=== PATIENT | male | born 1960 | race Hispanic/Latino ===

== ENCOUNTER 2017-03-05 11:09 | Inpatient (IN) | payer MEDICARE, OTHER ==
[2017-03-05 11:09] VITALS: BMI 35.2
[2017-03-05 12:42] LABS: EOS # 0.3 K/uL (0.0-0.7); LYMPH # 1.1 K/uL (1.0-4.3); MEAN CORPUSCULAR HEMOGLOBIN 23.5 pg (27.0-31.0); MEAN PLATELET VOLUME 6.6 fL (7.2-11.7); MONO # 0.9 K/uL (0.0-0.8)
[2017-03-05 12:47] LABS: BASO % 0.4 % (0.0-2.0); EOS % 3.1 % (0.0-4.0); HEMATOCRIT 19.8 % (35.0-51.0); MEAN CORPUSCULAR HGB CONC 31.6 g/dL (33.0-37.0); MONO % 8.6 % (0.0-10.0); NRBC % 0.1 % (0.0-2.0); RED CELL DISTRIBUTION WIDTH 18.1 % (11.5-14.5); WHITE BLOOD COUNT 10.2 K/uL (4.8-10.8)
[2017-03-05 12:52] LABS: CHLORIDE 94 mmol/L (98-107); MEAN CELL VOLUME 74.3 fL (80.0-94.0); POTASSIUM 5.1 mmol/L (3.6-5.2); SODIUM 129 mmol/L (132-148)
[2017-03-05 12:54] LABS: AST/SGOT 27 U/L (17-59); BILIRUBIN,TOTAL 0.3 mg/dL (0.2-1.3); CARBON DIOXIDE 19 mmol/L (22-30); GFR AFRICAN-AMERICAN 19
[2017-03-05 12:55] LABS: ALB/GLOB RATIO 0.8 (1.0-2.1); ALKALINE PHOSPHATASE 85 U/L (38-126); ALT/SGPT 21 U/L (21-72); BLOOD UREA NITROGEN 51 mg/dL (9-20); CALCIUM 7.7 mg/dl (8.6-10.4); GLUCOSE,RANDOM 203 mg/dL (75-110); TOTAL PROTEIN 6.5 g/dL (6.3-8.3)
--- NOTE | 2017-03-05 13:04 | C.PDOC ---
History Of Present Illness 56 y/o male, with past medical history of DM, CHF, renal insufficiency, and HTN , presents to emergency department with multiple complaints. As per pt, and prior charts, patient was evaluated at [facility] 2 days ago and was found to have fluid overload, anemia, likely worsening renal function, and questionable pneumonia. Patient left the hospital AMA on 03/03/17. Patient notes he was notified yesterday of blood culture with (+) staph aureus. Patient returns today for admission. Patient currently c/o cough, shortness of breath, shoulder pain, and foot pain. Denies fevers, chills, chest pain, nausea, vomiting, diarrhea, or other associated symptoms. Time Seen by Provider: 03/05/17 12:09 Chief Complaint (Nursing): Abnormal Labs History Per: Patient History/Exam Limitations: no limitations Onset/Duration Of Symptoms: Days Current Symptoms Are (Timing): Still Present Recent travel outside of the [place]: No Past Medical History Reviewed: Historical Data, Nursing Documentation, Vital Signs Vital Signs: Last Vital Signs Temp 97.5 F L 03/11/17 23:45 Pulse 100 H 03/11/17 23:45 Resp 20 03/11/17 23:45 BP 159/96 H 03/11/17 23:45 Pulse Ox 97 03/11/17 23:45 - Medical History PMH: CHF, Diabetes, HTN - [facility] Procedures EXCIS DEBRIDE OF WOUND, INFECT, OR BURN (03/04/04) TETANUS TOXOID ADMINIST (12/03/13) Family History: States: Unknown Family Hx - Social History Hx Tobacco Use: No Hx Alcohol Use: No Hx Substance Use: No - Immunization History Hx Tetanus Toxoid Vaccination: Yes Hx Influenza Vaccination: Yes Hx Pneumococcal Vaccination: No Review Of Systems Except As Marked, All Systems Reviewed And Found Negative. Constitutional: Negative for: Fever, Chills Cardiovascular: Negative for: Chest Pain Respiratory: Positive for: Cough, Shortness of Breath Gastrointestinal: Negative for: Nausea, Vomiting, Diarrhea Musculoskeletal: Positive for: Shoulder Pain, Foot Pain Skin: Negative for: Rash Physical Exam - Physical Exam Appears: Chronically Ill Skin: Pale Head: Atraumatic, Normacephalic Chest: Symmetrical, No Tenderness Cardiovascular: Rhythm Regular (tachycardic) Respiratory: Decreased Breath Sounds (diminished breath sounds), No Accessory Muscle Use, Rhonchi (scattered ) Gastrointestinal/Abdominal: Normal Exam, Soft, No Tenderness, No Guarding, No Rebound Extremity: Tenderness (right shoulder), Pedal Edema (bilateral, pitting, +2 to + 3), Capillary Refill (< 2 sec. ), No Deformity, Other (scratches and excoriation to bilateral upper extremities) Pulses: Left Radial: Normal, Right Radial: Normal Neurological/Psych: Oriented x3 ED Course And Treatment - Laboratory Results Result Diagrams: 03/11/17 08:06 03/11/17 08:06 O2 Sat by Pulse Oximetry: 98 (RA) Pulse Ox Interpretation: Normal Medical Decision Making Medical Decision Making: Plan: * Labs * CxR * Reassess Prior Visits: Notes and results from previous visits were reviewed Progress Notes: 12:49 - HGB of 6.3 13:20 - Discussed with Dr. Abel Emery who agrees to admit patient, recommends Zosyn, Vancomycin, Lasix Disposition Discussed With DrAraseli: Ami Emery - Disposition Disposition: HOSPITALIZED Disposition Time: 13:40 Condition: GOOD - Clinical Impression Clinical Impression: Bacteremia, Congestive heart failure (CHF), Anemia - PA / SENIOR TREASURY ANALYST / Resident Statement MD/DO has reviewed & agrees with the documentation as recorded. - Scribe Statement The provider has reviewed the documentation as recorded by the Katieibkay Rocha All medical record entries made by the Katieibe were at my direction and personally dictated by me. I have reviewed the chart and agree that the record accurately reflects my personal performance of the history, physical exam, medical decision making, and the department course for this patient. I have also personally directed, reviewed, and agree with the discharge instructions and disposition. Decision To Admit - Pt Status Changed To: Hospital Disposition Of: Inpatient - Admit Certification Admit to Inpatient:: After my assessment, the patient will require hospitalization for at least two midnights. This is because of the severity of symptoms shown, intensity of services needed, and/or the medical risk in this patient being treated as an outpatient. - InPatient: Physician Admission Certification: I certify that this patient requires 2 or more midnights of care for the following reason:: requires diuresis, antibiotics - . Bed Request Type: Telemetry Patient Diagnosis: Bacteremia, Congestive heart failure (CHF), Anemia
--- NOTE | 2017-03-05 13:20 | RAD ---
PROCEDURE: CHEST RADIOGRAPH, 1 VIEW HISTORY: SOB COMPARISON: 01/01/2014 FINDINGS: LUNGS: Linear scar/atelectasis at left base. Ill-defined opacity the upper and lower right lung. Possible early pneumonia. Followup advised. PLEURA: No pneumothorax or pleural fluid seen. CARDIOVASCULAR: Normal. OSSEOUS STRUCTURES: No significant abnormalities. VISUALIZED UPPER ABDOMEN: Normal. OTHER FINDINGS: None. IMPRESSION: Ill-defined opacity upper and lower right lung, possibly early pneumonia. Linear scar/ atelectasis left base. Followup advised.
[2017-03-05] MEDS ORDERED: Piperacillin/Tazobact 3.375 GM in Sodium Chloride 100 ML IVPB STA (13:32)
[2017-03-05] MEDS ORDERED: Piperacillin/Tazobact 3.375 gm 100 ML IVPB ONE (13:52)
[2017-03-05 15:15] LABS: RBC URINE 4 /hpf (0-3); URINE BACTERIA OCC (<OCC); URINE BILIRUBIN NEGATIVE (NEGATIVE); URINE BLOOD 1+ (NEGATIVE); URINE COLOR Straw (YELLOW); URINE GLUCOSE (UA) 1+ mg/dL (Normal); URINE KETONE NEGATIVE (NEGATIVE); URINE LEUKOCYTE ESTERASE NEG Leu/uL (Negative); URINE PROTEIN 2+ mg/dL (NEGATIVE); URINE UROBILINOGEN NORMAL mg/dL (0.2-1.0); WBC URINE 6 /hpf (0-5)
[2017-03-05] MEDS ORDERED: Vancomycin 1 gm/NS 200 ml 200 ML IVPB SCH ×2 (18:15→22:00)
--- NOTE | 2017-03-05 18:39 | CP.PCM.CON ---
History of Present Illness - History of Present Illness History of Present Illness: 56 y/o male, with past medical history of DM, CHF, renal insufficiency, and HTN , presents to emergency department with multiple complaints. , patient was evaluated at [facility] 2 days [employer] and was found to have fluid overload, anemia, worsening renal function, and questionable pneumonia. Patient left the hospital AMA on 03/03/17. Patient notes he was notified of blood culture with (+) staph aureus. recently fell ? syncope c/o pain right shoulder - onset prior to fall - Medical History PMH: CHF, Diabetes, HTN chronic right foot charcot foot Review of Systems - Constitutional Constitutional: As Per HPI - EENT Eyes: absent: As Per HPI, Blind Spots, Blurred Vision, Change in Vision, Decreased Night Vision, Diplopia, Discharge, Dry Eye, Exophthalmos, Floaters, Irritation, Itchy Eyes, Loss of Peripheral Vision, Pain, Photophobia, Requires Corrective Lenses, Sees Flashes, Spots in Vision, Tunnel Vision, Other Visual Disturbances, Loss of Vision, Other Ears: absent: As Per HPI, Decreased Hearing, Ear Discharge, Ear Pain, Tinnitus, Abnormal Hearing, Disequilibrium, Dizziness, Other - Cardiovascular Cardiovascular: As Per HPI - Respiratory Respiratory: As Per HPI - Gastrointestinal Gastrointestinal: absent: As Per HPI, Abdominal Pain, Belching, Bloating, Change in Bowel Habits, Change in Stool Character, Coffee Ground Emesis, Constipation, Cramping, Diarrhea, Dyspepsia, Dysphagia, Early Satiety, Excessive Flatus, Fecal Incontinence, Heartburn, Hematemesis, Hematochezia, Loose Stools, Melena, Nausea, Odynophagia, Temesmus, Vomiting, Other - Genitourinary Genitourinary: absent: As Per HPI, Change in Urinary Stream, Difficulty Urinating, Dysuria, Flank Pain, Hematuria, Pyuria, Nocturia, Urinary Incontinence, Urinary Frequency, Urinary Hesitance, Urinary Urgency, Voiding Freq/Small Amts, Freq UTI, Hx Renal/Bladder Calculi, Hx /Renal Surgery, Bladder Distension, Other - Musculoskeletal Musculoskeletal: As Per HPI - Integumentary Integumentary: As Per HPI - Neurological Neurological: absent: As Per HPI, Abnormal Gait, Abnormal Hearing, Abnormal Movements, Abnormal Speech, Behavioral Changes, Burning Sensations, Confusion, Convulsions, Disequilibrium, Dizziness, Numbness, Focal Weakness, Frequent Falls , Headaches, Lack of Coordination, Loss of Vision, Memory Loss, Paresthesias, Radicular Pain, Restless Legs, Sensory Deficit, Syncope, Tingling, Tremor, Vertigo, Weakness, Other Visual Disturbances, Other - Psychiatric Psychiatric: absent: As Per HPI, Abnormal Sleep Pattern, Anhedonia, Anxiety, Auditory Hallucinations, Behavioral Changes, Change in Appetite, Change in Libido, Confusion, Depression, Difficulty Concentrating, Hallucinations, Homicidal Ideation, Hopelessness, Irritability, Memory Loss, Mood Swings, Panic Attacks, Paranoia, Suicidal Ideation, Visual Hallucinations, Tactile Hallucinations, Other - Endocrine Endocrine: absent: As Per HPI, Change in Body Appearance, Change in Libido, Cold Intolorance, Deepening of Voice, Excessive Sweating, Fatigue, Flushing, Heat Intolorance, Increase in Ring/Shoe/Hat Size, Palpitations, Polydipsia, Polyphagia, Polyuria, Other - Hematologic/Lymphatic Hematologic: absent: As Per HPI, Easy Bleeding, Easy Bruising, Lymphadenopathy, Other Past Patient History - Infectious Disease Hx of Infectious Diseases: None - Past Social History Smoking Status: Former Smoker - CARDIAC Hx Congestive Heart Failure: Yes Hx Hypertension: Yes - PSYCHIATRIC Hx Substance Use: No - SURGICAL HISTORY Hx Musculoskeletal Surgery: Yes (foot surgery) - ANESTHESIA Hx Anesthesia: Yes Hx Anesthesia Reactions: No Hx Malignant Hyperthermia: No Meds Allergies/Adverse Reactions: Allergies Allergy/AdvReac Type Severity Reaction Status Date / Time PEACH SNAPPLE Allergy Mild RASH Uncoded 03/06/17 17:13 - Medications Medications: Current Medications Bumetanide (Bumex) 1 mg PO BID [facility] Enoxaparin Sodium (Lovenox) 40 mg SC DAILY [facility] Furosemide (Lasix) 80 mg IVP DAILY [facility] Piperacillin Sod/Tazobactam Sod (Zosyn 3.375 Gm Iv Premix) 50 mls @ 100 mls/hr IVPB Q6H [facility] Vancomycin/Sodium Chloride (Vancocin) 200 mls @ 166.6 mls/hr IVPB Q12H [facility] Stop: 03/10/17 22:01 Insulin Glargine (Lantus) 20 unit SC QAM [facility] Lorazepam (Ativan) 1 mg PO BID [facility] Montelukast Sodium (Singulair) 10 mg PO HS [facility] Morphine Sulfate (Morphine) 2 mg IVP Q8 PRN PRN Reason: Pain, severe (8-10) Pantoprazole Sodium (Protonix Ec Tab) 40 mg PO DAILY [facility] Physical Exam - Constitutional Appears: Non-toxic, Chronically Ill - Head Exam Head Exam: NORMOCEPHALIC - Eye Exam Eye Exam: PERRL. absent: Scleral icterus - ENT Exam ENT Exam: Mucous Membranes Dry, Normal External Ear Exam - Neck Exam Neck exam: Negative for: Lymphadenopathy, Thyromegaly - Respiratory Exam Respiratory Exam: Decreased Breath Sounds, Rhonchi - Cardiovascular Exam Cardiovascular Exam: REGULAR RHYTHM, +S1, +S2 - GI/Abdominal Exam GI & Abdominal Exam: Diminished Bowel Sounds, Soft. absent: Tenderness - Rectal Exam Rectal Exam: Deferred - Exam Exam: NORMAL INSPECTION - Extremities Exam Extremities exam: Positive for: pedal edema, tenderness. Negative for: calf tenderness, pedal pulses present - Back Exam Back exam: absent: CVA tenderness (L), CVA tenderness (R), paraspinal tenderness - Neurological Exam Neurological exam: Alert, CN II-XII Intact, Oriented x3, Reflexes Normal - Psychiatric Exam Psychiatric exam: Depressed - Skin Skin Exam: Dry Results - Vital Signs Recent Vital Signs: Last Vital Signs Temp 98.2 F 03/05/17 17:33 Pulse 121 H 03/05/17 17:33 Resp 20 03/05/17 17:33 BP 138/87 03/05/17 17:33 Pulse Ox 100 03/05/17 17:33 - Labs Result Diagrams: 03/06/17 07:48 03/05/17 12:39 Labs: Laboratory Results - last 24 hr 03/05/17 14:52 Urine Color Straw Urine Clarity Clear Urine pH 6.0 Ur Specific [place] 1.006 Urine Protein 2+ H Urine Glucose (UA) 1+ H Urine Ketones Negative Urine Blood 1+ H Urine Nitrate Negative Urine Bilirubin Negative Urine Urobilinogen Normal Ur Leukocyte Esterase Neg Urine WBC (Auto) 6 H Urine RBC (Auto) 4 H Urine Bacteria Occ H Assessment & Plan (1) Anemia Status: Acute (2) Bacteremia Status: Acute (3) Congestive heart failure (CHF) Status: Acute (4) HTN (hypertension) Status: Acute (5) Opacity of lung on imaging study Status: Acute - Assessment and Plan (Free Text) Assessment: r/o bacteremic pneumonia r/o endocarditis r/o OM left foot r/o OM right clavicle recc: YESENIA, bone scan and MRI right foot and right shoulder
--- NOTE | 2017-03-05 19:25 | CP.PCM.HP ---
History of Present Illness - History of Present Illness History of Present Illness: 47-year-old male patient with the past medical history of diabetes mellitus, CHF , renal insufficiency and hypertension who presented to the ED with multiple complaints. As per patient, patient was evaluated at [facility] 2 days ago and was found to have fluid overload, anemia, likely worsening renal function and questionable pneumonia. Patient left the hospital AMA on 03/03/17. Patient told he was notified yesterday of blood culture with positive staph aureus. Patient did not return today for admission. Patient currently complaining of cough, shortness of breath, shoulder pain and foot pain. Denies fever, chills, chest pain, nausea, vomiting, diarrhea. Present on Admission - Present on Admission Any Indicators Present on Admission: No Past Patient History - Infectious Disease Hx of Infectious Diseases: None - Past Social History Smoking Status: Former Smoker - CARDIAC Hx Congestive Heart Failure: Yes Hx Hypertension: Yes - PSYCHIATRIC Hx Substance Use: No - SURGICAL HISTORY Hx Musculoskeletal Surgery: Yes (foot surgery) - ANESTHESIA Hx Anesthesia: Yes Hx Anesthesia Reactions: No Hx Malignant Hyperthermia: No Meds Home Medications: Home Medication List Medication Instructions Recorded Confirmed Type Cephalexin [Keflex] 1 gm PO TID #42 capsule 03/12/17 Rx Allergies/Adverse Reactions: Allergies Allergy/AdvReac Type Severity Reaction Status Date / Time PEACH SNAPPLE Allergy Mild RASH Uncoded 03/06/17 17:13 Results - Vital Signs Recent Vital Signs: Last Vital Signs Temp 98.2 F 03/05/17 17:33 Pulse 121 H 03/05/17 17:33 Resp 20 03/05/17 17:33 BP 138/87 03/05/17 17:33 Pulse Ox 100 03/05/17 17:33 - Labs Result Diagrams: 03/12/17 13:48 03/12/17 13:48 Labs: Laboratory Results - last 24 hr 03/05/17 14:52 Urine Color Straw Urine Clarity Clear Urine pH 6.0 Ur Specific [place] 1.006 Urine Protein 2+ H Urine Glucose (UA) 1+ H Urine Ketones Negative Urine Blood 1+ H Urine Nitrate Negative Urine Bilirubin Negative Urine Urobilinogen Normal Ur Leukocyte Esterase Neg Urine WBC (Auto) 6 H Urine RBC (Auto) 4 H Urine Bacteria Occ H Assessment & Plan (1) Abrasion Status: Acute (2) Anemia Status: Acute (3) Bacteremia Status: Acute (4) Congestive heart failure (CHF) Status: Acute (5) Dyspnea Status: Acute (6) HTN (hypertension) Status: Acute (7) Injury of head Status: Acute (8) Neck swelling Status: Acute (9) Opacity of lung on imaging study Status: Acute - Assessment and Plan (Free Text) Plan: cbc cmp iv antibitoic cardio id mx as ordered kan same
--- NOTE | 2017-03-05 20:15 | CP.PCM.CON ---
History of Present Illness - History of Present Illness History of Present Illness: 56 year old male with a history of DM, charcot foot, admitted with shortness of breath, found to be anemic. The patient reports he was recently seen for the same symptoms at [facility] but signed out AMA. He is unsure of the treatment and work up that was done. He also notes to increased swelling of his right chest wall and neck for about 1 week. Past medical history: DM, charcot foot Past surgical history: toe amputation Family history: Denies hematologic and oncologic problems Social history: Former tobacco abuse Allergies: NKDA Review of systems: All remaining review of systems including HEENT, cardiovascular, respiratory, gastrointestinal, genitourinary, musculoskeletal, dermatologic, neurologic, and psychiatric are negative unless mentioned in the HPI. Past Patient History - Infectious Disease Hx of Infectious Diseases: None - Past Social History Smoking Status: Former Smoker - CARDIAC Hx Congestive Heart Failure: Yes Hx Hypertension: Yes - PSYCHIATRIC Hx Substance Use: No - SURGICAL HISTORY Hx Musculoskeletal Surgery: Yes (foot surgery) - ANESTHESIA Hx Anesthesia: Yes Hx Anesthesia Reactions: No Hx Malignant Hyperthermia: No Meds Allergies/Adverse Reactions: Allergies Allergy/AdvReac Type Severity Reaction Status Date / Time PEACH SNAPPLE Allergy Mild RASH Uncoded 03/06/17 17:13 - Medications Medications: Current Medications Bumetanide (Bumex) 1 mg PO BID [facility] Enoxaparin Sodium (Lovenox) 40 mg SC DAILY [facility] Furosemide (Lasix) 80 mg IVP DAILY [facility] Piperacillin Sod/Tazobactam Sod (Zosyn 3.375 Gm Iv Premix) 50 mls @ 100 mls/hr IVPB Q6H [facility] Vancomycin/Sodium Chloride (Vancocin) 200 mls @ 166.6 mls/hr IVPB Q12H [facility] Stop: 03/10/17 22:01 Insulin Glargine (Lantus) 20 unit SC QAM [facility] Lorazepam (Ativan) 1 mg PO BID [facility] Montelukast Sodium (Singulair) 10 mg PO HS [facility] Morphine Sulfate (Morphine) 2 mg IVP Q8 PRN PRN Reason: Pain, severe (8-10) Pantoprazole Sodium (Protonix Ec Tab) 40 mg PO DAILY [facility] Physical Exam - Head Exam Head Exam: ATRAUMATIC - Eye Exam Eye Exam: Normal appearance - ENT Exam ENT Exam: Mucous Membranes Dry - Respiratory Exam Respiratory Exam: Chest Wall Tenderness - Cardiovascular Exam Cardiovascular Exam: +S1, +S2 - GI/Abdominal Exam GI & Abdominal Exam: Normal Bowel Sounds - Extremities Exam Additional comments: foot dressing - Neurological Exam Neurological exam: Oriented x3 - Psychiatric Exam Psychiatric exam: Normal Affect, Normal Mood - Skin Skin Exam: Warm Results - Vital Signs Recent Vital Signs: Last Vital Signs Temp 98.3 F 03/05/17 19:33 Pulse 122 H 03/05/17 19:33 Resp 20 03/05/17 19:33 BP 166/62 H 03/05/17 19:33 Pulse Ox 98 03/05/17 19:33 - Labs Result Diagrams: 03/06/17 07:48 03/05/17 12:39 Labs: Laboratory Results - last 24 hr 03/05/17 14:52 Urine Color Straw Urine Clarity Clear Urine pH 6.0 Ur Specific [place] 1.006 Urine Protein 2+ H Urine Glucose (UA) 1+ H Urine Ketones Negative Urine Blood 1+ H Urine Nitrate Negative Urine Bilirubin Negative Urine Urobilinogen Normal Ur Leukocyte Esterase Neg Urine WBC (Auto) 6 H Urine RBC (Auto) 4 H Urine Bacteria Occ H Assessment & Plan (1) Anemia Assessment and Plan: agree with transfusion support; to receive 2U PRBC will check ferritin, retic count, b12, folate, FOBT to further characterize likely an element of anemia of CKD Status: Acute (2) Opacity of lung on imaging study Assessment and Plan: will order CT chest for further evaluation unable to give IV contrast due to renal failure Status: Acute (3) Neck swelling Assessment and Plan: will order ultrasound of the neck to rule out blood clot Thank you for this interesting consult. Status: Acute
[2017-03-05] MEDS: Piperacill/Tazo 3.375gm in Dex 50 ML IVPB SCH (20:23)
[2017-03-05 22:19] LABS: FOLATE 3.5 ng/mL
[2017-03-06] MEDS: Piperacill/Tazo 3.375gm in Dex 50 ML IVPB SCH ×5 (00:22→23:45)
[2017-03-06] MEDS: Vancomycin 1 gm/NS 200 ml 200 ML IVPB SCH ×2 (04:17→16:11)
[2017-03-06 07:57] LABS: BASO # 0.1 K/uL (0.0-0.2); BASO % 0.9 % (0.0-2.0); EOS # 0.3 K/uL (0.0-0.7); EOS % 3.1 % (0.0-4.0); HEMATOCRIT 24.8 % (35.0-51.0); LYMPH # 1.2 K/uL (1.0-4.3); MEAN CORPUSCULAR HEMOGLOBIN 24.5 pg (27.0-31.0); MEAN CORPUSCULAR HGB CONC 32.3 g/dL (33.0-37.0); MEAN PLATELET VOLUME 6.4 fL (7.2-11.7); MONO # 1.2 K/uL (0.0-0.8); MONO % 11.2 % (0.0-10.0); NRBC % 0.1 % (0.0-2.0); RED CELL DISTRIBUTION WIDTH 18.2 % (11.5-14.5); WHITE BLOOD COUNT 10.8 K/uL (4.8-10.8)
--- NOTE | 2017-03-06 08:54 | CP.PCM.CON ---
History of Present Illness - History of Present Illness History of Present Illness: I was asked to see patient by Dr. Oh Emery. Patient is a 56 year old male with PMH HTN, hypercholesterolemia, renal insufficiency who presents with dyspnea and weakness. he initally presented to [facility] but singed out. In [facility] he was found to be anemic. The patient is s/p transfusion. Review of Systems - Constitutional Constitutional: absent: As Per HPI, Anorexia, Chills, Daytime Sleepiness, Excessive Sweating, Fatigue, Fever, Frequent Falls, Headache, Increased Appetite , Lethargy, Malaise, Night Sweats, Snoring, Sleep Apnea, Weight Gain, Weight Loss, Weakness, Other - EENT Ears: absent: As Per HPI, Decreased Hearing, Ear Discharge, Ear Pain, Tinnitus, Abnormal Hearing, Disequilibrium, Dizziness, Other Nose/Mouth/Throat: absent: As Per HPI, Epistaxis, Nasal Congestion, Nasal Discharge, Nasal Obstruction, Nasal Trauma, Nose Pain, Post Nasal Drip, Sinus Pain, Sinus Pressure, Bleeding Gums, Change in Voice, Dental Pain, Dry Mouth, Dysphagia, Halitosis, Hoarsness, Lip Swelling, Mouth Lesions, Mouth Pain, Odynophagia, Sore Throat, Throat Swelling, Tongue Swelling, Facial Pain, Neck Pain, Neck Mass, Other - Cardiovascular Cardiovascular: Dyspnea - Respiratory Respiratory: absent: As Per HPI, Cough, Dyspnea, Hemoptysis, Dyspnea on Exertion , Wheezing, Snoring, Stridor, Pain on Inspiration, Chest Congestion, Excessive Mucous Production, Change in Mucous Color, Pain with Coughing, Other - Gastrointestinal Gastrointestinal: absent: As Per HPI, Abdominal Pain, Belching, Bloating, Change in Bowel Habits, Change in Stool Character, Coffee Ground Emesis, Constipation, Cramping, Diarrhea, Dyspepsia, Dysphagia, Early Satiety, Excessive Flatus, Fecal Incontinence, Heartburn, Hematemesis, Hematochezia, Loose Stools, Melena, Nausea, Odynophagia, Temesmus, Vomiting, Other - Musculoskeletal Musculoskeletal: absent: As Per HPI, Abnormal Gait, Arthralgias, Atrophy, Back Pain, Deformity, Joint Swelling, Limited Range of Motion, Loss of Height, Muscle Cramps, Muscle Weakness, Myalgias, Neck Pain, Numbness, Radiating Pain into Limb, Stiffness, Tingling, Other - Integumentary Integumentary: absent: As Per HPI, Acne, Alopecia, Bleeding Lesions, Change in Hair, Change in Nails, Change in Pigmentation, Changing Lesions, Dry Skin, Erythema, Furuncle, Hirsutism, Lesions, New Lesions, Non-Healing Lesions, Photosensitivity, Pruritus, Rash, Skin Pain, Skin Ulcer, Sores, Striae, Swelling , Unusual Bruising, Wounds, Jaundice, Other - Neurological Neurological: absent: As Per HPI, Abnormal Gait, Abnormal Hearing, Abnormal Movements, Abnormal Speech, Behavioral Changes, Burning Sensations, Confusion, Convulsions, Disequilibrium, Dizziness, Numbness, Focal Weakness, Frequent Falls , Headaches, Lack of Coordination, Loss of Vision, Memory Loss, Paresthesias, Radicular Pain, Restless Legs, Sensory Deficit, Syncope, Tingling, Tremor, Vertigo, Weakness, Other Visual Disturbances, Other - Psychiatric Psychiatric: absent: As Per HPI, Abnormal Sleep Pattern, Anhedonia, Anxiety, Auditory Hallucinations, Behavioral Changes, Change in Appetite, Change in Libido, Confusion, Depression, Difficulty Concentrating, Hallucinations, Homicidal Ideation, Hopelessness, Irritability, Memory Loss, Mood Swings, Panic Attacks, Paranoia, Suicidal Ideation, Visual Hallucinations, Tactile Hallucinations, Other - Endocrine Endocrine: absent: As Per HPI, Change in Body Appearance, Change in Libido, Cold Intolorance, Deepening of Voice, Excessive Sweating, Fatigue, Flushing, Heat Intolorance, Increase in Ring/Shoe/Hat Size, Palpitations, Polydipsia, Polyphagia, Polyuria, Other Past Patient History - Infectious Disease Hx of Infectious Diseases: None - Past Social History Smoking Status: Former Smoker - CARDIAC Hx Congestive Heart Failure: Yes Hx Hypertension: Yes - PSYCHIATRIC Hx Substance Use: No - SURGICAL HISTORY Hx Musculoskeletal Surgery: Yes (foot surgery) - ANESTHESIA Hx Anesthesia: Yes Hx Anesthesia Reactions: No Hx Malignant Hyperthermia: No Meds Allergies/Adverse Reactions: Allergies Allergy/AdvReac Type Severity Reaction Status Date / Time PEACH SNAPPLE Allergy Uncoded 03/05/17 11:15 - Medications Medications: Current Medications Bumetanide (Bumex) 1 mg PO BID [facility] Enoxaparin Sodium (Lovenox) 40 mg SC DAILY [facility] Furosemide (Lasix) 80 mg IVP DAILY [facility] Hydromorphone HCl (Dilaudid) 2 mg IVP Q6H PRN PRN Reason: Pain, severe (8-10) Last Admin: 03/06/17 04:30 Dose: 2 mg Piperacillin Sod/Tazobactam Sod (Zosyn 3.375 Gm Iv Premix) 50 mls @ 100 mls/hr IVPB Q6H [facility] Last Admin: 03/06/17 06:38 Dose: 100 mls/hr Vancomycin/Sodium Chloride (Vancocin) 200 mls @ 166.6 mls/hr IVPB Q12H [facility] Stop: 03/11/17 03:01 Last Admin: 03/06/17 04:17 Dose: 166.6 mls/hr Insulin Glargine (Lantus) 20 unit SC QAM [facility] Lorazepam (Ativan) 1 mg PO BID [facility] Montelukast Sodium (Singulair) 10 mg PO HS [facility] Last Admin: 03/05/17 22:58 Dose: 10 mg Pantoprazole Sodium (Protonix Ec Tab) 40 mg PO DAILY [facility] Results - Vital Signs Recent Vital Signs: Last Vital Signs Temp 98.1 F 03/06/17 07:19 Pulse 109 H 03/06/17 07:19 Resp 20 03/06/17 07:19 BP 159/106 H 03/06/17 07:19 Pulse Ox 96 03/06/17 07:19 - Labs Result Diagrams: 03/06/17 07:48 03/05/17 12:39 Labs: Laboratory Results - last 24 hr 03/05/17 03/05/17 03/05/17 14:52 20:00 22:03 WBC RBC Hgb Hct MCV MCH MCHC RDW Plt Count MPV Neut % (Auto) Lymph % (Auto) [place] % (Auto) Eos % (Auto) Baso % (Auto) Neut # Lymph # [place] # Eos # Baso # Retic Count POC Glucose (mg/dL) 263 H Ferritin 139.0 Vitamin B12 461 Folate 3.5 Urine Color Straw Urine Clarity Clear Urine pH 6.0 Ur Specific Strang 1.006 Urine Protein 2+ H Urine Glucose (UA) 1+ H Urine Ketones Negative Urine Blood 1+ H Urine Nitrate Negative Urine Bilirubin Negative Urine Urobilinogen Normal Ur Leukocyte Esterase Neg Urine WBC (Auto) 6 H Urine RBC (Auto) 4 H Urine Bacteria Occ H 03/05/17 03/06/17 03/06/17 22:41 07:48 08:05 WBC 10.8 RBC 3.27 L Hgb 8.0 L Hct 24.8 L MCV 76.0 L MCH 24.5 L MCHC 32.3 L RDW 18.2 H Plt Count 423 H MPV 6.4 L Neut % (Auto) 73.8 Lymph % (Auto) 11.0 L [place] % (Auto) 11.2 H Eos % (Auto) 3.1 Baso % (Auto) 0.9 Neut # 8.0 H Lymph # 1.2 [place] # 1.2 H Eos # 0.3 Baso # 0.1 Retic Count 1.6 H POC Glucose (mg/dL) 179 H Ferritin Vitamin B12 Folate Urine Color Urine Clarity Urine pH Ur Specific Strang Urine Protein Urine Glucose (UA) Urine Ketones Urine Blood Urine Nitrate Urine Bilirubin Urine Urobilinogen Ur Leukocyte Esterase Urine WBC (Auto) Urine RBC (Auto) Urine Bacteria - EKG Data EKG Interpreted by: Myself EKG shows normal: Sinus rhythm Assessment & Plan (1) Dyspnea Assessment and Plan: unclear etiology. recommend echocardiogram to evaluate LV function. Status: Acute (2) HTN (hypertension) Assessment and Plan: blood pressure control. Status: Acute
[2017-03-06] MEDS: (Lantus) Insulin Glargine, Recombinant SC SCH (09:49)
[2017-03-06] MEDS: Pantoprazole 40 mg EC Tab PO SCH (10:00)
[2017-03-06] MEDS ORDERED: Enoxaparin 40 mg Syringe SC SCH (10:00)
--- NOTE | 2017-03-06 14:55 | CP.PCM.PN ---
Subjective - Date & Time of Evaluation Date of Evaluation: 03/06/17 Time of Evaluation: 01:00 - Subjective Subjective: clinically same Objective - Vital Signs/Intake and Output Vital Signs (last 24 hours): Temp Pulse Resp BP Pulse Ox 97.5 F L 100 H 20 163/92 H 98 03/06/17 08:35 03/06/17 08:35 03/06/17 08:35 03/06/17 09:50 03/06/17 08:35 - Medications Medications: Current Medications Docusate Sodium (Colace) 300 [facility] PO [facility] Enoxaparin Sodium (Lovenox) 40 mg SC DAILY [facility] Last Admin: 03/06/17 09:53 Dose: 40 mg Furosemide (Lasix) 80 mg IVP DAILY [facility] Last Admin: 03/06/17 09:50 Dose: 80 mg Hydromorphone HCl (Dilaudid) 2 mg IVP Q6H PRN PRN Reason: Pain, severe (8-10) Last Admin: 03/06/17 10:33 Dose: 2 mg Piperacillin Sod/Tazobactam Sod (Zosyn 3.375 Gm Iv Premix) 50 mls @ 100 mls/hr IVPB Q6H [facility] Last Admin: 03/06/17 13:00 Dose: 100 mls/hr Vancomycin/Sodium Chloride (Vancocin) 200 mls @ 166.6 mls/hr IVPB Q12H [facility] Stop: 03/11/17 03:01 Last Admin: 03/06/17 04:17 Dose: 166.6 mls/hr Insulin Glargine (Lantus) 20 unit SC QAM [facility] Last Admin: 03/06/17 09:49 Dose: 20 unit Lorazepam (Ativan) 1 mg PO BID [facility] Last Admin: 03/06/17 10:00 Dose: Not Given Montelukast Sodium (Singulair) 10 mg PO HS [facility] Last Admin: 03/05/17 22:58 Dose: 10 mg Pantoprazole Sodium (Protonix Ec Tab) 40 mg PO DAILY [facility] Last Admin: 03/06/17 10:00 Dose: 40 mg - Labs Labs: 03/06/17 07:48 - Constitutional Appears: Well - Head Exam Head Exam: ATRAUMATIC, NORMAL INSPECTION, NORMOCEPHALIC - Eye Exam Eye Exam: EOMI, Normal appearance, PERRL Pupil Exam: NORMAL ACCOMODATION, PERRL - ENT Exam ENT Exam: Mucous Membranes Moist, Normal Exam - Neck Exam Neck Exam: Full ROM, Normal Inspection. absent: Lymphadenopathy - Respiratory Exam Respiratory Exam: Decreased Breath Sounds - Cardiovascular Exam Cardiovascular Exam: REGULAR RHYTHM, +S1, +S2 - GI/Abdominal Exam GI & Abdominal Exam: Soft, Diminished Bowel Sounds - Rectal Exam Rectal Exam: Deferred Assessment and Plan (1) Abrasion Status: Acute (2) Anemia Status: Acute (3) Bacteremia Status: Acute (4) Congestive heart failure (CHF) Status: Acute (5) Dyspnea Status: Acute (6) HTN (hypertension) Status: Acute (7) Injury of head Status: Acute (8) Neck swelling Status: Acute (9) Opacity of lung on imaging study Status: Acute - Assessment and Plan (Free Text) Plan: Follow-up cardiology Follow-up ID Recommend echo Continue IV antibiotics Follow-up with labs Bumex Lovenox Lasix Dilaudid
[2017-03-06] MEDS ORDERED: Pneumococcal 23-Valent Vaccine IM ONE (17:14)
[2017-03-07] MEDS: Vancomycin 1 gm/NS 200 ml 200 ML IVPB SCH ×2 (02:26→15:23)
[2017-03-07] MEDS: Piperacill/Tazo 3.375gm in Dex 50 ML IVPB SCH ×3 (05:14→18:17)
[2017-03-07 05:17] LABS: HEMATOCRIT 22.5 % (38.5-50.0); HEMOGLOBIN 7.2 g/dL (13.2-17.1); RDW 19.7 % (11.0-15.0)
[2017-03-07] MEDS: (Lantus) Insulin Glargine, Recombinant SC SCH (09:34)
[2017-03-07] MEDS: Pantoprazole 40 mg EC Tab PO SCH (09:35)
--- NOTE | 2017-03-07 10:53 | US ---
Limited soft tissue neck ultrasound History: Neck swelling. Comparison: None available. Technique: Real-time sonography was performed through soft tissues of the right neck. Findings: Prominent reticulation and edema seen within the subcutaneous soft tissues at the level of the right neck. At the level of the posterior inferior right neck, there is a 1.4 x 0.9 x 1.4 centimeter ovoid heterogeneous to hypoechoic lesion with a few punctate internal areas of increased echogenicity. This is of uncertain clinical etiology and may represent a soft tissue nodule versus lymph node versus additional etiology. Correlation with contrast-enhanced CT of the neck may be helpful for further evaluation if clinically indicated. Adjacent to this area, there is an additional rounded heterogeneous to hypoechoic lesion measuring 9 x 8 x 9 millimeters which may also represent a soft tissue nodule versus lymph node versus additional etiology. Again correlation with contrast-enhanced CT may be helpful if clinically indicated. Impression: 1. Prominent reticulation and edema seen within the subcutaneous soft tissues at the level of the right neck. 2. At the level of the posterior inferior right neck, there is a 1.4 x 0.9 x 1.4 centimeter ovoid heterogeneous to hypoechoic lesion with a few punctate internal areas of increased echogenicity. This is of uncertain clinical etiology and may represent a soft tissue nodule versus lymph node versus additional etiology. Correlation with contrast-enhanced CT of the neck may be helpful for further evaluation if clinically indicated. Adjacent to this area, there is an additional rounded heterogeneous to hypoechoic lesion measuring 9 x 8 x 9 millimeters which may also represent a soft tissue nodule versus lymph node versus additional etiology. Again correlation with contrast-enhanced CT may be helpful if clinically indicated.
[2017-03-07] MEDS: Enoxaparin 80 mg Syringe SC SCH ×2 (11:05→21:22)
--- NOTE | 2017-03-07 11:21 | CP.PCM.PN ---
Subjective - Date & Time of Evaluation Date of Evaluation: 03/07/17 Time of Evaluation: 11:10 - Subjective Subjective: patient feesl well. wants to go home. denies chest pain or dyspnea. Objective - Vital Signs/Intake and Output Vital Signs (last 24 hours): Temp Pulse Resp BP Pulse Ox 97.4 F L 102 H 20 140/96 H 97 03/07/17 09:04 03/07/17 09:04 03/07/17 09:04 03/07/17 10:04 03/07/17 09:04 Intake and Output: 03/07/17 03/07/17 06:59 18:59 Intake Total 640 Balance 640 - Medications Medications: Current Medications Docusate Sodium (Colace) 300 mg PO [facility] Last Admin: 03/06/17 21:49 Dose: 300 mg Enoxaparin Sodium (Lovenox) 70 mg SC Q12 [facility] Last Admin: 03/07/17 11:05 Dose: Not Given Furosemide (Lasix) 80 mg IVP DAILY [facility] Last Admin: 03/07/17 10:04 Dose: 80 mg Hydromorphone HCl (Dilaudid) 2 mg IVP Q6H PRN PRN Reason: Pain, severe (8-10) Last Admin: 03/07/17 05:16 Dose: 2 mg Piperacillin Sod/Tazobactam Sod (Zosyn 3.375 Gm Iv Premix) 50 mls @ 100 mls/hr IVPB Q6H [facility] Last Admin: 03/07/17 05:14 Dose: 100 mls/hr Vancomycin/Sodium Chloride (Vancocin) 200 mls @ 166.6 mls/hr IVPB Q12H [facility] Stop: 03/11/17 03:01 Last Admin: 03/07/17 02:26 Dose: 166.6 mls/hr Insulin Glargine (Lantus) 20 unit SC QAM [facility] Last Admin: 03/07/17 09:34 Dose: 20 unit Lorazepam (Ativan) 1 mg PO BID [facility] Last Admin: 03/07/17 09:34 Dose: 1 mg Montelukast Sodium (Singulair) 10 mg PO HS [facility] Last Admin: 03/06/17 21:49 Dose: 10 mg Pantoprazole Sodium (Protonix Ec Tab) 40 mg PO DAILY [facility] Last Admin: 03/07/17 09:35 Dose: 40 mg - Labs Labs: 03/06/17 07:48 - Constitutional Appears: Non-toxic - Head Exam Head Exam: NORMAL INSPECTION - Eye Exam Eye Exam: Normal appearance - ENT Exam ENT Exam: Mucous Membranes Moist - Neck Exam Neck Exam: Full ROM - Respiratory Exam Respiratory Exam: Decreased Breath Sounds - Cardiovascular Exam Cardiovascular Exam: REGULAR RHYTHM - GI/Abdominal Exam GI & Abdominal Exam: Normal Bowel Sounds - Rectal Exam Rectal Exam: Deferred - Extremities Exam Extremities Exam: Pedal Edema - Back Exam Back Exam: NORMAL INSPECTION - Neurological Exam Neurological Exam: Alert - Psychiatric Exam Psychiatric exam: Normal Affect - Skin Skin Exam: Normal Color Assessment and Plan (1) Dyspnea Assessment & Plan: patient's symptoms have improved. there may be a correlation to anemia. no overt signs of heart failure. Status: Acute (2) HTN (hypertension) Assessment & Plan: blood pressure is controlled Status: Acute
--- NOTE | 2017-03-07 15:30 | CP.PCM.PN ---
Subjective - Date & Time of Evaluation Date of Evaluation: 03/07/17 Time of Evaluation: 07:20 - Subjective Subjective: clinically same Objective - Vital Signs/Intake and Output Vital Signs (last 24 hours): Temp Pulse Resp BP Pulse Ox 97.4 F L 102 H 20 140/96 H 97 03/07/17 09:04 03/07/17 09:04 03/07/17 09:04 03/07/17 10:04 03/07/17 09:04 Intake and Output: 03/07/17 03/07/17 06:59 18:59 Intake Total 640 450 Balance 640 450 - Medications Medications: Current Medications Docusate Sodium (Colace) 300 mg PO HS [facility] Last Admin: 03/06/17 21:49 Dose: 300 mg Enoxaparin Sodium (Lovenox) 70 mg SC Q12 [facility] Last Admin: 03/07/17 11:05 Dose: Not Given Furosemide (Lasix) 80 mg IVP DAILY [facility] Last Admin: 03/07/17 10:04 Dose: 80 mg Hydromorphone HCl (Dilaudid) 2 mg IVP Q6H PRN PRN Reason: Pain, severe (8-10) Last Admin: 03/07/17 13:15 Dose: 2 mg Piperacillin Sod/Tazobactam Sod (Zosyn 3.375 Gm Iv Premix) 50 mls @ 100 mls/hr IVPB Q6H [facility] Last Admin: 03/07/17 13:12 Dose: 100 mls/hr Vancomycin/Sodium Chloride (Vancocin) 200 mls @ 166.6 mls/hr IVPB Q12H [facility] Stop: 03/11/17 03:01 Last Admin: 03/07/17 15:23 Dose: 166.6 mls/hr Insulin Glargine (Lantus) 20 unit SC QAM [facility] Last Admin: 03/07/17 09:34 Dose: 20 unit Lorazepam (Ativan) 1 mg PO BID [facility] Last Admin: 03/07/17 09:34 Dose: 1 mg Montelukast Sodium (Singulair) 10 mg PO HS [facility] Last Admin: 03/06/17 21:49 Dose: 10 mg Pantoprazole Sodium (Protonix Ec Tab) 40 mg PO DAILY [facility] Last Admin: 03/07/17 09:35 Dose: 40 mg - Labs Labs: 03/06/17 07:48 - Constitutional Appears: Well - Head Exam Head Exam: ATRAUMATIC, NORMAL INSPECTION, NORMOCEPHALIC - Eye Exam Eye Exam: EOMI, Normal appearance, PERRL Pupil Exam: NORMAL ACCOMODATION, PERRL - ENT Exam ENT Exam: Mucous Membranes Moist, Normal Exam - Neck Exam Neck Exam: Full ROM, Normal Inspection. absent: Lymphadenopathy - Respiratory Exam Respiratory Exam: Decreased Breath Sounds - Cardiovascular Exam Cardiovascular Exam: REGULAR RHYTHM, +S1, +S2 - GI/Abdominal Exam GI & Abdominal Exam: Soft, Diminished Bowel Sounds - Rectal Exam Rectal Exam: Deferred Assessment and Plan (1) Abrasion Status: Acute (2) Anemia Status: Acute (3) Bacteremia Status: Acute (4) Congestive heart failure (CHF) Status: Acute (5) Dyspnea Status: Acute (6) HTN (hypertension) Status: Acute (7) Injury of head Status: Acute (8) Neck swelling Status: Acute (9) Opacity of lung on imaging study Status: Acute - Assessment and Plan (Free Text) Plan: Follow-up cardiology Follow-up ID Colace Lovenox Lasix Dilaudid IV antibiotics Protonix
--- NOTE | 2017-03-07 15:53 | CP.PCM.PN ---
Subjective - Date & Time of Evaluation Date of Evaluation: 03/07/17 Time of Evaluation: 06:00 - Subjective Subjective: HAS RECURRENT MSSA BACTEREMIA RECC: YESENIA, BONE SCAN/mri RUIGHT FOOT AND CLAVICLE NEEDS POSIATRY EVAL ? OM RIGHT FOOT Objective - Vital Signs/Intake and Output Vital Signs (last 24 hours): Temp Pulse Resp BP Pulse Ox 97.4 F L 102 H 20 140/96 H 97 03/07/17 09:04 03/07/17 09:04 03/07/17 09:04 03/07/17 10:04 03/07/17 09:04 Intake and Output: 03/07/17 03/07/17 06:59 18:59 Intake Total 640 450 Balance 640 450 - Medications Medications: Current Medications Docusate Sodium (Colace) 300 mg PO HS [facility] Last Admin: 03/06/17 21:49 Dose: 300 mg Enoxaparin Sodium (Lovenox) 70 mg SC Q12 [facility] Last Admin: 03/07/17 11:05 Dose: Not Given Furosemide (Lasix) 80 mg IVP DAILY [facility] Last Admin: 03/07/17 10:04 Dose: 80 mg Hydromorphone HCl (Dilaudid) 2 mg IVP Q6H PRN PRN Reason: Pain, severe (8-10) Last Admin: 03/07/17 13:15 Dose: 2 mg Piperacillin Sod/Tazobactam Sod (Zosyn 3.375 Gm Iv Premix) 50 mls @ 100 mls/hr IVPB Q6H [facility] Last Admin: 03/07/17 13:12 Dose: 100 mls/hr Vancomycin/Sodium Chloride (Vancocin) 200 mls @ 166.6 mls/hr IVPB Q12H [facility] Stop: 03/11/17 03:01 Last Admin: 03/07/17 15:23 Dose: 166.6 mls/hr Insulin Glargine (Lantus) 20 unit SC QAM [facility] Last Admin: 03/07/17 09:34 Dose: 20 unit Lorazepam (Ativan) 1 mg PO BID [facility] Last Admin: 03/07/17 09:34 Dose: 1 mg Montelukast Sodium (Singulair) 10 mg PO HS [facility] Last Admin: 03/06/17 21:49 Dose: 10 mg Pantoprazole Sodium (Protonix Ec Tab) 40 mg PO DAILY [facility] Last Admin: 03/07/17 09:35 Dose: 40 mg - Labs Labs: 03/06/17 07:48 - Constitutional Appears: Non-toxic, Chronically Ill - Head Exam Head Exam: NORMOCEPHALIC - Eye Exam Eye Exam: PERRL. absent: Scleral icterus - ENT Exam ENT Exam: Mucous Membranes Dry - Neck Exam Neck Exam: absent: Lymphadenopathy - Respiratory Exam Respiratory Exam: Decreased Breath Sounds - Cardiovascular Exam Cardiovascular Exam: REGULAR RHYTHM - GI/Abdominal Exam GI & Abdominal Exam: Distended, Soft. absent: Tenderness - Rectal Exam Rectal Exam: Deferred - Exam Exam: NORMAL INSPECTION Assessment and Plan (1) Anemia Status: Acute (2) Bacteremia Status: Acute (3) Congestive heart failure (CHF) Status: Acute (4) HTN (hypertension) Status: Acute (5) Opacity of lung on imaging study Status: Acute - Assessment and Plan (Free Text) Assessment: HAS RECURRENT MSSA BACTEREMIA RECC: YESENIA, BONE SCAN/mri RUIGHT FOOT AND CLAVICLE NEEDS POSIATRY EVAL ? OM RIGHT FOOT
[2017-03-08] MEDS: Piperacill/Tazo 3.375gm in Dex 50 ML IVPB SCH ×4 (00:49→18:31)
[2017-03-08] MEDS: Vancomycin 1 gm/NS 200 ml 200 ML IVPB SCH (03:01)
[2017-03-08] MEDS: Pantoprazole 40 mg EC Tab PO SCH (09:09)
[2017-03-08] MEDS: (Lantus) Insulin Glargine, Recombinant SC SCH (09:44)
--- NOTE | 2017-03-08 11:28 | CP.PCM.PN ---
<Ankush Ortega - Last Filed: 03/08/17 13:05> Subjective - Date & Time of Evaluation Date of Evaluation: 03/08/17 Time of Evaluation: 10:15 - Subjective Subjective: Medicine note- Dr. Lowery's service Patient was seen and examined at bedside. Patient reports that he is doing well overall, has some pain in his distal right leg. No additional acute complaints. No events overnight, per nursing. Objective - Vital Signs/Intake and Output Vital Signs (last 24 hours): Temp Pulse Resp BP Pulse Ox 97.3 F L 103 H 20 169/78 H 97 03/08/17 08:00 03/08/17 08:00 03/08/17 08:00 03/08/17 09:08 03/08/17 08:00 - Medications Medications: Current Medications Docusate Sodium (Colace) 300 mg PO [facility] Last Admin: 03/07/17 21:22 Dose: 300 mg Enoxaparin Sodium (Lovenox) 70 mg SC Q12 [facility] Last Admin: 03/07/17 21:22 Dose: 70 mg Furosemide (Lasix) 80 mg IVP DAILY [facility] Last Admin: 03/08/17 09:08 Dose: 80 mg Hydromorphone HCl (Dilaudid) 2 mg IVP Q6H PRN PRN Reason: Pain, severe (8-10) Last Admin: 03/08/17 06:41 Dose: 2 mg Piperacillin Sod/Tazobactam Sod (Zosyn 3.375 Gm Iv Premix) 50 mls @ 100 mls/hr IVPB Q6H [facility] Last Admin: 03/08/17 05:45 Dose: 100 mls/hr Vancomycin/Sodium Chloride (Vancocin) 200 mls @ 166.6 mls/hr IVPB Q12H [facility] Stop: 03/11/17 03:01 Last Admin: 03/08/17 03:01 Dose: 166.6 mls/hr Insulin Glargine (Lantus) 20 unit SC QAM [facility] Last Admin: 03/08/17 09:44 Dose: 20 unit Lorazepam (Ativan) 1 mg PO BID [facility] Last Admin: 03/08/17 09:09 Dose: 1 mg Montelukast Sodium (Singulair) 10 mg PO HS [facility] Last Admin: 03/07/17 21:22 Dose: 10 mg Pantoprazole Sodium (Protonix Ec Tab) 40 mg PO DAILY [facility] Last Admin: 03/08/17 09:09 Dose: 40 mg - Labs Labs: 03/06/17 07:48 - Constitutional Appears: Non-toxic, No Acute Distress - Head Exam Head Exam: ATRAUMATIC, NORMAL INSPECTION, NORMOCEPHALIC - Eye Exam Pupil Exam: NORMAL ACCOMODATION, PERRL - ENT Exam ENT Exam: Mucous Membranes Moist - Respiratory Exam Respiratory Exam: Clear to Ausculation Bilateral, NORMAL BREATHING PATTERN. absent: Rales, Rhonchi, Wheezes - Cardiovascular Exam Cardiovascular Exam: REGULAR RHYTHM, +S1, +S2 - GI/Abdominal Exam GI & Abdominal Exam: Soft, Normal Bowel Sounds. absent: Tenderness, Diminished Bowel Sounds, Hypoactive Bowel Sounds - Extremities Exam Extremities Exam: Normal Capillary Refill, Pedal Edema Additional comments: bilateral lower extremity edema L >R, pitting. Distal R leg has discoloration. - Neurological Exam Neurological Exam: Alert, Awake, Oriented x3 - Psychiatric Exam Psychiatric exam: Normal Affect, Normal Mood - Skin Skin Exam: Dry, Intact, Normal Color, Warm Assessment and Plan - Assessment and Plan (Free Text) Assessment: Bacteremia consult- ID- Dr. Beltran 03/05/17- Blood cultures- Staph Aureus Continue Vanco 1gm Q12h (started 03/06/17) Continue Zosyn 3.375gm Q6h (started 03/05/17) Dilaudid 2mg IVP Q6h PRN f/u Ceretec WBC scan f/u ESR Dyspnea consult cardio- Dr. Cunningham f/u echo YESENIA scheduled for today BNP [id number] Charcot Foot F/u LE arterial duplex Neck swelling Soft tissue Ultrasound- 03/06/17- prominent reticulation and edema seen within the subcutaneous soft tissues at the level of the right neck. At the level of the posterior inferior right neck, there is a 1.4x 0.9x 1.4 cm ovoid hetergeneous to hypoechoic lesion with a few punctate internal areas of increased echogenicity. Adjacent to this area, there is an additional rounded heterogeneous to hypoechoic lesion measuring [id number] which may also represent a soft tissue nodule vs lymph node. f/u HIV f/u CT neck w/o contrast Renal Insufficiency BUN/Cr 51/40 Continue to monitor Anemia consult Hemeonc- Dr. Cardozo s/p 2U PRBC Hgb on admission was 6.3 Hgb on 03/06/17- 8.0 stool occult pending Hemoglobin studies pending Diabetes Continue Lantus 20U SC QAM Prophylactic Measure Protonix 40mg PO Daily All medical management as per Dr. Lowery <Prashanth Lowery Jr. - Last Filed: 03/12/17 16:40> Objective - Vital Signs/Intake and Output Vital Signs (last 24 hours): Temp Pulse Resp BP Pulse Ox 97.6 F 103 H 18 156/94 H 100 03/12/17 16:00 03/12/17 16:00 03/12/17 16:00 03/12/17 16:00 03/12/17 16:00 Intake and Output: 03/12/17 03/12/17 06:59 18:59 Intake Total 850 Balance 850 - Medications Medications: Current Medications Amlodipine Besylate (Norvasc) 5 mg PO DAILY [facility] Last Admin: 03/12/17 09:42 Dose: 5 mg Docusate Sodium (Colace) 300 mg PO HS [facility] Last Admin: 03/11/17 22:01 Dose: 300 mg Furosemide (Lasix) 80 mg IVP DAILY [facility] Last Admin: 03/12/17 09:42 Dose: 80 mg Hydralazine HCl (Apresoline) 50 mg PO Q8H [facility] Last Admin: 03/12/17 13:57 Dose: 50 mg Hydromorphone HCl (Dilaudid) 2 mg IVP Q4H PRN PRN Reason: Pain, severe (8-10) Last Admin: 03/12/17 12:21 Dose: 2 mg Cefazolin Sodium/Dextrose (Ancef Iv 1 Gm Duplex) 50 mls @ 100 mls/hr IVPB Q8H [facility] Last Admin: 03/12/17 13:58 Dose: 100 mls/hr Insulin Glargine (Lantus) 20 unit SC QAM [facility] Last Admin: 03/12/17 09:50 Dose: 20 unit Insulin Human Regular (Novolin R) 0 unit SC ACHS [facility] PRN Reason: Protocol Last Admin: 03/12/17 12:20 Dose: 8 unit Lorazepam (Ativan) 1 mg PO BID [facility] Last Admin: 03/12/17 09:41 Dose: 1 mg Montelukast Sodium (Singulair) 10 mg PO HS [facility] Last Admin: 03/11/17 22:01 Dose: 10 mg Pantoprazole Sodium (Protonix Ec Tab) 40 mg PO DAILY [facility] Last Admin: 03/12/17 09:42 Dose: 40 mg Vitamin B Complex/Vit C/Folic Acid (Nephro-Leanna) 1 tab PO DAILY [facility] Last Admin: 03/12/17 09:42 Dose: 1 tab - Labs Labs: 03/12/17 13:48 03/12/17 13:48 Attending/Attestation - Attestation I have personally seen and examined this patient.: Yes I have fully participated in the care of the patient.: Yes I have reviewed all pertinent clinical information, including history, physical exam and plan: Yes Notes (Text): 03/12/17 16:39 Patient seen and examined. Agree with resident note and findings.
--- NOTE | 2017-03-08 12:15 | CP.PCM.PN ---
Subjective - Date & Time of Evaluation Date of Evaluation: 03/08/17 Time of Evaluation: 08:00 - Subjective Subjective: HAS RECURRENT MSSA BACTEREMIA RECC: YESENIA, BONE SCAN/MRI LEFT FOOT AND CLAVICLE NEEDS PODIATRY EVAL ? OM LEFT FOOT Objective - Vital Signs/Intake and Output Vital Signs (last 24 hours): Temp Pulse Resp BP Pulse Ox 97.3 F L 103 H 20 169/78 H 97 03/08/17 08:00 03/08/17 08:00 03/08/17 08:00 03/08/17 09:08 03/08/17 08:00 - Medications Medications: Current Medications Docusate Sodium (Colace) 300 mg PO HS [facility] Last Admin: 03/07/17 21:22 Dose: 300 mg Enoxaparin Sodium (Lovenox) 70 mg SC Q12 [facility] Last Admin: 03/07/17 21:22 Dose: 70 mg Furosemide (Lasix) 80 mg IVP DAILY [facility] Last Admin: 03/08/17 09:08 Dose: 80 mg Hydromorphone HCl (Dilaudid) 2 mg IVP Q6H PRN PRN Reason: Pain, severe (8-10) Last Admin: 03/08/17 06:41 Dose: 2 mg Piperacillin Sod/Tazobactam Sod (Zosyn 3.375 Gm Iv Premix) 50 mls @ 100 mls/hr IVPB Q6H [facility] Last Admin: 03/08/17 05:45 Dose: 100 mls/hr Vancomycin/Sodium Chloride (Vancocin) 200 mls @ 166.6 mls/hr IVPB Q12H [facility] Stop: 03/11/17 03:01 Last Admin: 03/08/17 03:01 Dose: 166.6 mls/hr Insulin Glargine (Lantus) 20 unit SC QAM [facility] Last Admin: 03/08/17 09:44 Dose: 20 unit Lorazepam (Ativan) 1 mg PO BID [facility] Last Admin: 03/08/17 09:09 Dose: 1 mg Montelukast Sodium (Singulair) 10 mg PO HS [facility] Last Admin: 03/07/17 21:22 Dose: 10 mg Pantoprazole Sodium (Protonix Ec Tab) 40 mg PO DAILY [facility] Last Admin: 03/08/17 09:09 Dose: 40 mg - Labs Labs: 03/06/17 07:48 - Constitutional Appears: Non-toxic, Chronically Ill - Head Exam Head Exam: NORMOCEPHALIC - Eye Exam Eye Exam: absent: Scleral icterus - ENT Exam ENT Exam: Mucous Membranes Dry - Neck Exam Neck Exam: absent: Lymphadenopathy - Respiratory Exam Respiratory Exam: Decreased Breath Sounds, Clear to Ausculation Bilateral - Cardiovascular Exam Cardiovascular Exam: REGULAR RHYTHM, +S1, +S2 - GI/Abdominal Exam GI & Abdominal Exam: Distended, Soft Assessment and Plan (1) Anemia Status: Acute (2) Bacteremia Status: Acute (3) Congestive heart failure (CHF) Status: Acute (4) HTN (hypertension) Status: Acute (5) Opacity of lung on imaging study Status: Acute
--- NOTE | 2017-03-08 12:32 | CARD ---
APPROVED REPORT EXAM: Two-dimensional and M-mode echocardiogram with Doppler and color Doppler. Other Information Quality : GoodRhythm : INDICATION Dyspnea Infection:Rule out subacute bacterial endocarditis Congestive Heart Failure RISK FACTORS Hypertension Diabetes M-Mode DIMENSIONS RVDd2.47 (2.1-3.2cm)Left Atrium (MM)4.16 (2.5-4.0cm) IVSd1.43 (0.7-1.1cm)Aortic Root4.30 (2.2-3.7cm) LVDd6.85 (4.0-5.6cm)Aortic Cusp Exc.2.34 (1.5-2.0cm) PWd1.34 (0.7-1.1cm)FS (%) 25 % LVDs5.12 (2.0-3.8cm)LVEF (%)49 (>50%) Mitral Valve MV E Rlmikphd363.3cm/sE/A ratio0.0 TDI E/Lateral E'0.0E/Medial E'0.0 Tricuspid Valve TR Peak [id number]/sTR Peak Gr.[id number] LEFT VENTRICLE The Left Ventricle is moderately dilated. There is mild to moderate concentric left ventricular hypertrophy. The systolic function is mildly impaired. Mild mid anteroseptal hypokinesis Transmitral Doppler flow pattern is Grade II-pseudonormal filling dynamics. RIGHT VENTRICLE The right ventricle is normal size. The right ventricular systolic function is normal. ATRIA The left atrium is moderately dilated. The right atrium is mildly dilated. AORTIC VALVE The aortic valve is normal in structure. No aortic regurgitation is present. MITRAL VALVE The mitral valve is normal in structure. Mitral regurgitation is mild. TRICUSPID VALVE The tricuspid valve is normal in structure. There is moderate tricuspid regurgitation. Right ventricular systolic pressure is estimated at 48 mmHg. There is moderate pulmonary hypertension. PULMONIC VALVE The pulmonary valve is normal in structure. There is mild pulmonic valvular regurgitation. GREAT VESSELS The aortic root is normal in size. The IVC is dilated. PERICARDIAL EFFUSION There is no pericardial effusion. <Conclusion> There is mild to moderate concentric left ventricular hypertrophy. The systolic function is mildly impaired. Mild mid anteroseptal hypokinesis Transmitral Doppler flow pattern is Grade II-pseudonormal filling dynamics. The right ventricular systolic function is normal. The left atrium is moderately Right ventricular systolic pressure is estimated at 48 mmHg compatible with moderate pulmonary hypertension. No pericardial effusion.
--- NOTE | 2017-03-08 14:06 | VASCLAB ---
PROCEDURE: Lower Extremity Venous Duplex Exam. HISTORY: Leg pain PRIORS: None. TECHNIQUE: Bilateral common femoral, femoral, popliteal and posterior tibial, peroneal and great saphenous veins were evaluated. Flow was assessed with color Doppler, compressibility, assessment of phasic flow and augmentation response. Report prepared by FLORIAN Naranjo FINDINGS: RIGHT: 1. Common Femoral Vein: 1.1. Compressibility - Fully compressible: Thrombus - None : Flow - Phasic: Augmentation -Normal: Reflux - None. 2. Femoral Vein: 2.1. Compressibility - Fully compressible: Thrombus - None : Flow - Phasic: Augmentation -Normal: Reflux - None. 3. Popliteal Vein: 3.1. Compressibility - Fully compressible: Thrombus - None : Flow - Phasic: Augmentation -Normal: Reflux - None. 4. Posterior Tibial Vein: 4.1. Compressibility - Fully compressible: Thrombus - None: Flow - Phasic: Augmentation -Normal: Reflux - None. 5. Peroneal Vein: 5.1. Compressibility - Fully compressible: Thrombus - None: Flow - Phasic: Augmentation -Normal: Reflux - None. 6. Great Saphenous Vein: 6.1. Compressibility - Fully compressible: Thrombus - None: Flow - Phasic: Augmentation - Normal: Reflux - None. LEFT: 1. Common Femoral Vein: 1.1. Compressibility - Fully compressible: Thrombus - None: Flow - Phasic: Augmentation -Normal: Reflux - None. 2. Femoral Vein: 2.1. Compressibility - Fully compressible: Thrombus - None: Flow - Phasic: Augmentation -Normal: Reflux - None. 3. Popliteal Vein: 3.1. Compressibility - Fully compressible: Thrombus - None : Flow - Phasic: Augmentation -Normal: Reflux - None. 4. Posterior Tibial Vein: 4.1. Compressibility - : Thrombus - : Flow - : Augmentation -: Reflux - . 5. Peroneal Vein: 5.1. Compressibility - : Thrombus - : Flow - : Augmentation -: Reflux - . 6. Great Saphenous Vein: 6.1. Compressibility - Fully compressible: Thrombus - None: Flow - Phasic: Augmentation - Normal: Reflux - None. OTHER FINDINGS: Right: None significant. Left: The posterior tibial and peroneal veins were poorly visualized due to swelling. IMPRESSION: Right: No evidence of deep or superficial vein thrombosis of the right lower extremity. Normal valve function noted of the right side. Left: No evidence of deep or superficial vein thrombosis of the left lower extremity in those veins visualized. Normal valve function noted of the left side.
--- NOTE | 2017-03-08 18:27 | CP.PCM.CON ---
History of Present Illness - History of Present Illness History of Present Illness: 56M w PMHx of DM, and charcot foot, admitted for SOB. Patient reports he was recently seen for the same symptoms at [facility] but signed out AMA. Patient reports limited ROM in R shoulder after falling from stairs. Pt reports pain with movement and notes swelling on neck and right upper hemithorax. Patient states he has been feeling "lumps in his neck area for the past week. General surgery was consulted for the presence of multiple hypoechoic lesions on U/S of neck. At time of examination pt complained of R shoulder pain. Denies motor/sensory deficits. Strength & sensation intact. Denies headaches/changes in vision, n/v/d, chest pain/SOB. PMHx: as stated above PSurgHx: amputation of toe Soc Hx: Former tobacco abuse Review of Systems - Review of Systems Review of Systems: 12 pt ROS carried out, unremarkable; except as stated in HPI Past Patient History - Infectious Disease Hx of Infectious Diseases: None - Past Medical History & Family History Past Medical History?: Yes - Past Social History Smoking Status: Former Smoker - CARDIAC Hx Congestive Heart Failure: Yes Hx Hypertension: Yes - PULMONARY Hx Respiratory Disorders: Yes Hx Pneumonia: Yes - NEUROLOGICAL Hx Neurological Disorder: No - HEENT Hx HEENT Problems: No - RENAL Hx Chronic Kidney Disease: Yes Other/Comment: Worsening renal function - ENDOCRINE/METABOLIC Hx Endocrine Disorders: Yes Hx Diabetes Mellitus Type 2: Yes - HEMATOLOGICAL/ONCOLOGICAL Hx Blood Disorders: Yes Hx Anemia: Yes Hx Blood Transfusions: Yes - INTEGUMENTARY Hx Dermatological Problems: No - MUSCULOSKELETAL/RHEUMATOLOGICAL Hx Musculoskeletal Disorders: Yes Hx Falls: Yes (fee 2 days ago at home) Other/Comment: Charcot foot due to DM - GASTROINTESTINAL Hx Gastrointestinal Disorders: No - GENITOURINARY/GYNECOLOGICAL Hx Genitourinary Disorders: No - PSYCHIATRIC Hx Substance Use: No - SURGICAL HISTORY Hx Musculoskeletal Surgery: Yes (foot surgery) - ANESTHESIA Hx Anesthesia: Yes Hx Anesthesia Reactions: No Hx Malignant Hyperthermia: No Meds Allergies/Adverse Reactions: Allergies Allergy/AdvReac Type Severity Reaction Status Date / Time PEACH SNAPPLE Allergy Mild RASH Uncoded 03/06/17 17:13 - Medications Medications: Current Medications Docusate Sodium (Colace) 300 mg PO HS [facility] Last Admin: 03/07/17 21:22 Dose: 300 mg Furosemide (Lasix) 80 mg IVP DAILY [facility] Last Admin: 03/08/17 09:08 Dose: 80 mg Heparin Sodium (Porcine) (Heparin) 5,000 units SC Q8 [facility] Last Admin: 03/08/17 14:59 Dose: 5,000 units Hydromorphone HCl (Dilaudid) 2 mg IVP Q6H PRN PRN Reason: Pain, severe (8-10) Last Admin: 03/08/17 12:54 Dose: 2 mg Piperacillin Sod/Tazobactam Sod (Zosyn 3.375 Gm Iv Premix) 50 mls @ 100 mls/hr IVPB Q6H [facility] Last Admin: 03/08/17 12:16 Dose: 100 mls/hr Insulin Glargine (Lantus) 20 unit SC QAM [facility] Last Admin: 03/08/17 09:44 Dose: 20 unit Lorazepam (Ativan) 1 mg PO BID [facility] Last Admin: 03/08/17 09:09 Dose: 1 mg Montelukast Sodium (Singulair) 10 mg PO HS [facility] Last Admin: 03/07/17 21:22 Dose: 10 mg Pantoprazole Sodium (Protonix Ec Tab) 40 mg PO DAILY [facility] Last Admin: 03/08/17 09:09 Dose: 40 mg Physical Exam - Constitutional Appears: No Acute Distress - Head Exam Head Exam: NORMOCEPHALIC - Eye Exam Eye Exam: EOMI - ENT Exam ENT Exam: Mucous Membranes Moist - Neck Exam Neck exam: Negative for: Full Rom Additional comments: Denies mid line tenderness limited sidebending - Respiratory Exam Respiratory Exam: absent: Accessory Muscle Use - Cardiovascular Exam Cardiovascular Exam: Tachycardia, +S1, +S2 - GI/Abdominal Exam GI & Abdominal Exam: Soft - Extremities Exam Extremities exam: Positive for: pedal edema - Neurological Exam Neurological exam: Alert, Oriented x3 - Psychiatric Exam Psychiatric exam: Normal Mood - Skin Skin Exam: Dry, Warm Results - Vital Signs Recent Vital Signs: Last Vital Signs Temp 98.3 F 03/08/17 15:54 Pulse 103 H 03/08/17 18:15 Resp 20 03/08/17 15:54 BP 163/101 H 03/08/17 18:15 Pulse Ox 96 03/08/17 15:54 - Labs Result Diagrams: 03/06/17 07:48 03/05/17 12:39 Labs: Laboratory Results - last 24 hr 03/07/17 03/08/17 03/08/17 21:05 06:39 07:30 POC Glucose (mg/dL) 278 H 204 H Vancomycin Trough 38.6 H 03/08/17 03/08/17 12:17 16:51 POC Glucose (mg/dL) 148 H 221 H Vancomycin Trough Assessment & Plan - Assessment and Plan (Free Text) Assessment: 56M w/ posterior inferior right neck heterogenous/hypoechoic lesion on U/S -Needs further work-up, imaging -F/u CT scan results -No acute surgical intervention at this present time -C/w medical management as per primary team -Will continue to follow -D/w Dr. Esquivel
--- NOTE | 2017-03-08 21:11 | CP.PCM.PN ---
Subjective - Date & Time of Evaluation Date of Evaluation: 03/08/17 Time of Evaluation: 19:30 - Subjective Subjective: Feeling better Objective - Vital Signs/Intake and Output Vital Signs (last 24 hours): Temp Pulse Resp BP Pulse Ox 98.3 F 103 H 20 163/101 H 96 03/08/17 15:54 03/08/17 20:26 03/08/17 15:54 03/08/17 18:15 03/08/17 15:54 Intake and Output: 03/08/17 03/09/17 18:59 06:59 Intake Total 445 Balance 445 - Medications Medications: Current Medications Amlodipine Besylate (Norvasc) 5 mg PO DAILY [facility] Docusate Sodium (Colace) 300 mg PO HS [facility] Last Admin: 03/07/17 21:22 Dose: 300 mg Furosemide (Lasix) 80 mg IVP DAILY [facility] Last Admin: 03/08/17 09:08 Dose: 80 mg Heparin Sodium (Porcine) (Heparin) 5,000 units SC Q8 [facility] Last Admin: 03/08/17 14:59 Dose: 5,000 units Hydralazine HCl (Apresoline) 50 mg PO Q8H [facility] Hydromorphone HCl (Dilaudid) 2 mg IVP Q6H PRN PRN Reason: Pain, severe (8-10) Last Admin: 03/08/17 19:04 Dose: 2 mg Piperacillin Sod/Tazobactam Sod (Zosyn 3.375 Gm Iv Premix) 50 mls @ 100 mls/hr IVPB Q6H [facility] Last Admin: 03/08/17 18:31 Dose: 100 mls/hr Insulin Glargine (Lantus) 20 unit SC QAM [facility] Last Admin: 03/08/17 09:44 Dose: 20 unit Lorazepam (Ativan) 1 mg PO BID [facility] Last Admin: 03/08/17 18:32 Dose: 1 mg Montelukast Sodium (Singulair) 10 mg PO HS [facility] Last Admin: 03/07/17 21:22 Dose: 10 mg Pantoprazole Sodium (Protonix Ec Tab) 40 mg PO DAILY [facility] Last Admin: 03/08/17 09:09 Dose: 40 mg - Labs Labs: 03/06/17 07:48 - Head Exam Head Exam: ATRAUMATIC - Eye Exam Eye Exam: Normal appearance - ENT Exam ENT Exam: Mucous Membranes Dry - Respiratory Exam Respiratory Exam: NORMAL BREATHING PATTERN - Cardiovascular Exam Cardiovascular Exam: +S1, +S2 - GI/Abdominal Exam GI & Abdominal Exam: Normal Bowel Sounds - Extremities Exam Extremities Exam: Pedal Edema Assessment and Plan (1) Anemia Assessment & Plan: chronic disease, anemia of CKD s/p PRBC transfusion Status: Acute (2) Opacity of lung on imaging study Assessment & Plan: f/u CT chest results Status: Acute (3) Neck swelling Assessment & Plan: lesions noted by US CT neck surgical evaluation Status: Acute
--- NOTE | 2017-03-08 21:38 | CT ---
EXAM: CT Chest Without Intravenous Contrast CLINICAL HISTORY: 56 years old, male; Condition or disease; Lung condition and disease; Pulmonary nodule, solitary; Additional info: Opacity on cxr TECHNIQUE: Axial computed tomography images of the chest without intravenous contrast. This CT exam was performed using one or more of the following dose reduction techniques: automated exposure control, adjustment of the mA and/or kV according to patient size, and/or use of iterative reconstruction technique. Coronal and sagittal reformatted images were created and reviewed. EXAM DATE/TIME: 03/06/2017 5:40 PM COMPARISON: No relevant prior studies are available currently. FINDINGS: LIMITATIONS: Exam is limited by mild respiratory motion artifact. LUNGS: Patchy densities in the lung bases, most likely representing atelectasis. No definite focal consolidation/infiltrate is seen in the lungs. No evidence of diffuse pulmonary vascular congestion. PLEURAL SPACE: No pneumothorax or significant pleural effusions seen. HEART: Heart appears mildly to moderately enlarged. Coronary artery calcification. No evidence of significant pericardial effusion. BONES/JOINTS: See below. SOFT TISSUES: Abnormal, diffuse swelling is seen in the right upper, anterior chest wall soft tissues, which extends posteriorly into the right anterior superior mediastinum. This swelling appears centered at the level of the right first costal cartilage, where there is diffuse surrounding soft tissue swelling. There is a bony defect in the right first costal cartilage, near the right first costochondral junction. There is nearby expansion and irregularity of the right costal cartilage. No definite focal soft tissue abscess is visible on this unenhanced exam. There is no evidence of soft tissue gas or a large soft tissue hematoma. Mild, subcutaneous edema/anasarca. Bilateral gynecomastia. VASCULATURE: Exam is nondiagnostic for aortic dissection and pulmonary emboli, secondary to unenhanced technique. LYMPH NODES: No evidence of diffuse lymphadenopathy. SPLEEN: Multiple low-density lesions are seen in the spleen, which have CT attenuations suggestive of fluid. These most likely represent cysts or hemangiomas. KIDNEYS AND URETERS: Low density lesion in the left kidney, most likely a cyst. IMPRESSION: - Abnormal, diffuse soft tissue swelling in the right upper, anterior chest wall soft tissues, extending posteriorly into the right anterior superior mediastinum. This swelling appears centered around the right first costal cartilage, near the costochondral junction, and there are abnormal changes involving the right first costal cartilage which could be due to a costal cartilage fracture with adjacent soft tissue contusion VERSUS an infectious process of the costal cartilage with adjacent soft tissue swelling. Findings require clinical correlation. No definite soft tissue abscess or gas is seen. - Mild, subcutaneous edema/anasarca. - Otherwise, no evidence of significant acute process on this unenhanced exam. - Cardiomegaly. - See above for remaining findings.
[2017-03-09] MEDS ORDERED: HYDROmorphone 1 mg/ml ISec IVP STA (00:20)
[2017-03-09] MEDS: Piperacill/Tazo 3.375gm in Dex 50 ML IVPB SCH ×4 (00:36→18:37)
[2017-03-09 07:54] LABS: BASO # 0.1 K/uL (0.0-0.2); BASO % 0.9 % (0.0-2.0); EOS # 0.6 K/uL (0.0-0.7); EOS % 5.2 % (0.0-4.0); LYMPH # 1.4 K/uL (1.0-4.3); LYMPH % 12.3 % (20.0-40.0); MEAN CELL VOLUME 75.4 fL (80.0-94.0); MEAN CORPUSCULAR HEMOGLOBIN 24.8 pg (27.0-31.0); MEAN CORPUSCULAR HGB CONC 32.9 g/dL (33.0-37.0); MEAN PLATELET VOLUME 6.5 fL (7.2-11.7); MONO # 0.9 K/uL (0.0-0.8); RED CELL DISTRIBUTION WIDTH 19.5 % (11.5-14.5); WHITE BLOOD COUNT 11.8 K/uL (4.8-10.8)
[2017-03-09 07:57] LABS: POTASSIUM 4.4 mmol/L (3.6-5.2)
[2017-03-09 07:59] LABS: BILIRUBIN,TOTAL 0.6 mg/dL (0.2-1.3)
[2017-03-09 08:00] LABS: ALB/GLOB RATIO 0.8 (1.0-2.1); CALCIUM 8.2 mg/dl (8.6-10.4); TOTAL PROTEIN 6.7 g/dL (6.3-8.3)
[2017-03-09] MEDS: (Lantus) Insulin Glargine, Recombinant SC SCH (09:50)
[2017-03-09] MEDS: Pantoprazole 40 mg EC Tab PO SCH (09:50)
--- NOTE | 2017-03-09 17:17 | CP.PCM.PN ---
<Lupillo Perez - Last Filed: 03/09/17 17:32> Subjective - Date & Time of Evaluation Date of Evaluation: 03/09/17 Time of Evaluation: 10:04 - Subjective Subjective: Pt seen and examined. Pt reports that he feels weak. Pt reports moderate pain in right foot. Pt denies fever, chills, chest pain, shortness of breath, nausea , and vomiting. Objective - Vital Signs/Intake and Output Vital Signs (last 24 hours): Temp Pulse Resp BP Pulse Ox 97.3 F L 102 H 20 144/89 96 03/09/17 16:54 03/09/17 16:54 03/09/17 16:54 03/09/17 16:54 03/09/17 16:54 Intake and Output: 03/09/17 03/09/17 06:59 18:59 Intake Total 445 Output Total 550 Balance -105 - Medications Medications: Current Medications Amlodipine Besylate (Norvasc) 5 mg PO DAILY [facility] Last Admin: 03/09/17 09:51 Dose: 5 mg Docusate Sodium (Colace) 300 mg PO HS [facility] Last Admin: 03/08/17 21:34 Dose: 300 mg Furosemide (Lasix) 80 mg IVP DAILY [facility] Last Admin: 03/09/17 10:57 Dose: 80 mg Heparin Sodium (Porcine) (Heparin) 5,000 units SC Q8 [facility] Last Admin: 03/09/17 14:07 Dose: 5,000 units Hydralazine HCl (Apresoline) 50 mg PO Q8H [facility] Last Admin: 03/09/17 12:13 Dose: 50 mg Hydromorphone HCl (Dilaudid) 2 mg IVP Q4H PRN PRN Reason: Pain, severe (8-10) Last Admin: 03/09/17 09:48 Dose: 2 mg Piperacillin Sod/Tazobactam Sod (Zosyn 3.375 Gm Iv Premix) 50 mls @ 100 mls/hr IVPB Q6H [facility] Last Admin: 03/09/17 12:13 Dose: 100 mls/hr Insulin Glargine (Lantus) 20 unit SC QAM [facility] Last Admin: 03/09/17 09:50 Dose: 20 unit Lorazepam (Ativan) 1 mg PO BID [facility] Last Admin: 03/09/17 09:50 Dose: 1 mg Montelukast Sodium (Singulair) 10 mg PO HS [facility] Last Admin: 03/08/17 21:35 Dose: 10 mg Pantoprazole Sodium (Protonix Ec Tab) 40 mg PO DAILY [facility] Last Admin: 03/09/17 09:50 Dose: 40 mg - Labs Labs: 03/09/17 07:35 03/09/17 07:35 - Constitutional Appears: No Acute Distress - Head Exam Head Exam: ATRAUMATIC, NORMOCEPHALIC - Eye Exam Eye Exam: EOMI Pupil Exam: PERRL - ENT Exam ENT Exam: Mucous Membranes Moist - Neck Exam Neck Exam: Full ROM - Respiratory Exam Respiratory Exam: Clear to Ausculation Bilateral. absent: Rales, Rhonchi, Wheezes - Cardiovascular Exam Cardiovascular Exam: +S1, +S2. absent: Gallop, Rubs - GI/Abdominal Exam GI & Abdominal Exam: Soft. absent: Rigid, Tenderness - Extremities Exam Extremities Exam: Pedal Edema Additional comments: Left foot bandaged, wound clean and dry - Neurological Exam Neurological Exam: Alert, Awake, Oriented x3 Assessment and Plan - Assessment and Plan (Free Text) Assessment: Sepsis ID consulted, Dr. Beltran, help appreciatd. Pt tachycardic, afebrile WBC 11.6 Blood cultures positive for staph aureus Vancomycin on hold due to toxic levels Continue Zosyn 3.375gm Q6h (started 03/05/17) f/u Ceretec WBC scan f/u ESR Dyspnea consult cardio- Dr. Cunningham Pt refused YESENIA BNP [id number] Singulair 10 mg po hs Charcot Foot LE arterial duplex negative for DVTs Neck swelling Soft tissue Ultrasound- 03/06/17- prominent reticulation and edema seen within the subcutaneous soft tissues at the level of the right neck. At the level of the posterior inferior right neck, there is a 1.4x 0.9x 1.4 cm ovoid hetergeneous to hypoechoic lesion with a few punctate internal areas of increased echogenicity. Adjacent to this area, there is an additional rounded heterogeneous to hypoechoic lesion measuring [id number] which may also represent a soft tissue nodule vs lymph node. Chest CT - abnormal, diffuse, soft tissue swelling in the right upper, anterior chest wall soft tissue - contusion vs infectious process; mild subcutaneous anasarca/edema Surgery consulted, Dr. Esquivel, help appreciated. Renal Insufficiency BUN/Cr 42/3.9 Nephrology, Dr. Allred, consulted. Help appreciated. Plasma electrophoresis, PENG, 24 hour urine creatinine clearance Renal ultrasound pending HTN: Hydralazine 50 mg po q8h [facility] s/p 2 units PRBC HGB 7.6 today stool occult pending Hemoglobin studies pending Diabetes: Lantus 20U SC QAM Prophylactic Measures: Protonix 40mg PO Daily Heparin 500 units sc q8h <Prashanth Lowery Jr. - Last Filed: 03/12/17 16:47> Objective - Vital Signs/Intake and Output Vital Signs (last 24 hours): Temp Pulse Resp BP Pulse Ox 97.6 F 103 H 18 156/94 H 100 03/12/17 16:00 03/12/17 16:00 03/12/17 16:00 03/12/17 16:00 03/12/17 16:00 Intake and Output: 03/12/17 03/12/17 06:59 18:59 Intake Total 850 Balance 850 - Medications Medications: Current Medications Amlodipine Besylate (Norvasc) 5 mg PO DAILY [facility] Last Admin: 03/12/17 09:42 Dose: 5 mg Docusate Sodium (Colace) 300 mg PO HS [facility] Last Admin: 03/11/17 22:01 Dose: 300 mg Furosemide (Lasix) 80 mg IVP DAILY [facility] Last Admin: 03/12/17 09:42 Dose: 80 mg Hydralazine HCl (Apresoline) 50 mg PO Q8H [facility] Last Admin: 03/12/17 13:57 Dose: 50 mg Hydromorphone HCl (Dilaudid) 2 mg IVP Q4H PRN PRN Reason: Pain, severe (8-10) Last Admin: 03/12/17 16:41 Dose: 2 mg Cefazolin Sodium/Dextrose (Ancef Iv 1 Gm Duplex) 50 mls @ 100 mls/hr IVPB Q8H [facility] Last Admin: 03/12/17 13:58 Dose: 100 mls/hr Insulin Glargine (Lantus) 20 unit SC QAM [facility] Last Admin: 03/12/17 09:50 Dose: 20 unit Insulin Human Regular (Novolin R) 0 unit SC ACHS [facility] PRN Reason: Protocol Last Admin: 03/12/17 12:20 Dose: 8 unit Lorazepam (Ativan) 1 mg PO BID [facility] Last Admin: 03/12/17 09:41 Dose: 1 mg Montelukast Sodium (Singulair) 10 mg PO HS [facility] Last Admin: 03/11/17 22:01 Dose: 10 mg Pantoprazole Sodium (Protonix Ec Tab) 40 mg PO DAILY [facility] Last Admin: 03/12/17 09:42 Dose: 40 mg Vitamin B Complex/Vit C/Folic Acid (Nephro-Leanna) 1 tab PO DAILY [facility] Last Admin: 03/12/17 09:42 Dose: 1 tab - Labs Labs: 03/12/17 13:48 03/12/17 13:48 Attending/Attestation - Attestation I have personally seen and examined this patient.: Yes I have fully participated in the care of the patient.: Yes I have reviewed all pertinent clinical information, including history, physical exam and plan: Yes Notes (Text): 03/12/17 16:47 Patient seen and examined. Reviewed resident note and agree with plan of care and findings.
[2017-03-09 19:44] LABS: IRON 45 ug/dL (49-181)
--- NOTE | 2017-03-09 19:53 | CP.PCM.PN ---
Subjective - Date & Time of Evaluation Date of Evaluation: 03/09/17 Time of Evaluation: 17:30 - Subjective Subjective: Has right sided neck and chest wall pain. Objective - Vital Signs/Intake and Output Vital Signs (last 24 hours): Temp Pulse Resp BP Pulse Ox 97.3 F L 102 H 20 144/89 96 03/09/17 16:54 03/09/17 16:54 03/09/17 16:54 03/09/17 16:54 03/09/17 16:54 - Medications Medications: Current Medications Amlodipine Besylate (Norvasc) 5 mg PO DAILY [facility] Last Admin: 03/09/17 09:51 Dose: 5 mg Docusate Sodium (Colace) 300 mg PO HS [facility] Last Admin: 03/08/17 21:34 Dose: 300 mg Furosemide (Lasix) 80 mg IVP DAILY [facility] Last Admin: 03/09/17 10:57 Dose: 80 mg Heparin Sodium (Porcine) (Heparin) 5,000 units SC Q8 [facility] Last Admin: 03/09/17 14:07 Dose: 5,000 units Hydralazine HCl (Apresoline) 50 mg PO Q8H [facility] Last Admin: 03/09/17 12:13 Dose: 50 mg Hydromorphone HCl (Dilaudid) 2 mg IVP Q4H PRN PRN Reason: Pain, severe (8-10) Last Admin: 03/09/17 18:48 Dose: 2 mg Piperacillin Sod/Tazobactam Sod (Zosyn 3.375 Gm Iv Premix) 50 mls @ 100 mls/hr IVPB Q6H [facility] Last Admin: 03/09/17 18:37 Dose: 100 mls/hr Insulin Glargine (Lantus) 20 unit SC QAM [facility] Last Admin: 03/09/17 09:50 Dose: 20 unit Lorazepam (Ativan) 1 mg PO BID [facility] Last Admin: 03/09/17 18:37 Dose: 1 mg Montelukast Sodium (Singulair) 10 mg PO HS [facility] Last Admin: 03/08/17 21:35 Dose: 10 mg Pantoprazole Sodium (Protonix Ec Tab) 40 mg PO DAILY [facility] Last Admin: 03/09/17 09:50 Dose: 40 mg - Labs Labs: 03/09/17 07:35 03/09/17 07:35 - Head Exam Head Exam: ATRAUMATIC - Eye Exam Eye Exam: Normal appearance - Neck Exam Neck Exam: Lymphadenopathy - Respiratory Exam Respiratory Exam: NORMAL BREATHING PATTERN - Cardiovascular Exam Cardiovascular Exam: +S1, +S2 - GI/Abdominal Exam GI & Abdominal Exam: Normal Bowel Sounds - Extremities Exam Extremities Exam: Pedal Edema Assessment and Plan (1) Anemia Assessment & Plan: chronic disease and renal disease will give a dose of procrit f/u FOBT transfusion support PRN Status: Acute (2) Opacity of lung on imaging study Assessment & Plan: chest wall swelling and inflammation around 1st rib ?infection on antibiotics Status: Acute (3) Neck swelling Assessment & Plan: may be infection related on antibiotics Status: Acute
--- NOTE | 2017-03-09 22:56 | CP.PCM.PN ---
Subjective - Date & Time of Evaluation Date of Evaluation: 03/09/17 Time of Evaluation: 07:00 - Subjective Subjective: Gen Surg: Dr. Esquivel Patient seen this morning. Patient refused to be examined. Stated he did not feel like talking. Mentioned he was tired of all the tests he had to go through. Objective - Vital Signs/Intake and Output Vital Signs (last 24 hours): Temp Pulse Resp BP Pulse Ox 97.3 F L 102 H 20 144/89 96 03/09/17 16:54 03/09/17 16:54 03/09/17 16:54 03/09/17 16:54 03/09/17 16:54 - Medications Medications: Current Medications Amlodipine Besylate (Norvasc) 5 mg PO DAILY [facility] Last Admin: 03/09/17 09:51 Dose: 5 mg Docusate Sodium (Colace) 300 mg PO HS [facility] Last Admin: 03/09/17 21:54 Dose: Not Given Furosemide (Lasix) 80 mg IVP DAILY [facility] Last Admin: 03/09/17 10:57 Dose: 80 mg Heparin Sodium (Porcine) (Heparin) 5,000 units SC Q8 [facility] Last Admin: 03/09/17 21:55 Dose: 5,000 units Hydralazine HCl (Apresoline) 50 mg PO Q8H [facility] Last Admin: 03/09/17 21:55 Dose: 50 mg Hydromorphone HCl (Dilaudid) 2 mg IVP Q4H PRN PRN Reason: Pain, severe (8-10) Last Admin: 03/09/17 18:48 Dose: 2 mg Piperacillin Sod/Tazobactam Sod (Zosyn 3.375 Gm Iv Premix) 50 mls @ 100 mls/hr IVPB Q6H [facility] Last Admin: 03/09/17 18:37 Dose: 100 mls/hr Insulin Glargine (Lantus) 20 unit SC QAM [facility] Last Admin: 03/09/17 09:50 Dose: 20 unit Lorazepam (Ativan) 1 mg PO BID [facility] Last Admin: 03/09/17 18:37 Dose: 1 mg Montelukast Sodium (Singulair) 10 mg PO HS [facility] Last Admin: 03/09/17 21:55 Dose: 10 mg Pantoprazole Sodium (Protonix Ec Tab) 40 mg PO DAILY [facility] Last Admin: 03/09/17 09:50 Dose: 40 mg - Labs Labs: 03/09/17 07:35 03/09/17 07:35 - Additional Findings Additional findings: Refused to be examine Assessment and Plan - Assessment and Plan (Free Text) Assessment: 56M w/ posterior inferior right neck heterogenous/hypoechoic lesion on U/S -Due to patient's low GFR, unable to do imaging studies, CT soft tissue neck/ Neck MRI -Recommend nephrology consult -Needs further work-up, imaging -If unable to do imaging studies because of Kidney values, consider IR biopsy -No acute surgical intervention at this present time -C/w medical management as per primary team -Will continue to follow -D/w Dr. Esquivel
[2017-03-10] MEDS: Piperacill/Tazo 3.375gm in Dex 50 ML IVPB SCH ×2 (00:12→05:42)
[2017-03-10 08:04] LABS: BASO # 0.1 K/uL (0.0-0.2); BASO % 0.8 % (0.0-2.0); EOS # 0.5 K/uL (0.0-0.7); EOS % 4.7 % (0.0-4.0); LYMPH # 1.5 K/uL (1.0-4.3); LYMPH % 14.5 % (20.0-40.0); MEAN CELL VOLUME 75.6 fL (80.0-94.0); MEAN CORPUSCULAR HGB CONC 31.7 g/dL (33.0-37.0); MEAN PLATELET VOLUME 6.6 fL (7.2-11.7); MONO # 0.9 K/uL (0.0-0.8); MONO % 8.6 % (0.0-10.0); WHITE BLOOD COUNT 10.5 K/uL (4.8-10.8)
--- NOTE | 2017-03-10 08:13 | CP.PCM.PN ---
Subjective - Date & Time of Evaluation Date of Evaluation: 03/10/17 Time of Evaluation: 08:11 - Subjective Subjective: Surgery: Dr. Esquivel Patient unwilling to answer questions this morning. Agitated that he has been woken up early. Patient refuses physical exam and requests we "take a later bus to work" if we continue to see him. Per nursing no acute events overnight. Objective - Vital Signs/Intake and Output Vital Signs (last 24 hours): Temp Pulse Resp BP Pulse Ox 97.8 F 100 H 20 160/91 H 96 03/10/17 01:45 03/10/17 01:45 03/10/17 01:45 03/10/17 01:45 03/10/17 01:45 Intake and Output: 03/10/17 03/10/17 06:59 18:59 Output Total 500 Balance -500 - Medications Medications: Current Medications Amlodipine Besylate (Norvasc) 5 mg PO DAILY [facility] Last Admin: 03/09/17 09:51 Dose: 5 mg Docusate Sodium (Colace) 300 mg PO HS [facility] Last Admin: 03/09/17 21:54 Dose: Not Given Furosemide (Lasix) 80 mg IVP DAILY [facility] Last Admin: 03/09/17 10:57 Dose: 80 mg Heparin Sodium (Porcine) (Heparin) 5,000 units SC Q8 [facility] Last Admin: 03/10/17 05:46 Dose: 5,000 units Hydralazine HCl (Apresoline) 50 mg PO Q8H [facility] Last Admin: 03/10/17 05:45 Dose: 50 mg Hydromorphone HCl (Dilaudid) 2 mg IVP Q4H PRN PRN Reason: Pain, severe (8-10) Last Admin: 03/10/17 05:54 Dose: 2 mg Piperacillin Sod/Tazobactam Sod (Zosyn 3.375 Gm Iv Premix) 50 mls @ 100 mls/hr IVPB Q6H [facility] Last Admin: 03/10/17 05:42 Dose: 100 mls/hr Insulin Glargine (Lantus) 20 unit SC QAM [facility] Last Admin: 03/09/17 09:50 Dose: 20 unit Lorazepam (Ativan) 1 mg PO BID [facility] Last Admin: 03/09/17 18:37 Dose: 1 mg Montelukast Sodium (Singulair) 10 mg PO HS [facility] Last Admin: 03/09/17 21:55 Dose: 10 mg Pantoprazole Sodium (Protonix Ec Tab) 40 mg PO DAILY [facility] Last Admin: 03/09/17 09:50 Dose: 40 mg - Labs Labs: 03/10/17 07:58 03/09/17 07:35 - Constitutional Appears: Non-toxic, No Acute Distress - Head Exam Head Exam: ATRAUMATIC, NORMOCEPHALIC - Eye Exam Eye Exam: EOMI (remainder of exam unable to be performed due to patient refusal ) - Neurological Exam Neurological Exam: Alert, Awake - Psychiatric Exam Psychiatric exam: Agitated Assessment and Plan - Assessment and Plan (Free Text) Assessment: 56 y/o male w/ neck masses and ROMULO Plan: -needs nephrology eval prior to further imaging due to worsening GFR -discussed w/ radiology regarding findings on ultrasound, recommends obtaining MRI or CT however both must be performed w/ contrast -pending renal evaluation and work will determine further imaging -no acute surgical intervention at this time -further recs per Dr. Sierra SHAWreinier PGY1
[2017-03-10 08:24] LABS: POTASSIUM 4.1 mmol/L (3.6-5.2)
[2017-03-10 08:26] LABS: ALB/GLOB RATIO 0.8 (1.0-2.1); BILIRUBIN,TOTAL 0.4 mg/dL (0.2-1.3); TOTAL PROTEIN 6.7 g/dL (6.3-8.3)
[2017-03-10 08:27] LABS: CALCIUM 8.2 mg/dl (8.6-10.4); MAGNESIUM 1.8 mg/dL (1.6-2.3); PHOSPHOROUS 4.4 mg/dL (2.5-4.5)
[2017-03-10] MEDS: Pantoprazole 40 mg EC Tab PO SCH (09:04)
--- NOTE | 2017-03-10 10:22 | CP.PCM.CON ---
History of Present Illness - History of Present Illness History of Present Illness: pt seen and examined, full consult is dictated #[id number] 1. anna on ckd 2. proteinuria, r/o dmn vs htn nephrosclerosis 3. anmeia r/o fe def and/ or ckd 4. staph. aures sepsis, MSSA 5. hrn 6. dm check loraine,c3,c3, 24 hr up/cr crcl, upep, spep check fe,tibc, ferritin continue iv abx a sper ID hepatitis erology is wnl Past Patient History - Infectious Disease Hx of Infectious Diseases: None - Past Medical History & Family History Past Medical History?: Yes - Past Social History Smoking Status: Former Smoker - CARDIAC Hx Congestive Heart Failure: Yes Hx Hypertension: Yes - PULMONARY Hx Respiratory Disorders: Yes Hx Pneumonia: Yes - NEUROLOGICAL Hx Neurological Disorder: No - HEENT Hx HEENT Problems: No - RENAL Hx Chronic Kidney Disease: Yes Other/Comment: Worsening renal function - ENDOCRINE/METABOLIC Hx Endocrine Disorders: Yes Hx Diabetes Mellitus Type 2: Yes - HEMATOLOGICAL/ONCOLOGICAL Hx Blood Disorders: Yes Hx Anemia: Yes Hx Blood Transfusions: Yes - INTEGUMENTARY Hx Dermatological Problems: No - MUSCULOSKELETAL/RHEUMATOLOGICAL Hx Musculoskeletal Disorders: Yes Hx Falls: Yes (fee 2 days ago at home) Other/Comment: Charcot foot due to DM - GASTROINTESTINAL Hx Gastrointestinal Disorders: No - GENITOURINARY/GYNECOLOGICAL Hx Genitourinary Disorders: No - PSYCHIATRIC Hx Substance Use: No - SURGICAL HISTORY Hx Musculoskeletal Surgery: Yes (foot surgery) - ANESTHESIA Hx Anesthesia: Yes Hx Anesthesia Reactions: No Hx Malignant Hyperthermia: No Meds Allergies/Adverse Reactions: Allergies Allergy/AdvReac Type Severity Reaction Status Date / Time PEACH SNAPPLE Allergy Mild RASH Uncoded 03/06/17 17:13 - Medications Medications: Current Medications Amlodipine Besylate (Norvasc) 5 mg PO DAILY [facility] Last Admin: 03/10/17 09:04 Dose: 5 mg Docusate Sodium (Colace) 300 mg PO HS [facility] Last Admin: 03/09/17 21:54 Dose: Not Given Furosemide (Lasix) 80 mg IVP DAILY [facility] Last Admin: 03/09/17 10:57 Dose: 80 mg Heparin Sodium (Porcine) (Heparin) 5,000 units SC Q8 [facility] Last Admin: 03/10/17 05:46 Dose: 5,000 units Hydralazine HCl (Apresoline) 50 mg PO Q8H [facility] Last Admin: 03/10/17 05:45 Dose: 50 mg Hydromorphone HCl (Dilaudid) 2 mg IVP Q4H PRN PRN Reason: Pain, severe (8-10) Last Admin: 03/10/17 05:54 Dose: 2 mg Piperacillin Sod/Tazobactam Sod (Zosyn 2.25 Gm Iv Premix) 50 mls @ 100 mls/hr IVPB Q6H [facility] Insulin Glargine (Lantus) 20 unit SC QAM [facility] Last Admin: 03/09/17 09:50 Dose: 20 unit Lorazepam (Ativan) 1 mg PO BID [facility] Last Admin: 03/10/17 09:04 Dose: 1 mg Montelukast Sodium (Singulair) 10 mg PO HS [facility] Last Admin: 03/09/17 21:55 Dose: 10 mg Pantoprazole Sodium (Protonix Ec Tab) 40 mg PO DAILY [facility] Last Admin: 03/10/17 09:04 Dose: 40 mg Results - Vital Signs Recent Vital Signs: Last Vital Signs Temp 97.8 F 03/10/17 01:45 Pulse 100 H 03/10/17 01:45 Resp 20 03/10/17 01:45 BP 160/91 H 03/10/17 01:45 Pulse Ox 96 03/10/17 01:45 - Labs Result Diagrams: 03/10/17 07:58 03/10/17 07:58 Labs: Laboratory Results - last 24 hr 03/09/17 03/09/17 03/09/17 12:21 17:00 19:23 WBC RBC Hgb Hct MCV MCH MCHC RDW Plt Count MPV Neut % (Auto) Lymph % (Auto) [place] % (Auto) Eos % (Auto) Baso % (Auto) Neut # Lymph # [place] # Eos # Baso # Sodium Potassium Chloride Carbon Dioxide Anion Gap BUN Creatinine Est GFR ( Amer) Est GFR (Non-Af Amer) POC Glucose (mg/dL) 333 H 318 H Random Glucose Calcium Phosphorus Magnesium Iron 45 L TIBC 182 L % Saturation 25 Ferritin 169.0 Total Bilirubin AST ALT Alkaline Phosphatase Total Protein Albumin Globulin Albumin/Globulin Ratio Hep Bs Antigen Negative Hep Bs Antibody Negative Hepatitis C Antibody Negative 03/09/17 03/10/17 21:18 07:58 WBC 10.5 RBC 3.43 L Hgb 8.2 L Hct 26.0 L MCV 75.6 L MCH 24.0 L MCHC 31.7 L RDW 19.0 H Plt Count 395 MPV 6.6 L Neut % (Auto) 71.4 Lymph % (Auto) 14.5 L [place] % (Auto) 8.6 Eos % (Auto) 4.7 H Baso % (Auto) 0.8 Neut # 7.5 H Lymph # 1.5 [place] # 0.9 H Eos # 0.5 Baso # 0.1 Sodium 134 Potassium 4.1 Chloride 95 L Carbon Dioxide 25 Anion Gap 18 BUN 39 H Creatinine 3.6 H Est GFR ( Amer) 21 Est GFR (Non-Af Amer) 18 POC Glucose (mg/dL) 306 H Random Glucose 176 H Calcium 8.2 L Phosphorus 4.4 Magnesium 1.8 Iron TIBC % Saturation Ferritin Total Bilirubin 0.4 AST 13 L ALT 10 L D Alkaline Phosphatase 75 Total Protein 6.7 Albumin 3.0 L Globulin 3.7 Albumin/Globulin Ratio 0.8 L Hep Bs Antigen Hep Bs Antibody Hepatitis C Antibody
[2017-03-10] MEDS: (Lantus) Insulin Glargine, Recombinant SC SCH (11:13)
[2017-03-10] MEDS: Piperacill/Tazo 2.25gm in Dex 50 ML IVPB SCH ×2 (11:14→18:30)
--- NOTE | 2017-03-10 11:21 | NM ---
PROCEDURE: Ceretec white blood cell study. HISTORY: rule out osteomyelitis. Anatomic area of interest: Left foot, right clavicle. COMPARISON: 01/02/2014. Three-phase bone scan. TECHNIQUE: 17.1 mCi technetium 99 M Ceretec labeled white blood cells administered intravenously. FINDINGS: No Ceretec avid osseous structures to suggest acute osteomyelitis. Edema and visualize left lower extremity including, ankle and foot. Physiological uptake identified in the liver spleen. IMPRESSION: Negative study for acute osseous process/ acute osteomyelitis.
[2017-03-10 11:38] LABS: HEMOGLOBIN F <1.0 Percent (<2.0)
--- NOTE | 2017-03-10 18:52 | CP.PCM.PN ---
Subjective - Date & Time of Evaluation Date of Evaluation: 03/10/17 Time of Evaluation: 09:00 - Subjective Subjective: HAS RECURRENT MSSA BACTEREMIA bone scan negative right foot with drainage IV rx in progress continue 6- 8 weeks consider YESENIA Objective - Vital Signs/Intake and Output Vital Signs (last 24 hours): Temp Pulse Resp BP Pulse Ox 98.0 F 105 H 20 166/90 H 96 03/10/17 15:38 03/10/17 15:38 03/10/17 15:38 03/10/17 15:38 03/10/17 15:38 Intake and Output: 03/10/17 03/10/17 06:59 18:59 Intake Total 450 Output Total 500 2000 Balance -500 -1550 - Medications Medications: Current Medications Amlodipine Besylate (Norvasc) 5 mg PO DAILY [facility] Last Admin: 03/10/17 09:04 Dose: 5 mg Docusate Sodium (Colace) 300 mg PO HS [facility] Last Admin: 03/09/17 21:54 Dose: Not Given Furosemide (Lasix) 80 mg IVP DAILY [facility] Last Admin: 03/10/17 11:14 Dose: 80 mg Heparin Sodium (Porcine) (Heparin) 5,000 units SC Q8 [facility] Last Admin: 03/10/17 15:28 Dose: 5,000 units Hydralazine HCl (Apresoline) 50 mg PO Q8H [facility] Last Admin: 03/10/17 12:43 Dose: 50 mg Hydromorphone HCl (Dilaudid) 2 mg IVP Q4H PRN PRN Reason: Pain, severe (8-10) Last Admin: 03/10/17 12:50 Dose: 2 mg Piperacillin Sod/Tazobactam Sod (Zosyn 2.25 Gm Iv Premix) 50 mls @ 100 mls/hr IVPB Q6H [facility] Last Admin: 03/10/17 18:30 Dose: 100 mls/hr Insulin Glargine (Lantus) 20 unit SC QAM [facility] Last Admin: 03/10/17 11:13 Dose: 20 unit Lorazepam (Ativan) 1 mg PO BID [facility] Last Admin: 03/10/17 18:36 Dose: 1 mg Montelukast Sodium (Singulair) 10 mg PO HS [facility] Last Admin: 03/09/17 21:55 Dose: 10 mg Pantoprazole Sodium (Protonix Ec Tab) 40 mg PO DAILY [facility] Last Admin: 03/10/17 09:04 Dose: 40 mg - Labs Labs: 03/10/17 07:58 03/10/17 07:58 - Constitutional Appears: Non-toxic - Head Exam Head Exam: NORMOCEPHALIC - Eye Exam Eye Exam: PERRL. absent: Scleral icterus - ENT Exam ENT Exam: Mucous Membranes Dry - Neck Exam Neck Exam: absent: Lymphadenopathy - Respiratory Exam Respiratory Exam: Decreased Breath Sounds, Clear to Ausculation Bilateral - Cardiovascular Exam Cardiovascular Exam: REGULAR RHYTHM, +S1, +S2 - GI/Abdominal Exam GI & Abdominal Exam: Distended, Soft. absent: Tenderness - Rectal Exam Rectal Exam: Deferred - Exam Exam: NORMAL INSPECTION Assessment and Plan (1) Anemia Status: Acute (2) Bacteremia Status: Acute (3) Congestive heart failure (CHF) Status: Acute (4) HTN (hypertension) Status: Acute (5) Opacity of lung on imaging study Status: Acute
[2017-03-10] MEDS ORDERED: ceFAZolin IV 1 gm in Dextrose 50 ML IVPB SCH (19:00)
--- NOTE | 2017-03-10 19:28 | CP.PCM.PN ---
<Lupillo Perez - Last Filed: 03/10/17 19:25> Subjective - Date & Time of Evaluation Date of Evaluation: 03/10/17 Time of Evaluation: 10:44 - Subjective Subjective: Pt seen and examined. Pt reports that he has pain in his neck region. Pt denies fever, chills, chest pain, shortness of breath. Objective - Vital Signs/Intake and Output Vital Signs (last 24 hours): Temp Pulse Resp BP Pulse Ox 98.0 F 105 H 20 166/90 H 96 03/10/17 15:38 03/10/17 15:38 03/10/17 15:38 03/10/17 15:38 03/10/17 15:38 Intake and Output: 03/10/17 03/11/17 18:59 06:59 Intake Total 450 Output Total 2000 Balance -1550 - Medications Medications: Current Medications Amlodipine Besylate (Norvasc) 5 mg PO DAILY [facility] Last Admin: 03/10/17 09:04 Dose: 5 mg Docusate Sodium (Colace) 300 mg PO [facility] Last Admin: 03/09/17 21:54 Dose: Not Given Furosemide (Lasix) 80 mg IVP DAILY [facility] Last Admin: 03/10/17 11:14 Dose: 80 mg Heparin Sodium (Porcine) (Heparin) 5,000 units SC Q8 [facility] Last Admin: 03/10/17 15:28 Dose: 5,000 units Hydralazine HCl (Apresoline) 50 mg PO Q8H [facility] Last Admin: 03/10/17 12:43 Dose: 50 mg Hydromorphone HCl (Dilaudid) 2 mg IVP Q4H PRN PRN Reason: Pain, severe (8-10) Last Admin: 03/10/17 19:02 Dose: 2 mg Cefazolin Sodium/Dextrose (Ancef Iv 1 Gm Duplex) 50 mls @ 100 mls/hr IVPB Q8H [facility] Insulin Glargine (Lantus) 20 unit SC QAM [facility] Last Admin: 03/10/17 11:13 Dose: 20 unit Lorazepam (Ativan) 1 mg PO BID [facility] Last Admin: 03/10/17 18:36 Dose: 1 mg Montelukast Sodium (Singulair) 10 mg PO HS [facility] Last Admin: 03/09/17 21:55 Dose: 10 mg Pantoprazole Sodium (Protonix Ec Tab) 40 mg PO DAILY [facility] Last Admin: 03/10/17 09:04 Dose: 40 mg - Labs Labs: 03/10/17 07:58 03/10/17 07:58 - Constitutional Appears: No Acute Distress - Head Exam Head Exam: ATRAUMATIC, NORMOCEPHALIC - Eye Exam Eye Exam: EOMI, PERRL - ENT Exam ENT Exam: Mucous Membranes Moist. absent: Mucous Membranes Dry - Neck Exam Neck Exam: Full ROM. absent: Lymphadenopathy - Respiratory Exam Respiratory Exam: Clear to Ausculation Bilateral. absent: Rales, Rhonchi, Wheezes - Cardiovascular Exam Cardiovascular Exam: +S1, +S2 - GI/Abdominal Exam GI & Abdominal Exam: Soft. absent: Tenderness - Extremities Exam Additional comments: Charcot foot - Neurological Exam Neurological Exam: Alert, Awake, Oriented x3 - Psychiatric Exam Psychiatric exam: Normal Affect - Skin Skin Exam: Normal Color, Warm Assessment and Plan - Assessment and Plan (Free Text) Assessment: Sepsis ID consulted, Dr. Beltran, help appreciatd. Pt tachycardic, afebrile WBC 11.6 Blood cultures positive for staph aureus Vancomycin on hold due to toxic levels Continue Zosyn 3.375gm Q6h (started 03/05/17) Ceretec scan negative for osteomyelitis Pt will need long-term abx IR, Dr. Barber, consulted for PICC placement. Help appreciated. Dyspnea consult cardio- Dr. Cunningham Pt refused YESENIA BNP [id number] Singulair 10 mg po hs Charcot Foot LE arterial duplex negative for DVTs Neck swelling Soft tissue Ultrasound- 03/06/17- prominent reticulation and edema seen within the subcutaneous soft tissues at the level of the right neck. At the level of the posterior inferior right neck, there is a 1.4x 0.9x 1.4 cm ovoid hetergeneous to hypoechoic lesion with a few punctate internal areas of increased echogenicity. Adjacent to this area, there is an additional rounded heterogeneous to hypoechoic lesion measuring [id number] which may also represent a soft tissue nodule vs lymph node. Chest CT - abnormal, diffuse, soft tissue swelling in the right upper, anterior chest wall soft tissue - contusion vs infectious process; mild subcutaneous anasarca/edema Surgery consulted, Dr. Esquivel, help appreciated. Renal Insufficiency BUN/Cr 42/3.9 Nephrology, Dr. Allred, consulted. Help appreciated. Plasma electrophoresis, PENG, 24 hour urine creatinine clearance Renal ultrasound pending HTN: Hydralazine 50 mg po q8h [facility] s/p 2 units PRBC stool occult pending Hemoglobin studies pending Diabetes: Lantus 20U SC QAM Prophylactic Measures: Protonix 40mg PO Daily Heparin 500 units sc q8h <Prashanth Lowery Jr. - Last Filed: 03/12/17 16:53> Objective - Vital Signs/Intake and Output Vital Signs (last 24 hours): Temp Pulse Resp BP Pulse Ox 97.6 F 103 H 18 156/94 H 100 03/12/17 16:00 03/12/17 16:00 03/12/17 16:00 03/12/17 16:00 03/12/17 16:00 Intake and Output: 03/12/17 03/12/17 06:59 18:59 Intake Total 850 Balance 850 - Medications Medications: Current Medications Amlodipine Besylate (Norvasc) 5 mg PO DAILY [facility] Last Admin: 03/12/17 09:42 Dose: 5 mg Docusate Sodium (Colace) 300 mg PO HS [facility] Last Admin: 03/11/17 22:01 Dose: 300 mg Furosemide (Lasix) 80 mg IVP DAILY [facility] Last Admin: 03/12/17 09:42 Dose: 80 mg Hydralazine HCl (Apresoline) 50 mg PO Q8H [facility] Last Admin: 03/12/17 13:57 Dose: 50 mg Hydromorphone HCl (Dilaudid) 2 mg IVP Q4H PRN PRN Reason: Pain, severe (8-10) Last Admin: 03/12/17 16:41 Dose: 2 mg Cefazolin Sodium/Dextrose (Ancef Iv 1 Gm Duplex) 50 mls @ 100 mls/hr IVPB Q8H [facility] Last Admin: 03/12/17 13:58 Dose: 100 mls/hr Insulin Glargine (Lantus) 20 unit SC QAM [facility] Last Admin: 03/12/17 09:50 Dose: 20 unit Insulin Human Regular (Novolin R) 0 unit SC ACHS [facility] PRN Reason: Protocol Last Admin: 03/12/17 12:20 Dose: 8 unit Lorazepam (Ativan) 1 mg PO BID [facility] Last Admin: 03/12/17 09:41 Dose: 1 mg Montelukast Sodium (Singulair) 10 mg PO HS [facility] Last Admin: 03/11/17 22:01 Dose: 10 mg Pantoprazole Sodium (Protonix Ec Tab) 40 mg PO DAILY [facility] Last Admin: 03/12/17 09:42 Dose: 40 mg Vitamin B Complex/Vit C/Folic Acid (Nephro-Leanna) 1 tab PO DAILY [facility] Last Admin: 03/12/17 09:42 Dose: 1 tab - Labs Labs: 03/12/17 13:48 03/12/17 13:48 Attending/Attestation - Attestation I have personally seen and examined this patient.: Yes I have fully participated in the care of the patient.: Yes I have reviewed all pertinent clinical information, including history, physical exam and plan: Yes Notes (Text): 03/12/17 16:53 Patient seen and examined. Reviewed resident note and agree with findings and plan of care
[2017-03-10] MEDS: ceFAZolin IV 1 gm in Dextrose 50 ML IVPB SCH (22:12)
[2017-03-11 02:21] LABS: TOTAL PROTEIN, SERUM 6.2 g/dL (6.1-8.1)
[2017-03-11] MEDS: ceFAZolin IV 1 gm in Dextrose 50 ML IVPB SCH ×3 (05:21→22:42)
[2017-03-11 08:22] LABS: BASO # 0.1 K/uL (0.0-0.2); BASO % 0.8 % (0.0-2.0); EOS # 0.6 K/uL (0.0-0.7); EOS % 5.6 % (0.0-4.0); HEMATOCRIT 24.7 % (35.0-51.0); LYMPH # 1.8 K/uL (1.0-4.3); LYMPH % 17.5 % (20.0-40.0); MEAN CORPUSCULAR HEMOGLOBIN 24.4 pg (27.0-31.0); MEAN CORPUSCULAR HGB CONC 32.1 g/dL (33.0-37.0); MEAN PLATELET VOLUME 6.7 fL (7.2-11.7); MONO % 9.6 % (0.0-10.0); RED CELL DISTRIBUTION WIDTH 19.6 % (11.5-14.5); WHITE BLOOD COUNT 10.1 K/uL (4.8-10.8)
--- NOTE | 2017-03-11 08:40 | CON ---
DATE: 03/10/2017 Renal consultation The patient is located in room 560, bed B. REQUESTING PHYSICIAN: Dr. Eddie Emery. REASON FOR RENAL CONSULTATION: Increased BUN and creatinine and for further evaluation. HISTORY OF PRESENT ILLNESS: The patient is about a 56-year-old, obese, male with a past medical history significant of about 10-12 years CHF , hypertension, chronic kidney disease, who presented to the Emergency Room with multiple complaints, who was evaluated in the [facility] 2 days prior to the admission and found to have fluid overload and anemia and worsening renal function, questionable pneumonia, and advised to hospital, and the patient signed out AMA on 03/03/2017. The patient was for the positive blood culture for Staph aureus, and the patient now is presenting to the [facility] for further evaluation. The patient also claims he had a recent fall. Complains of pain in the right sternocleidomastoid region, anterior chest wall, and complains of pain to elevate right upper extremity. Denies any headache or dizziness. Denies any nausea, vomiting, diarrhea. Denies any abdominal pain. Denies any dysuria or frequency. The patient does complain of pain swelling of the legs. PAST MEDICAL HISTORY: Significant for diabetes more than 10-12 years; hypertension; CHF; chronic kidney disease; anemia; and Charcot foot on the left side. PAST SURGICAL HISTORY: Denies. ALLERGIES: PEACH SNAPPLE. SOCIAL HISTORY: The patient denies any smoking. Social alcohol use. No drug abuse at this time, used to smoke cocaine in the past. He is single and has 2 children. FAMILY HISTORY: Not significant. CURRENT MEDICATIONS: Include: Cefazolin 1 gram q. 8 hours, hydralazine 50 mg p.o. q. 8 hours, Ativan 1 mg p.o. b.i.d. Colace 300 mg p.o. at bedtime, Dilaudid 2 mg IV q. 4 hours p.r.n., subQ heparin 5,000 q. 8 hours, Lantus 20 units subQ q.a.m., Lasix 80 mg IV daily, Norvasc 5 mg daily, Protonix 40 mg p.o. daily, Singulair 10 mg p.o. at bedtime. REVIEW OF SYSTEMS: Pain anterior chest wall, mostly in the right sternoclavicular joint and tenderness and bilateral leg swelling and pain , pain in the right shoulder and difficult to elevate the right shoulder. All other review of systems are reviewed and are negative, except positive recent blood culture in [facility] on 03/03/2017. PHYSICAL EXAMINATION: VITAL SIGNS: Blood pressure is 159/100, pulse 104, respirations 20, temperature 97.7. Height 6 feet 1 inch and weight is 267 pounds. GENERAL: The patient is a 56-year-old obese, middle-aged, male, well- built, well-nourished, not in acute distress. HEENT: Pupils normal, react to light and accommodation. Conjunctivae pink. Sclerae anicteric. Tongue is moist. NECK: Trachea midline. LUNGS: Symmetric on both sides. Bilateral breath sounds present. Clear on auscultation. CARDIOVASCULAR: [place] in the fifth intercostal space, midclavicular line. S1 and S2 audible. No murmur. No gallop. ABDOMEN: Normal in appearance, soft, tympanic. No guarding. No hepatosplenomegaly. CENTRAL NERVOUS SYSTEM: The patient is alert, awake, oriented x 3, nonfocal on examination. Cranial nerves II-XII grossly intact. Sensory and motor system is within normal limits. EXTREMITIES: No cyanosis. No clubbing. The patient has a 1-2+ edema in both lower extremities. The patient also has a dressing to the left foot, which is Charcot joint. LABORATORY DATA: Include as follows: As of 03/10/2017: WBC 10.5, hemoglobin 8.8, hematocrit is 26, platelets 395. Sodium 134, potassium 4.1, chloride 95, CO2 25, BUN 39, creatinine 3.6, and glucose 176, calcium 8.2, phosphorus 4.4, magnesium 1.8, iron 41, TIBC 182, fes 25, ferritin 169, and total bilirubin 0.4 , AST 13, ALT 10, alkaline phosphatase 75, total protein 6.7, albumin is 3. PENG profile is negative. Hepatitis B surface ag is negative, hepatitis B surface antibody is negative, hep C antibody is negative. As of 03/05/2017: WBC 10. , hemoglobin 6.3, hematocrit 19.8, platelets 396, MCV 74.3. After 2 units transfusion H and H 07/22.8 on 03/06/2017. Urinalysis as of 03/05/2017: Color: Straw color, clear, pH 6, specific gravity 1.006, protein 2+, glucose 1+ , ketones negative, blood negative, nitrites negative, urobilinogen normal, bilirubin is negative, leukocyte esterase negative, WBC 6, RBC 4, bacteria occasional. Other laboratory data: Blood culture from 03/03/2017 from the [facility] is positive for Staph aureus, and as of 03/05/2017 blood culture x 2 is positive for Staph aureus, MSSA. Chest x-ray as of 03/05/2017: Ill-defined opacity in upper and lower right lung, possibly _ pneumonia, linear scar and atelectasis, left base. CT of the chest as of 03/06/2017: Impression: Abnormal diffuse soft tissue swelling in the right upper and anterior chest wall soft tissue extending posteriorly into the right anterior superior mediastinum. This swelling appears centered around the right first costal , near the costochondral junction, and there abnormal changes involving the right first costal cartilage, which could be due to a cartilage fracture with adjacent soft tissue contusion versus an infectious process of the costal cartilage with adjacent soft tissue swelling. Findings require clinical correlation. No definite soft tissue abscess or gas is seen. Mild subcutaneous edema and anasarca, otherwise no evidence of significant acute process, cardiomegaly. Duplex scan of the lower extremities negative for DVT. nuclear scan report as of 03/08/2017 negative study for acute osseous process or acute osteomyelitis. SUMMARY: The patient is a 56-year-old, obese, male with a history of hypertension, diabetes, congestive heart failure, anemia, chronic kidney disease , fluid overload, status post fall with abrasions on the hands, was found positive blood cultures from the [facility], 03/03/2017, which were drawn when presented to the Emergency Room on 03/03/2017 and came to the [facility] on 03/05/2017 for treatment, and repeat culture in the hospital is again positive for Staph aureus and increased BUN and creatinine, and low H and H and proteinuria. 1. Renal failure, most likely acute on chronic kidney disease, stage III. 2. Anemia, rule out iron-deficiency anemia vs secondary to chronic kidney disease. 3. Hypertension. 4. Staphylococcus aureus sepsis. Check 24-hour urine, protein, creatinine, creatinine clearance, and C3, C4, and also check HIV and UPEP and SPAP, and iron , TIBC, ferritin level. Continue IV antibiotics as per ID recommendations. Ancef 1 gram hours. 5. Hypertension. Blood pressure is slightly high. Continue his current medications, Lasix and Norvasc 5 mg and titrate as needed to 10 mg to keep his blood pressure below 130/70, and we will consider the CHI inhibitor losartan if the patient can tolerate. We will consider to add Epogen once iron studies are available. We will follow with you. Thank you for allowing me to participate in your patient's care. Jan Allred MD cc: [id number] TT: 03/11/2017 01:05:22 Confirmation # [id number] Dictation # [id number] MTDD
[2017-03-11 08:50] LABS: POTASSIUM 4.2 mmol/L (3.6-5.2)
[2017-03-11 08:52] LABS: ALB/GLOB RATIO 0.9 (1.0-2.1); BILIRUBIN,TOTAL 0.2 mg/dL (0.2-1.3); TOTAL PROTEIN 6.5 g/dL (6.3-8.3)
[2017-03-11 08:53] LABS: CALCIUM 7.8 mg/dl (8.6-10.4); MAGNESIUM 1.7 mg/dL (1.6-2.3); PHOSPHOROUS 4.6 mg/dL (2.5-4.5)
[2017-03-11] MEDS: Pantoprazole 40 mg EC Tab PO SCH (10:06)
[2017-03-11] MEDS: (Lantus) Insulin Glargine, Recombinant SC SCH (10:06)
[2017-03-11 10:53] LABS: BETA 1 GLOBULIN 0.4 g/dL (0.4-0.6); BETA 2 GLOBULIN 0.5 g/dL (0.2-0.5); GAMMA GLOBULIN 1.3 g/dL (0.8-1.7)
[2017-03-11] MEDS: (Novolin R) Insulin Human Regular 100 units/ml vial SC SCH ×3 (13:22→22:43)
[2017-03-11] MEDS ORDERED: Epoetin Alfa 10,000 unit/ml Dialysis SC ONE (16:30)
--- NOTE | 2017-03-11 16:54 | CP.PCM.PN ---
Subjective - Date & Time of Evaluation Date of Evaluation: 03/11/17 Time of Evaluation: 09:00 - Subjective Subjective: c/o severe right shoulder pain 'on iv ancef for mssa bacteremia endocarditis to be considered consider YESENIA cont iv ancef for 6-8 weeks PT/OT and ortho follow up Objective - Vital Signs/Intake and Output Vital Signs (last 24 hours): Temp Pulse Resp BP Pulse Ox 97.7 F 107 H 20 159/91 H 98 03/11/17 15:59 03/11/17 15:59 03/11/17 15:59 03/11/17 15:59 03/11/17 15:59 Intake and Output: 03/11/17 03/11/17 06:59 18:59 Intake Total 890 Output Total 525 Balance 365 - Medications Medications: Current Medications Amlodipine Besylate (Norvasc) 5 mg PO DAILY [facility] Last Admin: 03/11/17 10:06 Dose: 5 mg Docusate Sodium (Colace) 300 mg PO HS [facility] Last Admin: 03/10/17 22:09 Dose: Not Given Furosemide (Lasix) 80 mg IVP DAILY [facility] Last Admin: 03/11/17 10:07 Dose: 80 mg Hydralazine HCl (Apresoline) 50 mg PO Q8H [facility] Last Admin: 03/11/17 13:21 Dose: 50 mg Hydromorphone HCl (Dilaudid) 2 mg IVP Q4H PRN PRN Reason: Pain, severe (8-10) Last Admin: 03/11/17 16:06 Dose: 2 mg Cefazolin Sodium/Dextrose (Ancef Iv 1 Gm Duplex) 50 mls @ 100 mls/hr IVPB Q8H [facility] Last Admin: 03/11/17 13:21 Dose: 100 mls/hr Insulin Glargine (Lantus) 20 unit SC QAM [facility] Last Admin: 03/11/17 10:06 Dose: 20 unit Insulin Human Regular (Novolin R) 0 unit SC ACHS [facility] PRN Reason: Protocol Last Admin: 03/11/17 13:22 Dose: Not Given Lorazepam (Ativan) 1 mg PO BID [facility] Last Admin: 03/11/17 10:06 Dose: 1 mg Montelukast Sodium (Singulair) 10 mg PO HS [facility] Last Admin: 03/10/17 22:09 Dose: 10 mg Pantoprazole Sodium (Protonix Ec Tab) 40 mg PO DAILY [facility] Last Admin: 03/11/17 10:06 Dose: 40 mg - Labs Labs: 03/11/17 08:06 03/11/17 08:06 - Constitutional Appears: Non-toxic, Chronically Ill - Head Exam Head Exam: NORMOCEPHALIC - Eye Exam Eye Exam: PERRL. absent: Scleral icterus - ENT Exam ENT Exam: Mucous Membranes Dry - Neck Exam Neck Exam: absent: Lymphadenopathy - Respiratory Exam Respiratory Exam: Decreased Breath Sounds, Rhonchi - Cardiovascular Exam Cardiovascular Exam: REGULAR RHYTHM, +S1, +S2 - GI/Abdominal Exam GI & Abdominal Exam: Distended, Soft - Extremities Exam Extremities Exam: Pedal Edema, Tenderness. absent: Normal Inspection Additional comments: + charcot foot - Back Exam Back Exam: absent: CVA tenderness (L), CVA tenderness (R) Assessment and Plan (1) Anemia Status: Acute (2) Bacteremia Status: Acute (3) Congestive heart failure (CHF) Status: Acute (4) HTN (hypertension) Status: Acute (5) Opacity of lung on imaging study Status: Acute
--- NOTE | 2017-03-11 18:20 | CP.PCM.PN ---
<Lupillo Perez - Last Filed: 03/11/17 18:16> Subjective - Date & Time of Evaluation Date of Evaluation: 03/11/17 Time of Evaluation: 10:17 - Subjective Subjective: Pt seen and examined. Pt complains of pain in his right shoulder. He reports that he experienced swelling flares in the right upper neck throughout the evening. Pt denies fever, chills, chest pain, shortness of breath, nausea, and vomiting. Objective - Vital Signs/Intake and Output Vital Signs (last 24 hours): Temp Pulse Resp BP Pulse Ox 97.7 F 107 H 20 159/91 H 98 03/11/17 15:59 03/11/17 15:59 03/11/17 15:59 03/11/17 15:59 03/11/17 15:59 Intake and Output: 03/11/17 03/11/17 06:59 18:59 Intake Total 890 Output Total 525 Balance 365 - Medications Medications: Current Medications Amlodipine Besylate (Norvasc) 5 mg PO DAILY [facility] Last Admin: 03/11/17 10:06 Dose: 5 mg Docusate Sodium (Colace) 300 mg PO HS [facility] Last Admin: 03/10/17 22:09 Dose: Not Given Furosemide (Lasix) 80 mg IVP DAILY [facility] Last Admin: 03/11/17 10:07 Dose: 80 mg Hydralazine HCl (Apresoline) 50 mg PO Q8H [facility] Last Admin: 03/11/17 13:21 Dose: 50 mg Hydromorphone HCl (Dilaudid) 2 mg IVP Q4H PRN PRN Reason: Pain, severe (8-10) Last Admin: 03/11/17 16:06 Dose: 2 mg Cefazolin Sodium/Dextrose (Ancef Iv 1 Gm Duplex) 50 mls @ 100 mls/hr IVPB Q8H [facility] Last Admin: 03/11/17 13:21 Dose: 100 mls/hr Insulin Glargine (Lantus) 20 unit SC QAM [facility] Last Admin: 03/11/17 10:06 Dose: 20 unit Insulin Human Regular (Novolin R) 0 unit SC ACHS [facility] PRN Reason: Protocol Last Admin: 03/11/17 17:46 Dose: 6 unit Lorazepam (Ativan) 1 mg PO BID [facility] Last Admin: 03/11/17 17:47 Dose: 1 mg Montelukast Sodium (Singulair) 10 mg PO HS [facility] Last Admin: 03/10/17 22:09 Dose: 10 mg Pantoprazole Sodium (Protonix Ec Tab) 40 mg PO DAILY [facility] Last Admin: 03/11/17 10:06 Dose: 40 mg - Labs Labs: 03/11/17 08:06 03/11/17 08:06 - Constitutional Appears: No Acute Distress - Head Exam Head Exam: ATRAUMATIC, NORMOCEPHALIC - Eye Exam Eye Exam: EOMI, PERRL - ENT Exam ENT Exam: Mucous Membranes Moist. absent: Mucous Membranes Dry - Neck Exam Neck Exam: absent: Lymphadenopathy - Respiratory Exam Respiratory Exam: Clear to Ausculation Bilateral. absent: Rales, Rhonchi, Wheezes - Cardiovascular Exam Cardiovascular Exam: +S1, +S2. absent: Gallop, Rubs, Murmur - GI/Abdominal Exam GI & Abdominal Exam: Soft, Normal Bowel Sounds. absent: Distended, Guarding, Tenderness - Extremities Exam Additional comments: b/l charcot foot - Neurological Exam Neurological Exam: Alert, Awake, Oriented x3 - Psychiatric Exam Psychiatric exam: Normal Affect, Normal Mood - Skin Skin Exam: Normal Color, Warm Assessment and Plan - Assessment and Plan (Free Text) Assessment: Bactermemia ID consulted, Dr. Beltran, help appreciated. 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 Barber, consulted for PICC placement. Help appreciated. Plan is for PICC placement tomorrow Pt will need 4-6 weeks of IV ancef as per ID Charcot Foot LE arterial duplex negative for DVTs Neck swelling Soft tissue Ultrasound- 03/06/17- prominent reticulation and edema seen within the subcutaneous soft tissues at the level of the right neck. At the level of the posterior inferior right neck, there is a 1.4x 0.9x 1.4 cm ovoid hetergeneous to hypoechoic lesion with a few punctate internal areas of increased echogenicity. Adjacent to this area, there is an additional rounded heterogeneous to hypoechoic lesion measuring [id number] which may also represent a soft tissue nodule vs lymph node. Chest CT - abnormal, diffuse, soft tissue swelling in the right upper, anterior chest wall soft tissue - contusion vs infectious process; mild subcutaneous anasarca/edema Surgery consulted, Dr. Esquivel, help appreciated. Renal Insufficiency BUN/Cr 35/3.5, improving Nephrology, Dr. Allred, consulted. Help appreciated. Plasma electrophoresis, PENG, 24 hour urine creatinine clearance Renal ultrasound pending HTN: Hydralazine 50 mg po q8h Anemia consult [facility]- Dr. Cardozo s/p 2 units PRBC stool occult pending Hemoglobin studies pending Diabetes: Lantus 20U SC QAM Regular insulin sliding scale Prophylactic Measures: Protonix 40mg PO Daily Heparin 500 units sc q8h <Prashanth Lowery Jr. - Last Filed: 03/12/17 16:58> Objective - Vital Signs/Intake and Output Vital Signs (last 24 hours): Temp Pulse Resp BP Pulse Ox 97.6 F 103 H 18 156/94 H 100 03/12/17 16:00 03/12/17 16:00 03/12/17 16:00 03/12/17 16:00 03/12/17 16:00 Intake and Output: 03/12/17 03/12/17 06:59 18:59 Intake Total 850 Balance 850 - Medications Medications: Current Medications Amlodipine Besylate (Norvasc) 5 mg PO DAILY [facility] Last Admin: 03/12/17 09:42 Dose: 5 mg Docusate Sodium (Colace) 300 mg PO HS [facility] Last Admin: 03/11/17 22:01 Dose: 300 mg Furosemide (Lasix) 80 mg IVP DAILY [facility] Last Admin: 03/12/17 09:42 Dose: 80 mg Hydralazine HCl (Apresoline) 50 mg PO Q8H [facility] Last Admin: 03/12/17 13:57 Dose: 50 mg Hydromorphone HCl (Dilaudid) 2 mg IVP Q4H PRN PRN Reason: Pain, severe (8-10) Last Admin: 03/12/17 16:41 Dose: 2 mg Cefazolin Sodium/Dextrose (Ancef Iv 1 Gm Duplex) 50 mls @ 100 mls/hr IVPB Q8H [facility] Last Admin: 03/12/17 13:58 Dose: 100 mls/hr Insulin Glargine (Lantus) 20 unit SC QAM [facility] Last Admin: 03/12/17 09:50 Dose: 20 unit Insulin Human Regular (Novolin R) 0 unit SC ACHS [facility] PRN Reason: Protocol Last Admin: 03/12/17 12:20 Dose: 8 unit Lorazepam (Ativan) 1 mg PO BID [facility] Last Admin: 03/12/17 09:41 Dose: 1 mg Montelukast Sodium (Singulair) 10 mg PO HS [facility] Last Admin: 03/11/17 22:01 Dose: 10 mg Pantoprazole Sodium (Protonix Ec Tab) 40 mg PO DAILY [facility] Last Admin: 03/12/17 09:42 Dose: 40 mg Vitamin B Complex/Vit C/Folic Acid (Nephro-Leanna) 1 tab PO DAILY [facility] Last Admin: 03/12/17 09:42 Dose: 1 tab - Labs Labs: 03/12/17 13:48 03/12/17 13:48 Attending/Attestation - Attestation I have personally seen and examined this patient.: Yes I have fully participated in the care of the patient.: Yes I have reviewed all pertinent clinical information, including history, physical exam and plan: Yes Notes (Text): 03/12/17 16:58 Patient seen and examined. Reviewed resident note and agree with findings and plan of care
--- NOTE | 2017-03-11 18:37 | CP.PCM.PN ---
Subjective - Date & Time of Evaluation Date of Evaluation: 03/11/17 Time of Evaluation: 15:00 - Subjective Subjective: Chest wall tenderness, pain improved overall with antibiotics Objective - Vital Signs/Intake and Output Vital Signs (last 24 hours): Temp Pulse Resp BP Pulse Ox 97.7 F 107 H 20 159/91 H 98 03/11/17 15:59 03/11/17 15:59 03/11/17 15:59 03/11/17 15:59 03/11/17 15:59 Intake and Output: 03/11/17 03/11/17 06:59 18:59 Intake Total 890 Output Total 525 Balance 365 - Medications Medications: Current Medications Amlodipine Besylate (Norvasc) 5 mg PO DAILY [facility] Last Admin: 03/11/17 10:06 Dose: 5 mg Docusate Sodium (Colace) 300 mg PO HS [facility] Last Admin: 03/10/17 22:09 Dose: Not Given Furosemide (Lasix) 80 mg IVP DAILY [facility] Last Admin: 03/11/17 10:07 Dose: 80 mg Hydralazine HCl (Apresoline) 50 mg PO Q8H [facility] Last Admin: 03/11/17 13:21 Dose: 50 mg Hydromorphone HCl (Dilaudid) 2 mg IVP Q4H PRN PRN Reason: Pain, severe (8-10) Last Admin: 03/11/17 16:06 Dose: 2 mg Cefazolin Sodium/Dextrose (Ancef Iv 1 Gm Duplex) 50 mls @ 100 mls/hr IVPB Q8H [facility] Last Admin: 03/11/17 13:21 Dose: 100 mls/hr Insulin Glargine (Lantus) 20 unit SC QAM [facility] Last Admin: 03/11/17 10:06 Dose: 20 unit Insulin Human Regular (Novolin R) 0 unit SC ACHS [facility] PRN Reason: Protocol Last Admin: 03/11/17 17:46 Dose: 6 unit Lorazepam (Ativan) 1 mg PO BID [facility] Last Admin: 03/11/17 17:47 Dose: 1 mg Montelukast Sodium (Singulair) 10 mg PO HS [facility] Last Admin: 03/10/17 22:09 Dose: 10 mg Pantoprazole Sodium (Protonix Ec Tab) 40 mg PO DAILY [facility] Last Admin: 03/11/17 10:06 Dose: 40 mg - Labs Labs: 03/11/17 08:06 03/11/17 08:06 - Head Exam Head Exam: ATRAUMATIC - Eye Exam Eye Exam: Normal appearance - ENT Exam ENT Exam: Mucous Membranes Dry - Respiratory Exam Respiratory Exam: NORMAL BREATHING PATTERN - Cardiovascular Exam Cardiovascular Exam: +S1, +S2 - GI/Abdominal Exam GI & Abdominal Exam: Normal Bowel Sounds - Extremities Exam Extremities Exam: Pedal Edema Assessment and Plan (1) Anemia Assessment & Plan: chronic disease and CKD s/p procrit to decrease transfusion dependence Status: Acute (2) Opacity of lung on imaging study Assessment & Plan: may be infection related Status: Acute (3) Neck swelling Assessment & Plan: infection related Status: Acute
--- NOTE | 2017-03-11 18:39 | CP.PCM.PN ---
Subjective - Date & Time of Evaluation Date of Evaluation: 03/11/17 Time of Evaluation: 18:38 - Subjective Subjective: pt seen and examined, follow up consult is dictated #[id number] Objective - Vital Signs/Intake and Output Vital Signs (last 24 hours): Temp Pulse Resp BP Pulse Ox 97.7 F 107 H 20 159/91 H 98 03/11/17 15:59 03/11/17 15:59 03/11/17 15:59 03/11/17 15:59 03/11/17 15:59 Intake and Output: 03/11/17 03/11/17 06:59 18:59 Intake Total 890 Output Total 525 Balance 365 - Medications Medications: Current Medications Amlodipine Besylate (Norvasc) 5 mg PO DAILY [facility] Last Admin: 03/11/17 10:06 Dose: 5 mg Docusate Sodium (Colace) 300 mg PO HS [facility] Last Admin: 03/10/17 22:09 Dose: Not Given Furosemide (Lasix) 80 mg IVP DAILY [facility] Last Admin: 03/11/17 10:07 Dose: 80 mg Hydralazine HCl (Apresoline) 50 mg PO Q8H [facility] Last Admin: 03/11/17 13:21 Dose: 50 mg Hydromorphone HCl (Dilaudid) 2 mg IVP Q4H PRN PRN Reason: Pain, severe (8-10) Last Admin: 03/11/17 16:06 Dose: 2 mg Cefazolin Sodium/Dextrose (Ancef Iv 1 Gm Duplex) 50 mls @ 100 mls/hr IVPB Q8H [facility] Last Admin: 03/11/17 13:21 Dose: 100 mls/hr Insulin Glargine (Lantus) 20 unit SC QAM [facility] Last Admin: 03/11/17 10:06 Dose: 20 unit Insulin Human Regular (Novolin R) 0 unit SC ACHS [facility] PRN Reason: Protocol Last Admin: 03/11/17 17:46 Dose: 6 unit Lorazepam (Ativan) 1 mg PO BID [facility] Last Admin: 03/11/17 17:47 Dose: 1 mg Montelukast Sodium (Singulair) 10 mg PO HS [facility] Last Admin: 03/10/17 22:09 Dose: 10 mg Pantoprazole Sodium (Protonix Ec Tab) 40 mg PO DAILY [facility] Last Admin: 03/11/17 10:06 Dose: 40 mg - Labs Labs: 03/11/17 08:06 03/11/17 08:06
--- NOTE | 2017-03-12 00:01 | PN ---
DATE: 03/11/2017 REQUESTED BY: Dr. Flori Emery REASON FOR FOLLOWUP: Chronic kidney disease and acute renal failure and anemia and proteinuria and Staphylococcus aureus sepsis. HISTORY OF PRESENT ILLNESS: The patient is a 56-year-old obese male with a history of longstanding diabetes with Charcot foot on the left side, chronic kidney disease, who was admitted with Staphylococcus aureus sepsis recently found on blood culture in [facility]. The patient signed out AMA and came to the [facility] after the patient was notified that the blood culture was positive and the patient also complaining of anterior chest wall pain, mostly on the right side, sternoclavicular joint. Denies any fever, cough. Denies any nausea, vomiting, diarrhea. PHYSICAL EXAMINATION: VITAL SIGNS: Blood pressure is 159/91, pulse 107, respirations 20, temperature 97.7, saturation 98%, height 6 feet 1 inch and weight is 267 pounds, BMI 35.2. GENERAL: The patient is a 56-year-old obese male, well-built, well- nourished, not in distress. HEENT: Pupils normal, reactive to light and accommodation. Conjunctivae slightly pale. Sclerae anicteric. Tongue is moist. NECK: Trachea midline. LUNGS: Symmetric on both sides. Bilateral breath sounds present. Clear on auscultation. CARDIOVASCULAR: [place] in the fifth intercostal space midclavicular line. S1 and S2 audible. No murmur or gallop. ABDOMEN: Normal in appearance, soft, tympanitic. No guarding, no rigidity. No hepatosplenomegaly. CENTRAL NERVOUS SYSTEM: The patient is alert, awake, oriented x 3, nonfocal on examination. Cranial nerves II through XII grossly intact. Sensory and motor system is within normal limits. EXTREMITIES: No cyanosis, no clubbing. The patient has 1+ edema in both lower extremities and also dressing to the left foot. The patient has a Charcot joint on the left side. CURRENT MEDICATIONS: Include as follows: Cefazolin 1 gram q. 8 hours, hydralazine 50 mg p.o. q. 8 hours , Colace 300 mg p.o. at bedtime, Dilaudid 2 mg IV q. 4 hours, Lantus 20 units subQ q.a.m., Lasix 80 mg IV daily, Norvasc 5 mg p.o. daily, Novolin R per sliding scale, Protonix 40 mg p.o. daily, Singulair 10 mg p.o. at bedtime. LABORATORY DATA: Include as follows: As of 03/11/2017, , hemoglobin 7.9, hematocrit is 24.7, platelets 357. Sodium 134, potassium 4.2, chloride 99, CO2 22, , creatinine 3.5, glucose 164, calcium 7.8, phosphorus 4.6, magnesium 1.7. Total bilirubin 0.3, AST 15,, alkaline phosphatase 64, total protein 6.5, albumin is 3.0. A 24-hour urine volume is 2325 mL and creatinine clearance about 20 mL and HIV 1 and 2 antibody screening is negative and PENG profile is negative. Serum protein electrophoresis consistent with acute inflammatory pattern. Hepatitis B surface antigen negative, surface antibody is negative, hep C antibody negative. SUMMARY: The patient is a 56-year-old middle-aged obese male with history of diabetes, hypertension, congestive heart failure and low H and H and status post transfusion and also increased BUN, creatinine and. Blood culture is positive for Staphylococcus aureus 03/03/2017 from the [facility] and also 03/05/2017 in [facility] with anterior chest wall pain and tenderness of the right sternoclavicular joint. 1. Renal failure, [id number] versus progression of chronic kidney disease. 2. Anemia secondary to renal failure, rule out gastrointestinal loss. 3. Hypertension. 4. Methicillin-resistant Staphylococcus aureus sepsis. Will continue Ancef as per ID recommendations and follow up repeat cultures and will also add Nephrocaps 1 tablet daily and also we will check PTH intact level and we will add Epogen 10,000 units subQ 3 times a week. The patient received the Epogen 20,000 units subQ x [address] Cardozo for hematology for anemia management. We will follow with you. Thank you for allowing me to participate in your patient's care. We will also check phosphorus and PTH level in a.m. Jan Allred MD cc: [id number] TT: 03/12/2017 00:00:52 Confirmation # [id number] Dictation # [id number] ln MTDD
[2017-03-12] MEDS: ceFAZolin IV 1 gm in Dextrose 50 ML IVPB SCH ×2 (06:11→13:58)
--- NOTE | 2017-03-12 07:36 | CP.PCM.PN ---
Subjective - Date & Time of Evaluation Date of Evaluation: 03/12/17 Time of Evaluation: 07:30 - Subjective Subjective: patient is upset about being transferred from . [facility] was attempted Wednesday but patient refused. Currently refusing blood work telemetry. Objective - Vital Signs/Intake and Output Vital Signs (last 24 hours): Temp Pulse Resp BP Pulse Ox 97.5 F L 100 H 20 159/96 H 98 03/11/17 23:45 03/11/17 23:45 03/11/17 23:45 03/11/17 23:45 03/12/17 03:17 - Medications Medications: Current Medications Amlodipine Besylate (Norvasc) 5 mg PO DAILY [facility] Last Admin: 03/11/17 10:06 Dose: 5 mg Docusate Sodium (Colace) 300 mg PO HS [facility] Last Admin: 03/11/17 22:01 Dose: 300 mg Furosemide (Lasix) 80 mg IVP DAILY [facility] Last Admin: 03/11/17 10:07 Dose: 80 mg Hydralazine HCl (Apresoline) 50 mg PO Q8H [facility] Last Admin: 03/12/17 06:11 Dose: 50 mg Hydromorphone HCl (Dilaudid) 2 mg IVP Q4H PRN PRN Reason: Pain, severe (8-10) Last Admin: 03/12/17 04:22 Dose: 2 mg Cefazolin Sodium/Dextrose (Ancef Iv 1 Gm Duplex) 50 mls @ 100 mls/hr IVPB Q8H [facility] Last Admin: 03/12/17 06:11 Dose: 100 mls/hr Insulin Glargine (Lantus) 20 unit SC QAM [facility] Last Admin: 03/11/17 10:06 Dose: 20 unit Insulin Human Regular (Novolin R) 0 unit SC ACHS [facility] PRN Reason: Protocol Last Admin: 03/11/17 22:43 Dose: Not Given Lorazepam (Ativan) 1 mg PO BID [facility] Last Admin: 03/11/17 17:47 Dose: 1 mg Montelukast Sodium (Singulair) 10 mg PO HS [facility] Last Admin: 03/11/17 22:01 Dose: 10 mg Pantoprazole Sodium (Protonix Ec Tab) 40 mg PO DAILY [facility] Last Admin: 03/11/17 10:06 Dose: 40 mg Vitamin B Complex/Vit C/Folic Acid (Nephro-Leanna) 1 tab PO DAILY [facility] - Labs Labs: 03/11/17 08:06 03/11/17 08:06 Assessment and Plan (1) Dyspnea Status: Acute (2) HTN (hypertension) Status: Acute
[2017-03-12] MEDS: (Novolin R) Insulin Human Regular 100 units/ml vial SC SCH ×3 (08:10→17:10)
[2017-03-12] MEDS: Pantoprazole 40 mg EC Tab PO SCH (09:42)
[2017-03-12] MEDS: (Lantus) Insulin Glargine, Recombinant SC SCH (09:50)
[2017-03-12] MEDS ORDERED: Multivitamin Vitamin B Complex (Nephro-Vite) Tab PO SCH (10:00)
--- NOTE | 2017-03-12 11:26 | RAD ---
HISTORY: verify left PICC COMPARISON: Comparison chest 03/05/2017 FINDINGS: LUNGS: Interval placement left-sided PICC line, the tip of which not seen with certainty. Poor inspiration with low lung volumes, crowded bronchovascular markings and mild bibasilar atelectasis. Central pulmonary vasculature also appears slightly congested possibly due to low lung volumes. Clinic correlation recommended. PLEURA: No apparent pneumothorax. CARDIOVASCULAR: Heart appears mildly enlarged. OSSEOUS STRUCTURES: No significant abnormalities. VISUALIZED UPPER ABDOMEN: Normal. OTHER FINDINGS: None. IMPRESSION: Interval placement left-sided PICC line, the tip of which not seen with certainty. Poor inspiration with low lung volumes, crowded bronchovascular markings and mild bibasilar atelectasis. Central pulmonary vasculature also appears slightly congested possibly due to low lung volumes. Clinic correlation recommended.
--- NOTE | 2017-03-12 13:05 | RAD ---
HISTORY: Assess PICC line tip. COMPARISON: Comparison made with prior study 03/12/2017 at 10:57 hrs FINDINGS: LUNGS: Re- demonstrated is left-sided PICC line, tip of which appears to be located within the mid left brachiocephalic vein. Persistent mild pulmonary vascular congestion. Subsegmental atelectasis left lung base. No evidence of pneumothorax PLEURA: No significant pleural effusion identified, no pneumothorax apparent. CARDIOVASCULAR: Marked cardiomegaly. OSSEOUS STRUCTURES: No significant abnormalities. VISUALIZED UPPER ABDOMEN: Normal. OTHER FINDINGS: None. IMPRESSION: In situ left-sided PICC line, tip of which appears to be located within the mid brachiocephalic vein. No evidence of pneumothorax. Mild pulmonary vascular congestive changes and subsegmental atelectasis left lung base. Marked cardiomegaly.
[2017-03-12 13:53] LABS: BASO # 0.1 K/uL (0.0-0.2); BASO % 0.8 % (0.0-2.0); EOS # 0.3 K/uL (0.0-0.7); EOS % 2.5 % (0.0-4.0); HEMATOCRIT 25.9 % (35.0-51.0); LYMPH # 1.5 K/uL (1.0-4.3); LYMPH % 13.2 % (20.0-40.0); MEAN CELL VOLUME 75.9 fL (80.0-94.0); MEAN CORPUSCULAR HGB CONC 31.7 g/dL (33.0-37.0); MEAN PLATELET VOLUME 6.9 fL (7.2-11.7); MONO # 0.6 K/uL (0.0-0.8); MONO % 5.7 % (0.0-10.0); NRBC % 0.1 % (0.0-2.0); RED CELL DISTRIBUTION WIDTH 19.7 % (11.5-14.5); WHITE BLOOD COUNT 11.1 K/uL (4.8-10.8)
[2017-03-12 14:05] LABS: CHLORIDE 95 mmol/L (98-107); POTASSIUM 4.5 mmol/L (3.6-5.2); SODIUM 131 mmol/L (132-148)
[2017-03-12 14:07] LABS: BILIRUBIN,TOTAL < 0.1 mg/dL (0.2-1.3); CARBON DIOXIDE 22 mmol/L (22-30); GFR AFRICAN-AMERICAN 25
[2017-03-12 14:08] LABS: ALB/GLOB RATIO 0.8 (1.0-2.1); ALKALINE PHOSPHATASE 78 U/L (38-126); ALT/SGPT 7 U/L (21-72); AST/SGOT 26 U/L (17-59); BLOOD UREA NITROGEN 32 mg/dL (9-20); GLUCOSE,RANDOM 391 mg/dL (75-110); TOTAL PROTEIN 6.8 g/dL (6.3-8.3)
[2017-03-12 14:09] LABS: CALCIUM 8.4 mg/dl (8.6-10.4)
--- NOTE | 2017-03-12 14:35 | CP.PCM.PN ---
Subjective - Date & Time of Evaluation Date of Evaluation: 03/12/17 Time of Evaluation: 14:33 - Subjective Subjective: pt seen and examined, no compliants, no sob, decreasing edemma s/p left ue picc line pline placemnet, possible d/c home today and out pt iv abx a sper ID Objective - Vital Signs/Intake and Output Vital Signs (last 24 hours): Temp Pulse Resp BP Pulse Ox 97.4 F L 106 H 20 151/83 H 98 03/12/17 07:00 03/12/17 07:00 03/12/17 07:00 03/12/17 09:42 03/12/17 07:00 - Medications Medications: Current Medications Amlodipine Besylate (Norvasc) 5 mg PO DAILY [facility] Last Admin: 03/12/17 09:42 Dose: 5 mg Docusate Sodium (Colace) 300 mg PO HS [facility] Last Admin: 03/11/17 22:01 Dose: 300 mg Furosemide (Lasix) 80 mg IVP DAILY [facility] Last Admin: 03/12/17 09:42 Dose: 80 mg Hydralazine HCl (Apresoline) 50 mg PO Q8H [facility] Last Admin: 03/12/17 13:57 Dose: 50 mg Hydromorphone HCl (Dilaudid) 2 mg IVP Q4H PRN PRN Reason: Pain, severe (8-10) Last Admin: 03/12/17 12:21 Dose: 2 mg Cefazolin Sodium/Dextrose (Ancef Iv 1 Gm Duplex) 50 mls @ 100 mls/hr IVPB Q8H [facility] Last Admin: 03/12/17 13:58 Dose: 100 mls/hr Insulin Glargine (Lantus) 20 unit SC QAM [facility] Last Admin: 03/12/17 09:50 Dose: 20 unit Insulin Human Regular (Novolin R) 0 unit SC ACHS [facility] PRN Reason: Protocol Last Admin: 03/12/17 12:20 Dose: 8 unit Lorazepam (Ativan) 1 mg PO BID [facility] Last Admin: 03/12/17 09:41 Dose: 1 mg Montelukast Sodium (Singulair) 10 mg PO HS [facility] Last Admin: 03/11/17 22:01 Dose: 10 mg Pantoprazole Sodium (Protonix Ec Tab) 40 mg PO DAILY [facility] Last Admin: 03/12/17 09:42 Dose: 40 mg Vitamin B Complex/Vit C/Folic Acid (Nephro-Leanna) 1 tab PO DAILY [facility] Last Admin: 03/12/17 09:42 Dose: 1 tab - Labs Labs: 03/12/17 13:48 03/12/17 13:48 - Constitutional Appears: Well, Non-toxic, No Acute Distress - Head Exam Head Exam: ATRAUMATIC, NORMAL INSPECTION, NORMOCEPHALIC - Eye Exam Eye Exam: EOMI, Normal appearance, PERRL - ENT Exam ENT Exam: Normal Exam - Neck Exam Neck Exam: Full ROM, Normal Inspection - Respiratory Exam Respiratory Exam: Clear to Ausculation Bilateral, NORMAL BREATHING PATTERN Additional comments: mild tenderness at rt sterno clavicular joint/ first rib - Cardiovascular Exam Cardiovascular Exam: REGULAR RHYTHM, +S1, +S2 - GI/Abdominal Exam GI & Abdominal Exam: Firm, Soft, Normal Bowel Sounds - Rectal Exam Rectal Exam: Deferred - Extremities Exam Additional comments: 1+ edema, charcot' s foot left - Neurological Exam Neurological Exam: Alert, Awake, CN II-XII Intact, Oriented x3 - Skin Skin Exam: Normal Color Assessment and Plan - Assessment and Plan (Free Text) Plan: 56 yo obese male with htn, dm, proteinuria, rt anterior chest wall pain and tenderness, + blood c/s for MSSA 1. anna on ckd, sec to atn sec to sepsis 2. anemia 3. staph. aures sepsis 4. nephrotic arnge proteinuria, r/o DM nephropathy vs Ch gn continue iv abx his serologic w/u hiv, hept.b,c loraine , spep are wnl 5. Anemia, sec to ckd, sepsis add nephrocaps 1 tab po daily s/p epogen x 1 f/u with hematology
--- NOTE | 2017-03-12 15:42 | RAD ---
HISTORY: PICC Exchanged for proper tip position COMPARISON: Chest x-ray performed 03/12/17 TECHNIQUE: Chest, one view. FINDINGS: Image was obtained with the patient in an oblique position. Left-sided PICC appears to terminate within the right atrium. LUNGS: Subsegmental atelectasis, left lung base. Mild pulmonary venous congestion. Please note that chest x-ray has limited sensitivity for the detection of pulmonary masses. PLEURA: No significant pleural effusion identified. No definite pneumothorax . CARDIOVASCULAR: Enlargement of the cardiomediastinal silhouette. OSSEOUS STRUCTURES: Degenerative changes. VISUALIZED UPPER ABDOMEN: Unremarkable. OTHER FINDINGS: None. IMPRESSION: Left-sided PICC terminates in the expected location of the right atrium. Enlargement of the cardiomediastinal silhouette. Subsegmental atelectasis, left lung base. Mild pulmonary venous congestion.
[2017-03-12 16:01] VITALS: BP 156/94; PULSE 103; RESP 18; TEMP 97.6; O2SAT 100
--- NOTE | 2017-03-12 18:05 | CP.PCM.PN ---
Subjective - Date & Time of Evaluation Date of Evaluation: 03/12/17 Time of Evaluation: 15:00 - Subjective Subjective: Chest wall discomfort, improved Objective - Vital Signs/Intake and Output Vital Signs (last 24 hours): Temp Pulse Resp BP Pulse Ox 97.6 F 103 H 18 156/94 H 100 03/12/17 16:00 03/12/17 16:00 03/12/17 16:00 03/12/17 16:00 03/12/17 16:00 Intake and Output: 03/12/17 03/12/17 06:59 18:59 Intake Total 850 Balance 850 - Medications Medications: Current Medications Amlodipine Besylate (Norvasc) 5 mg PO DAILY [facility] Last Admin: 03/12/17 09:42 Dose: 5 mg Docusate Sodium (Colace) 300 mg PO HS [facility] Last Admin: 03/11/17 22:01 Dose: 300 mg Furosemide (Lasix) 80 mg IVP DAILY [facility] Last Admin: 03/12/17 09:42 Dose: 80 mg Hydralazine HCl (Apresoline) 50 mg PO Q8H [facility] Last Admin: 03/12/17 13:57 Dose: 50 mg Hydromorphone HCl (Dilaudid) 2 mg IVP Q4H PRN PRN Reason: Pain, severe (8-10) Last Admin: 03/12/17 16:41 Dose: 2 mg Cefazolin Sodium/Dextrose (Ancef Iv 1 Gm Duplex) 50 mls @ 100 mls/hr IVPB Q8H [facility] Last Admin: 03/12/17 13:58 Dose: 100 mls/hr Insulin Glargine (Lantus) 20 unit SC QAM [facility] Last Admin: 03/12/17 09:50 Dose: 20 unit Insulin Human Regular (Novolin R) 0 unit SC ACHS [facility] PRN Reason: Protocol Last Admin: 03/12/17 17:10 Dose: 4 unit Lorazepam (Ativan) 1 mg PO BID [facility] Last Admin: 03/12/17 09:41 Dose: 1 mg Montelukast Sodium (Singulair) 10 mg PO HS [facility] Last Admin: 03/11/17 22:01 Dose: 10 mg Pantoprazole Sodium (Protonix Ec Tab) 40 mg PO DAILY [facility] Last Admin: 03/12/17 09:42 Dose: 40 mg Vitamin B Complex/Vit C/Folic Acid (Nephro-Leanna) 1 tab PO DAILY [facility] Last Admin: 03/12/17 09:42 Dose: 1 tab - Labs Labs: 03/12/17 13:48 03/12/17 13:48 - Head Exam Head Exam: ATRAUMATIC - Eye Exam Eye Exam: Normal appearance - ENT Exam ENT Exam: Mucous Membranes Dry - Respiratory Exam Respiratory Exam: NORMAL BREATHING PATTERN - Cardiovascular Exam Cardiovascular Exam: +S1, +S2 - GI/Abdominal Exam GI & Abdominal Exam: Normal Bowel Sounds - Extremities Exam Extremities Exam: Pedal Edema Assessment and Plan (1) Anemia Assessment & Plan: chronic disease and renal disease s/p procrit H/H slightly improved Status: Acute (2) Opacity of lung on imaging study Status: Acute (3) Neck swelling Status: Acute
--- NOTE | 2017-03-12 18:22 | CP.PCM.PN ---
Subjective - Date & Time of Evaluation Date of Evaluation: 03/12/17 Time of Evaluation: 08:00 - Subjective Subjective: refuses out pt iv rx advised of risks including Objective - Vital Signs/Intake and Output Vital Signs (last 24 hours): Temp Pulse Resp BP Pulse Ox 97.6 F 103 H 18 156/94 H 100 03/12/17 16:00 03/12/17 16:00 03/12/17 16:00 03/12/17 16:00 03/12/17 16:00 Intake and Output: 03/12/17 03/12/17 06:59 18:59 Intake Total 850 Balance 850 - Medications Medications: Current Medications Amlodipine Besylate (Norvasc) 5 mg PO DAILY [facility] Last Admin: 03/12/17 09:42 Dose: 5 mg Docusate Sodium (Colace) 300 mg PO HS [facility] Last Admin: 03/11/17 22:01 Dose: 300 mg Furosemide (Lasix) 80 mg IVP DAILY [facility] Last Admin: 03/12/17 09:42 Dose: 80 mg Hydralazine HCl (Apresoline) 50 mg PO Q8H [facility] Last Admin: 03/12/17 13:57 Dose: 50 mg Hydromorphone HCl (Dilaudid) 2 mg IVP Q4H PRN PRN Reason: Pain, severe (8-10) Last Admin: 03/12/17 16:41 Dose: 2 mg Cefazolin Sodium/Dextrose (Ancef Iv 1 Gm Duplex) 50 mls @ 100 mls/hr IVPB Q8H [facility] Last Admin: 03/12/17 13:58 Dose: 100 mls/hr Insulin Glargine (Lantus) 20 unit SC QAM [facility] Last Admin: 03/12/17 09:50 Dose: 20 unit Insulin Human Regular (Novolin R) 0 unit SC ACHS [facility] PRN Reason: Protocol Last Admin: 03/12/17 17:10 Dose: 4 unit Lorazepam (Ativan) 1 mg PO BID [facility] Last Admin: 03/12/17 09:41 Dose: 1 mg Montelukast Sodium (Singulair) 10 mg PO HS [facility] Last Admin: 03/11/17 22:01 Dose: 10 mg Pantoprazole Sodium (Protonix Ec Tab) 40 mg PO DAILY [facility] Last Admin: 03/12/17 09:42 Dose: 40 mg Vitamin B Complex/Vit C/Folic Acid (Nephro-Leanna) 1 tab PO DAILY [facility] Last Admin: 03/12/17 09:42 Dose: 1 tab - Labs Labs: 03/12/17 13:48 03/12/17 13:48 Assessment and Plan (1) Anemia Status: Acute (2) Bacteremia Status: Acute (3) Congestive heart failure (CHF) Status: Acute (4) HTN (hypertension) Status: Acute (5) Opacity of lung on imaging study Status: Acute
--- NOTE | 2017-03-12 23:10 | CP.PCM.DIS ---
Provider - Provider Date of Admission: 03/05/17 13:39 Attending physician: Prashanth Lowery Jr, MD Time Spent in preparation of Discharge (in minutes): 49 Hospital Course - Lab Results Lab Results: Micro Results 03/10/17 19:00 Sputum Gram Stain - Final 03/10/17 19:00 Sputum Sputum Culture - Final NORMAL ORAL WILLIAM 03/11/17 10:25 Blood-Venous Blood Culture - Preliminary NO GROWTH AFTER 24 HOURS 03/11/17 10:51 Blood-Venous Blood Culture - Preliminary NO GROWTH AFTER 24 HOURS Most Recent Lab Values WBC 11.1 K/uL (4.8-10.8) H 03/12/17 13:48 RBC 3.41 Mil/uL (4.40-5.90) L 03/12/17 13:48 Hgb 8.2 g/dL (12.0-18.0) L 03/12/17 13:48 Hct 25.9 % (35.0-51.0) L 03/12/17 13:48 MCV 75.9 fL (80.0-94.0) L 03/12/17 13:48 MCH 24.0 pg (27.0-31.0) L 03/12/17 13:48 MCHC 31.7 g/dL (33.0-37.0) L 03/12/17 13:48 RDW 19.7 % (11.5-14.5) H 03/12/17 13:48 Plt Count 350 K/uL (130-400) 03/12/17 13:48 MPV 6.9 fL (7.2-11.7) L 03/12/17 13:48 Neut % (Auto) 77.8 % (50.0-75.0) H 03/12/17 13:48 Lymph % (Auto) 13.2 % (20.0-40.0) L 03/12/17 13:48 [place] % (Auto) 5.7 % (0.0-10.0) 03/12/17 13:48 Eos % (Auto) 2.5 % (0.0-4.0) 03/12/17 13:48 Baso % (Auto) 0.8 % (0.0-2.0) 03/12/17 13:48 Neut # 8.7 K/uL (1.8-7.0) H 03/12/17 13:48 Lymph # 1.5 K/uL (1.0-4.3) 03/12/17 13:48 [place] # 0.6 K/uL (0.0-0.8) 03/12/17 13:48 Eos # 0.3 K/uL (0.0-0.7) 03/12/17 13:48 Baso # 0.1 K/uL (0.0-0.2) 03/12/17 13:48 ESR 136 mm/hr (0-15) H 03/12/17 13:48 Retic Count 1.6 % (0.5-1.5) H 03/05/17 22:41 Hemoglobin A 97.4 Percent (>96.0) 03/05/17 22:41 Hemoglobin A2 1.6 Percent (1.8-3.5) L 03/05/17 22:41 Hemoglobin C 0.0 Percent (0.0-0.0) 03/05/17 22:41 Hemoglobin F () <1.0 Percent (<2.0) 03/05/17 22:41 Hemoglobin S 0.0 Percent (0.0-0.0) 03/05/17 22:41 Variant Hemoglobin 0.0 Percent (0.0-0.0) 03/05/17 22:41 Hemoglobinopathy Red Blood Count 2.96 Mill/mcL (4.20-5.80) L 03/05/17 22:41 Hemoglobinopathy Hct 22.5 % (38.5-50.0) L 03/05/17 22:41 Hemoglobinopathy Hgb 7.2 g/dL (13.2-17.1) L 03/05/17 22:41 Hemoglobinopathy MCV 75.9 fL (80.0-100.0) L 03/05/17 22:41 Hemoglobinopathy MCH 24.3 pg (27.0-33.0) L 03/05/17 22:41 Hemoglobinopathy RDW 19.7 % (11.0-15.0) H 03/05/17 22:41 Hemoglobinopathy Interp See note (()) 03/05/17 22:41 Sodium 131 mmol/L (132-148) L 03/12/17 13:48 Potassium 4.5 mmol/L (3.6-5.2) 03/12/17 13:48 Chloride 95 mmol/L (98-107) L 03/12/17 13:48 Carbon Dioxide 22 mmol/L (22-30) 03/12/17 13:48 Anion Gap 18 (10-20) 03/12/17 13:48 BUN 32 mg/dL (9-20) H 03/12/17 13:48 Creatinine 3.2 MG/DL (0.8-1.5) H 03/12/17 13:48 Est GFR ( Amer) 25 03/12/17 13:48 Est GFR (Non-Af Amer) 20 03/12/17 13:48 POC Glucose (mg/dL) 244 mg/dL (65-110) H 03/12/17 16:43 Random Glucose 391 mg/dL (75-110) H 03/12/17 13:48 Calcium 8.4 mg/dl (8.6-10.4) L 03/12/17 13:48 Phosphorus 5.0 mg/dL (2.5-4.5) H 03/12/17 13:48 Magnesium 1.7 mg/dL (1.6-2.3) 03/11/17 08:06 Iron 45 ug/dL (49-181) L 03/09/17 19:23 TIBC 182 ug/dL (250-450) L 03/09/17 19:23 % Saturation 25 (20-55) 03/09/17 19:23 Ferritin 169.0 ng/mL 03/09/17 19:23 Total Bilirubin < 0.1 mg/dL (0.2-1.3) L 03/12/17 13:48 AST 26 U/L (17-59) 03/12/17 13:48 ALT 7 U/L (21-72) L D 03/12/17 13:48 Alkaline Phosphatase 78 U/L (38-126) 03/12/17 13:48 Troponin I 0.0240 ng/mL (0.00-0.120) 03/05/17 12:39 C-React Prot High Sens > 15.00 mg/L (1.00-3.00) H 03/12/17 13:48 NT-Pro-B Natriuret Pep 06607 pg/mL (0-900) H 03/05/17 12:39 Total Protein 6.8 g/dL (6.3-8.3) 03/12/17 13:48 Total Protein (PEP) 6.2 g/dL (6.1-8.1) 03/09/17 19:23 Albumin 3.0 g/dL (3.5-5.0) L 03/12/17 13:48 Albumin (PEP) 2.5 g/dL (3.8-4.8) L 03/09/17 19:23 Globulin 3.8 gm/dL (2.2-3.9) 03/12/17 13:48 Albumin/Globulin Ratio 0.8 (1.0-2.1) L 03/12/17 13:48 Edvxk-3-Crwwfeoei 0.6 g/dL (0.2-0.3) H 03/09/17 19:23 Gfvee-0-Yalwyelwf 1.0 g/dL (0.5-0.9) H 03/09/17 19:23 Siqe-5-Peprnosl 0.4 g/dL (0.4-0.6) 03/09/17 19:23 Cbui-9-Skwvwfrk 0.5 g/dL (0.2-0.5) 03/09/17 19:23 Gamma Globulins 1.3 g/dL (0.8-1.7) 03/09/17 19:23 Abnorm Protein Band 1 TEST NOT PERFORMED 03/09/17 19:23 Abnorm Protein Band 2 TEST NOT PERFORMED 03/09/17 19:23 Abnorm Protein Band 3 TEST NOT PERFORMED 03/09/17 19:23 Vitamin B12 461 pg/mL (239-931) 03/05/17 20:00 Folate 3.5 ng/mL 03/05/17 20:00 Procalcitonin 0.46 NG/ML (0.19-0.49) 03/12/17 13:48 Urine Color Straw (YELLOW) 03/05/17 14:52 Urine Clarity Clear (Clear) 03/05/17 14:52 Urine pH 6.0 (5.0-8.0) 03/05/17 14:52 Ur Specific [place] 1.006 (1.003-1.030) 03/05/17 14:52 Urine Protein 2+ mg/dL (NEGATIVE) H 03/05/17 14:52 Urine Glucose (UA) 1+ mg/dL (Normal) H 03/05/17 14:52 Urine Ketones Negative mg/dL (NEGATIVE) 03/05/17 14:52 Urine Blood 1+ (NEGATIVE) H 03/05/17 14:52 Urine Nitrate Negative (NEGATIVE) 03/05/17 14:52 Urine Bilirubin Negative (NEGATIVE) 03/05/17 14:52 Urine Urobilinogen Normal mg/dL (0.2-1.0) 03/05/17 14:52 Ur Leukocyte Esterase Neg [place]/uL (Negative) 03/05/17 14:52 Urine WBC (Auto) 6 /hpf (0-5) H 03/05/17 14:52 Urine RBC (Auto) 4 /hpf (0-3) H 03/05/17 14:52 Urine Bacteria Occ (<OCC) H 03/05/17 14:52 Urine Collection Time 24 HRS 03/10/17 19:01 Urine Total Volume 2325 mL 03/10/17 19:01 Creatinine Clearance 20.0 mL/min (107-139) L 03/10/17 19:01 Ur Protein 24 Hr Calc 23883.0 mg/24hr (42-225) H 03/10/17 19:01 Vancomycin Peak 24.8 ug/mL (30.0-40.0) L 03/06/17 19:21 Vancomycin Trough 38.6 ug/mL (5.0-10.0) H 03/08/17 07:30 Serum Ketones Negative (NEGATIVE) 03/05/17 12:39 IVANA & SPEP Interp See note (()) 03/09/17 19:23 PENG 6 Profile Negative (NEGATIVE) 03/09/17 19:23 Hep Bs Antigen Negative (NEGATIVE) 03/09/17 19:23 Hep Bs Antibody Negative (NEGATIVE) 03/09/17 19:23 Hepatitis C Antibody Negative (NEGATIVE) 03/09/17 19:23 HIV 1&2 Antibody Screen Negative (NEGATIVE) 03/11/17 10:51 Blood Type B POSITIVE 03/05/17 12:58 Blood Type Confirm B POSITIVE 03/05/17 12:58 Antibody Screen Negative 03/05/17 12:58 - Hospital Course Hospital Course: HPI: Pt is a 56 y/o male with a PMHx of HTN, Charcot foot, hypercholesterolemia , and renal insufficiency who presented to the ED with complaints of shortness of breath and weakness. Hospital Course: Pt was found to be septic with staph aureus bacteremia as per blood cultures. Pt was tachycardic and febrile. Pt was started on IV vancomycin and zosyn. Ceretec scan was negative for osteomyelitis. Infectious Disease, Dr. Beltran, was consulted. Interventional radiology, Dr. Barber, was consulted for PICC line placement for 4-6 weeks of antibiotics but pt refused PICC line. Pt also complained of neck swelling. Soft tissue Ultrasound- 03/06/17- prominent reticulation and edema seen within the subcutaneous soft tissues at the level of the right neck. At the level of the posterior inferior right neck, there is a 1.4x 0.9x 1.4 cm ovoid hetergeneous to hypoechoic lesion with a few punctate internal areas of increased echogenicity. Adjacent to this area, there is an additional rounded heterogeneous to hypoechoic lesion measuring [id number] which may also represent a soft tissue nodule vs lymph node (please see full report). Chest CT revealed abnormal, diffuse, soft tissue swelling in the right upper, anterior chest wall soft tissue - contusion vs infectious process; mild subcutaneous anasarca/edema (please see full report). Surgery, Dr. Esquivel, was consulted. Pt also presented with renal insufficiency. Creatinine was 4.0 upon admission. Nephrology, Dr. Allred, was consulted. HIV and Hepatitis panel were negative. Pt was found to be anemic. Heme/onc, Dr. Cardozo, was consulted. Pt was transfused 2 units of prbcs. Prob-BNP was found to be 19,600. Troponin was negative x 1. Cardiology, Dr. Cunningham, was consulted. Echocardiogram revealed an EF of 49% and a dialted left ventricle (please see full report). Since pt refused PICC line and IV abx, pt was discharged on keflex. Discharge Exam - Head Exam Head Exam: ATRAUMATIC - Eye Exam Eye Exam: EOMI, PERRL - ENT Exam ENT Exam: Mucous Membranes Moist. absent: Mucous Membranes Dry - Neck Exam Neck exam: Tenderness - Respiratory Exam Respiratory Exam: Decreased Breath Sounds. absent: Wheezes - Cardiovascular Exam Cardiovascular Exam: +S1, +S2 - GI/Abdominal Exam GI & Abdominal Exam: Soft. absent: Guarding, Hernia, Rigid - Extremities Exam Extremities exam: full ROM - Neurological Exam Neurological exam: Alert, Oriented x3 - Psychiatric Exam Psychiatric exam: Agitated - Skin Skin Exam: Normal Color, Warm Discharge Plan - Discharge Medications Prescriptions: Cephalexin [Keflex] 1 gm PO TID #42 capsule - Follow Up Plan Condition: CRITICAL Disposition: HOME/ ROUTINE Patient education suggested?: Yes Instructions: Heart Failure (DC), Heart Healthy Diet (DC), Low Sodium Diet (DC) , Hypertension (DC), Bacteremia (DC) Referrals: Jan Allred MD [Staff Provider] - Prashanth Lowery Jr., MD [Medical Doctor] - Crow Cunningham MD [Staff Provider] - Clinical Quality Measures - CQM - Heart Failure Ejection Fraction: 40 % or Greater Left Ventricular Function to be assessed after discharge: No CHI Inhibitor Prescribed: No Contraindication/Reason for not providing: EF of 49% Beta-Brandyn Prescribed: None Contraindication/Reason for not providing: EF of 49% Angiotensin II Receptor Brandyn Prescribed: No Contraindication/Reason for not providing: EF of 49%
--- NOTE | 2017-03-15 11:51 | PQF CHF ---
This form is a permanent part of the medical record To Prashanth Lowery MD Patient was admitted with SOB, with history of CKD/HTN/CHF, Diabetis, Anemia. etc, Diagnosed with staph Aureus Sepsis. [place] findings [place] [address] on admission. CHF were documented, please specify the type of CHF: Systolic/Diastolic / Acute or Chronic? Thank you, Clarification of your documentation is requested to better reflect the severity of illness and intensity of treatment of your patient. Indicators present [X] Diagnosis of CHF and/or history of CHF [X] BNP > 200 H [X] Imaging Finding of Pulmonary Edema /Pleural Effusions [] Fluid/Volume Overload [] Pitting edema [] Ejection Fraction < 40% (Indicative of Systolic Heart Failure) [] Ejection Fraction > 40% (Indicative of Diastolic Heart Failure) [X] Dyspnea / Orthopenea / Paroxysmal Nocturnal Dyspnea [] Other: Location in the medical record that reflects the above clinical findings: [] Treatment Provided: [] PHYSICIAN'S RESPONSE Based on your medical judgment of the clinical indicators outlined above, are you treating this patient for a known or suspected: [] Acute CHF [] Systolic [] Diastolic [] Combined [] Chronic CHF [] Systolic [] Diastolic [] Combined [] Acute on Chronic CHF []Systolic [] Diastolic [] Combined [] CHF due hypertension [] Acute systolic []Chronic systolic [] Acute/ chronic systolic [] Other, please indicate: [] [] If Unable to Determine, please check the box, sign and date. Present On Admission (POA) Indicator: [] Present at the time of admission [] Not present at the time of admission [] Clinically Undetermined In responding to this query, please exercise your independent professional judgment. The fact that a question is asked does not imply that any particular answer is desired or expected. Thank you for your clarification on this documentation. If you have any questions please call:[ ] * Thank you, [ ] Jessica Roberts, [employer] soft metals hand engraver FRANCA
== END 2017-03-12 18:30 | disposition home or self-care (01) | DRG 871 ==
LOC: C.ER 11:09 → C.9E 13:39 → C.5T 03-06 06:34 → C.6T 03-12 00:54
PROVIDERS: ADMIT Internal Medicine; ATTEND Internal Medicine
PROC: 30233N1 Transfusion of Nonautologous Red Blood Cells into Peripheral Vein, Percutaneous Approach (ICD-10-PCS; principal; 2017-03-06)
DX: A41.01 Sepsis due to Methicillin susceptible Staphylococcus aureus (principal); N17.0 Acute kidney failure with tubular necrosis; I50.33 Acute on chronic diastolic (congestive) heart failure; E11.22 Type 2 diabetes mellitus with diabetic chronic kidney disease; E11.9 Type 2 diabetes mellitus without complications; D63.1 Anemia in chronic kidney disease; I13.0 Hypertensive heart and chronic kidney disease with heart failure and stage 1 through stage 4 chronic kidney disease, or unspecified chronic kidney disease; I11.0 Hypertensive heart disease with heart failure; I50.9 Heart failure, unspecified; E11.610 Type 2 diabetes mellitus with diabetic neuropathic arthropathy; N18.3 Chronic kidney disease, stage 3 (moderate); R22.1 Localized swelling, mass and lump, neck; R80.9 Proteinuria, unspecified; Z87.891 Personal history of nicotine dependence; Z79.4 Long term (current) use of insulin; R65.20 Severe sepsis without septic shock

== ENCOUNTER 2018-04-05 18:11 | Observation (INO) | payer MEDICARE ==
[2018-04-05 18:11] VITALS: BMI 35.2
--- NOTE | 2018-04-05 19:26 | C.PDOC ---
Chief Complaint (Nursing): Chest Pain Past Medical History Vital Signs: Last Vital Signs Temp 98.4 F 04/05/18 18:22 Pulse 106 H 04/05/18 18:22 Resp 18 04/05/18 18:22 BP 185/111 H 04/05/18 18:22 Pulse Ox 98 04/05/18 18:22 - Medical History PMH: Anemia, Anxiety, CHF, Diabetes, HTN, Pneumonia, Chronic Kidney Disease - [facility] Procedures EXCIS DEBRIDE OF WOUND, INFECT, OR BURN (03/04/04) TETANUS TOXOID ADMINIST (12/03/13) TRANSFUSE NONAUT RED BLOOD CELLS IN PERIPH VEIN, PERC (03/05/17) Family History: States: Unknown Family Hx - Social History Hx Tobacco Use: No Hx Alcohol Use: No Hx Substance Use: No - Immunization History Hx Tetanus Toxoid Vaccination: Yes Hx Influenza Vaccination: Yes Hx Pneumococcal Vaccination: No ED Course And Treatment O2 Sat by Pulse Oximetry: 98 Disposition - Disposition
--- NOTE | 2018-04-05 19:28 | C.PDOC ---
History Of Present Illness 57 year old male presents to the emergency department with complaints of left sided chest pain radiating to his upper extremity with an onset of one hour prior to arrival. Patient has a history of chronic kidney disease and is currently on dialysis, which he skipped yesterday. Patient's family states that his episode of incoordination started yesterday. Patient confirms a headache, but denies nausea and vomiting. Chief Complaint (Nursing): Chest Pain Onset/Duration Of Symptoms: Days (1) Current Symptoms Are (Timing): Still Present Quality: "Pain" Associated Symptoms: denies: Nausea, Other (vomiting) Past Medical History Reviewed: Historical Data, Nursing Documentation, Vital Signs Vital Signs: Last Vital Signs Temp 98.4 F 04/05/18 18:22 Pulse 90 04/05/18 20:44 Resp 16 04/05/18 20:44 BP 142/92 H 04/05/18 20:44 Pulse Ox 98 04/05/18 21:02 - Medical History PMH: Anemia, Anxiety, CHF, Diabetes, HTN, Pneumonia, Chronic Kidney Disease Surgical History: No Surg Hx - [facility] Procedures EXCIS DEBRIDE OF WOUND, INFECT, OR BURN (03/04/04) TETANUS TOXOID ADMINIST (12/03/13) TRANSFUSE NONAUT RED BLOOD CELLS IN PERIPH VEIN, PERC (03/05/17) Family History: States: No Known Family Hx - Social History Hx Tobacco Use: No Hx Alcohol Use: No Hx Substance Use: No - Immunization History Hx Tetanus Toxoid Vaccination: Yes Hx Influenza Vaccination: Yes Hx Pneumococcal Vaccination: No Review Of Systems Except As Marked, All Systems Reviewed And Found Negative. Gastrointestinal: Negative for: Nausea, Vomiting Neurological: Positive for: Headache Physical Exam - Physical Exam Appears: Non-toxic, No Acute Distress Cardiovascular: Rhythm Regular Respiratory: Normal Breath Sounds Neurological/Psych: Oriented x3, Normal Speech, Normal Cognition, Other (no focal deficits) ED Course And Treatment - Laboratory Results Result Diagrams: 04/05/18 19:28 04/05/18 19:28 ECG: Interpreted By Me, Viewed By Me ECG Rhythm: Sinus Tachycardia Interpretation Of ECG: Sinus tachycradia, miniscule Q in inferior leads, no acute changes. Rate From EC O2 Sat by Pulse Oximetry: 98 (RA) Pulse Ox Interpretation: Normal - Radiology Nexus Criteria: . Focal Neuro Deficit - CT Scan/US Head Other Rad Studies (CT/US): Read By Radiologist, Radiology Report Reviewed CT/US Interpretation: Ethmoid and maxillary sinus mucosal thickening. Medical Decision Making Medical Decision Making: Plan: CT Head with Contrast EKG CMP CBC Troponin Partial Thromboplastin Time Prothrombin Time CXR Two Views Disposition Discussed With DrAraseli: Prashanth Lowery Jr. Doctor Will See Patient In The: Hospital Counseled Patient/Family Regarding: Diagnosis - Disposition Disposition: HOSPITALIZED Disposition Time: 23:21 Condition: STABLE Forms: PEPperPRINT (Maltese) - POA Present On Arrival: None - Clinical Impression Clinical Impression: Chest pain, ESRD (end stage renal disease) on dialysis
[2018-04-05 19:31] LABS: BASO # 0.1 K/uL (0.0-0.2); BASO % 0.8 % (0.0-2.0); EOS # 0.1 K/uL (0.0-0.7); EOS % 1.6 % (0.0-4.0); LYMPH # 1.2 K/uL (1.0-4.3); LYMPH % 15.9 % (20.0-40.0); MEAN CORPUSCULAR HEMOGLOBIN 30.4 pg (27.0-31.0); MEAN CORPUSCULAR HGB CONC 33.1 g/dL (33.0-37.0); MEAN PLATELET VOLUME 6.5 fL (7.2-11.7); MONO # 0.7 K/uL (0.0-0.8); MONO % 9.4 % (0.0-10.0); NEUT # 5.5 K/uL (1.8-7.0); NEUT % 72.3 % (50.0-75.0); RBC 3.64 Mil/uL (4.40-5.90); WHITE BLOOD COUNT 7.6 K/uL (4.8-10.8)
[2018-04-05 19:32] LABS: HEMOGLOBIN 11.1 g/dL (12.0-18.0); MEAN CELL VOLUME 91.8 fL (80.0-94.0)
[2018-04-05 19:41] LABS: INR 1.2
[2018-04-05 20:12] LABS: ALBUMIN 3.9 g/dL (3.5-5.0); CALCIUM 8.8 mg/dl (8.6-10.4)
[2018-04-05 20:25] LABS: TROPONIN I 0.124 ng/mL (0.00-0.120)
[2018-04-06] MEDS ORDERED: Aspirin 325 mg EC Tablets PO STA (00:31)
--- NOTE | 2018-04-06 00:37 | CP.PCM.HP ---
History of Present Illness - History of Present Illness History of Present Illness: H&P: 57 year old male with past medical history of ESRD on HD M/W/F, HTN, history of DM, Charcot foot presented to hospital for chest pain. Pt states that chest pain occurred earlier in the day when he was having an argument with his girlfriend. Chest pain last about 1 hour. It was located in center of chest and radiated to left upper extremity. Patient denies having any chest pain currently. Denies having any SOB, diaphoresis or lightheadedness when the chest pain occurred. Patient states he missed his last 2 dialysis sessions. Patient currently denies having any shortness of breath, abd pain, N/V/D/C, F/ C. Patient is resting comfortably in bed. Denies having any LE swelling. PMHx: stated above Sx: portcath placed, kidney biopsy Social: denies tobacco, ETOH or drug use Meds: unknown. [facility] pharmacy PMD: Dr. Lowery Present on Admission - Present on Admission Any Indicators Present on Admission: No Review of Systems - Constitutional Constitutional: absent: Chills, Fever - EENT Eyes: absent: Blurred Vision, Change in Vision Nose/Mouth/Throat: absent: Nasal Congestion, Nasal Discharge, Sore Throat - Cardiovascular Cardiovascular: Chest Pain. absent: Chest Pain with Activity, Dyspnea, Dyspnea on Exertion, Irregular Heart Rhythm, Pedal Edema - Respiratory Respiratory: absent: Cough, Dyspnea on Exertion, Wheezing, Pain with Coughing - Gastrointestinal Gastrointestinal: absent: Abdominal Pain, Constipation, Diarrhea, Nausea, Vomiting - Genitourinary Genitourinary: absent: Dysuria, Urinary Frequency - Musculoskeletal Musculoskeletal: absent: Back Pain - Integumentary Integumentary: absent: Acne, Lesions, Rash, Wounds - Neurological Neurological: absent: Headaches, Tremor, Weakness - Psychiatric Psychiatric: absent: Anxiety, Depression Past Patient History - Infectious Disease Hx of Infectious Diseases: None - Past Medical History & Family History Past Medical History?: Yes - Past Social History Smoking Status: Former Smoker Chewing Tobacco Use: No Cigar Use: No Alcohol: None Drugs: Denies - CARDIAC Hx Congestive Heart Failure: Yes Hx Hypertension: Yes - PULMONARY Hx Pneumonia: Yes - NEUROLOGICAL Hx Neurological Disorder: No - HEENT Hx HEENT Problems: No - RENAL Hx Chronic Kidney Disease: Yes - ENDOCRINE/METABOLIC Hx Endocrine Disorders: Yes Hx Diabetes Mellitus Type 2: Yes - HEMATOLOGICAL/ONCOLOGICAL Hx Anemia: Yes - INTEGUMENTARY Hx Dermatological Problems: No - MUSCULOSKELETAL/RHEUMATOLOGICAL Hx Musculoskeletal Disorders: Yes Hx Falls: Yes Other/Comment: Charcot foot due to DM - GASTROINTESTINAL Hx Gastrointestinal Disorders: No - GENITOURINARY/GYNECOLOGICAL Hx Genitourinary Disorders: No - PSYCHIATRIC Hx Anxiety: Yes Hx Substance Use: No - SURGICAL HISTORY Hx Surgeries: Yes Hx Musculoskeletal Surgery: Yes (LT FOOT SX) Other/Comment: LT CHEST WALL DIALYSIS CATH - ANESTHESIA Hx Anesthesia: Yes Hx Anesthesia Reactions: No Hx Malignant Hyperthermia: No Meds Allergies/Adverse Reactions: Allergies Allergy/AdvReac Type Severity Reaction Status Date / Time acetaminophen [From Percocet] Allergy Verified 04/05/18 18:28 ibuprofen Allergy Verified 04/05/18 18:28 oxycodone [From Percocet] Allergy Verified 04/05/18 18:28 tramadol Allergy Verified 04/05/18 18:28 PEACH SNAPPLE Allergy Mild RASH Uncoded 04/05/18 18:27 Physical Exam - Constitutional Appears: Non-toxic, No Acute Distress - Head Exam Head Exam: ATRAUMATIC - Eye Exam Eye Exam: EOMI - ENT Exam ENT Exam: Mucous Membranes Moist - Respiratory Exam Respiratory Exam: Clear to Auscultation Bilateral. absent: Accessory Muscle Use , Rales, Rhonchi, Wheezes, Respiratory Distress - Cardiovascular Exam Cardiovascular Exam: Tachycardia, REGULAR RHYTHM, +S1, +S2. absent: Gallop, Rubs, Systolic Murmur - GI/Abdominal Exam GI & Abdominal Exam: Normal Bowel Sounds, Soft. absent: Distended, Firm, Guarding, Rigid, Tenderness - Extremities Exam Extremities exam: Negative for: pedal edema, tenderness - Neurological Exam Neurological exam: Alert, Oriented x3 - Psychiatric Exam Psychiatric exam: Normal Affect, Normal Mood - Skin Skin Exam: Dry, Intact, Normal Color, Warm Results - Vital Signs Recent Vital Signs: Last Vital Signs Temp 98.4 F 04/05/18 18:22 Pulse 104 H 04/06/18 00:22 Resp 20 04/06/18 00:22 BP 147/94 H 04/05/18 23:39 Pulse Ox 96 04/06/18 00:22 - Labs Result Diagrams: 04/05/18 19:28 04/05/18 19:28 Labs: Laboratory Results - last 24 hr 04/05/18 04/05/18 04/05/18 19:28 19:28 19:28 WBC 7.6 RBC 3.64 L Hgb 11.1 L D Hct 33.4 L MCV 91.8 D MCH 30.4 MCHC 33.1 RDW 15.0 H Plt Count 314 MPV 6.5 L Neut % (Auto) 72.3 Lymph % (Auto) 15.9 L [place] % (Auto) 9.4 Eos % (Auto) 1.6 Baso % (Auto) 0.8 Neut # (Auto) 5.5 Lymph # (Auto) 1.2 [place] # (Auto) 0.7 Eos # (Auto) 0.1 Baso # (Auto) 0.1 PT 13.0 H INR 1.2 APTT 33 Sodium 137 Potassium 5.0 Chloride 99 Carbon Dioxide 20 L Anion Gap 23 H BUN 104 H* D Creatinine 13.1 H* Est GFR ( Amer) 5 Est GFR (Non-Af Amer) 4 Random Glucose 222 H Calcium 8.8 Total Bilirubin 1.0 AST 28 ALT 36 Alkaline Phosphatase 87 Troponin I 0.1240 H* Total Protein 7.8 Albumin 3.9 Globulin 3.9 Albumin/Globulin Ratio 1.0 Assessment & Plan - Assessment and Plan (Free Text) Assessment: 57 year old male with past medical history of ESRD on HD WMF, HTN, DM, left charcot foot is admitted for chest pain r/o ACS and ESRD in need for dialysis. Chest pain - Initial troponin slightly elevated at 0.1240 - Will check serial trop and EKG - Will check echo - Stat aspirin 325 mg po qd. Started on daily aspirin 81 mg po qd ESRD on HD - BUN/Cr ratio 104/13.1 - K 5.0 Bicarb is 20 - [employer]om Conveyor Operator, Dr. Brooks consulted - Patient will require dialysis tomorrow. HTN - Will start pt on lisinopril and coreg - will continue to monitor History of DM - will check hgbA1c and lipid panel - Accuchecks ACHS - renal diet Prophylaxis - Heparin sc q12 - no gi prophylaxis indicated - scds Case discussed with Dr. Lowery - Date & Time Date: 04/06/18 Time: 00:45
[2018-04-06] MEDS ORDERED: Morphine 4 MG/ML VIAL IVP STA (00:39)
[2018-04-06 02:47] LABS: CK-MB 5.6 ng/mL (0.0-3.38); TROPONIN I 0.124 ng/mL (0.00-0.120)
--- NOTE | 2018-04-06 06:52 | CT ---
PROCEDURE: CT HEAD WITHOUT CONTRAST. HISTORY: episode of incoordination and confusion COMPARISON: None available. TECHNIQUE: Axial computed tomography images were obtained through the head/brain without intravenous contrast. Radiation dose: Total exam DLP = 937 mGy-cm. This CT exam was performed using one or more of the following dose reduction techniques: Automated exposure control, adjustment of the mA and/or kV according to patient size, and/or use of iterative reconstruction technique. FINDINGS: HEMORRHAGE: No intracranial hemorrhage. BRAIN: No mass effect or edema. No atrophy or chronic microvascular ischemic changes. VENTRICLES: Unremarkable. No hydrocephalus. CALVARIUM: Unremarkable. PARANASAL SINUSES: Ethmoid and maxillary sinus mucosal thickening. MASTOID AIR CELLS: Unremarkable as visualized. No inflammatory changes. OTHER FINDINGS: None. IMPRESSION: Ethmoid and maxillary sinus mucosal thickening. If symptoms persists, consider further evaluation with MRI. These findings were preliminarily reported at 8:10 p.m. on 04/05/[address] Neris Frias from [facility].
--- NOTE | 2018-04-06 06:59 | CP.PCM.PN ---
Subjective - Date & Time of Evaluation Date of Evaluation: 04/06/18 Time of Evaluation: 07:00 - Subjective Subjective: Medicine Progress Note: Patient was seen and examined at bedside in the AM. Patient stated he was a bit annoyed by being bothered while he has been in the hospital. Patient denies chest pain, palpitations, shortness of breath, fever, nausea, vomiting, diarrhea or constipation. Objective - Vital Signs/Intake and Output Vital Signs (last 24 hours): Temp Pulse Resp BP Pulse Ox 97.3 F L 93 H 20 171/97 H 97 04/06/18 04:54 04/06/18 04:54 04/06/18 04:54 04/06/18 04:54 04/06/18 00:48 Intake and Output: 04/05/18 04/06/18 18:59 06:59 Intake Total 20 Output Total 0 Balance 20 - Medications Medications: Current Medications Aspirin (Ecotrin) 81 mg PO DAILY [facility] Carvedilol (Coreg) 6.25 mg PO BID [facility] Last Admin: 04/06/18 01:12 Dose: 6.25 mg Heparin Sodium (Porcine) (Heparin) 5,000 units SC Q12 [facility] Ketorolac Tromethamine (Toradol) 30 mg IVP Q6 [facility] Last Admin: 04/06/18 05:47 Dose: 30 mg Lisinopril (Zestril) 5 mg PO DAILY [facility] - Labs Labs: 04/05/18 19:28 04/05/18 19:28 PT 13.0 SECONDS (9.7-12.2) H 04/05/18 19:28 INR 1.2 04/05/18 19:28 APTT 33 SECONDS (21-34) 04/05/18 19:28 - Constitutional Appears: Non-toxic, Agitated - Head Exam Head Exam: ATRAUMATIC - Eye Exam Eye Exam: EOMI, Normal appearance, PERRL Pupil Exam: NORMAL ACCOMODATION - ENT Exam ENT Exam: Mucous Membranes Moist - Respiratory Exam Respiratory Exam: Clear to Ausculation Bilateral, NORMAL BREATHING PATTERN - Cardiovascular Exam Cardiovascular Exam: REGULAR RHYTHM, +S1, +S2 - GI/Abdominal Exam GI & Abdominal Exam: Soft, Normal Bowel Sounds. absent: Tenderness - Extremities Exam Additional comments: Refused to allow examination of bilateral feet - Neurological Exam Neurological Exam: Alert, Awake, Oriented x3 - Psychiatric Exam Psychiatric exam: Agitated Assessment and Plan - Assessment and Plan (Free Text) Assessment: 1.) Chest pain - proBNP 19729 - Initial troponin slightly elevated at 0.1240 --> 0.1240 --> 0.1320 - Heparin sc q12 - f/u echo - Previous ECHO (03/06/17): EF 49%; mild to moderate concentric left ventricular hypertrophy; systolic function is mildly imparied; mild mid anteroseptal hypokinesis. Please see full report. - On admission patient was given aspirin 325 mg po - Continue aspirin 81 mg po daily 2.) ESRD on HD - BUN/Cr ratio 104/13.1 - On admission K 5.0 Bicarb is 20 - Nephrology Consult: Dr. Bernabe --> help appreciated - Patient has missed 2 dialysis as an outpatient - Patient will have dialysis 04/06/18 3.) HTN -Medications * Lisinopril 5mg po daily * Coreg 6.25mg po bid - will continue to monitor 4.) History of DM - hgbA1c: 7.1 - Lipid panel: Total Cholesterol 168; LDL 89; HDL 27; Triglycerides 212 - Accuchecks ACHS - ISS - Crestor 5mg daily - Aspirin 81 mg po daily - Hypoglycemia protocol 5.) Prophylaxis - Heparin sc q12 - no gi prophylaxis indicated - scds Will discuss case with Dr. Sebastián Selby PGY-1
[2018-04-06 07:21] LABS: BASO # 0.1 K/uL (0.0-0.2); BASO % 1.2 % (0.0-2.0); EOS # 0.2 K/uL (0.0-0.7); LYMPH # 1.5 K/uL (1.0-4.3); LYMPH % 22.9 % (20.0-40.0); MEAN CELL VOLUME 90.4 fL (80.0-94.0); MEAN CORPUSCULAR HEMOGLOBIN 30.8 pg (27.0-31.0); MEAN CORPUSCULAR HGB CONC 34.1 g/dL (33.0-37.0); MEAN PLATELET VOLUME 6.6 fL (7.2-11.7); MONO # 0.7 K/uL (0.0-0.8); MONO % 10.7 % (0.0-10.0); NEUT # 4.1 K/uL (1.8-7.0); NEUT % 62.2 % (50.0-75.0); NRBC % 0.1 % (0.0-2.0); RBC 3.25 Mil/uL (4.40-5.90); RED CELL DISTRIBUTION WIDTH 14.8 % (11.5-14.5); WHITE BLOOD COUNT 6.7 K/uL (4.8-10.8)
--- NOTE | 2018-04-06 07:27 | RAD ---
Chest x-ray two views History: Chest pain. Comparison: 03/12/2017 Findings: Left central venous catheter tip extending into the right atrium. Mild patchy increased markings in the right infrahilar region which may represent mild infiltrate and or atelectasis. Clinical correlation. Bilateral hilar prominence. Heart size within normal limits. Degenerative changes in the spine. Impression: Left central venous catheter tip extending into the right atrium. Mild patchy increased markings in the right infrahilar region which may represent mild infiltrate and or atelectasis. Clinical correlation. Bilateral hilar prominence.
[2018-04-06 07:52] LABS: ALBUMIN 3.5 g/dL (3.5-5.0); CALCIUM 8.3 mg/dl (8.6-10.4); TROPONIN I 0.132 ng/mL (0.00-0.120)
[2018-04-06 07:53] LABS: CK-MB 3.89 ng/mL (0.0-3.38)
[2018-04-06] MEDS ORDERED: Dextrose 50% SYRINGE Inj (50 ml) IV PRN (12:31)
[2018-04-06] MEDS ORDERED: Glucagon Recombinant 1 mg Inj IM PRN (12:31)
[2018-04-06] MEDS: (Novolin R) Insulin Human Regular 100 units/ml vial SC SCH ×2 (13:27→20:37)
--- NOTE | 2018-04-06 15:48 | CP.PCM.DIS ---
Provider - Provider Date of Admission: 04/05/18 23:22 Attending physician: Prashanth Lowery Jr, MD Time Spent in preparation of Discharge (in minutes): 40 Hospital Course - Lab Results Lab Results: Most Recent Lab Values WBC 6.7 K/uL (4.8-10.8) 04/06/18 07:11 RBC 3.25 Mil/uL (4.40-5.90) L 04/06/18 07:11 Hgb 10.0 g/dL (12.0-18.0) L 04/06/18 07:11 Hct 29.4 % (35.0-51.0) L 04/06/18 07:11 MCV 90.4 fL (80.0-94.0) 04/06/18 07:11 MCH 30.8 pg (27.0-31.0) 04/06/18 07:11 MCHC 34.1 g/dL (33.0-37.0) 04/06/18 07:11 RDW 14.8 % (11.5-14.5) H 04/06/18 07:11 Plt Count 246 K/uL (130-400) 04/06/18 07:11 MPV 6.6 fL (7.2-11.7) L 04/06/18 07:11 Neut % (Auto) 62.2 % (50.0-75.0) 04/06/18 07:11 Lymph % (Auto) 22.9 % (20.0-40.0) 04/06/18 07:11 [place] % (Auto) 10.7 % (0.0-10.0) H 04/06/18 07:11 Eos % (Auto) 3.0 % (0.0-4.0) 04/06/18 07:11 Baso % (Auto) 1.2 % (0.0-2.0) 04/06/18 07:11 Neut # (Auto) 4.1 K/uL (1.8-7.0) 04/06/18 07:11 Lymph # (Auto) 1.5 K/uL (1.0-4.3) 04/06/18 07:11 [place] # (Auto) 0.7 K/uL (0.0-0.8) 04/06/18 07:11 Eos # (Auto) 0.2 K/uL (0.0-0.7) 04/06/18 07:11 Baso # (Auto) 0.1 K/uL (0.0-0.2) 04/06/18 07:11 PT 13.0 SECONDS (9.7-12.2) H 04/05/18 19:28 INR 1.2 04/05/18 19:28 APTT 33 SECONDS (21-34) 04/05/18 19:28 Sodium 137 mmol/L (132-148) 04/06/18 07:11 Potassium 5.1 mmol/L (3.6-5.2) 04/06/18 07:11 Chloride 100 mmol/L (98-107) 04/06/18 07:11 Carbon Dioxide 22 mmol/L (22-30) 04/06/18 07:11 Anion Gap 21 (10-20) H 04/06/18 07:11 BUN 101 mg/dL (9-20) H* 04/06/18 07:11 Creatinine 13.4 mg/dL (0.8-1.5) H* 04/06/18 07:11 Est GFR ( Amer) 5 04/06/18 07:11 Est GFR (Non-Af Amer) 4 04/06/18 07:11 POC Glucose (mg/dL) 202 mg/dL (65-110) H 04/06/18 12:38 Random Glucose 143 mg/dL (75-110) H 04/06/18 07:11 Hemoglobin A1c 7.1 % (4.2-6.5) H 04/06/18 07:11 Calcium 8.3 mg/dl (8.6-10.4) L 04/06/18 07:11 Total Bilirubin 0.5 mg/dL (0.2-1.3) 04/06/18 07:11 AST 21 U/L (17-59) 04/06/18 07:11 ALT 29 U/L (21-72) 04/06/18 07:11 Alkaline Phosphatase 73 U/L (38-126) 04/06/18 07:11 Total Creatine Kinase 296 U/L (55-170) H 04/06/18 07:11 CK-MB (Mass) 3.89 ng/mL (0.0-3.38) H 04/06/18 07:11 Troponin I 0.1320 ng/mL (0.00-0.120) H* 04/06/18 07:11 NT-Pro-B Natriuret Pep 40618 pg/mL (0-900) H 04/06/18 01:56 Total Protein 6.9 g/dL (6.3-8.3) 04/06/18 07:11 Albumin 3.5 g/dL (3.5-5.0) 04/06/18 07:11 Globulin 3.4 gm/dL (2.2-3.9) 04/06/18 07:11 Albumin/Globulin Ratio 1.0 (1.0-2.1) 04/06/18 07:11 Triglycerides 212 mg/dL (0-149) H D 04/06/18 07:11 Cholesterol 168 mg/dL (0-199) 04/06/18 07:11 LDL Cholesterol Direct 89 mg/dL (0-129) 04/06/18 07:11 HDL Cholesterol 27 mg/dL (30-70) L 04/06/18 07:11 TSH 3rd Generation 1.11 mIU/L (0.46-4.68) 04/06/18 07:11 - Hospital Course Hospital Course: H&P: 57 year old male with past medical history of ESRD on HD M/W/F, HTN, history of DM, Charcot foot presented to hospital for chest pain. Pt states that chest pain occurred earlier in the day when he was having an argument with his girlfriend. Chest pain last about 1 hour. It was located in center of chest and radiated to left upper extremity. Patient denies having any chest pain currently. Denies having any SOB, diaphoresis or lightheadedness when the chest pain occurred. Patient states he missed his last 2 dialysis sessions. Patient currently denies having any shortness of breath, abd pain, N/V/D/C, F/ C. Patient is resting comfortably in bed. Denies having any LE swelling. PMHx: stated above Sx: portcath placed, kidney biopsy Social: denies tobacco, ETOH or drug use Meds: unknown. [facility] pharmacy PMD: Dr. Lowery [facility] Course: Patient was seen and examined at bedside in the AM. Patient stated he was a bit annoyed by being bothered while he has been in the hospital. Patient denies chest pain, palpitations, shortness of breath, fever, nausea, vomiting, diarrhea or constipation. Nephrology Dr. Bernabe was consulted and patient received dialysis during hospitalization. A ECHO was completed during hospital course please follow up with official report: Imaging: Previous ECHO (03/06/17): EF 49%; mild to moderate concentric left ventricular hypertrophy; systolic function is mildly imparied; mild mid anteroseptal hypokinesis. Please see full report. Chest X-ray: Left central venous catheter tip extending into the right atrium. Mild patchy increased markings in the right infrahilar region which may represent mild infiltrate and or atelectasis. Clinical correlation. Bilateral hilar prominence. Head CT: Ethmoid and maxillary sinus mucosal thickening. If symptoms persists, consider further evaluation with MRI. These findings were preliminarily reported at 8:10 p.m. on 04/05/[address] Neris Frias from [employer]. Patient stable for discharge home after the completion of dialysis. Patient to restart all home medications. Patient to follow up with PMD Dr. Lowery in 1-2 weeks. Please return to the emergency room if symptoms return or worsen. This is a summary of patient's hospitalization, please review EMR for further detail. Discharge Exam - Head Exam Head Exam: ATRAUMATIC - Eye Exam Eye Exam: EOMI, Normal appearance - Respiratory Exam Respiratory Exam: Clear to PA & Lateral, NORMAL BREATHING PATTERN - Cardiovascular Exam Cardiovascular Exam: REGULAR RHYTHM, +S1, +S2 - GI/Abdominal Exam GI & Abdominal Exam: Normal Bowel Sounds, Soft. absent: Tenderness - Extremities Exam Additional comments: Patient refused examination of bilateral feet - Neurological Exam Neurological exam: Alert, CN II-XII Intact, Oriented x3 - Psychiatric Exam Psychiatric exam: Agitated - Skin Skin Exam: Normal Color Discharge Plan - Follow Up Plan Condition: STABLE Disposition: HOME/ ROUTINE
--- NOTE | 2018-04-06 15:52 | CP.PCM.CON ---
History of Present Illness - History of Present Illness History of Present Illness: Renal Note pt seen and examined labs vitals reviewed missed HD ESRD MWF schedule plan for HD today as ordered pt was advised to be compliant Thanks for consult Please call if any Q Dr Alvaro Aquino Past Patient History - Infectious Disease Hx of Infectious Diseases: None - Past Medical History & Family History Past Medical History?: Yes - Past Social History Smoking Status: Former Smoker Chewing Tobacco Use: No Cigar Use: No Alcohol: None Drugs: Denies - CARDIAC Hx Congestive Heart Failure: Yes Hx Hypertension: Yes - PULMONARY Hx Pneumonia: Yes - NEUROLOGICAL Hx Neurological Disorder: No - HEENT Hx HEENT Problems: No - RENAL Hx Chronic Kidney Disease: Yes - ENDOCRINE/METABOLIC Hx Endocrine Disorders: Yes Hx Diabetes Mellitus Type 2: Yes - HEMATOLOGICAL/ONCOLOGICAL Hx Anemia: Yes - INTEGUMENTARY Hx Dermatological Problems: No - MUSCULOSKELETAL/RHEUMATOLOGICAL Hx Musculoskeletal Disorders: Yes Hx Falls: Yes Other/Comment: Charcot foot due to DM - GASTROINTESTINAL Hx Gastrointestinal Disorders: No - GENITOURINARY/GYNECOLOGICAL Hx Genitourinary Disorders: No - PSYCHIATRIC Hx Anxiety: Yes Hx Substance Use: No - SURGICAL HISTORY Hx Surgeries: Yes Hx Musculoskeletal Surgery: Yes (LT FOOT SX) Other/Comment: LT CHEST WALL DIALYSIS CATH - ANESTHESIA Hx Anesthesia: Yes Hx Anesthesia Reactions: No Hx Malignant Hyperthermia: No Meds Allergies/Adverse Reactions: Allergies Allergy/AdvReac Type Severity Reaction Status Date / Time acetaminophen [From Percocet] Allergy Verified 04/05/18 18:28 ibuprofen Allergy Verified 04/05/18 18:28 oxycodone [From Percocet] Allergy Verified 04/05/18 18:28 tramadol Allergy Verified 04/05/18 18:28 PEACH SNAPPLE Allergy Mild RASH Uncoded 04/05/18 18:27 - Medications Medications: Current Medications Aspirin (Ecotrin) 81 mg PO DAILY [facility] Last Admin: 04/06/18 09:17 Dose: 81 mg Carvedilol (Coreg) 6.25 mg PO BID [facility] Last Admin: 04/06/18 09:17 Dose: 6.25 mg Dextrose (Glutose 15) 0 gm PO ONCE PRN; Protocol PRN Reason: Hypoglycemia Protocol Dextrose (Dextrose 50% Inj) 0 ml IV STAT PRN; Protocol PRN Reason: Hypoglycemia Protocol Glucagon (Glucagen Diagnostic Kit) 0 mg IM STAT PRN; Protocol PRN Reason: Hypoglycemia Protocol Heparin Sodium (Porcine) (Heparin) 5,000 units SC Q12 [facility] Last Admin: 04/06/18 09:17 Dose: 5,000 units Dextrose (Dextrose 5% In Water 1000 Ml) 1,000 mls @ 0 mls/hr IV .Q0M PRN; Protocol; Per Protocol PRN Reason: Hypoglycemia Protocol Insulin Human Regular (Novolin R) 0 unit SC ACHS [facility] PRN Reason: Protocol Last Admin: 04/06/18 13:27 Dose: 3 unit Ketorolac Tromethamine (Toradol) 30 mg IVP Q6 [facility] Last Admin: 04/06/18 11:39 Dose: 30 mg Lisinopril (Zestril) 5 mg PO DAILY [facility] Last Admin: 04/06/18 09:17 Dose: 5 mg Rosuvastatin Calcium (Crestor) 2.5 mg PO HS [facility] Results - Vital Signs Recent Vital Signs: Last Vital Signs Temp 97.5 F L 04/06/18 07:40 Pulse 82 04/06/18 07:40 Resp 20 04/06/18 07:40 BP 153/95 H 04/06/18 07:40 Pulse Ox 96 04/06/18 07:40 - Labs Result Diagrams: 04/06/18 07:11 04/06/18 07:11 Labs: Laboratory Results - last 24 hr 04/05/18 04/05/18 04/05/18 19:28 19:28 19:28 WBC 7.6 RBC 3.64 L Hgb 11.1 L D Hct 33.4 L MCV 91.8 D MCH 30.4 MCHC 33.1 RDW 15.0 H Plt Count 314 MPV 6.5 L Neut % (Auto) 72.3 Lymph % (Auto) 15.9 L [place] % (Auto) 9.4 Eos % (Auto) 1.6 Baso % (Auto) 0.8 Neut # (Auto) 5.5 Lymph # (Auto) 1.2 [place] # (Auto) 0.7 Eos # (Auto) 0.1 Baso # (Auto) 0.1 PT 13.0 H INR 1.2 APTT 33 Sodium 137 Potassium 5.0 Chloride 99 Carbon Dioxide 20 L Anion Gap 23 H BUN 104 H* D Creatinine 13.1 H* Est GFR ( Amer) 5 Est GFR (Non-Af Amer) 4 POC Glucose (mg/dL) Random Glucose 222 H Hemoglobin A1c Calcium 8.8 Total Bilirubin 1.0 AST 28 ALT 36 Alkaline Phosphatase 87 Total Creatine Kinase CK-MB (Mass) Troponin I 0.1240 H* NT-Pro-B Natriuret Pep Total Protein 7.8 Albumin 3.9 Globulin 3.9 Albumin/Globulin Ratio 1.0 Triglycerides Cholesterol LDL Cholesterol Direct HDL Cholesterol TSH 3rd Generation 04/06/18 04/06/18 04/06/18 01:55 01:56 06:27 WBC RBC Hgb Hct MCV MCH MCHC RDW Plt Count MPV Neut % (Auto) Lymph % (Auto) [place] % (Auto) Eos % (Auto) Baso % (Auto) Neut # (Auto) Lymph # (Auto) [place] # (Auto) Eos # (Auto) Baso # (Auto) PT INR APTT Sodium Potassium Chloride Carbon Dioxide Anion Gap BUN Creatinine Est GFR ( Amer) Est GFR (Non-Af Amer) POC Glucose (mg/dL) 138 H Random Glucose Hemoglobin A1c Calcium Total Bilirubin AST ALT Alkaline Phosphatase Total Creatine Kinase 356 H CK-MB (Mass) 5.60 H Troponin I 0.1240 H* NT-Pro-B Natriuret Pep 07621 H Total Protein Albumin Globulin Albumin/Globulin Ratio Triglycerides Cholesterol LDL Cholesterol Direct HDL Cholesterol TSH 3rd Generation 04/06/18 04/06/18 04/06/18 07:11 07:11 07:11 WBC 6.7 RBC 3.25 L Hgb 10.0 L Hct 29.4 L MCV 90.4 MCH 30.8 MCHC 34.1 RDW 14.8 H Plt Count 246 MPV 6.6 L Neut % (Auto) 62.2 Lymph % (Auto) 22.9 [place] % (Auto) 10.7 H Eos % (Auto) 3.0 Baso % (Auto) 1.2 Neut # (Auto) 4.1 Lymph # (Auto) 1.5 [place] # (Auto) 0.7 Eos # (Auto) 0.2 Baso # (Auto) 0.1 PT INR APTT Sodium 137 Potassium 5.1 Chloride 100 Carbon Dioxide 22 Anion Gap 21 H BUN 101 H* Creatinine 13.4 H* Est GFR ( Amer) 5 Est GFR (Non-Af Amer) 4 POC Glucose (mg/dL) Random Glucose 143 H Hemoglobin A1c 7.1 H Calcium 8.3 L Total Bilirubin 0.5 AST 21 ALT 29 Alkaline Phosphatase 73 Total Creatine Kinase CK-MB (Mass) Troponin I NT-Pro-B Natriuret Pep Total Protein 6.9 Albumin 3.5 Globulin 3.4 Albumin/Globulin Ratio 1.0 Triglycerides 212 H D Cholesterol 168 LDL Cholesterol Direct 89 HDL Cholesterol 27 L TSH 3rd Generation 1.11 04/06/18 04/06/18 07:11 12:38 WBC RBC Hgb Hct MCV MCH MCHC RDW Plt Count MPV Neut % (Auto) Lymph % (Auto) [place] % (Auto) Eos % (Auto) Baso % (Auto) Neut # (Auto) Lymph # (Auto) [place] # (Auto) Eos # (Auto) Baso # (Auto) PT INR APTT Sodium Potassium Chloride Carbon Dioxide Anion Gap BUN Creatinine Est GFR ( Amer) Est GFR (Non-Af Amer) POC Glucose (mg/dL) 202 H Random Glucose Hemoglobin A1c Calcium Total Bilirubin AST ALT Alkaline Phosphatase Total Creatine Kinase 296 H CK-MB (Mass) 3.89 H Troponin I 0.1320 H* NT-Pro-B Natriuret Pep Total Protein Albumin Globulin Albumin/Globulin Ratio Triglycerides Cholesterol LDL Cholesterol Direct HDL Cholesterol TSH 3rd Generation
[2018-04-06] MEDS ORDERED: (Novolin R) Insulin Human Regular 100 units/ml vial SC SCH (16:30)
--- NOTE | 2018-04-06 19:08 | CARD ---
APPROVED REPORT EXAM: Two-dimensional and M-mode echocardiogram with Doppler and color Doppler. Other Information Quality : TDSRhythm : INDICATION Dyspnea Chest Pain Congestive Heart Failure RISK FACTORS Diabetes 2D DIMENSIONS IVSd1.7 (0.7-1.1cm)LVDd5.6 (3.9-5.9cm) PWd1.5 (0.7-1.1cm)LVDs3.8 (2.5-4.0cm) FS (%) 30.9 %LVEF (%)57.9 (>50%) M-Mode DIMENSIONS Left Atrium (MM)5.23 (2.5-4.0cm)Aortic Root4.42 (2.2-3.7cm) Aortic Cusp Exc.3.09 (1.5-2.0cm) Mitral Valve MV E Ixcjtzla90.4cm/sMV A Eqmlfhqz503.5cm/sE/A ratio0.6 TDI E/Lateral E'0.0E/Medial E'0.0 Tricuspid Valve TR Peak [id number]/sTR Peak Gr.26mmHg LEFT VENTRICLE The left ventricle is normal size. There is mild to moderate concentric left ventricular hypertrophy. The left ventricular function is normal. The left ventricular ejection fraction is within the normal range. There is normal LV segmental wall motion. Transmitral Doppler flow pattern is abnormal. RIGHT VENTRICLE The right ventricle is normal size. ATRIA The left atrium is moderately dilated. The right atrium size is normal. AORTIC VALVE The aortic valve is normal in structure. MITRAL VALVE The mitral valve is normal in structure. TRICUSPID VALVE The tricuspid valve is normal in structure. GREAT VESSELS The aortic root is mildly enlarged. <Conclusion> Normal LV systolic function. Diastolic dysfunction. Dilated LA. Dilated Aortic root. LVH.
--- NOTE | 2018-04-06 19:11 | CARD ---
APPROVED REPORT EKG Measurement Heart [id number] <Conclusion> Sinus tachycardia Possible Left atrial enlargement Inferior infarct, age undetermined Abnormal ECG
[2018-04-06 20:57] VITALS: BP 145/96; PULSE 99; RESP 20; TEMP 97.6; O2SAT 99
[2018-04-06] MEDS ORDERED: Rosuvastatin Calcium 2.5 mg Tab PO SCH (22:00)
--- NOTE | 2018-04-07 22:26 | CARD ---
APPROVED REPORT EKG Measurement Heart [id number] <Conclusion> Normal sinus rhythm Inferior infarct, age undetermined Abnormal ECG
== END 2018-04-06 21:51 | disposition home or self-care (01) ==
LOC: C.ER 18:11 → C.6T 23:22
PROVIDERS: ADMIT Internal Medicine; ATTEND Internal Medicine
DX: I13.2 Hypertensive heart and chronic kidney disease with heart failure and with stage 5 chronic kidney disease, or end stage renal disease (principal); I50.9 Heart failure, unspecified; N18.6 End stage renal disease; Z87.01 Personal history of pneumonia (recurrent); Z87.891 Personal history of nicotine dependence; Z99.2 Dependence on renal dialysis
CPT/HCPCS: 36415; 70450; 71046; 80053; 80061; 82948; 83036; 83880; 84443; 84484; 85025; 85610; 85730; 93005; 93306; 96374; G0257; G0378; J1644; J1885; J2270; J2997

== ENCOUNTER 2018-07-18 12:59 | Inpatient (IN) | payer MEDICARE ==
[2018-07-18 13:22] VITALS: BMI 33.9
[2018-07-18] MEDS ORDERED: Sodium Chloride 0.9% 1,000 ML IV ONE (13:54)
--- NOTE | 2018-07-18 14:02 | C.PDOC ---
History Of Present Illness 57 year old male presents to ED for complaints of left arm swelling, and redness that began 2 days ago. Patient is s/p AVF to same arm 10 days ago at [facility]. Patient states he saw his surgeon Dr. Rian Monae last week, and nothing was done. Patient reports swelling worsened and has associated left hand numbness which prompted the ER visit. He called his physician Dr Lowery who told him to go to ED. Denies fever. Time Seen by Provider: 07/18/18 13:35 Chief Complaint (Nursing): Abnormal Skin Integrity History Per: Patient History/Exam Limitations: no limitations Onset/Duration Of Symptoms: Days Current Symptoms Are (Timing): Still Present Location Of Injury: Left: Arm Quality Of Symptoms: Painful, Swollen Past Medical History Reviewed: Historical Data, Nursing Documentation, Vital Signs Vital Signs: Last Vital Signs Temp 97.8 F 07/18/18 13:22 Pulse 84 07/18/18 13:22 Resp 20 07/18/18 13:22 BP 152/89 H 07/18/18 13:22 Pulse Ox 98 07/18/18 15:39 - Medical History PMH: Anemia, Anxiety, CHF, Diabetes, HTN, Pneumonia, Chronic Kidney Disease - [facility] Procedures EXCIS DEBRIDE OF WOUND, INFECT, OR BURN (03/04/04) TETANUS TOXOID ADMINIST (12/03/13) TRANSFUSE NONAUT RED BLOOD CELLS IN PERIPH VEIN, PERC (03/05/17) Family History: States: Unknown Family Hx - Social History Hx Tobacco Use: No Hx Alcohol Use: No Hx Substance Use: No - Immunization History Hx Tetanus Toxoid Vaccination: Yes Hx Influenza Vaccination: Yes Hx Pneumococcal Vaccination: No Review Of Systems Constitutional: Negative for: Fever, Chills Cardiovascular: Negative for: Palpitations Respiratory: Negative for: Shortness of Breath Gastrointestinal: Negative for: Nausea, Vomiting, Diarrhea Musculoskeletal: Positive for: Arm Pain Skin: Positive for: Other (Left arm swelling and redness ). Negative for: Rash Neurological: Negative for: Weakness Physical Exam - Physical Exam Appears: Non-toxic, No Acute Distress, Agitated Skin: Warm, Dry, No Diaphoretic, No Rash Head: Atraumatic, Normacephalic Eye(s): bilateral: Normal Inspection, EOMI Nose: Normal, No Discharge Oral Mucosa: Moist Neck: Normal ROM Chest: Symmetrical, No Tenderness, Other (Port to left upper chest wall ) Cardiovascular: Rhythm Regular, No Murmur Respiratory: Normal Breath Sounds, No Decreased Breath Sounds, No Rales, No Rhonchi, No Wheezing Gastrointestinal/Abdominal: Soft, No Tenderness Extremity: Normal ROM (Full ROM x 4 Ext), Capillary Refill (<2 seconds ), Other (Medial left arm near elbow has incisional wound with scab, no discharge; moderate surrounding erythema, swelling and tactile warmth from elbow extending to hand; and some swelling above elbow to mid-upper humerus. Finger tips cool to touch. ) Extremity: Left: Other (Left foot with walking boot in place) Pulses: Left Radial: Normal, Right Radial: Normal Neurological/Psych: Oriented x3, Normal Speech Gait: Steady ED Course And Treatment - Laboratory Results Result Diagrams: 07/18/18 14:17 07/18/18 14:17 Lab Interpretation: Abnormal O2 Sat by Pulse Oximetry: 98 (RA) Pulse Ox Interpretation: Normal Medical Decision Making Medical Decision Making: Impression: arm pain and redness s.p procedure r.o cellulitis DVT Plan: Administered Morphine, Toradol, and IV fluid. Ordered blood work, EKG, urinalysis, blood and urine cultures, and Venous Duplex Scan. Progress: Labs reviewed. Abnormal related to CKD. Also elevated Dimer, no leukocytosis Venous duplex study shows abnormal findings to left jugular and subclavian veins [address] Lowery [address] Lowery to discuss case and requests contact medical staff specialist and DR Esquivel Disposition - Disposition Disposition: HOSPITALIZED Disposition Time: 15:29 Condition: FAIR - POA Present On Arrival: Deep Vein Thrombosis / PE - Clinical Impression Clinical Impression: Cellulitis of left arm, Subclavian vein thrombosis, left - PA / [employer] / Resident Statement MD/DO has reviewed & agrees with the documentation as recorded. - Scribe Statement The provider has reviewed the documentation as recorded by the Alexandre Xie All medical record entries made by the Alexandre were at my direction and personally dictated by me. I have reviewed the chart and agree that the record accurately reflects my personal performance of the history, physical exam, medical decision making, and the department course for this patient. I have also personally directed, reviewed, and agree with the discharge instructions and disposition. Decision To Admit - Pt Status Changed To: Hospital Disposition Of: Inpatient - Admit Certification Admit to Inpatient:: After my assessment, the patient will require hospitalization for at least two midnights. This is because of the severity of symptoms shown, intensity of services needed, and/or the medical risk in this patient being treated as an outpatient. - InPatient: Physician Admission Certification: I certify that this patient requires 2 or more midnights of care for the following reason:: Patient with acute abnormality on venous duplex of left arm and cellulitis at surgical site. - . Bed Request Type: Regular Admitting Physician: Prashanth Lowery Jr. Patient Diagnosis: Cellulitis of left arm, Subclavian vein thrombosis, left
[2018-07-18 14:20] LABS: BASO % 0.8 % (0.0-2.0); EOS # 0.2 K/uL (0.0-0.7); HEMOGLOBIN 9.6 g/dL (12.0-18.0); LYMPH # 0.7 K/uL (1.0-4.3); LYMPH % 11.4 % (20.0-40.0); MEAN CELL VOLUME 92.7 fL (80.0-94.0); MEAN CORPUSCULAR HEMOGLOBIN 30.2 pg (27.0-31.0); MEAN CORPUSCULAR HGB CONC 32.6 g/dL (33.0-37.0); MEAN PLATELET VOLUME 6.5 fL (7.2-11.7); MONO # 0.5 K/uL (0.0-0.8); MONO % 9.3 % (0.0-10.0); NEUT # 4.3 K/uL (1.8-7.0); NEUT % 74.5 % (50.0-75.0); NRBC % 0.1 % (0.0-2.0); RBC 3.18 Mil/uL (4.40-5.90); RED CELL DISTRIBUTION WIDTH 19.2 % (11.5-14.5); WHITE BLOOD COUNT 5.8 K/uL (4.8-10.8)
[2018-07-18] MEDS ORDERED: Sodium Chloride 0.9% 1,000 ML ONE (14:29)
[2018-07-18] MEDS ORDERED: Morphine 4 MG/ML VIAL ONE (14:29)
[2018-07-18 14:40] LABS: ALB/GLOB RATIO 1.1 (1.0-2.1); ALBUMIN 3.9 g/dL (3.5-5.0); CALCIUM 7.9 mg/dl (8.6-10.4); INR 1.1; PROTHROMBIN TIME 12.3 SECONDS (9.7-12.2)
[2018-07-18] MEDS ORDERED: Enoxaparin 100 mg Syringe SC STA (15:29)
[2018-07-18] MEDS ORDERED: Enoxaparin 100 mg Syringe ONE (15:50)
--- NOTE | 2018-07-18 16:11 | CP.PCM.HP ---
History of Present Illness - History of Present Illness History of Present Illness: Resident History & Physical for Dr. Lowery Patient is a 57 year old male with past medical history of ESRD on HD, HTN, DM, Charcot foot presenting with chief complaint of left upper extremity pain and swelling that began about two days prior. He states that he had a recent AVF procedure done 2 weeks prior. He also admits to change in sensation and numbness. He characterizes the pain as a stabbing ache that is constant. Patient was supposed to undergo surgery for his left lower leg fracture, however that surgery was delayed due to his current left upper extremity symptoms. Denies headache, dizziness, chest pain, shortness of breath, abdominal pain, changes in bowel movements, dysuria. Past medical history: ESRD on HD, HTN, DM, Charcot foot Past surgical: portacath, kidney biopsy Social: denies alcohol, tobacco, recreational drug use Allergies: acetaminophen, ibuprofen, oxycodone, tramadol PMD: Dr. Lowery Present on Admission - Present on Admission Any Indicators Present on Admission: No Review of Systems - Constitutional Constitutional: absent: Chills, Fever, Headache - EENT Eyes: absent: Change in Vision Ears: absent: Abnormal Hearing Nose/Mouth/Throat: absent: Sore Throat - Cardiovascular Cardiovascular: absent: Chest Pain, Diaphoresis, Dyspnea - Gastrointestinal Gastrointestinal: absent: Abdominal Pain, Change in Bowel Habits - Genitourinary Genitourinary: absent: Dysuria, Flank Pain - Musculoskeletal Musculoskeletal: Radiating Pain into Limb - Integumentary Integumentary: Swelling - Neurological Neurological: absent: Dizziness, Headaches Past Patient History - Infectious Disease Hx of Infectious Diseases: None - Past Medical History & Family History Past Medical History?: Yes - Past Social History Smoking Status: Former Smoker - CARDIAC Hx Congestive Heart Failure: Yes Hx Hypertension: Yes - PULMONARY Hx Pneumonia: Yes - NEUROLOGICAL Hx Neurological Disorder: No - HEENT Hx HEENT Problems: No - RENAL Hx Chronic Kidney Disease: Yes - ENDOCRINE/METABOLIC Hx Endocrine Disorders: Yes Hx Diabetes Mellitus Type 2: Yes (denies) - HEMATOLOGICAL/ONCOLOGICAL Hx Anemia: Yes - INTEGUMENTARY Hx Dermatological Problems: No - MUSCULOSKELETAL/RHEUMATOLOGICAL Hx Musculoskeletal Disorders: Yes Hx Falls: Yes Other/Comment: Charcot foot due to DM - GASTROINTESTINAL Hx Gastrointestinal Disorders: No - GENITOURINARY/GYNECOLOGICAL Hx Genitourinary Disorders: No - PSYCHIATRIC Hx Anxiety: Yes Hx Substance Use: No - SURGICAL HISTORY Hx Surgeries: Yes Hx Musculoskeletal Surgery: Yes (LT FOOT SX) Other/Comment: LT CHEST WALL DIALYSIS CATH. AVF - ANESTHESIA Hx Anesthesia: Yes Hx Anesthesia Reactions: No Hx Malignant Hyperthermia: No Meds Allergies/Adverse Reactions: Allergies Allergy/AdvReac Type Severity Reaction Status Date / Time acetaminophen [From Percocet] Allergy Verified 04/05/18 18:28 ibuprofen Allergy Verified 04/05/18 18:28 oxycodone [From Percocet] Allergy Verified 04/05/18 18:28 tramadol Allergy Verified 04/05/18 18:28 PEACH SNAPPLE Allergy Mild RASH Uncoded 04/05/18 18:27 Physical Exam - Constitutional Appears: Non-toxic, No Acute Distress - Head Exam Head Exam: ATRAUMATIC, NORMOCEPHALIC - Eye Exam Eye Exam: EOMI, Normal appearance, PERRL - ENT Exam ENT Exam: Mucous Membranes Moist, Normal Exam - Neck Exam Neck exam: Positive for: Normal Inspection - Respiratory Exam Respiratory Exam: Clear to Auscultation Bilateral, NORMAL BREATHING PATTERN - Cardiovascular Exam Cardiovascular Exam: REGULAR RHYTHM, +S1, +S2 - GI/Abdominal Exam GI & Abdominal Exam: Normal Bowel Sounds, Soft. absent: Tenderness - Extremities Exam Additional comments: Left upper extremity erythematous and edematous. Left lower extremity in foot brace - Back Exam Back exam: NORMAL INSPECTION. absent: CVA tenderness (L), CVA tenderness (R) - Psychiatric Exam Psychiatric exam: Normal Affect, Normal Mood - Skin Skin Exam: Dry, Intact Results - Vital Signs Recent Vital Signs: Last Vital Signs Temp 98 F 07/18/18 15:57 Pulse 83 07/18/18 15:57 Resp 18 07/18/18 15:57 BP 175/83 H 07/18/18 15:57 Pulse Ox 98 07/18/18 16:03 - Labs Result Diagrams: 07/18/18 14:17 07/18/18 14:17 Labs: Laboratory Results - last 24 hr 07/18/18 07/18/18 07/18/18 14:17 14:17 14:17 WBC 5.8 RBC 3.18 L Hgb 9.6 L Hct 29.5 L MCV 92.7 D MCH 30.2 MCHC 32.6 L RDW 19.2 H Plt Count 183 MPV 6.5 L Neut % (Auto) 74.5 Lymph % (Auto) 11.4 L Wol[place] % (Auto) 9.3 Eos % (Auto) 4.0 Baso % (Auto) 0.8 Neut # (Auto) 4.3 Lymph # (Auto) 0.7 L [place] # (Auto) 0.5 Eos # (Auto) 0.2 Baso # (Auto) 0.0 PT 12.3 H INR 1.1 APTT 35 H D-Dimer, Quantitative 1418 H Sodium 138 Potassium 6.5 H* D Chloride 100 Carbon Dioxide 21 L Anion Gap 24 H BUN 62 H Creatinine 11.4 H* Est GFR ( Amer) 6 Est GFR (Non-Af Amer) 5 Random Glucose 56 L Calcium 7.9 L Total Bilirubin 0.6 AST 13 L D ALT 15 L D Alkaline Phosphatase 85 NT-Pro-B Natriuret Pep 29402 H Total Protein 7.5 Albumin 3.9 Globulin 3.7 Albumin/Globulin Ratio 1.1 Assessment & Plan - Assessment and Plan (Free Text) Plan: Left upper extremity swelling - Dilaudid 1 mg IVP Q4H PRN pain - Surgery consulted. Appreciate recs. - ID consulted. Appreciate recs. - Followup blood and urine cultures - Followup upper extremity duplex scan ESRD on HD - K+ 6.5, Creatinine 11. 4 - Nephrology consulted. Appreciate recs. - Patient to receive dialysis Hypertension - Followup home meds DM - Followup home meds - Accuchecks PPX - Heparin drip - GI prophylaxis not indicated at this time Audrey Correa PGY-1 - Date & Time Date: 07/18/18 Time: 16:11
--- NOTE | 2018-07-18 17:02 | CP.PCM.CON ---
History of Present Illness - History of Present Illness History of Present Illness: Vascular Surgery Consult Note for Dr. Esquivel CC: left arm pain and swelling 57 year old male with PMHx of CHF, ESRD on HD, HTN, DM, charcot foot, anemia presents to the ED status post left AV fistula placement at [facility] [place] about one week ago, complaining of pain and swelling to left upper extremity from left hand to left axilla. He states that he thinks it is infected and that it is getting worse. History was limited due to patient not cooperating or answering questions because he stated that he was "fed up with the amount of people asking him the same questions and just wanted pain medicine". He denies chest pain, shortness of breath, abdominal pain, nausea, vomiting, diarrhea, fevers, chills, numbness, and tingling. PMHx: CHF, ESRD on HD, HTN, DM, charcot foots, anemia PSHx: left AV fistula( one week ago), left permacath Allergies: as per chart review-tylenol, ibuprofen, oxycodone, tramadol, peach snapple Medicines: as per chart review- singulair, labetolol, ativan, cyclobenzaprine, keflex, naproxen, bumex PMD: Lowery SocialHx: does not smoke tobacco, drinks an occasional beer on the weekend, denies illicit drug use Review of Systems - Review of Systems Review of Systems: As per HPI. Past Patient History - Infectious Disease Hx of Infectious Diseases: None - Past Medical History & Family History Past Medical History?: Yes - Past Social History Smoking Status: Former Smoker - CARDIAC Hx Congestive Heart Failure: Yes Hx Hypertension: Yes - PULMONARY Hx Pneumonia: Yes - NEUROLOGICAL Hx Neurological Disorder: No - HEENT Hx HEENT Problems: No - RENAL Hx Chronic Kidney Disease: Yes - ENDOCRINE/METABOLIC Hx Endocrine Disorders: Yes Hx Diabetes Mellitus Type 2: Yes (denies) - HEMATOLOGICAL/ONCOLOGICAL Hx Anemia: Yes - INTEGUMENTARY Hx Dermatological Problems: No - MUSCULOSKELETAL/RHEUMATOLOGICAL Hx Musculoskeletal Disorders: Yes Hx Falls: Yes Other/Comment: Charcot foot due to DM - GASTROINTESTINAL Hx Gastrointestinal Disorders: No - GENITOURINARY/GYNECOLOGICAL Hx Genitourinary Disorders: No - PSYCHIATRIC Hx Anxiety: Yes Hx Substance Use: No - SURGICAL HISTORY Hx Surgeries: Yes Hx Musculoskeletal Surgery: Yes (LT FOOT SX) Other/Comment: LT CHEST WALL DIALYSIS CATH. AVF - ANESTHESIA Hx Anesthesia: Yes Hx Anesthesia Reactions: No Hx Malignant Hyperthermia: No Meds Allergies/Adverse Reactions: Allergies Allergy/AdvReac Type Severity Reaction Status Date / Time acetaminophen [From Percocet] Allergy Verified 04/05/18 18:28 ibuprofen Allergy Verified 04/05/18 18:28 oxycodone [From Percocet] Allergy Verified 04/05/18 18:28 tramadol Allergy Verified 04/05/18 18:28 PEACH SNAPPLE Allergy Mild RASH Uncoded 04/05/18 18:27 Physical Exam - Constitutional Appears: No Acute Distress - Head Exam Head Exam: ATRAUMATIC, NORMOCEPHALIC - Eye Exam Eye Exam: EOMI - ENT Exam ENT Exam: Mucous Membranes Moist - Neck Exam Additional comments: left permacath noted - Respiratory Exam Respiratory Exam: NORMAL BREATHING PATTERN. absent: Respiratory Distress - Cardiovascular Exam Cardiovascular Exam: +S1, +S2 - GI/Abdominal Exam GI & Abdominal Exam: Soft. absent: Tenderness - Extremities Exam Additional comments: left upper extremity edema, erythema, and tenderness from hand to axilla. Incision to the medial aspect of the left upper arm. 2+ pulses palpated bilaterally, sensation and motor intact bilaterally, 5/5 strength noted to UE bilaterally, AV fistula thrill palpated on the left extremity, cap refill < 2 seconds bilaterally, no pain with passive flexion and extension, compartments soft - Neurological Exam Neurological exam: Alert, Oriented x3 - Psychiatric Exam Psychiatric exam: Agitated - Skin Skin Exam: Erythema (left arm) Results - Vital Signs Recent Vital Signs: Last Vital Signs Temp 98 F 07/18/18 15:57 Pulse 83 07/18/18 15:57 Resp 18 07/18/18 15:57 BP 175/83 H 07/18/18 15:57 Pulse Ox 98 07/18/18 16:49 - Labs Result Diagrams: 07/18/18 14:17 07/18/18 14:17 Labs: Laboratory Results - last 24 hr 07/18/18 07/18/18 07/18/18 14:17 14:17 14:17 WBC 5.8 RBC 3.18 L Hgb 9.6 L Hct 29.5 L MCV 92.7 D MCH 30.2 MCHC 32.6 L RDW 19.2 H Plt Count 183 MPV 6.5 L Neut % (Auto) 74.5 Lymph % (Auto) 11.4 L [place] % (Auto) 9.3 Eos % (Auto) 4.0 Baso % (Auto) 0.8 Neut # (Auto) 4.3 Lymph # (Auto) 0.7 L [place] # (Auto) 0.5 Eos # (Auto) 0.2 Baso # (Auto) 0.0 PT 12.3 H INR 1.1 APTT 35 H D-Dimer, Quantitative 1418 H Sodium 138 Potassium 6.5 H* D Chloride 100 Carbon Dioxide 21 L Anion Gap 24 H BUN 62 H Creatinine 11.4 H* Est GFR ( Amer) 6 Est GFR (Non-Af Amer) 5 Random Glucose 56 L Calcium 7.9 L Total Bilirubin 0.6 AST 13 L D ALT 15 L D Alkaline Phosphatase 85 NT-Pro-B Natriuret Pep 99319 H Total Protein 7.5 Albumin 3.9 Globulin 3.7 Albumin/Globulin Ratio 1.1 Assessment & Plan - Assessment and Plan (Free Text) Assessment: 57 year old male with PMHx ESRD on HD, CHF, HTN, DM status post AVF placement about a week ago complains of left upper extremity edema, erythema, and pain and was found to have DVT in left jugular and subclavian vein Plan: - heparin drip started - instruct patient to elevate arm above heart - possible fistulogram tomorrow - NPO past midnight - continue dialysis via permacath - recheck labs in am - monitor for compartment syndrome - discussed plan with Dr. Sierra Stiles PGY-4
[2018-07-18] MEDS: Heparin25000 units/250ml 1/2NS 25,000 UNITS/250 ML BAG IV PRN (17:41)
[2018-07-18] MEDS: HYDROmorphone 1 mg/ml ISec IVP PRN (19:17)
[2018-07-18] MEDS ORDERED: Calcium Gluconate 4.65 mEq/10 ml Inj IVP ONE (19:54)
[2018-07-18] MEDS ORDERED: Calcium Gluconate 4.65 mEq/10 ml Inj ONE (20:10)
[2018-07-18] MEDS ORDERED: Glucagon Recombinant 1 mg Inj IM PRN (20:49)
[2018-07-18] MEDS ORDERED: Dextrose 50% SYRINGE Inj (50 ml) IV PRN (20:49)
--- NOTE | 2018-07-18 21:29 | CP.PCM.PN ---
Subjective - Date & Time of Evaluation Date of Evaluation: 07/18/18 Time of Evaluation: 21:25 - Subjective Subjective: House Doctor called for patient refusing dialysis Patient seen at bedside and is very angry and aggressive. Patient says he will not get dialysis because he is hungry and refuses to eat the turkey sandwich at bedside. Patient explained the importance of getting dialysis and how his potassium is very elevated and that he needs to get the dialysis. Patient refuses and says he will not get dialysis unless he gets a full meal. Patient is mocking me and being very rude. a few minutes later patient tell the nurse he will get dialysis. Objective - Vital Signs/Intake and Output Vital Signs (last 24 hours): Temp Pulse Resp BP Pulse Ox 97.5 F L 84 18 178/84 H 100 07/18/18 19:57 07/18/18 19:57 07/18/18 20:41 07/18/18 19:57 07/18/18 19:57 - Medications Medications: Current Medications Dextrose (Dextrose 50% Inj) 0 ml IV STAT PRN; Protocol PRN Reason: Hypoglycemia Protocol Dextrose (Glutose 15) 0 gm PO ONCE PRN; Protocol PRN Reason: Hypoglycemia Protocol Glucagon (Glucagen Diagnostic Kit) 0 mg IM STAT PRN; Protocol PRN Reason: Hypoglycemia Protocol Hydromorphone HCl (Dilaudid) 1 mg IVP Q4H PRN PRN Reason: Pain, severe (8-10) Last Admin: 07/18/18 19:17 Dose: 1 mg Heparin Sodium/Sodium Chloride (Heparin 68401 Units/250ml 1/2 Normal Saline) 25 ,000 units in 250 mls @ 20.412 mls/hr IV .[id number] PRN; Protocol; 18 UNITS/KG/HR PRN Reason: PROTOCOL Last Admin: 07/18/18 17:41 Dose: 18 units/kg/hr, 20.412 mls/hr Dextrose (Dextrose 5% In Water 1000 Ml) 1,000 mls @ 0 mls/hr IV .Q0M PRN; Protocol; Per Protocol PRN Reason: Hypoglycemia Protocol Insulin Human Regular (Novolin R) 0 unit SC Q6 [facility] PRN Reason: Protocol Labetalol HCl (Trandate) 100 mg PO BID [place] - Labs Labs: 07/18/18 14:17 07/18/18 14:17 PT 12.3 SECONDS (9.7-12.2) H 07/18/18 14:17 INR 1.1 07/18/18 14:17 APTT 35 SECONDS (21-34) H 07/18/18 14:17
[2018-07-18] MEDS ORDERED: HYDROmorphone 0.5 mg/0.5 ml ISec IVP STA (21:32)
[2018-07-18] MEDS: (Novolin R) Insulin Human Regular 100 units/ml vial SC SCH (23:09)
[2018-07-18] MEDS ORDERED: Vancomycin 1 GM 1 GM/250 ML BAG IVPB STA (23:10)
[2018-07-18] MEDS ORDERED: Vancomycin 1 gm/NS 200 ml 1 GM/200 ML BAG IVPB STA (23:18)
[2018-07-18 23:34] LABS: HEPATITIS B CORE AB NEGATIVE (NEGATIVE)
[2018-07-18 23:46] LABS: HEPATITIS C ANTIBODY NEGATIVE (NEGATIVE)
[2018-07-19 00:18] LABS: INR 1.2; PROTHROMBIN TIME 12.8 SECONDS (9.7-12.2)
[2018-07-19] MEDS: (Novolin R) Insulin Human Regular 100 units/ml vial SC SCH ×4 (00:30→17:31)
[2018-07-19] MEDS: HYDROmorphone 1 mg/ml ISec IVP PRN ×6 (00:40→21:44)
--- NOTE | 2018-07-19 07:05 | CP.PCM.PN ---
Subjective - Date & Time of Evaluation Date of Evaluation: 07/19/18 Time of Evaluation: 07:02 - Subjective Subjective: PGY-1 Medicine Progress Note for Dr. Lowery's service Patient seen and examined at bedside. Patient reports left upper arm pain and left lower extremity leg pain. Patient refused to localize his pain stating that he has repeated multiple times this answer to hospital staff. Patient admits to numbness but denies tingling. Patient denies chest pain, sob, n/v, constipation or diarrhea, dysuria, abdominal pain. Patient is very rude and combative making it very difficult to interview patient without consistently hearing patient yell obscenities. Objective - Vital Signs/Intake and Output Vital Signs (last 24 hours): Temp Pulse Resp BP Pulse Ox 97.7 F 83 20 152/86 H 96 07/19/18 00:30 07/19/18 00:30 07/19/18 00:30 07/19/18 00:30 07/19/18 00:30 - Medications Medications: Current Medications Dextrose (Dextrose 50% Inj) 0 ml IV STAT PRN; Protocol PRN Reason: Hypoglycemia Protocol Dextrose (Glutose 15) 0 gm PO ONCE PRN; Protocol PRN Reason: Hypoglycemia Protocol Glucagon (Glucagen Diagnostic Kit) 0 mg IM STAT PRN; Protocol PRN Reason: Hypoglycemia Protocol Hydromorphone HCl (Dilaudid) 1 mg IVP Q4H PRN PRN Reason: Pain, severe (8-10) Last Admin: 07/19/18 04:50 Dose: 1 mg Heparin Sodium/Sodium Chloride (Heparin 77083 Units/250ml 1/2 Normal Saline) 25 ,000 units in 250 mls @ 20.412 mls/hr IV .[id number] PRN; Protocol; 18 UNITS/KG/HR PRN Reason: PROTOCOL Last Admin: 07/18/18 17:41 Dose: 18 units/kg/hr, 20.412 mls/hr Dextrose (Dextrose 5% In Water 1000 Ml) 1,000 mls @ 0 mls/hr IV .Q0M PRN; Protocol; Per Protocol PRN Reason: Hypoglycemia Protocol Vancomycin/Sodium Chloride (Vancomycin 1 Gm/Ns 200 Ml) 1 gm in 200 mls @ 133 mls/hr IVPB MWF [facility] PRN Reason: Protocol Stop: 07/25/18 10:01 Insulin Human Regular (Novolin R) 0 unit SC Q6 [facility] PRN Reason: Protocol Last Admin: 07/19/18 00:30 Dose: Not Given Labetalol HCl (Trandate) 100 mg PO BID [facility] Last Admin: 07/18/18 23:39 Dose: Not Given Pneumococcal Polyvalent Vaccine (Pneumovax 23 Vaccine) 0.5 ml IM .ONCE ONE Stop: 07/20/18 10:01 - Labs Labs: 07/18/18 14:17 07/18/18 14:17 PT 12.8 SECONDS (9.7-12.2) H 07/19/18 00:02 INR 1.2 07/19/18 00:02 APTT 81 SECONDS (21-34) H D 07/19/18 00:02 - Constitutional Appears: Non-toxic, No Acute Distress, Combative - Head Exam Head Exam: NORMAL INSPECTION, NORMOCEPHALIC - Eye Exam Eye Exam: EOMI, Normal appearance. absent: Nystagmus, Scleral icterus - Respiratory Exam Respiratory Exam: Clear to Ausculation Bilateral, NORMAL BREATHING PATTERN. absent: Rales, Rhonchi, Wheezes - Cardiovascular Exam Cardiovascular Exam: REGULAR RHYTHM, +S1, +S2. absent: Tachycardia - GI/Abdominal Exam GI & Abdominal Exam: Soft, Normal Bowel Sounds. absent: Distended, Firm, Guarding, Rigid, Tenderness - Extremities Exam Additional comments: Upper Extremities: left arm swelling extends from axilla to hands >right tenderness to palpation from axilla region to wrist into hands warm, intact; no draining, pus, or oozing noted Lower Extremities: left leg swelling>right tenderness to palpation warm to touch sensations intact bilaterally lower extremities - Neurological Exam Neurological Exam: Alert, Awake, Oriented x3 - Psychiatric Exam Psychiatric exam: Normal Affect, Normal Mood - Skin Skin Exam: Intact, Normal Color, Warm Additional comments: left arm AVF left anterior chest permacath Assessment and Plan - Assessment and Plan (Free Text) Assessment: Pt is a 57 yo male with PMH of ESRD on HD, HTN, DM, Charcot foot presenting with complaint of LUE pain and swelling about two days prior; had AVF placed 2 weeks prior; patient disgruntled unreliable historian due to combative attitude Plan: Upper Extremity DVT Upper Extremity Doppler: prelim read- Abnormal findings of the left jugular and subclavian veins ID Consulted: Dr. Beltran- started Vancomycin 1g @ 133mls/hr IVPB Dilaudid 1mg IVP q4h prn Heparin 31629 units @ 20.41 mls/hr IV [id number] PRN ESRD On HD (unsure of patient schedule due to combative nature); had dialysis yesterday for two hours Nephrology consulted: Dr. Bernabe- [facility] schedule for patient Patient likely needs dialysis today for elevated potassium Patient receives dialysis in [facility]; Fistulogram tomorrow with [facility] Lasix 80mg po MWF tim Elevated phosphorus (6.3)- Sevelamer Carbonate 800mg po tidcc tim Anemia likely secondary to ESRD Replete through dialysis: Srinivasa consulted: Epo 8000 unit IV TTS tim Decreased LFTs Hep B Antigen negative Hep B core IgM Ab negative Hep C Ab negative Continue to monitor DM2 Blood sugar 123 ISS ACHS Hypoglycemic protocol HTN 166/97; Will have dialysis; patient likely fluid overloaded with elevated BNP on admission Labetolol 100mg po bid tim Prophylaxis DVT ppx: Heparin 60183 units @ 20.41 mls/hr IV [id number] PRN GI ppx: not indicated at this time
[2018-07-19 07:23] LABS: EOS # 0.2 K/uL (0.0-0.7); EOS % 4.6 % (0.0-4.0); HEMOGLOBIN 9.2 g/dL (12.0-18.0); LYMPH # 0.7 K/uL (1.0-4.3); LYMPH % 18.4 % (20.0-40.0); MEAN CORPUSCULAR HEMOGLOBIN 30.2 pg (27.0-31.0); MEAN CORPUSCULAR HGB CONC 33.2 g/dL (33.0-37.0); MEAN PLATELET VOLUME 6.8 fL (7.2-11.7); MONO # 0.5 K/uL (0.0-0.8); MONO % 11.4 % (0.0-10.0); NEUT # 2.6 K/uL (1.8-7.0); NEUT % 64.6 % (50.0-75.0); NRBC % 0.1 % (0.0-2.0); RBC 3.06 Mil/uL (4.40-5.90); RED CELL DISTRIBUTION WIDTH 19.2 % (11.5-14.5)
[2018-07-19 07:29] LABS: INR 1.2; PROTHROMBIN TIME 13.2 SECONDS (9.7-12.2)
--- NOTE | 2018-07-19 10:01 | CP.PCM.CON ---
History of Present Illness - History of Present Illness History of Present Illness: 57 year old male admitted with chief complaint of left upper extremity pain and swelling that began about two days prior. He states that he had a recent AVF procedure done 2 weeks prior. Saw surgeon for follow up but no improvement ID on board for antibiotic management Past medical history: ESRD on HD, HTN, DM, Charcot foot Past surgical: portacath, kidney biopsy Social: denies alcohol, tobacco, recreational drug use Allergies: acetaminophen, ibuprofen, oxycodone, tramadol Review of Systems - Constitutional Constitutional: As Per HPI - EENT Eyes: absent: As Per HPI, Blind Spots, Blurred Vision, Change in Vision, Decreased Night Vision, Diplopia, Discharge, Dry Eye, Exophthalmos, Floaters, Irritation, Itchy Eyes, Loss of Peripheral Vision, Pain, Photophobia, Requires Corrective Lenses, Sees Flashes, Spots in Vision, Tunnel Vision, Other Visual Disturbances, Loss of Vision, Other Ears: absent: As Per HPI, Decreased Hearing, Ear Discharge, Ear Pain, Tinnitus, Abnormal Hearing, Disequilibrium, Dizziness, Other Nose/Mouth/Throat: absent: As Per HPI, Epistaxis, Nasal Congestion, Nasal Discharge, Nasal Obstruction, Nasal Trauma, Nose Pain, Post Nasal Drip, Sinus Pain, Sinus Pressure, Bleeding Gums, Change in Voice, Dental Pain, Dry Mouth, Dysphagia, Halitosis, Hoarsness, Lip Swelling, Mouth Lesions, Mouth Pain, Odynophagia, Sore Throat, Throat Swelling, Tongue Swelling, Facial Pain, Neck Pain, Neck Mass, Other - Cardiovascular Cardiovascular: absent: As Per HPI, Acrocyanosis, Chest Pain, Chest Pain at Rest , Chest Pain with Activity, Claudication, Diaphoresis, Dyspnea, Dyspnea on Exertion, Edema, Irregular Heart Rhythm, Pain Radiating to Arm/Neck/Jaw, Leg Edema, Leg Ulcers, Lightheadedness, Orthopnea, Palpitations, Paroxysmal Nocturnal Dyspnea, Pedal Edema, Radiating Pain, Rapid Heart Rate, Slow Heart Rate, Syncope, Other - Respiratory Respiratory: absent: As Per HPI, Cough, Dyspnea, Hemoptysis, Dyspnea on Exertion , Wheezing, Snoring, Stridor, Pain on Inspiration, Chest Congestion, Excessive Mucous Production, Change in Mucous Color, Pain with Coughing, Other - Gastrointestinal Gastrointestinal: absent: As Per HPI, Abdominal Pain, Belching, Bloating, Change in Bowel Habits, Change in Stool Character, Coffee Ground Emesis, Constipation, Cramping, Diarrhea, Dyspepsia, Dysphagia, Early Satiety, Excessive Flatus, Fecal Incontinence, Heartburn, Hematemesis, Hematochezia, Loose Stools, Melena, Nausea, Odynophagia, Temesmus, Vomiting, Other - Genitourinary Genitourinary: absent: As Per HPI, Change in Urinary Stream, Difficulty Urinating, Dysuria, Flank Pain, Hematuria, Pyuria, Nocturia, Urinary Incontinence, Urinary Frequency, Urinary Hesitance, Urinary Urgency, Voiding Freq/Small Amts, Freq UTI, Hx Renal/Bladder Calculi, Hx /Renal Surgery, Bladder Distension, Other - Musculoskeletal Musculoskeletal: As Per HPI - Integumentary Integumentary: As Per HPI, Skin Pain, Wounds - Neurological Neurological: absent: As Per HPI, Abnormal Gait, Abnormal Hearing, Abnormal Movements, Abnormal Speech, Behavioral Changes, Burning Sensations, Confusion, Convulsions, Disequilibrium, Dizziness, Numbness, Focal Weakness, Frequent Falls , Headaches, Lack of Coordination, Loss of Vision, Memory Loss, Paresthesias, Radicular Pain, Restless Legs, Sensory Deficit, Syncope, Tingling, Tremor, Vertigo, Weakness, Other Visual Disturbances, Other - Psychiatric Psychiatric: absent: As Per HPI, Abnormal Sleep Pattern, Anhedonia, Anxiety, Auditory Hallucinations, Behavioral Changes, Change in Appetite, Change in Libido, Confusion, Depression, Difficulty Concentrating, Hallucinations, Homicidal Ideation, Hopelessness, Irritability, Memory Loss, Mood Swings, Panic Attacks, Paranoia, Suicidal Ideation, Visual Hallucinations, Tactile Hallucinations, Other - Endocrine Endocrine: absent: As Per HPI, Change in Body Appearance, Change in Libido, Cold Intolorance, Deepening of Voice, Excessive Sweating, Fatigue, Flushing, Heat Intolorance, Increase in Ring/Shoe/Hat Size, Palpitations, Polydipsia, Polyphagia, Polyuria, Other - Hematologic/Lymphatic Hematologic: absent: As Per HPI, Easy Bleeding, Easy Bruising, Lymphadenopathy, Other Past Patient History - Infectious Disease Hx of Infectious Diseases: None - Past Medical History & Family History Past Medical History?: Yes - Past Social History Smoking Status: Never Smoked - CARDIAC Hx Congestive Heart Failure: Yes Hx Hypertension: Yes - PULMONARY Hx Pneumonia: Yes - NEUROLOGICAL Hx Neurological Disorder: No - HEENT Hx HEENT Problems: No - RENAL Hx Chronic Kidney Disease: Yes Hx Dialysis: Yes Type of Dialysis Access: left subclavian permacath Hx Renal Failure: Yes - ENDOCRINE/METABOLIC Hx Endocrine Disorders: Yes Hx Diabetes Mellitus Type 2: Yes (denies) - HEMATOLOGICAL/ONCOLOGICAL Hx Anemia: Yes - INTEGUMENTARY Hx Dermatological Problems: No Hx Cellulitis: Yes (left arm) - MUSCULOSKELETAL/RHEUMATOLOGICAL Hx Falls: No - GASTROINTESTINAL Hx Gastrointestinal Disorders: No - GENITOURINARY/GYNECOLOGICAL Hx Genitourinary Disorders: No - PSYCHIATRIC Hx Substance Use: No - SURGICAL HISTORY Hx Surgeries: Yes Hx Musculoskeletal Surgery: Yes (LT FOOT SX) Other/Comment: LT CHEST WALL DIALYSIS CATH. AVF - ANESTHESIA Hx Anesthesia: Yes Hx Anesthesia Reactions: No Hx Malignant Hyperthermia: No Has any member of the family had a problem w/ anesthesia?: No Meds Allergies/Adverse Reactions: Allergies Allergy/AdvReac Type Severity Reaction Status Date / Time acetaminophen [From Percocet] Allergy Verified 04/05/18 18:28 ibuprofen Allergy Verified 04/05/18 18:28 oxycodone [From Percocet] Allergy Verified 04/05/18 18:28 tramadol Allergy Verified 04/05/18 18:28 PEACH SNAPPLE Allergy Mild RASH Uncoded 04/05/18 18:27 - Medications Medications: Current Medications Dextrose (Dextrose 50% Inj) 0 ml IV STAT PRN; Protocol PRN Reason: Hypoglycemia Protocol Dextrose (Glutose 15) 0 gm PO ONCE PRN; Protocol PRN Reason: Hypoglycemia Protocol Glucagon (Glucagen Diagnostic Kit) 0 mg IM STAT PRN; Protocol PRN Reason: Hypoglycemia Protocol Hydromorphone HCl (Dilaudid) 1 mg IVP Q4H PRN PRN Reason: Pain, severe (8-10) Last Admin: 07/19/18 09:40 Dose: 1 mg Heparin Sodium/Sodium Chloride (Heparin 81694 Units/250ml 1/2 Normal Saline) 25 ,000 units in 250 mls @ 20.412 mls/hr IV .[id number] PRN; Protocol; 18 UNITS/KG/HR PRN Reason: PROTOCOL Last Admin: 07/18/18 17:41 Dose: 18 units/kg/hr, 20.412 mls/hr Dextrose (Dextrose 5% In Water 1000 Ml) 1,000 mls @ 0 mls/hr IV .Q0M PRN; Protocol; Per Protocol PRN Reason: Hypoglycemia Protocol Vancomycin/Sodium Chloride (Vancomycin 1 Gm/Ns 200 Ml) 1 gm in 200 mls @ 133 mls/hr IVPB MWF [facility] PRN Reason: Protocol Stop: 07/25/18 10:01 Insulin Human Regular (Novolin R) 0 unit SC Q6 [place] PRN Reason: Protocol Last Admin: 07/19/18 06:00 Dose: Not Given Labetalol HCl (Trandate) 100 mg PO BID [facility] Last Admin: 07/19/18 09:32 Dose: 100 mg Pneumococcal Polyvalent Vaccine (Pneumovax 23 Vaccine) 0.5 ml IM .ONCE ONE Stop: 07/20/18 10:01 Physical Exam - Constitutional Appears: Non-toxic, Chronically Ill - Head Exam Head Exam: NORMOCEPHALIC - Eye Exam Eye Exam: PERRL. absent: Scleral icterus - ENT Exam ENT Exam: Mucous Membranes Dry - Neck Exam Neck exam: Negative for: Lymphadenopathy - Respiratory Exam Respiratory Exam: Decreased Breath Sounds - Cardiovascular Exam Cardiovascular Exam: REGULAR RHYTHM, +S1, +S2 - GI/Abdominal Exam GI & Abdominal Exam: Diminished Bowel Sounds, Soft. absent: Tenderness - Rectal Exam Rectal Exam: Deferred - Exam Exam: NORMAL INSPECTION - Extremities Exam Extremities exam: Positive for: pedal edema Additional comments: charcot foot left > RIGHT WITH DIGIT AMPUTATIONS NOTED CHRONIC ULCERATIONS - Back Exam Back exam: absent: CVA tenderness (L), CVA tenderness (R) - Neurological Exam Neurological exam: Alert, CN II-XII Intact, Oriented x3, Reflexes Normal - Psychiatric Exam Psychiatric exam: Depressed - Skin Skin Exam: Dry Additional comments: REDNESS SWELLING LEFT UPPER EXTREM SMALL BLISTERS LEFT ARM PAINFUL Results - Vital Signs Recent Vital Signs: Last Vital Signs Temp 98.2 F 07/19/18 09:04 Pulse 86 07/19/18 09:04 Resp 20 07/19/18 09:04 BP 166/97 H 07/19/18 09:04 Pulse Ox 95 07/19/18 09:04 - Labs Result Diagrams: 07/19/18 07:04 07/19/18 07:04 Labs: Laboratory Results - last 24 hr 07/18/18 07/18/18 07/18/18 14:17 14:17 14:17 WBC 5.8 RBC 3.18 L Hgb 9.6 L Hct 29.5 L MCV 92.7 D MCH 30.2 MCHC 32.6 L RDW 19.2 H Plt Count 183 MPV 6.5 L Neut % (Auto) 74.5 Lymph % (Auto) 11.4 L [place] % (Auto) 9.3 Eos % (Auto) 4.0 Baso % (Auto) 0.8 Neut # (Auto) 4.3 Lymph # (Auto) 0.7 L [place] # (Auto) 0.5 Eos # (Auto) 0.2 Baso # (Auto) 0.0 PT 12.3 H INR 1.1 APTT 35 H D-Dimer, Quantitative 1418 H Sodium 138 Potassium 6.5 H* D Chloride 100 Carbon Dioxide 21 L Anion Gap 24 H BUN 62 H Creatinine 11.4 H* Est GFR ( Amer) 6 Est GFR (Non-Af Amer) 5 POC Glucose (mg/dL) Random Glucose 56 L Calcium 7.9 L Phosphorus Magnesium Total Bilirubin 0.6 AST 13 L D ALT 15 L D Alkaline Phosphatase 85 NT-Pro-B Natriuret Pep 98667 H Total Protein 7.5 Albumin 3.9 Globulin 3.7 Albumin/Globulin Ratio 1.1 Hep Bs Antigen Hep B Core IgM Ab Hepatitis C Antibody 07/18/18 07/18/18 07/18/18 21:14 22:42 22:42 WBC RBC Hgb Hct MCV MCH MCHC RDW Plt Count MPV Neut % (Auto) Lymph % (Auto) [place] % (Auto) Eos % (Auto) Baso % (Auto) Neut # (Auto) Lymph # (Auto) [place] # (Auto) Eos # (Auto) Baso # (Auto) PT INR APTT D-Dimer, Quantitative Sodium Potassium Chloride Carbon Dioxide Anion Gap BUN Creatinine Est GFR ( Amer) Est GFR (Non-Af Amer) POC Glucose (mg/dL) 110 Random Glucose Calcium Phosphorus Magnesium Total Bilirubin AST ALT Alkaline Phosphatase NT-Pro-B Natriuret Pep Total Protein Albumin Globulin Albumin/Globulin Ratio Hep Bs Antigen Negative Hep B Core IgM Ab Negative Hepatitis C Antibody Negative 07/19/18 07/19/18 07/19/18 00:02 05:01 07:04 WBC 4.0 L RBC 3.06 L Hgb 9.2 L Hct 27.8 L MCV 91.0 MCH 30.2 MCHC 33.2 RDW 19.2 H Plt Count 169 MPV 6.8 L Neut % (Auto) 64.6 Lymph % (Auto) 18.4 L [place] % (Auto) 11.4 H Eos % (Auto) 4.6 H Baso % (Auto) 1.0 Neut # (Auto) 2.6 Lymph # (Auto) 0.7 L [place] # (Auto) 0.5 Eos # (Auto) 0.2 Baso # (Auto) 0.0 PT 12.8 H INR 1.2 APTT 81 H D D-Dimer, Quantitative Sodium Potassium Chloride Carbon Dioxide Anion Gap BUN Creatinine Est GFR ( Amer) Est GFR (Non-Af Amer) POC Glucose (mg/dL) 123 H Random Glucose Calcium Phosphorus Magnesium Total Bilirubin AST ALT Alkaline Phosphatase NT-Pro-B Natriuret Pep Total Protein Albumin Globulin Albumin/Globulin Ratio Hep Bs Antigen Hep B Core IgM Ab Hepatitis C Antibody 07/19/18 07/19/18 07:04 07:04 WBC RBC Hgb Hct MCV MCH MCHC RDW Plt Count MPV Neut % (Auto) Lymph % (Auto) [place] % (Auto) Eos % (Auto) Baso % (Auto) Neut # (Auto) Lymph # (Auto) [place] # (Auto) Eos # (Auto) Baso # (Auto) PT 13.2 H INR 1.2 APTT 63 H D D-Dimer, Quantitative Sodium 140 Potassium 5.8 H Chloride 103 Carbon Dioxide 23 Anion Gap 20 BUN 50 H Creatinine 9.2 H* Est GFR ( Amer) 7 Est GFR (Non-Af Amer) 6 POC Glucose (mg/dL) Random Glucose 75 Calcium 8.0 L Phosphorus 6.3 H Magnesium 2.1 Total Bilirubin AST ALT Alkaline Phosphatase NT-Pro-B Natriuret Pep Total Protein Albumin Globulin Albumin/Globulin Ratio Hep Bs Antigen Hep B Core IgM Ab Hepatitis C Antibody Assessment & Plan (1) Cellulitis of left arm Status: Acute - Assessment and Plan (Free Text) Assessment: SEVERE CELLULITIS DOUBT ZOSTER R/O DVT LUE RECC ATAT VASCULAR EVAL, VENOUS AND ARTERIAL STUDIES, CONTACT ISO , IV ANTIBIOTICS , WOUND CARE , ANTICOAGULATION, PODIATRY EVAL
--- NOTE | 2018-07-19 11:19 | CP.PCM.CON ---
History of Present Illness - History of Present Illness History of Present Illness: Nephrology Consultation Note: Assessment: Stable missed HD, hyperkalemia left arm DVT with cellulitis Diabetic chronic Kidney Disease (E11.22) Hypertensive Chronic Kidney Disease (I12.0) End stage renal disease (N18.6) dependence on hemodialysis (Z99.2) (MWF) via PC Anemia (D64.9), Hyperphosphatemia (E83.39), Secondary Hyperparathyroidism (E21.1 ), HTN (I12.0), Obesity Plan: Will plan for HD today as ordered, pt missed HD for most of last week and received only a short session last night. Continue with Nephrovite 1 tab/day. PRBC as needed for anemia. on JULIANA with dialysis as last Hb 9.2 Continue with phos binders, last phos level 6.3 BP control with meds as ordered. Patient not on RAAS karen as with hyperkalemia. added lasix 80 mg non-HD days Glycemic control, Dialysis consistent diet Further work up/management as per primary team Dose meds/antibiotics (if needed) for ESRD status. Avoid fleets enema/magnesium based laxatives. vascular and ID following Thanks for allowing me to participate in care of your patient. Will follow patient with you. Please call if any Qs Dr Alvaro Aquino Office: [phone] Chief Complaint;left arm swelling HPI: Pt is a 57 M with hx of ESRD on hemodialysis (MWF) via left permacath since nov 2017, last dialysis last night in hospital, chronic anemia, hyperphosphatemia, secondary hyperparathyroidism, Diabetes Mellitus, hypertension, obesity presented with complaints of left arm swelling and redness since AVF intervention 1-2 weeks ago. he denies fever/chil. admitted with left arm cellulitis and DVT. seen by vascular and ID, started antibiotics and heparin drip Renal consult requested for ESRD management. he feels slight better today. he missed dialysis most of last week ROS: Cardiovascular: No chest pain. Pulmonary: No shortness of breath Gastrointestinal: denies abdominal pain No nausea. No vomiting. Genitourinary: No pain while urinating. Denies blood in urine. says make plenty of urine All other negative except as mentioned in HPI Physical Examination: General Appearance: Comfortable, in no acute respiratory distress, co-operative . obese Vitals reviewed and noted as below Head; Atraumatic, normocephalic ENT: no ulcers no thrush. Tongue is midline. Oropharynx: no rash or ulcers. EYES: Pupils are equal, round and reactive to light accommodation. Eye muscles and extraocular movement intact. Sclera is anicteric. Neck; supple no lymphadenopathy, no thyromegaly or bruit Lungs: Normal respiratory rate/effort. Breath sounds bilateral equal and clear Heart: Normal rate. s1s2 normal. No rub or gallop. Extremities: trace edema. No varicose veins. left foot deformity + pt says had fracture Neurological: Patient is alert, awake and oriented to person, place and time. No focal deficit. Strength bilateral appropriate and equal Skin: Warm and dry. Normal turgor. No rash. Palpitation: Normal elasticity for age Abdomen: Abdomen is soft. Bowel sounds +. There is no abdominal tenderness, no guarding/rigidity or organomegaly Psych: normal insight and normal affect/mood MSK: no joint tenderness or swelling. Digits and nails normal, no deformity : kidney or bladder not palpable Access: left PC. left AVF with thrill and bruit. LUE swelling noted Labs/imaging reviewed. Past medical history, past surgical history, family history, social history, allergy reviewed and noted as below Family Hx: no hx of CKD. Non contributory Past Patient History - Infectious Disease Hx of Infectious Diseases: None - Past Medical History & Family History Past Medical History?: Yes - Past Social History Smoking Status: Never Smoked - CARDIAC Hx Congestive Heart Failure: Yes Hx Hypertension: Yes - PULMONARY Hx Pneumonia: Yes - NEUROLOGICAL Hx Neurological Disorder: No - HEENT Hx HEENT Problems: No - RENAL Hx Chronic Kidney Disease: Yes Hx Dialysis: Yes Type of Dialysis Access: left subclavian permacath Hx Renal Failure: Yes - ENDOCRINE/METABOLIC Hx Endocrine Disorders: Yes Hx Diabetes Mellitus Type 2: Yes (denies) - HEMATOLOGICAL/ONCOLOGICAL Hx Anemia: Yes - INTEGUMENTARY Hx Dermatological Problems: No Hx Cellulitis: Yes (left arm) - MUSCULOSKELETAL/RHEUMATOLOGICAL Hx Falls: No - GASTROINTESTINAL Hx Gastrointestinal Disorders: No - GENITOURINARY/GYNECOLOGICAL Hx Genitourinary Disorders: No - PSYCHIATRIC Hx Substance Use: No - SURGICAL HISTORY Hx Surgeries: Yes Hx Musculoskeletal Surgery: Yes (LT FOOT SX) Other/Comment: LT CHEST WALL DIALYSIS CATH. AVF - ANESTHESIA Hx Anesthesia: Yes Hx Anesthesia Reactions: No Hx Malignant Hyperthermia: No Has any member of the family had a problem w/ anesthesia?: No Meds Allergies/Adverse Reactions: Allergies Allergy/AdvReac Type Severity Reaction Status Date / Time acetaminophen [From Percocet] Allergy Verified 04/05/18 18:28 ibuprofen Allergy Verified 04/05/18 18:28 oxycodone [From Percocet] Allergy Verified 04/05/18 18:28 tramadol Allergy Verified 04/05/18 18:28 PEACH SNAPPLE Allergy Mild RASH Uncoded 04/05/18 18:27 - Medications Medications: Current Medications Dextrose (Dextrose 50% Inj) 0 ml IV STAT PRN; Protocol PRN Reason: Hypoglycemia Protocol Dextrose (Glutose 15) 0 gm PO ONCE PRN; Protocol PRN Reason: Hypoglycemia Protocol Epoetin Efrian (Procrit) 8,000 unit IV TTS [place] Furosemide (Lasix) 80 mg PO MWF [facility] Glucagon (Glucagen Diagnostic Kit) 0 mg IM STAT PRN; Protocol PRN Reason: Hypoglycemia Protocol Hydromorphone HCl (Dilaudid) 1 mg IVP Q4H PRN PRN Reason: Pain, severe (8-10) Last Admin: 07/19/18 09:40 Dose: 1 mg Heparin Sodium/Sodium Chloride (Heparin 52054 Units/250ml 1/2 Normal Saline) 25 ,000 units in 250 mls @ 20.412 mls/hr IV .[id number] PRN; Protocol; 18 UNITS/KG/HR PRN Reason: PROTOCOL Last Admin: 07/18/18 17:41 Dose: 18 units/kg/hr, 20.412 mls/hr Dextrose (Dextrose 5% In Water 1000 Ml) 1,000 mls @ 0 mls/hr IV .Q0M PRN; Protocol; Per Protocol PRN Reason: Hypoglycemia Protocol Vancomycin/Sodium Chloride (Vancomycin 1 Gm/Ns 200 Ml) 1 gm in 200 mls @ 133 mls/hr IVPB MWF [facility] PRN Reason: Protocol Stop: 07/25/18 10:01 Insulin Human Regular (Novolin R) 0 unit SC Q6 [place] PRN Reason: Protocol Last Admin: 07/19/18 06:00 Dose: Not Given Labetalol HCl (Trandate) 100 mg PO BID [facility] Last Admin: 07/19/18 09:32 Dose: 100 mg Pneumococcal Polyvalent Vaccine (Pneumovax 23 Vaccine) 0.5 ml IM .ONCE ONE Stop: 07/20/18 10:01 Sevelamer Carbonate (Renvela) 800 mg PO TIDCC [place] Vitamin B Complex/Vit C/Folic Acid (Nephro-Leanna) 1 tab PO 0800 [place] Results - Vital Signs Recent Vital Signs: Last Vital Signs Temp 98.2 F 07/19/18 09:04 Pulse 86 07/19/18 09:04 Resp 20 07/19/18 09:04 BP 166/97 H 07/19/18 09:04 Pulse Ox 95 07/19/18 09:04 - Labs Result Diagrams: 07/19/18 07:04 07/19/18 07:04 Labs: Laboratory Results - last 24 hr 07/18/18 07/18/18 07/18/18 14:17 14:17 14:17 WBC 5.8 RBC 3.18 L Hgb 9.6 L Hct 29.5 L MCV 92.7 D MCH 30.2 MCHC 32.6 L RDW 19.2 H Plt Count 183 MPV 6.5 L Neut % (Auto) 74.5 Lymph % (Auto) 11.4 L [place] % (Auto) 9.3 Eos % (Auto) 4.0 Baso % (Auto) 0.8 Neut # (Auto) 4.3 Lymph # (Auto) 0.7 L [place] # (Auto) 0.5 Eos # (Auto) 0.2 Baso # (Auto) 0.0 PT 12.3 H INR 1.1 APTT 35 H D-Dimer, Quantitative 1418 H Sodium 138 Potassium 6.5 H* D Chloride 100 Carbon Dioxide 21 L Anion Gap 24 H BUN 62 H Creatinine 11.4 H* Est GFR ( Amer) 6 Est GFR (Non-Af Amer) 5 POC Glucose (mg/dL) Random Glucose 56 L Calcium 7.9 L Phosphorus Magnesium Total Bilirubin 0.6 AST 13 L D ALT 15 L D Alkaline Phosphatase 85 NT-Pro-B Natriuret Pep 67502 H Total Protein 7.5 Albumin 3.9 Globulin 3.7 Albumin/Globulin Ratio 1.1 Hep Bs Antigen Hep B Core IgM Ab Hepatitis C Antibody 07/18/18 07/18/18 07/18/18 21:14 22:42 22:42 WBC RBC Hgb Hct MCV MCH MCHC RDW Plt Count MPV Neut % (Auto) Lymph % (Auto) [place] % (Auto) Eos % (Auto) Baso % (Auto) Neut # (Auto) Lymph # (Auto) [place] # (Auto) Eos # (Auto) Baso # (Auto) PT INR APTT D-Dimer, Quantitative Sodium Potassium Chloride Carbon Dioxide Anion Gap BUN Creatinine Est GFR ( Amer) Est GFR (Non-Af Amer) POC Glucose (mg/dL) 110 Random Glucose Calcium Phosphorus Magnesium Total Bilirubin AST ALT Alkaline Phosphatase NT-Pro-B Natriuret Pep Total Protein Albumin Globulin Albumin/Globulin Ratio Hep Bs Antigen Negative Hep B Core IgM Ab Negative Hepatitis C Antibody Negative 07/19/18 07/19/18 07/19/18 00:02 05:01 07:04 WBC 4.0 L RBC 3.06 L Hgb 9.2 L Hct 27.8 L MCV 91.0 MCH 30.2 MCHC 33.2 RDW 19.2 H Plt Count 169 MPV 6.8 L Neut % (Auto) 64.6 Lymph % (Auto) 18.4 L [place] % (Auto) 11.4 H Eos % (Auto) 4.6 H Baso % (Auto) 1.0 Neut # (Auto) 2.6 Lymph # (Auto) 0.7 L [place] # (Auto) 0.5 Eos # (Auto) 0.2 Baso # (Auto) 0.0 PT 12.8 H INR 1.2 APTT 81 H D D-Dimer, Quantitative Sodium Potassium Chloride Carbon Dioxide Anion Gap BUN Creatinine Est GFR ( Amer) Est GFR (Non-Af Amer) POC Glucose (mg/dL) 123 H Random Glucose Calcium Phosphorus Magnesium Total Bilirubin AST ALT Alkaline Phosphatase NT-Pro-B Natriuret Pep Total Protein Albumin Globulin Albumin/Globulin Ratio Hep Bs Antigen Hep B Core IgM Ab Hepatitis C Antibody 07/19/18 07/19/18 07:04 07:04 WBC RBC Hgb Hct MCV MCH MCHC RDW Plt Count MPV Neut % (Auto) Lymph % (Auto) [place] % (Auto) Eos % (Auto) Baso % (Auto) Neut # (Auto) Lymph # (Auto) [place] # (Auto) Eos # (Auto) Baso # (Auto) PT 13.2 H INR 1.2 APTT 63 H D D-Dimer, Quantitative Sodium 140 Potassium 5.8 H Chloride 103 Carbon Dioxide 23 Anion Gap 20 BUN 50 H Creatinine 9.2 H* Est GFR ( Amer) 7 Est GFR (Non-Af Amer) 6 POC Glucose (mg/dL) Random Glucose 75 Calcium 8.0 L Phosphorus 6.3 H Magnesium 2.1 Total Bilirubin AST ALT Alkaline Phosphatase NT-Pro-B Natriuret Pep Total Protein Albumin Globulin Albumin/Globulin Ratio Hep Bs Antigen Hep B Core IgM Ab Hepatitis C Antibody
[2018-07-19] MEDS: Heparin25000 units/250ml 1/2NS 25,000 UNITS/250 ML BAG IV PRN (11:27)
--- NOTE | 2018-07-19 12:03 | VASCLAB ---
Date of service: 07/18/2018 PROCEDURE: Left Upper Extremity Venous Duplex Exam HISTORY: pain and swelling to arm PRIORS: None. TECHNIQUE: Left upper extremity, internal jugular, subclavian, axillary, brachial, ulnar, radial, basilic and upper cephalic veins were evaluated. Flow was assessed with color Doppler, compressibility, assessment of phasic flow and augmentation response. Report prepared by Renato Zepeda, JESSICA, RVT FINDINGS: LEFT: 1. Internal Jugular: 1.1. Compressibility - Partial: Thrombus - Acute : Flow - Absent : Augmentation -None: Reflux - None. 2. Subclavian: 2.1. Compressibility - Partial: Thrombus - Acute : Flow - Absent : Augmentation -None: Reflux - None. 3. Axillary: 3.1. Compressibility - Fully compressible: Thrombus - None : Flow - Phasic: Augmentation -Normal: Reflux - None. 4. Brachial: 4.1. Compressibility - Fully compressible: Thrombus - None: Flow - Phasic: Augmentation -Normal: Reflux - None. 5. Ulnar: 5.1. Compressibility - Fully compressible: Thrombus - None: Flow - Phasic: Augmentation -Normal: Reflux - None. 6. Radial: 6.1. Compressibility - Fully compressible: Thrombus - None: Flow - Phasic: Augmentation - Normal: Reflux - None. 7. Cephalic: 7.1. Compressibility - Fully compressible: Thrombus - None: Flow - Phasic: Augmentation -Normal: Reflux - None. 8. Basilic: 8.1. Compressibility - Fully compressible: Thrombus - None: Flow - Phasic: Augmentation -Normal: Reflux - None. OTHER FINDINGS: RAY Interiano notified about the findings. IMPRESSION: Left: Acute thrombosis of the left internal jugular and subclavian veins with severe reduction of the venous return. Normal venous flow noted in the right internal jugular and right subclavian veins.
--- NOTE | 2018-07-19 13:12 | CP.PCM.PN ---
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 rescheduled for am Objective - Vital Signs/Intake and Output Vital Signs (last 24 hours): Temp Pulse Resp BP Pulse Ox 98.2 F 86 20 166/97 H 95 07/19/18 09:04 07/19/18 09:04 07/19/18 09:04 07/19/18 09:04 07/19/18 09:04 Intake and Output: 07/19/18 07/19/18 06:59 18:59 Intake Total 250 500.20 Balance 250 500.20 - Medications Medications: Current Medications Dextrose (Dextrose 50% Inj) 0 ml IV STAT PRN; Protocol PRN Reason: Hypoglycemia Protocol Dextrose (Glutose 15) 0 gm PO ONCE PRN; Protocol PRN Reason: Hypoglycemia Protocol Epoetin Efrain (Procrit) 8,000 unit IV TTS [facility] Furosemide (Lasix) 80 mg PO MWF [facility] Glucagon (Glucagen Diagnostic Kit) 0 mg IM STAT PRN; Protocol PRN Reason: Hypoglycemia Protocol Hydromorphone HCl (Dilaudid) 1 mg IVP Q4H PRN PRN Reason: Pain, severe (8-10) Last Admin: 07/19/18 09:40 Dose: 1 mg Heparin Sodium/Sodium Chloride (Heparin 92315 Units/250ml 1/2 Normal Saline) 25 ,000 units in 250 mls @ 20.412 mls/hr IV .[id number] PRN; Protocol; 18 UNITS/KG/HR PRN Reason: PROTOCOL Last Admin: 07/19/18 11:27 Dose: 18 units/kg/hr, 20.412 mls/hr Dextrose (Dextrose 5% In Water 1000 Ml) 1,000 mls @ 0 mls/hr IV .Q0M PRN; Protocol; Per Protocol PRN Reason: Hypoglycemia Protocol Vancomycin/Sodium Chloride (Vancomycin 1 Gm/Ns 200 Ml) 1 gm in 200 mls @ 133 mls/hr IVPB MWF [facility] PRN Reason: Protocol Stop: 07/25/18 10:01 Insulin Human Regular (Novolin R) 0 unit SC Q6 [facility] PRN Reason: Protocol Last Admin: 07/19/18 12:22 Dose: 1 unit Labetalol HCl (Trandate) 100 mg PO BID [facility] Last Admin: 07/19/18 09:32 Dose: 100 mg Pneumococcal Polyvalent Vaccine (Pneumovax 23 Vaccine) 0.5 ml IM .ONCE ONE Stop: 07/20/18 10:01 Sevelamer Carbonate (Renvela) 800 mg PO TIDCC [facility] Last Admin: 07/19/18 12:19 Dose: 800 mg Vitamin B Complex/Vit C/Folic Acid (Nephro-Leanna) 1 tab PO 0800 [facility] - Labs Labs: 07/19/18 07:04 07/19/18 07:04 PT 13.2 SECONDS (9.7-12.2) H 07/19/18 07:04 INR 1.2 07/19/18 07:04 APTT 63 SECONDS (21-34) H D 07/19/18 07:04
[2018-07-19] MEDS: EPOETIN ALFA 4,000 UNIT/ML ML Dialysis IV SCH (16:40)
--- NOTE | 2018-07-19 17:29 | CARD ---
APPROVED REPORT Date of service: 07/18/2018 EKG Measurement Heart [id number] <Conclusion> Normal sinus rhythm Left axis deviation Inferior infarct, age undetermined Anterolateral infarct, age undetermined Abnormal ECG
[2018-07-19] MEDS: Vancomycin 1 gm/NS 200 ml 1 GM/200 ML BAG IVPB SCH (21:43)
[2018-07-20] MEDS: Heparin25000 units/250ml 1/2NS 25,000 UNITS/250 ML BAG IV PRN ×2 (00:17→18:33)
[2018-07-20] MEDS: HYDROmorphone 1 mg/ml ISec IVP PRN ×5 (01:50→22:49)
[2018-07-20 08:02] LABS: BASO % 0.8 % (0.0-2.0); EOS # 0.2 K/uL (0.0-0.7); EOS % 4.1 % (0.0-4.0); HEMOGLOBIN 9.6 g/dL (12.0-18.0); LYMPH # 0.9 K/uL (1.0-4.3); LYMPH % 21.7 % (20.0-40.0); MEAN CELL VOLUME 91.8 fL (80.0-94.0); MEAN CORPUSCULAR HEMOGLOBIN 30.7 pg (27.0-31.0); MEAN CORPUSCULAR HGB CONC 33.4 g/dL (33.0-37.0); MEAN PLATELET VOLUME 6.9 fL (7.2-11.7); MONO # 0.5 K/uL (0.0-0.8); MONO % 12.1 % (0.0-10.0); NEUT # 2.6 K/uL (1.8-7.0); NEUT % 61.3 % (50.0-75.0); RBC 3.13 Mil/uL (4.40-5.90); RED CELL DISTRIBUTION WIDTH 19.1 % (11.5-14.5); WHITE BLOOD COUNT 4.2 K/uL (4.8-10.8)
[2018-07-20] MEDS: Multivitamin Vitamin B Complex (Nephro-Vite) Tab PO SCH (08:17)
[2018-07-20] MEDS ORDERED: Dextrose 50% SYRINGE Inj (50 ml) IV STA (08:28)
[2018-07-20 08:31] LABS: ALB/GLOB RATIO 1.1 (1.0-2.1); ALBUMIN 3.6 g/dL (3.5-5.0); CALCIUM 8.1 mg/dl (8.6-10.4)
[2018-07-20] MEDS ORDERED: Lidocaine 2% MPF (5 ml) Inj ONE ×2 (09:28→12:18)
[2018-07-20] MEDS ORDERED: Iodixanol 320 MG/ML 100 ML BOTTLE IV ONE (09:29)
[2018-07-20] MEDS ORDERED: Pneumococcal 23-Valent Vaccine IM ONE (10:00)
[2018-07-20 10:34] LABS: CALCIUM 8.5 mg/dl (8.6-10.4)
[2018-07-20] MEDS ORDERED: Phenylephrine 10 mg/ml Inj ONE (10:37)
[2018-07-20] MEDS ORDERED: Midazolam 2 MG/2 ML VIAL ONE (10:37)
[2018-07-20] MEDS ORDERED: ePHEDrine 50 mg/ml Inj ONE (10:37)
[2018-07-20 10:43] LABS: INR 1.2
[2018-07-20] MEDS ORDERED: Metoprolol 1 mg/ml Inj IVP ONE (12:03)
[2018-07-20] MEDS: (Novolin R) Insulin Human Regular 100 units/ml vial SC SCH ×3 (12:39→18:21)
--- NOTE | 2018-07-20 12:41 | PCM.SURG1 ---
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 new permacath places right jugular and left jugular removed Post-Operative Diagnosis: same. central vein occlusion Operation Performed: fistulagram left arm. removal left jugular catheter. placement new right sided catheter with us guidance Specimen/Specimens Removed: old catheter discarded Estimated Blood Loss: EBL {In ML}: 50 Blood Products Given: N/A Drains Used: No Drains Post-Op Condition: Good Date of Surgery/Procedure: 07/20/18 Time of Surgery/Procedure: 12:42
--- NOTE | 2018-07-20 13:41 | RAD ---
Chest x-ray single frontal view History: PermCath placement. Comparison: 04/05/2018 Findings: Right central venous catheter tip extending into the right atrium. Mild venous congestion. Right hilar prominence. Cardiomegaly. Degenerative changes spine and shoulders. Impression: Right central venous catheter tip extending into the right atrium. Mild venous congestion. Right hilar prominence. Cardiomegaly.
--- NOTE | 2018-07-20 14:25 | CP.PCM.PN ---
Subjective - Date & Time of Evaluation Date of Evaluation: 07/20/18 Time of Evaluation: 14:22 - Subjective Subjective: PGY-1 Medicine Progress Note Patient seen and examined at bedside. Patient continues to state he does not want to speak with so many doctors. Patient does report neck pain. Patient states he has leg pain and arm pain however reduced. Patient denies chest pain, sob, n/v, constipation or diarrhea, dysuria. Objective - Vital Signs/Intake and Output Vital Signs (last 24 hours): Temp Pulse Resp BP Pulse Ox 97.8 F 77 20 141/80 99 07/19/18 17:15 07/19/18 17:15 07/19/18 17:15 07/19/18 17:15 07/19/18 17:15 Intake and Output: 07/20/18 07/20/18 06:59 18:59 Intake Total 773.2 Balance 773.2 - Medications Medications: Current Medications Dextrose (Dextrose 50% Inj) 0 ml IV STAT PRN; Protocol PRN Reason: Hypoglycemia Protocol Dextrose (Glutose 15) 0 gm PO ONCE PRN; Protocol PRN Reason: Hypoglycemia Protocol Epoetin Efrain (Procrit) 8,000 unit IV TTS [facility] Last Admin: 07/19/18 16:40 Dose: 8,000 unit Furosemide (Lasix) 80 mg PO MWF [facility] Last Admin: 07/20/18 09:20 Dose: Not Given Glucagon (Glucagen Diagnostic Kit) 0 mg IM STAT PRN; Protocol PRN Reason: Hypoglycemia Protocol Heparin Sodium (Porcine) (Heparin) 4,400 units IVP TTS [facility] Last Admin: 07/19/18 16:41 Dose: 4,400 units Hydromorphone HCl (Dilaudid) 1 mg IVP Q4H PRN PRN Reason: Pain, severe (8-10) Last Admin: 07/20/18 05:56 Dose: 1 mg Heparin Sodium/Sodium Chloride (Heparin 98380 Units/250ml 1/2 Normal Saline) 25 ,000 units in 250 mls @ 20.412 mls/hr IV .[id number] PRN; Protocol; 18 UNITS/KG/HR PRN Reason: PROTOCOL Last Admin: 07/20/18 00:17 Dose: 18 units/kg/hr, 20.412 mls/hr Dextrose (Dextrose 5% In Water 1000 Ml) 1,000 mls @ 0 mls/hr IV .Q0M PRN; Protocol; Per Protocol PRN Reason: Hypoglycemia Protocol Vancomycin/Sodium Chloride (Vancomycin 1 Gm/Ns 200 Ml) 1 gm in 200 mls @ 133 mls/hr IVPB [facility]TS [facility] PRN Reason: Protocol Stop: 07/24/18 21:01 Last Admin: 07/19/18 21:43 Dose: 133 mls/hr Insulin Human Regular (Novolin R) 0 unit SC Q6 [facility] PRN Reason: Protocol Last Admin: 07/20/18 12:39 Dose: Not Given Labetalol HCl (Trandate) 100 mg PO BID [facility] Last Admin: 07/20/18 11:00 Dose: Not Given Sevelamer Carbonate (Renvela) 800 mg PO TIDCC [facility] Last Admin: 07/20/18 12:39 Dose: Not Given Vitamin B Complex/Vit C/Folic Acid (Nephro-Leanna) 1 tab PO 0800 [facility] Last Admin: 07/20/18 08:17 Dose: Not Given - Labs Labs: 07/20/18 07:38 07/20/18 10:07 PT 13.0 SECONDS (9.7-12.2) H 07/20/18 10:07 INR 1.2 07/20/18 10:07 APTT 54 SECONDS (21-34) H D 07/20/18 10:07 - Constitutional Appears: Non-toxic, No Acute Distress - Head Exam Head Exam: NORMAL INSPECTION, NORMOCEPHALIC - Eye Exam Eye Exam: EOMI, Normal appearance. absent: Nystagmus, Scleral icterus - Respiratory Exam Respiratory Exam: Clear to Ausculation Bilateral, NORMAL BREATHING PATTERN. absent: Rales, Rhonchi, Wheezes - Cardiovascular Exam Cardiovascular Exam: REGULAR RHYTHM, +S1, +S2 - GI/Abdominal Exam GI & Abdominal Exam: Soft, Normal Bowel Sounds. absent: Distended, Firm, Guarding, Rigid, Tenderness - Extremities Exam Extremities Exam: Normal Inspection, Tenderness Additional comments: swollen left arm with central vein occlusion swollen left leg warm and erythema noted in left upper extremity tenderness to palpation of left upper and lower extremity - Back Exam Back Exam: NORMAL INSPECTION. absent: CVA tenderness (L), CVA tenderness (R) - Additional Findings Additional findings: left arm AVF right anterior chest permatcath moved from left Assessment and Plan - Assessment and Plan (Free Text) Assessment: Pt is a 57 yo male with PMH of ESRD on HD, HTN, DM, Charcot foot presenting with complaint of LUE pain and swelling about two days prior; had AVF placed 2 weeks prior; had surgery today however occlusion remained; rescheduled for surgery tomorrow for possible repositioning to right arm or tpa occlusion in central vein; permatch switched to right anterior chest wall today Plan: Upper Extremity DVT Upper Extremity Doppler: prelim read- Abnormal findings of the left jugular and subclavian veins ID Consulted: Dr. Beltran- started Vancomycin 1g @ 133mls/hr IVPB Dilaudid 1mg IVP q4h prn Heparin 24345 units @ 20.41 mls/hr IV [id number] PRN (may hold for surgery in AM as per surgery and NPO) ESRD On HD (unsure of patient schedule due to combative nature); had dialysis yesterday for two hours Nephrology consulted: Dr. Bernabe- [facility] schedule for patient Patient likely needs dialysis today for elevated potassium [facility]; permacath moved to right Lasix 80mg po MWF tim Elevated phosphorus - Sevelamer Carbonate 800mg po tidcc tim Surgery Consulted: [facility] Fistulogram tomorrow with Sierra repeated tomorrow for possible switch to left arm or tpa in vein Anemia likely secondary to ESRD Replete through dialysis: Srinivasa consulted: Epo 8000 unit IV TTS tim Decreased LFTs Hep B Antigen negative Hep B core IgM Ab negative Hep C Ab negative Continue to monitor DM2 ISS ACHS Hypoglycemic protocol HTN Labetolol 100mg po bid tim Prophylaxis DVT ppx: Heparin 57059 units @ 20.41 mls/hr IV [id number] PRN GI ppx: not indicated at this time
--- NOTE | 2018-07-20 16:15 | CP.PCM.PN ---
Subjective - Date & Time of Evaluation Date of Evaluation: 07/20/18 Time of Evaluation: 16:13 - Subjective Subjective: Nephrology Consultation Note: Assessment: Stable missed HD, hyperkalemia left central venous DVT with cellulitis Diabetic chronic Kidney Disease (E11.22) Hypertensive Chronic Kidney Disease (I12.0) End stage renal disease (N18.6) dependence on hemodialysis (Z99.2) (MWF) via PC Anemia (D64.9), Hyperphosphatemia (E83.39), Secondary Hyperparathyroidism (E21.1 ), HTN (I12.0), Obesity Plan: Will plan for HD tomorrow as ordered TTS schedule this week. Continue with Nephrovite 1 tab/day. PRBC as needed for anemia. on JULIANA with dialysis as last Hb 9.6 Continue with phos binders, last phos level 6.3 BP control with meds as ordered. Patient not on RAAS karen as with hyperkalemia. added lasix 80 mg non-HD days Glycemic control, Dialysis consistent diet Further work up/management as per primary team Dose meds/antibiotics (if needed) for ESRD status. Avoid fleets enema/magnesium based laxatives. vascular and ID following Thanks for allowing me to participate in care of your patient. Will follow patient with you. Please call if any Qs Dr Alvaro Aquino Office: [phone] Chief Complaint;left arm swelling HPI: Pt is a 57 M with hx of ESRD on hemodialysis (MWF) via left permacath since nov 2017, last dialysis last night in hospital, chronic anemia, hyperphosphatemia, secondary hyperparathyroidism, Diabetes Mellitus, hypertension, obesity presented with complaints of left arm swelling and redness since AVF intervention 1-2 weeks ago. he denies fever/chil. admitted with left arm cellulitis and DVT. seen by vascular and ID, started antibiotics and heparin drip Renal consult requested for ESRD management. he feels slight better today. he missed dialysis most of last week ROS: says I am tired. refused to discuss any more Physical Examination: pt not coperative ad refused to be examined Labs/imaging reviewed. Past medical history, past surgical history, family history, social history, allergy reviewed and noted as below Family Hx: no hx of CKD. Non contributory Objective - Vital Signs/Intake and Output Vital Signs (last 24 hours): Temp Pulse Resp BP Pulse Ox 97.8 F 69 20 171/89 H 98 07/19/18 17:15 07/20/18 14:00 07/20/18 14:00 07/20/18 14:00 07/20/18 14:00 Intake and Output: 07/20/18 07/20/18 06:59 18:59 Intake Total 773.2 541.2 Balance 773.2 541.2 - Medications Medications: Current Medications Dextrose (Dextrose 50% Inj) 0 ml IV STAT PRN; Protocol PRN Reason: Hypoglycemia Protocol Dextrose (Glutose 15) 0 gm PO ONCE PRN; Protocol PRN Reason: Hypoglycemia Protocol Epoetin Efrain (Procrit) 8,000 unit IV [facility] Last Admin: 07/19/18 16:40 Dose: 8,000 unit Furosemide (Lasix) 80 mg PO [facility] Last Admin: 07/20/18 09:20 Dose: Not Given Glucagon (Glucagen Diagnostic Kit) 0 mg IM STAT PRN; Protocol PRN Reason: Hypoglycemia Protocol Heparin Sodium (Porcine) (Heparin) 4,400 units IVP [facility] Last Admin: 07/19/18 16:41 Dose: 4,400 units Hydromorphone HCl (Dilaudid) 1 mg IVP Q4H PRN PRN Reason: Pain, severe (8-10) Last Admin: 07/20/18 14:21 Dose: 1 mg Heparin Sodium/Sodium Chloride (Heparin 21596 Units/250ml 1/2 Normal Saline) 25 ,000 units in 250 mls @ 20.412 mls/hr IV .[id number] PRN; Protocol; 18 UNITS/KG/HR PRN Reason: PROTOCOL Last Admin: 07/20/18 00:17 Dose: 18 units/kg/hr, 20.412 mls/hr Dextrose (Dextrose 5% In Water 1000 Ml) 1,000 mls @ 0 mls/hr IV .Q0M PRN; Protocol; Per Protocol PRN Reason: Hypoglycemia Protocol Vancomycin/Sodium Chloride (Vancomycin 1 Gm/Ns 200 Ml) 1 gm in 200 mls @ 133 mls/hr IVPB [facility] PRN Reason: Protocol Stop: 07/24/18 21:01 Last Admin: 07/19/18 21:43 Dose: 133 mls/hr Insulin Human Regular (Novolin R) 0 unit SC Q6 [facility] PRN Reason: Protocol Last Admin: 07/20/18 12:39 Dose: Not Given Labetalol HCl (Trandate) 100 mg PO BID [facility] Last Admin: 07/20/18 11:00 Dose: Not Given Sevelamer Carbonate (Renvela) 800 mg PO TIDCC [facility] Last Admin: 07/20/18 12:39 Dose: Not Given Vitamin B Complex/Vit C/Folic Acid (Nephro-Leanna) 1 tab PO 0800 [facility] Last Admin: 07/20/18 08:17 Dose: Not Given - Labs Labs: 07/20/18 07:38 07/20/18 10:07 PT 13.0 SECONDS (9.7-12.2) H 07/20/18 10:07 INR 1.2 07/20/18 10:07 APTT 54 SECONDS (21-34) H D 07/20/18 10:07
--- NOTE | 2018-07-20 19:26 | CP.PCM.PN ---
Subjective - Date & Time of Evaluation Date of Evaluation: 07/20/18 Time of Evaluation: 08:00 - Subjective Subjective: seen s/p vascular surgery c/o pain so far cultures neg cont iv rx and wound care Objective - Vital Signs/Intake and Output Vital Signs (last 24 hours): Temp Pulse Resp BP Pulse Ox 98.2 F 80 20 175/93 H 96 07/20/18 18:05 07/20/18 18:05 07/20/18 18:05 07/20/18 18:05 07/20/18 18:05 Intake and Output: 07/20/18 07/21/18 18:59 06:59 Intake Total 791.2 Balance 791.2 - Medications Medications: Current Medications Dextrose (Dextrose 50% Inj) 0 ml IV STAT PRN; Protocol PRN Reason: Hypoglycemia Protocol Dextrose (Glutose 15) 0 gm PO ONCE PRN; Protocol PRN Reason: Hypoglycemia Protocol Epoetin Efrain (Procrit) 8,000 unit IV TTS [facility] Last Admin: 07/19/18 16:40 Dose: 8,000 unit Furosemide (Lasix) 80 mg PO MWF [facility] Last Admin: 07/20/18 09:20 Dose: Not Given Glucagon (Glucagen Diagnostic Kit) 0 mg IM STAT PRN; Protocol PRN Reason: Hypoglycemia Protocol Heparin Sodium (Porcine) (Heparin) 4,400 units IVP TTS [facility] Last Admin: 07/19/18 16:41 Dose: 4,400 units Hydromorphone HCl (Dilaudid) 1 mg IVP Q4H PRN PRN Reason: Pain, severe (8-10) Last Admin: 07/20/18 18:22 Dose: 1 mg Heparin Sodium/Sodium Chloride (Heparin 04801 Units/250ml 1/2 Normal Saline) 25 ,000 units in 250 mls @ 20.412 mls/hr IV .[id number] PRN; Protocol; 18 UNITS/KG/HR PRN Reason: PROTOCOL Last Admin: 07/20/18 18:33 Dose: 18 units/kg/hr, 20.412 mls/hr Dextrose (Dextrose 5% In Water 1000 Ml) 1,000 mls @ 0 mls/hr IV .Q0M PRN; Protocol; Per Protocol PRN Reason: Hypoglycemia Protocol Vancomycin/Sodium Chloride (Vancomycin 1 Gm/Ns 200 Ml) 1 gm in 200 mls @ 133 mls/hr IVPB TTS [facility] PRN Reason: Protocol Stop: 07/24/18 21:01 Last Admin: 07/19/18 21:43 Dose: 133 mls/hr Insulin Human Regular (Novolin R) 0 unit SC Q6 [facility] PRN Reason: Protocol Last Admin: 07/20/18 18:21 Dose: 2 unit Labetalol HCl (Trandate) 100 mg PO BID [facility] Last Admin: 07/20/18 17:22 Dose: 100 mg Sevelamer Carbonate (Renvela) 800 mg PO TIDCC [facility] Last Admin: 07/20/18 17:22 Dose: 800 mg Vitamin B Complex/Vit C/Folic Acid (Nephro-Leanna) 1 tab PO 0800 [facility] Last Admin: 07/20/18 08:17 Dose: Not Given - Labs Labs: 07/20/18 07:38 07/20/18 10:07 PT 13.0 SECONDS (9.7-12.2) H 07/20/18 10:07 INR 1.2 07/20/18 10:07 APTT 54 SECONDS (21-34) H D 07/20/18 10:07 - Constitutional Appears: Non-toxic, Chronically Ill - Head Exam Head Exam: NORMOCEPHALIC - Eye Exam Eye Exam: PERRL - ENT Exam ENT Exam: Mucous Membranes Dry - Neck Exam Neck Exam: absent: Lymphadenopathy - Respiratory Exam Respiratory Exam: Decreased Breath Sounds - Cardiovascular Exam Cardiovascular Exam: REGULAR RHYTHM - GI/Abdominal Exam GI & Abdominal Exam: Distended Assessment and Plan (1) Cellulitis of left arm Status: Acute
[2018-07-21] MEDS: (Novolin R) Insulin Human Regular 100 units/ml vial SC SCH ×4 (00:14→18:00)
[2018-07-21] MEDS: HYDROmorphone 1 mg/ml ISec IVP PRN ×3 (03:35→14:01)
--- NOTE | 2018-07-21 07:03 | OP ---
Copied To: Ifeanyi Esquivel Jr., MD Attending MD: Ifeanyi Esquivel Jr., MD PROCEDURE DATE: 07/20/2018 PREOPERATIVE DIAGNOSIS: Left arm edema, status post arteriovenous fistula, central vein occlusion. PROCEDURE CARRIED OUT: Fistulogram, left arm. Removal of left jugular Perm-A-Cath and placement of new right jugular Perm-A-Cath. SURGEON: Ifeanyi Esquivel Jr., MD SPECIAL EDUCATION SUPERVISOR: None. ANESTHESIOLOGIST: Mr. Johnston. ANESTHESIA: Local with sedation. INDICATIONS: The patient is a middle-aged man with renal insufficiency, presently on dialysis by means of an indwelling catheter in the left jugular vein which was placed a number of months ago at [place]. The patient subsequently admitted a fistula creation in his left elbow which was unsuccessful. He recently had another one and subsequently developed massive edema of the left arm. Subsequently imaging carried out here demonstrated there was an occlusion of the subclavian veins and perhaps subclavian vein under the clavicle. OPERATIVE FINDINGS: 1. The subclavian and innominate vein was completely nonvisualized. 2. We removed the left jugular Perm-A-Cath during the procedure. 3. We placed the new Perm-A-Cath via the right side. DESCRIPTION OF PROCEDURE: Using ultrasound guidance and micropuncture technique, the left arm basilic vein fistula is punctured. Under fluoroscopic control, the guidewire was advanced centrally. Films were taken showing the proximal portion of the fistula. Under visual exam, the central veins all the way to the right atrium, however, there was no opacification from the point of entry of the left jugular vein end. We then removed the catheter as we attempted to cross with the catheter in place, and we are unable to do so. We subsequently placed a 6-Irish catheter in the basilic vein on the left side. After this have been done, we have made multiple attempts crossing this, we removed the catheter that was existing, and then next, we placed a 6-Irish 45 cm catheter all the way up to this area and even with stiff good support, we are unable, and a variety of devices including [employer], wires etc., we were unable to cross this lesion. We then abandoned any attempt of doing this, placed a new catheter on the right side. Films are taken showing opacification of the central veins with extensive collateral formation. The arterial anastomosis was not visualized, hence we are unable to reflux into this area. Nonetheless, showed that the existing fistula is widely patent. However, runs into a central vein occlusion o' clock, and from this point on, there is no visualization with entry into the right-sided innominate vein. The procedure was then terminated and the pressure was applied to the puncture site. OPERATION CARRIED OUT: 1. Fistulogram, left arm. 2. Removal of left jugular Perm-A-Cath, placement of right jugular Perm-A-Cath, which was done using ultrasound guidance and fluoroscopy. Ifeanyi Esquivel Jr., MD
--- NOTE | 2018-07-21 07:23 | CP.PCM.PN ---
Subjective - Date & Time of Evaluation Date of Evaluation: 07/21/18 Time of Evaluation: 06:10 - Subjective Subjective: Patient seen and examined. No acute events over night. Reports some right hand numbness- unchanged from prior days. Pulses intact. Motor/sensation intact. Permacath site c/d/i. Slight improvement in L arm swelling. Objective - Vital Signs/Intake and Output Vital Signs (last 24 hours): Temp Pulse Resp BP Pulse Ox 98 F 75 20 184/87 H 97 07/20/18 23:27 07/21/18 03:35 07/21/18 03:35 07/21/18 03:35 07/21/18 03:35 Intake and Output: 07/21/18 07/21/18 06:59 18:59 Intake Total 163.2 Balance 163.2 - Medications Medications: Current Medications Dextrose (Dextrose 50% Inj) 0 ml IV STAT PRN; Protocol PRN Reason: Hypoglycemia Protocol Dextrose (Glutose 15) 0 gm PO ONCE PRN; Protocol PRN Reason: Hypoglycemia Protocol Epoetin Efrain (Procrit) 8,000 unit IV TTS [facility] Last Admin: 07/19/18 16:40 Dose: 8,000 unit Furosemide (Lasix) 80 mg PO MWF [facility] Last Admin: 07/20/18 09:20 Dose: Not Given Glucagon (Glucagen Diagnostic Kit) 0 mg IM STAT PRN; Protocol PRN Reason: Hypoglycemia Protocol Heparin Sodium (Porcine) (Heparin) 4,400 units IVP TTS [facility] Last Admin: 07/19/18 16:41 Dose: 4,400 units Hydromorphone HCl (Dilaudid) 1 mg IVP Q4H PRN PRN Reason: Pain, severe (8-10) Last Admin: 07/21/18 03:35 Dose: 1 mg Heparin Sodium/Sodium Chloride (Heparin 46482 Units/250ml 1/2 Normal Saline) 25 ,000 units in 250 mls @ 20.412 mls/hr IV .[id number] PRN; Protocol; 18 UNITS/KG/HR PRN Reason: PROTOCOL Last Admin: 07/20/18 18:33 Dose: 18 units/kg/hr, 20.412 mls/hr Dextrose (Dextrose 5% In Water 1000 Ml) 1,000 mls @ 0 mls/hr IV .Q0M PRN; Protocol; Per Protocol PRN Reason: Hypoglycemia Protocol Vancomycin/Sodium Chloride (Vancomycin 1 Gm/Ns 200 Ml) 1 gm in 200 mls @ 133 mls/hr IVPB TTS [facility] PRN Reason: Protocol Stop: 07/24/18 21:01 Last Admin: 07/19/18 21:43 Dose: 133 mls/hr Insulin Human Regular (Novolin R) 0 unit SC Q6 [facility] PRN Reason: Protocol Last Admin: 07/21/18 06:00 Dose: Not Given Labetalol HCl (Trandate) 100 mg PO BID [facility] Last Admin: 07/20/18 17:22 Dose: 100 mg Sevelamer Carbonate (Renvela) 800 mg PO TIDCC [facility] Last Admin: 07/20/18 17:22 Dose: 800 mg Vitamin B Complex/Vit C/Folic Acid (Nephro-Leanna) 1 tab PO 0800 [facility] Last Admin: 07/20/18 08:17 Dose: Not Given - Labs Labs: 07/20/18 07:38 07/20/18 10:07 PT 13.0 SECONDS (9.7-12.2) H 07/20/18 10:07 INR 1.2 07/20/18 10:07 APTT 54 SECONDS (21-34) H D 07/20/18 10:07 - Constitutional Appears: No Acute Distress - Head Exam Head Exam: NORMOCEPHALIC - Eye Exam Eye Exam: Normal appearance - ENT Exam ENT Exam: Mucous Membranes Moist - Respiratory Exam Respiratory Exam: NORMAL BREATHING PATTERN - Cardiovascular Exam Cardiovascular Exam: +S1, +S2 - GI/Abdominal Exam GI & Abdominal Exam: Soft - Extremities Exam Additional comments: L arm swelling - Neurological Exam Neurological Exam: Alert, Awake, Oriented x3 - Psychiatric Exam Psychiatric exam: Normal Mood - Skin Skin Exam: Dry, Intact, Warm Assessment and Plan - Assessment and Plan (Free Text) Assessment: 57M w/ L IJ and subclavian DVT s/p fistulagram , s/p removal of R permacath and insertion of L permacath Plan: -if symptoms do not improve will need ligation on left extremity -New AVF access on right -Will observe over 24-48 hours -D/w Dr. Sierra Ocampo PGY3
--- NOTE | 2018-07-21 07:49 | CP.PCM.PN ---
Subjective - Date & Time of Evaluation Date of Evaluation: 07/21/18 Time of Evaluation: 07:46 - Subjective Subjective: PGY-1 Medicine Progress Note for Dr. Lowery's service Patient seen and examined at bedside. Patient reports left arm pain and left leg pain. Patient reports right neck pain likely secondary to right permacath insertion. Patient denies chest pain, sob, n/v, constipation or diarrhea, headaches, dizziness, lightheadedness. Objective - Vital Signs/Intake and Output Vital Signs (last 24 hours): Temp Pulse Resp BP Pulse Ox 98 F 75 20 184/87 H 97 07/20/18 23:27 07/21/18 03:35 07/21/18 03:35 07/21/18 03:35 07/21/18 03:35 Intake and Output: 07/21/18 07/21/18 06:59 18:59 Intake Total 163.2 Balance 163.2 - Medications Medications: Current Medications Dextrose (Dextrose 50% Inj) 0 ml IV STAT PRN; Protocol PRN Reason: Hypoglycemia Protocol Dextrose (Glutose 15) 0 gm PO ONCE PRN; Protocol PRN Reason: Hypoglycemia Protocol Epoetin Efrain (Procrit) 8,000 unit IV TTS [facility] Last Admin: 07/19/18 16:40 Dose: 8,000 unit Furosemide (Lasix) 80 mg PO MWF [facility] Last Admin: 07/20/18 09:20 Dose: Not Given Glucagon (Glucagen Diagnostic Kit) 0 mg IM STAT PRN; Protocol PRN Reason: Hypoglycemia Protocol Heparin Sodium (Porcine) (Heparin) 4,400 units IVP TTS [facility] Last Admin: 07/19/18 16:41 Dose: 4,400 units Hydromorphone HCl (Dilaudid) 1 mg IVP Q4H PRN PRN Reason: Pain, severe (8-10) Last Admin: 07/21/18 03:35 Dose: 1 mg Heparin Sodium/Sodium Chloride (Heparin 96363 Units/250ml 1/2 Normal Saline) 25 ,000 units in 250 mls @ 20.412 mls/hr IV .[id number] PRN; Protocol; 18 UNITS/KG/HR PRN Reason: PROTOCOL Last Admin: 07/20/18 18:33 Dose: 18 units/kg/hr, 20.412 mls/hr Dextrose (Dextrose 5% In Water 1000 Ml) 1,000 mls @ 0 mls/hr IV .Q0M PRN; Protocol; Per Protocol PRN Reason: Hypoglycemia Protocol Vancomycin/Sodium Chloride (Vancomycin 1 Gm/Ns 200 Ml) 1 gm in 200 mls @ 133 mls/hr IVPB TTS TIM PRN Reason: Protocol Stop: 07/24/18 21:01 Last Admin: 07/19/18 21:43 Dose: 133 mls/hr Insulin Human Regular (Novolin R) 0 unit SC Q6 TIM PRN Reason: Protocol Last Admin: 07/21/18 06:00 Dose: Not Given Labetalol HCl (Trandate) 100 mg PO BID [facility] Last Admin: 07/20/18 17:22 Dose: 100 mg Sevelamer Carbonate (Renvela) 800 mg PO TIDCC [facility] Last Admin: 07/20/18 17:22 Dose: 800 mg Vitamin B Complex/Vit C/Folic Acid (Nephro-Leanna) 1 tab PO 0800 [facility] Last Admin: 07/20/18 08:17 Dose: Not Given - Labs Labs: 07/20/18 07:38 07/20/18 10:07 PT 13.0 SECONDS (9.7-12.2) H 07/20/18 10:07 INR 1.2 07/20/18 10:07 APTT 54 SECONDS (21-34) H D 07/20/18 10:07 - Additional Findings Additional findings: - Constitutional Appears: Non-toxic, No Acute Distress - Head Exam Head Exam: NORMAL INSPECTION, NORMOCEPHALIC - Eye Exam Eye Exam: EOMI, Normal appearance. absent: Nystagmus, Scleral icterus - Respiratory Exam Respiratory Exam: Clear to Ausculation Bilateral, NORMAL BREATHING PATTERN. absent: Rales, Rhonchi, Wheezes - Cardiovascular Exam Cardiovascular Exam: REGULAR RHYTHM, +S1, +S2 - GI/Abdominal Exam GI & Abdominal Exam: Soft, Normal Bowel Sounds. absent: Distended, Firm, Guarding, Rigid, Tenderness - Extremities Exam Extremities Exam: Normal Inspection, Tenderness Additional comments: swollen left arm with central vein occlusion swollen left leg; looks unchanged from yesterday warm and erythema noted in left upper extremity; placed in sakina bandage to reduce swelling tenderness to palpation of left upper and lower extremity - Back Exam Back Exam: NORMAL INSPECTION. absent: CVA tenderness (L), CVA tenderness (R) - Additional Findings Additional findings: left arm AVF occluded proximally; no bruit right anterior chest permatcath Assessment and Plan - Assessment and Plan (Free Text) Assessment: Pt is a 57 yo male with PMH of ESRD on HD, HTN, DM, Charcot foot presenting with complaint of LUE pain and swelling about two days prior; had AVF placed 2 weeks prior; had surgery today however occlusion remained; rescheduled for surgery Wednesday repositioning to right arm as per surgery; permatch switched to right anterior chest wall for continued dialysis Plan: Upper Extremity DVT Upper Extremity Doppler: prelim read- Abnormal findings of the left jugular and subclavian veins- 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 Beltran- started Vancomycin 1g @ 133mls/hr IVPB- changed Vanc to q7d as per Dr. Sebastián Abbottid 2mg IVP q4h prn Heparin 86436 units @ 20.41 mls/hr IV [id number] PRN ESRD HD scheduled for today Nephrology consulted: Dr. Bernabe- TT schedule for patient Patient likely needs dialysis today for elevated potassium Patient receives dialysis in permacatch; permacath moved to right Lasix 80mg po MWF tim Elevated phosphorus - Sevelamer Carbonate 800mg po tidcc tim Surgery Consulted: [facility] Fistulogram likely Wednesday with [facility] possible switch to left arm or tpa in vein Anemia likely secondary to ESRD Replete through dialysis: Srinivasa consulted: Epo 8000 unit IV TTS tim Decreased LFTs Hep B Antigen negative Hep B core IgM Ab negative Hep C Ab negative Continue to monitor DM2 ISS ACHS Hypoglycemic protocol HTN Labetolol 300mg po bid scheduled to start in Will go to dialysis today Prophylaxis DVT ppx: Heparin 43717 units @ 20.41 mls/hr IV [id number] PRN GI ppx: not indicated at this time
[2018-07-21 07:58] LABS: BASO % 0.7 % (0.0-2.0); EOS # 0.2 K/uL (0.0-0.7); EOS % 4.3 % (0.0-4.0); LYMPH # 1.2 K/uL (1.0-4.3); LYMPH % 21.7 % (20.0-40.0); MEAN CELL VOLUME 91.6 fL (80.0-94.0); MEAN CORPUSCULAR HEMOGLOBIN 29.9 pg (27.0-31.0); MEAN CORPUSCULAR HGB CONC 32.7 g/dL (33.0-37.0); MEAN PLATELET VOLUME 7.1 fL (7.2-11.7); MONO # 0.7 K/uL (0.0-0.8); MONO % 12.9 % (0.0-10.0); NEUT # 3.3 K/uL (1.8-7.0); NEUT % 60.4 % (50.0-75.0); NRBC % 0.1 % (0.0-2.0); RBC 2.99 Mil/uL (4.40-5.90); RED CELL DISTRIBUTION WIDTH 18.8 % (11.5-14.5); WHITE BLOOD COUNT 5.4 K/uL (4.8-10.8)
[2018-07-21] MEDS: Heparin25000 units/250ml 1/2NS 25,000 UNITS/250 ML BAG IV PRN (08:22)
[2018-07-21] MEDS: Multivitamin Vitamin B Complex (Nephro-Vite) Tab PO SCH (08:31)
[2018-07-21 08:32] LABS: ALB/GLOB RATIO 1.2 (1.0-2.1); ALBUMIN 3.6 g/dL (3.5-5.0); CALCIUM 8.3 mg/dl (8.6-10.4)
[2018-07-21] MEDS: EPOETIN ALFA 4,000 UNIT/ML ML Dialysis IV SCH (09:57)
--- NOTE | 2018-07-21 12:16 | CP.PCM.PN ---
Subjective - Date & Time of Evaluation Date of Evaluation: 07/21/18 Time of Evaluation: 12:15 - Subjective Subjective: Nephrology Consultation Note: Assessment: Stable missed HD, hyperkalemia left arm DVT with cellulitis Diabetic chronic Kidney Disease (E11.22) Hypertensive Chronic Kidney Disease (I12.0) End stage renal disease (N18.6) dependence on hemodialysis (Z99.2) (MWF) via PC Anemia (D64.9), Hyperphosphatemia (E83.39), Secondary Hyperparathyroidism (E21.1 ), HTN (I12.0), Obesity Plan: Will plan for HD today as ordered, change to MWF tim next wek Continue with Nephrovite 1 tab/day. PRBC as needed for anemia. on JULIANA with dialysis as last Hb 9.0 Continue with increased phos binders, last phos level 6.3 BP control with meds as ordered. Patient not on RAAS karen as with hyperkalemia. added lasix 80 mg non-HD days. increased labetalol 300 bid Glycemic control, Dialysis consistent diet Further work up/management as per primary team Dose meds/antibiotics (if needed) for ESRD status. Avoid fleets enema/magnesium based laxatives. vascular and ID following Thanks for allowing me to participate in care of your patient. Will follow patient with you. Please call if any Qs Dr Alvaro Aquino Office: [phone] Chief Complaint;left arm swelling HPI: Pt is a 57 M with hx of ESRD on hemodialysis (MWF) via left permacath since nov 2017, last dialysis last night in hospital, chronic anemia, hyperphosphatemia, secondary hyperparathyroidism, Diabetes Mellitus, hypertension, obesity presented with complaints of left arm swelling and redness since AVF intervention 1-2 weeks ago. he denies fever/chil. admitted with left arm cellulitis and DVT. seen by vascular and ID, started antibiotics and heparin drip Renal consult requested for ESRD management. he feels slight better today. he missed dialysis most of last week ROS: Cardiovascular: No chest pain. Pulmonary: No shortness of breath Gastrointestinal: denies abdominal pain No nausea. No vomiting. Genitourinary: No pain while urinating. Denies blood in urine. says make plenty of urine All other negative except as mentioned in HPI Physical Examination: seen on HD General Appearance: Comfortable, in no acute respiratory distress, co-operative . obese Vitals reviewed and noted as below Head; Atraumatic, normocephalic ENT: no ulcers no thrush. Tongue is midline. Oropharynx: no rash or ulcers. EYES: Pupils are equal, round and reactive to light accommodation. Eye muscles and extraocular movement intact. Sclera is anicteric. Neck; supple no lymphadenopathy, no thyromegaly or bruit Lungs: Normal respiratory rate/effort. Breath sounds bilateral equal and clear Heart: Normal rate. s1s2 normal. No rub or gallop. Extremities: trace edema. No varicose veins. left foot deformity + pt says had fracture Neurological: Patient is alert, awake and oriented to person, place and time. No focal deficit. Strength bilateral appropriate and equal Skin: Warm and dry. Normal turgor. No rash. Palpitation: Normal elasticity for age Abdomen: Abdomen is soft. Bowel sounds +. There is no abdominal tenderness, no guarding/rigidity or organomegaly Psych: normal insight and normal affect/mood MSK: no joint tenderness or swelling. Digits and nails normal, no deformity : kidney or bladder not palpable Access: Rt PC. left AVF with thrill and bruit. LUE swelling noted Labs/imaging reviewed. Past medical history, past surgical history, family history, social history, allergy reviewed and noted as below Family Hx: no hx of CKD. Non contributory Objective - Vital Signs/Intake and Output Vital Signs (last 24 hours): Temp Pulse Resp BP Pulse Ox 99.4 F 85 20 133/94 H 96 07/21/18 09:25 07/21/18 09:25 07/21/18 09:25 07/21/18 10:25 07/21/18 09:25 Intake and Output: 07/21/18 07/21/18 06:59 18:59 Intake Total 992.0 Balance 992.0 - Medications Medications: Current Medications Dextrose (Dextrose 50% Inj) 0 ml IV STAT PRN; Protocol PRN Reason: Hypoglycemia Protocol Dextrose (Glutose 15) 0 gm PO ONCE PRN; Protocol PRN Reason: Hypoglycemia Protocol Epoetin Efrain (Procrit) 8,000 unit IV TTS [facility] Last Admin: 07/21/18 09:57 Dose: 8,000 unit Furosemide (Lasix) 80 mg PO MWF [facility] Last Admin: 07/20/18 09:20 Dose: Not Given Glucagon (Glucagen Diagnostic Kit) 0 mg IM STAT PRN; Protocol PRN Reason: Hypoglycemia Protocol Heparin Sodium (Porcine) (Heparin) 4,400 units IVP TTS [facility] Last Admin: 07/19/18 16:41 Dose: 4,400 units Hydromorphone HCl (Dilaudid) 1 mg IVP Q4H PRN PRN Reason: Pain, severe (8-10) Last Admin: 07/21/18 08:19 Dose: 1 mg Heparin Sodium/Sodium Chloride (Heparin 04153 Units/250ml 1/2 Normal Saline) 25 ,000 units in 250 mls @ 20.412 mls/hr IV .[id number] PRN; Protocol; 18 UNITS/KG/HR PRN Reason: PROTOCOL Last Admin: 07/21/18 08:22 Dose: 18 units/kg/hr, 20.412 mls/hr Dextrose (Dextrose 5% In Water 1000 Ml) 1,000 mls @ 0 mls/hr IV .Q0M PRN; Protocol; Per Protocol PRN Reason: Hypoglycemia Protocol Vancomycin/Sodium Chloride (Vancomycin 1 Gm/Ns 200 Ml) 1 gm in 200 mls @ 133 mls/hr IVPB TTS TIM PRN Reason: Protocol Stop: 07/24/18 21:01 Last Admin: 07/19/18 21:43 Dose: 133 mls/hr Insulin Human Regular (Novolin R) 0 unit SC Q6 TIM PRN Reason: Protocol Last Admin: 07/21/18 11:45 Dose: Not Given Labetalol HCl (Trandate) 300 mg PO BID [facility] Last Admin: 07/21/18 11:00 Dose: Not Given Sevelamer Carbonate (Renvela) 1,600 mg PO TIDCC [facility] Last Admin: 07/21/18 11:46 Dose: Not Given Vitamin B Complex/Vit C/Folic Acid (Nephro-Leanna) 1 tab PO 0800 [facility] Last Admin: 07/21/18 08:31 Dose: 1 tab - Labs Labs: 07/21/18 07:42 07/21/18 07:42 PT 13.0 SECONDS (9.7-12.2) H 07/20/18 10:07 INR 1.2 07/20/18 10:07 APTT 56 SECONDS (21-34) H 07/21/18 07:42
[2018-07-21] MEDS: Vancomycin 1 gm/NS 200 ml 1 GM/200 ML BAG IVPB SCH (14:18)
[2018-07-21] MEDS ORDERED: Vancomycin 1 gm/NS 200 ml 1 GM/200 ML BAG IVPB SCH (17:00)
[2018-07-21] MEDS ORDERED: Sod Polystyrene Sulf 15 gm/60 ml Susp PO STA (18:59)
[2018-07-21] MEDS ORDERED: (Novolin R) Insulin Human Regular 100 units/ml vial SC STA (19:08)
[2018-07-21] MEDS ORDERED: Dextrose 50% SYRINGE Inj (50 ml) IV STA (19:08)
[2018-07-21] MEDS ORDERED: Albuterol 0.083% Inhal Sol (2.5 mg/3 mL) UD INH STA (19:08)
--- NOTE | 2018-07-21 19:50 | CP.PCM.PN ---
Subjective - Date & Time of Evaluation Date of Evaluation: 07/21/18 Time of Evaluation: 08:00 - Subjective Subjective: refusing IV Vanco zyvox added Objective - Vital Signs/Intake and Output Vital Signs (last 24 hours): Temp Pulse Resp BP Pulse Ox 97.6 F 86 20 150/87 97 07/21/18 16:00 07/21/18 16:00 07/21/18 16:00 07/21/18 16:00 07/21/18 16:00 Intake and Output: 07/21/18 07/22/18 18:59 06:59 Intake Total 643.2 Balance 643.2 - Medications Medications: Current Medications Dextrose (Dextrose 50% Inj) 0 ml IV STAT PRN; Protocol PRN Reason: Hypoglycemia Protocol Dextrose (Glutose 15) 0 gm PO ONCE PRN; Protocol PRN Reason: Hypoglycemia Protocol Epoetin Efrain (Procrit) 8,000 unit IV TTS [facility] Last Admin: 07/21/18 09:57 Dose: 8,000 unit Furosemide (Lasix) 80 mg PO MWF [facility] Last Admin: 07/20/18 09:20 Dose: Not Given Glucagon (Glucagen Diagnostic Kit) 0 mg IM STAT PRN; Protocol PRN Reason: Hypoglycemia Protocol Heparin Sodium (Porcine) (Heparin) 4,400 units IVP TTS [facility] Last Admin: 07/21/18 12:44 Dose: 4,400 units Hydromorphone HCl (Dilaudid) 2 mg IVP Q4H PRN PRN Reason: Pain, severe (8-10) Last Admin: 07/21/18 18:40 Dose: 2 mg Heparin Sodium/Sodium Chloride (Heparin 98837 Units/250ml 1/2 Normal Saline) 25 ,000 units in 250 mls @ 20.412 mls/hr IV .[id number] PRN; Protocol; 18 UNITS/KG/HR PRN Reason: PROTOCOL Last Admin: 07/21/18 08:22 Dose: 18 units/kg/hr, 20.412 mls/hr Dextrose (Dextrose 5% In Water 1000 Ml) 1,000 mls @ 0 mls/hr IV .Q0M PRN; Protocol; Per Protocol PRN Reason: Hypoglycemia Protocol Vancomycin/Sodium Chloride (Vancomycin 1 Gm/Ns 200 Ml) 1 gm in 200 mls @ 133 mls/hr IVPB Q7D [place] PRN Reason: Protocol Stop: 07/26/18 17:01 Insulin Human Regular (Novolin R) 0 unit SC Q6 [place] PRN Reason: Protocol Last Admin: 07/21/18 18:00 Dose: Not Given Labetalol HCl (Trandate) 300 mg PO BID [facility] Last Admin: 07/21/18 17:09 Dose: 100 mg Sevelamer Carbonate (Renvela) 1,600 mg PO TIDCC [facility] Last Admin: 07/21/18 17:08 Dose: 1,600 mg Vitamin B Complex/Vit C/Folic Acid (Nephro-Leanna) 1 tab PO 0800 [facility] Last Admin: 07/21/18 08:31 Dose: 1 tab - Labs Labs: 07/21/18 07:42 07/21/18 07:42 PT 13.0 SECONDS (9.7-12.2) H 07/20/18 10:07 INR 1.2 07/20/18 10:07 APTT 56 SECONDS (21-34) H 07/21/18 07:42 Assessment and Plan (1) Cellulitis of left arm Status: Acute
[2018-07-22] MEDS: (Novolin R) Insulin Human Regular 100 units/ml vial SC SCH ×4 (00:02→18:00)
[2018-07-22] MEDS: Heparin25000 units/250ml 1/2NS 25,000 UNITS/250 ML BAG IV PRN (00:16)
[2018-07-22] MEDS: Multivitamin Vitamin B Complex (Nephro-Vite) Tab PO SCH (07:44)
[2018-07-22 08:45] LABS: ALB/GLOB RATIO 1.1 (1.0-2.1); ALBUMIN 3.4 g/dL (3.5-5.0); CALCIUM 8.3 mg/dl (8.6-10.4)
[2018-07-22] MEDS ORDERED: ceFAZolin 1 gm FROZEN Premix 0 GM/0 ML ML IVPB ONE (12:04)
[2018-07-22] MEDS ORDERED: Midazolam 2 MG/2 ML VIAL ONE (12:18)
[2018-07-22] MEDS ORDERED: HEPARIN-NS 5,000 UNITS/500 ML 5,000 UNIT/500 ML BAG IV ONE (12:24)
[2018-07-22] MEDS ORDERED: Propofol 10 mg/ml Inj (20 ML) ONE (12:29)
--- NOTE | 2018-07-22 15:02 | CP.PCM.PN ---
Subjective - Date & Time of Evaluation Date of Evaluation: 07/22/18 Time of Evaluation: 09:00 - Subjective Subjective: PGY-1 Medicine Progress Note for Dr. Lowery's service Patient seen and examined at bedside. Patient reports continued left arm and leg pain. Patient states he feels the swelling has decreased in his arm. Patient scheduled to go for surgery today. Patient denies chest pain, sob, fevers, chills, n/v, constipation or diarrhea. Objective - Vital Signs/Intake and Output Vital Signs (last 24 hours): Temp Pulse Resp BP Pulse Ox 98.0 F 84 20 153/84 H 97 07/22/18 08:02 07/22/18 08:02 07/22/18 08:02 07/22/18 08:02 07/22/18 08:02 Intake and Output: 07/22/18 07/22/18 06:59 18:59 Intake Total 753.2 540.8 Balance 753.2 540.8 - Medications Medications: Current Medications Dextrose (Dextrose 50% Inj) 0 ml IV STAT PRN; Protocol PRN Reason: Hypoglycemia Protocol Dextrose (Glutose 15) 0 gm PO ONCE PRN; Protocol PRN Reason: Hypoglycemia Protocol Epoetin Efrain (Procrit) 8,000 unit IV TTS [facility] Last Admin: 07/21/18 09:57 Dose: 8,000 unit Furosemide (Lasix) 80 mg PO F [facility] Last Admin: 07/22/18 09:04 Dose: Not Given Glucagon (Glucagen Diagnostic Kit) 0 mg IM STAT PRN; Protocol PRN Reason: Hypoglycemia Protocol Heparin Sodium (Porcine) (Heparin) 4,400 units IVP TTS [facility] Last Admin: 07/21/18 12:44 Dose: 4,400 units Hydromorphone HCl (Dilaudid) 2 mg IVP Q4H PRN PRN Reason: Pain, severe (8-10) Last Admin: 07/22/18 10:49 Dose: 2 mg Heparin Sodium/Sodium Chloride (Heparin 11729 Units/250ml 1/2 Normal Saline) 25 ,000 units in 250 mls @ 20.412 mls/hr IV .[id number] PRN; Protocol; 18 UNITS/KG/HR PRN Reason: PROTOCOL Last Admin: 07/22/18 00:16 Dose: 18 units/kg/hr, 20.412 mls/hr Vancomycin/Sodium Chloride (Vancomycin 1 Gm/Ns 200 Ml) 1 gm in 200 mls @ 133 mls/hr IVPB Q7D TIM PRN Reason: Protocol Stop: 07/26/18 17:01 Last Admin: 07/21/18 17:00 Dose: Not Given Insulin Human Regular (Novolin R) 0 unit SC Q6 TIM PRN Reason: Protocol Last Admin: 07/22/18 13:58 Dose: Not Given Labetalol HCl (Trandate) 300 mg PO BID [facility] Last Admin: 07/22/18 10:49 Dose: 300 mg Linezolid (Zyvox) 600 mg PO Q12H TIM PRN Reason: Protocol Last Admin: 07/22/18 07:43 Dose: Not Given Sevelamer Carbonate (Renvela) 1,600 mg PO TIDCC [facility] Last Admin: 07/22/18 13:58 Dose: Not Given Vitamin B Complex/Vit C/Folic Acid (Nephro-Leanna) 1 tab PO 0800 [facility] Last Admin: 07/22/18 07:44 Dose: Not Given - Labs Labs: 07/21/18 07:42 07/22/18 08:04 PT 13.0 SECONDS (9.7-12.2) H 07/20/18 10:07 INR 1.2 07/20/18 10:07 APTT 73 SECONDS (21-34) H D 07/22/18 08:04 - Additional Findings Additional findings: - Constitutional Appears: Non-toxic, No Acute Distress - Head Exam Head Exam: NORMAL INSPECTION, NORMOCEPHALIC - Eye Exam Eye Exam: EOMI, Normal appearance. absent: Nystagmus, Scleral icterus - Respiratory Exam Respiratory Exam: Clear to Ausculation Bilateral, NORMAL BREATHING PATTERN. absent: Rales, Rhonchi, Wheezes - Cardiovascular Exam Cardiovascular Exam: REGULAR RHYTHM, +S1, +S2 - GI/Abdominal Exam GI & Abdominal Exam: Soft, Normal Bowel Sounds. absent: Distended, Firm, Guarding, Rigid, Tenderness - Extremities Exam Extremities Exam: Normal Inspection, Tenderness Additional comments: swollen left arm with central vein occlusion swollen left leg; looks unchanged from yesterday warm and erythema noted in left upper extremity; placed in sakina bandage to reduce swelling tenderness to palpation of left upper and lower extremity - Back Exam Back Exam: NORMAL INSPECTION. absent: CVA tenderness (L), CVA tenderness (R) - Additional Findings Additional findings: left arm AVF occluded proximally; no bruit right anterior chest permatcath Assessment and Plan - Assessment and Plan (Free Text) Assessment: Pt is a 57 yo male with PMH of ESRD on HD, HTN, DM, Charcot foot presenting with complaint of LUE pain and swelling about two days prior; had AVF placed 2 weeks prior; had surgery today however occlusion remained; rescheduled for surgery Wednesday repositioning to right arm as per surgery; permatch switched to right anterior chest wall for continued dialysis; went for right arm AVF placement 07/22 Plan: Upper Extremity DVT Upper Extremity Doppler: prelim read- Abnormal findings of the left jugular and subclavian veins- 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 Beltran- continue Vanc to q7d and linezolid 600mg po q12h Dilaudid 2mg IVP q4h prn Heparin 74709 units @ 20.41 mls/hr IV [id number] PRN ESRD HD scheduled for today Nephrology consulted: Dr. Bernabe- [facility] schedule for patient Patient likely needs dialysis today for elevated potassium Patient receives dialysis in permacatch; permacath moved to right Lasix 80mg po MWF tim Elevated phosphorus - Sevelamer Carbonate 800mg po tidcc tim Surgery Consulted: [facility]- AVF surgery 07/22 for right arm Anemia likely secondary to ESRD Replete through dialysis: Srinivasa consulted: Epo 8000 unit IV TTS tim Decreased LFTs Hep B Antigen negative Hep B core IgM Ab negative Hep C Ab negative Continue to monitor DM2 ISS ACHS Hypoglycemic protocol HTN Labetolol 300mg po bid scheduled to start in M Will go to dialysis today Prophylaxis DVT ppx: Heparin 56231 units @ 20.41 mls/hr IV [id number] PRN GI ppx: not indicated at this time
[2018-07-22] MEDS ORDERED: Neostigmine Methylsulfate 3mg/3ml Syringe IV ONE (15:04)
--- NOTE | 2018-07-22 15:28 | PCM.SURG1 ---
Surgeon's Initial Post Op Note - Surgeon's Notes Surgeon: Sierra Paleontology Teacher: Gladys PGY4 Type of Anesthesia: General Endo Pre-Operative Diagnosis: ESRD, thrombosis of L subclavian vein Operative Findings: RUE: normal anatomy. LUE: swollen extremity with edematous tissue Post-Operative Diagnosis: same Operation Performed: RUE brachial basilic AVF. LUE AVF ligation. Placement of LUE midline Specimen/Specimens Removed: none Estimated Blood Loss: EBL {In ML}: 100 Blood Products Given: N/A Drains Used: No Drains Post-Op Condition: Good Date of Surgery/Procedure: 07/22/18 Time of Surgery/Procedure: 15:27
--- NOTE | 2018-07-22 15:33 | CP.PCM.PN ---
Subjective - Date & Time of Evaluation Date of Evaluation: 07/22/18 Time of Evaluation: 15:31 - Subjective Subjective: Nephrology Consultation Note: Assessment: Stable missed HD, hyperkalemia left central venous DVT with cellulitis s/p removal of left PC and ligation of left AVF Diabetic chronic Kidney Disease (E11.22) Hypertensive Chronic Kidney Disease (I12.0) End stage renal disease (N18.6) dependence on hemodialysis (Z99.2) (MWF) via PC Anemia (D64.9), Hyperphosphatemia (E83.39), Secondary Hyperparathyroidism (E21.1 ), HTN (I12.0), Obesity Plan: Will plan for HD tomorrow as ordered, change to MWF tim next week Continue with Nephrovite 1 tab/day. PRBC as needed for anemia. on JULIANA with dialysis as last Hb 9.0 Continue with increased phos binders, last phos level 6.3 BP control with meds as ordered. Patient not on RAAS karen as with hyperkalemia. added lasix 80 mg non-HD days. increased labetalol 300 bid Glycemic control, Dialysis consistent diet Further work up/management as per primary team Dose meds/antibiotics (if needed) for ESRD status. Avoid fleets enema/magnesium based laxatives. vascular and ID following Thanks for allowing me to participate in care of your patient. Will follow patient with you. Please call if any Qs Dr Alvaro Aquino Office: [phone] Chief Complaint;left arm swelling HPI: Pt is a 57 M with hx of ESRD on hemodialysis (MWF) via left permacath since nov 2017, last dialysis last night in hospital, chronic anemia, hyperphosphatemia, secondary hyperparathyroidism, Diabetes Mellitus, hypertension, obesity presented with complaints of left arm swelling and redness since AVF intervention 1-2 weeks ago. he denies fever/chil. admitted with left arm cellulitis and DVT. seen by vascular and ID, started antibiotics and heparin drip Renal consult requested for ESRD management. he feels slight better today. he missed dialysis most of last week ROS: seen in PACU, on BiPAP, just came out from OR. unable to obtain ROS Physical Examination: seen in PACU General Appearance: Comfortable, in no acute respiratory distress, co-operative . obese on BiPAP Vitals reviewed and noted as below Lungs: Normal respiratory rate/effort. Breath sounds bilateral equal and clear Heart: Normal rate. s1s2 normal. No rub or gallop. Extremities: trace edema. No varicose veins. left foot deformity + pt says had fracture Neurological: Patient is alert, awake and oriented to person, place and time. No focal deficit. Strength bilateral appropriate and equal Skin: Warm and dry. Normal turgor. No rash. Palpitation: Normal elasticity for age Abdomen: Abdomen is soft. Bowel sounds +. There is no abdominal tenderness, no guarding/rigidity or organomegaly Psych: normal insight and normal affect/mood MSK: no joint tenderness or swelling. Digits and nails normal, no deformity : kidney or bladder not palpable Access: Rt PC. left AVF ligates. LUE swelling noted. s/p AVF Rt side Labs/imaging reviewed. Past medical history, past surgical history, family history, social history, allergy reviewed and noted as below Family Hx: no hx of CKD. Non contributory Objective - Vital Signs/Intake and Output Vital Signs (last 24 hours): Temp Pulse Resp BP Pulse Ox 98.0 F 84 20 153/84 H 97 07/22/18 08:02 07/22/18 08:02 07/22/18 08:02 07/22/18 08:02 07/22/18 08:02 Intake and Output: 07/22/18 07/22/18 06:59 18:59 Intake Total 753.2 540.8 Balance 753.2 540.8 - Medications Medications: Current Medications Dextrose (Dextrose 50% Inj) 0 ml IV STAT PRN; Protocol PRN Reason: Hypoglycemia Protocol Dextrose (Glutose 15) 0 gm PO ONCE PRN; Protocol PRN Reason: Hypoglycemia Protocol Epoetin Efrain (Procrit) 8,000 unit IV TTS [facility] Last Admin: 07/21/18 09:57 Dose: 8,000 unit Furosemide (Lasix) 80 mg PO MWF [facility] Last Admin: 07/22/18 09:04 Dose: Not Given Glucagon (Glucagen Diagnostic Kit) 0 mg IM STAT PRN; Protocol PRN Reason: Hypoglycemia Protocol Heparin Sodium (Porcine) (Heparin) 4,400 units IVP TTS [facility] Last Admin: 07/21/18 12:44 Dose: 4,400 units Hydromorphone HCl (Dilaudid) 2 mg IVP Q4H PRN PRN Reason: Pain, severe (8-10) Last Admin: 07/22/18 10:49 Dose: 2 mg Heparin Sodium/Sodium Chloride (Heparin 27292 Units/250ml 1/2 Normal Saline) 25 ,000 units in 250 mls @ 20.412 mls/hr IV .[id number] PRN; Protocol; 18 UNITS/KG/HR PRN Reason: PROTOCOL Last Admin: 07/22/18 00:16 Dose: 18 units/kg/hr, 20.412 mls/hr Vancomycin/Sodium Chloride (Vancomycin 1 Gm/Ns 200 Ml) 1 gm in 200 mls @ 133 mls/hr IVPB Q7D [facility] PRN Reason: Protocol Stop: 07/26/18 17:01 Last Admin: 07/21/18 17:00 Dose: Not Given Insulin Human Regular (Novolin R) 0 unit SC Q6 [facility] PRN Reason: Protocol Last Admin: 07/22/18 13:58 Dose: Not Given Labetalol HCl (Trandate) 300 mg PO BID [facility] Last Admin: 07/22/18 10:49 Dose: 300 mg Linezolid (Zyvox) 600 mg PO Q12H [facility] PRN Reason: Protocol Last Admin: 07/22/18 07:43 Dose: Not Given Sevelamer Carbonate (Renvela) 1,600 mg PO TIDCC [facility] Last Admin: 07/22/18 13:58 Dose: Not Given Vitamin B Complex/Vit C/Folic Acid (Nephro-Leanna) 1 tab PO 0800 [facility] Last Admin: 07/22/18 07:44 Dose: Not Given - Labs Labs: 07/21/18 07:42 07/22/18 08:04 PT 13.0 SECONDS (9.7-12.2) H 07/20/18 10:07 INR 1.2 07/20/18 10:07 APTT 73 SECONDS (21-34) H D 07/22/18 08:04
[2018-07-22] MEDS ORDERED: HYDROmorphone 0.5 mg/0.5 ml ISec IVP PRN (15:39)
[2018-07-22] MEDS: Sodium Chloride 0.9% 1,000 ML IV SCH (19:30)
--- NOTE | 2018-07-22 20:10 | CP.PCM.PN ---
Subjective - Date & Time of Evaluation Date of Evaluation: 07/22/18 Time of Evaluation: 07:00 - Subjective Subjective: swelling/ cellulitis less s/p vascular intervention left arm av fistula prognosis guarded Objective - Vital Signs/Intake and Output Vital Signs (last 24 hours): Temp Pulse Resp BP Pulse Ox 97.7 F 75 12 140/65 100 07/22/18 16:30 07/22/18 16:30 07/22/18 16:30 07/22/18 16:30 07/22/18 16:30 Intake and Output: 07/22/18 07/23/18 18:59 06:59 Intake Total 840.8 Balance 840.8 - Medications Medications: Current Medications Dextrose (Dextrose 50% Inj) 0 ml IV STAT PRN; Protocol PRN Reason: Hypoglycemia Protocol Dextrose (Glutose 15) 0 gm PO ONCE PRN; Protocol PRN Reason: Hypoglycemia Protocol Epoetin Efrain (Procrit) 8,000 unit IV TTS [facility] Last Admin: 07/21/18 09:57 Dose: 8,000 unit Furosemide (Lasix) 80 mg PO MWF [facility] Last Admin: 07/22/18 09:04 Dose: Not Given Glucagon (Glucagen Diagnostic Kit) 0 mg IM STAT PRN; Protocol PRN Reason: Hypoglycemia Protocol Heparin Sodium (Porcine) (Heparin) 4,400 units IVP TTS [facility] Last Admin: 07/21/18 12:44 Dose: 4,400 units Heparin Sodium (Porcine) (Heparin) 5,000 units SC Q8 [facility] Hydromorphone HCl (Dilaudid) 2 mg IVP Q4H PRN PRN Reason: Pain, severe (8-10) Last Admin: 07/22/18 18:00 Dose: 2 mg Heparin Sodium/Sodium Chloride (Heparin 99877 Units/250ml 1/2 Normal Saline) 25 ,000 units in 250 mls @ 20.412 mls/hr IV .[id number] PRN; Protocol; 18 UNITS/KG/HR PRN Reason: PROTOCOL Last Admin: 07/22/18 00:16 Dose: 18 units/kg/hr, 20.412 mls/hr Vancomycin/Sodium Chloride (Vancomycin 1 Gm/Ns 200 Ml) 1 gm in 200 mls @ 133 mls/hr IVPB Q7D [facility] PRN Reason: Protocol Stop: 07/26/18 17:01 Last Admin: 07/21/18 17:00 Dose: Not Given Sodium Chloride (Sodium Chloride 0.9%) 1,000 mls @ 10 mls/hr IV .Q24H [facility] Insulin Human Regular (Novolin R) 0 unit SC Q6 [place] PRN Reason: Protocol Last Admin: 07/22/18 13:58 Dose: Not Given Labetalol HCl (Trandate) 300 mg PO BID [facility] Last Admin: 07/22/18 17:12 Dose: 300 mg Linezolid (Zyvox) 600 mg PO Q12H [place] PRN Reason: Protocol Last Admin: 07/22/18 07:43 Dose: Not Given Sevelamer Carbonate (Renvela) 1,600 mg PO TIDCC [facility] Last Admin: 07/22/18 17:11 Dose: 1,600 mg Vitamin B Complex/Vit C/Folic Acid (Nephro-Leanna) 1 tab PO 0800 [facility] Last Admin: 07/22/18 07:44 Dose: Not Given - Labs Labs: 07/21/18 07:42 07/22/18 08:04 PT 13.0 SECONDS (9.7-12.2) H 07/20/18 10:07 INR 1.2 07/20/18 10:07 APTT 73 SECONDS (21-34) H D 07/22/18 08:04 Assessment and Plan (1) Cellulitis of left arm Status: Acute
[2018-07-22] MEDS ORDERED: HYDROmorphone 1 mg/ml ISec IVP PRN (21:18)
[2018-07-23] MEDS: (Novolin R) Insulin Human Regular 100 units/ml vial SC SCH ×4 (00:16→17:33)
[2018-07-23] MEDS: HYDROmorphone 1 mg/ml ISec IVP PRN ×3 (00:35→08:40)
--- NOTE | 2018-07-23 02:58 | OP ---
Copied To: Ifeanyi Esquivel Jr., MD Attending MD: Ifeanyi Esquivel Jr., MD PROCEDURE DATE: 07/22/2018 PREOPERATIVE DIAGNOSES: Renal failure, hyperdynamic situation, swollen left arm, central vein occlusion. PROCEDURES CARRIED OUT: 1. Creation of brachiocephalic bidirectional fistula, right arm. 2. Ligation of arteriovenous fistula, left arm and insertion of midline catheter. SURGEON: Ifeanyi Esquivel Jr., MD TESTING MANAGER: Ricardo Graham DO ANESTHESIOLOGIST: Jessika Reyna CRNA INDICATION: The patient is a 57-year-old man, renal insufficiency, presently on dialysis by means of catheter, who presented with a massively swollen left arm, and he also had demonstrated on contrast studies cannot be crossed endovascularly. A catheter was then placed in his right jugular vein for dialysis assess, and we attempted to manage this conservatively. The left arm did not improve, and I recommended ligation of fistula and creation of another fistula in another location. DESCRIPTION OF PROCEDURE: The patient was given general anesthesia and intravenous antibiotics. Veins were mapped on the right arm, and the cephalic vein dissected free. This was done right at the trifurcation of the brachial artery. All these vessels were dissected free. The adjacent vein, the basilic portion of it toward the portion leading to the basilic vein was ligated. An end-to-side fistula with bidirectional flow was then created after we destructed the distal valves. This was done using loupe magnification, heparin anticoagulation. At the end of the procedure, there was a pulse at the wrist. There was excellent flow to the cephalic vein and also some retrograde flow down at the cephalic vein towards the wrist. Closed the skin. Procedure was terminated. Blood loss for this procedure was 50 mL. Operation carried out. Bidirectional brachiocephalic fistula, right elbow. After this had been done, we then reprepped, redraped, and turned our attention to the left arm. We ligated the basilic vein which is coming off in an anastomotic fistula and AV fistula at the left elbow, and additionally, we placed a midline in the residual portion of this to provide venous access. After this had been done, it was ligated. The procedure was terminated, and the skin was closed. Blood loss to that part of the procedure was over 100 mL. OPERATION CARRIED OUT IN TOTAL: 1. Creation of arteriovenous fistula, right elbow. 2. Ligation of left arm fistula. 3. Placement of midline catheter. Ifeanyi Esquivel Jr., MD
--- NOTE | 2018-07-23 05:17 | CP.PCM.PN ---
Subjective - Date & Time of Evaluation Date of Evaluation: 07/23/18 Time of Evaluation: 06:00 - Subjective Subjective: PGY-1 Anabel Clemons D.O. Medicine progress note: Patient seen and examined this morning. He is not in acute distress. He had the surgery for R arm AVF yesterday. He complains of pain in both arms but appears to be comfortable. Objective - Vital Signs/Intake and Output Vital Signs (last 24 hours): Temp Pulse Resp BP Pulse Ox 98.4 F 90 20 130/74 98 07/22/18 23:00 07/22/18 23:00 07/22/18 23:00 07/22/18 23:00 07/22/18 23:00 Intake and Output: 07/22/18 07/23/18 18:59 06:59 Intake Total 840.8 Balance 840.8 - Medications Medications: Current Medications Dextrose (Dextrose 50% Inj) 0 ml IV STAT PRN; Protocol PRN Reason: Hypoglycemia Protocol Dextrose (Glutose 15) 0 gm PO ONCE PRN; Protocol PRN Reason: Hypoglycemia Protocol Epoetin Efrain (Procrit) 8,000 unit IV TTS [facility] Last Admin: 07/21/18 09:57 Dose: 8,000 unit Furosemide (Lasix) 80 mg PO MWF [facility] Last Admin: 07/22/18 09:04 Dose: Not Given Glucagon (Glucagen Diagnostic Kit) 0 mg IM STAT PRN; Protocol PRN Reason: Hypoglycemia Protocol Heparin Sodium (Porcine) (Heparin) 4,400 units IVP TTS [facility] Last Admin: 07/21/18 12:44 Dose: 4,400 units Heparin Sodium (Porcine) (Heparin) 5,000 units SC Q8 [facility] Last Admin: 07/22/18 22:00 Dose: 5,000 units Hydromorphone HCl (Dilaudid) 1 mg IVP Q3H PRN PRN Reason: Pain, severe (8-10) Last Admin: 07/23/18 04:30 Dose: 1 mg Vancomycin/Sodium Chloride (Vancomycin 1 Gm/Ns 200 Ml) 1 gm in 200 mls @ 133 mls/hr IVPB Q7D [place] PRN Reason: Protocol Stop: 07/26/18 17:01 Last Admin: 07/21/18 17:00 Dose: Not Given Sodium Chloride (Sodium Chloride 0.9%) 1,000 mls @ 10 mls/hr IV .Q24H [facility] Last Admin: 07/22/18 19:30 Dose: 10 mls/hr Insulin Human Regular (Novolin R) 0 unit SC Q6 [place] PRN Reason: Protocol Last Admin: 07/23/18 00:16 Dose: Not Given Labetalol HCl (Trandate) 300 mg PO BID [facility] Last Admin: 07/22/18 17:12 Dose: 300 mg Linezolid (Zyvox) 600 mg PO Q12H [place] PRN Reason: Protocol Last Admin: 07/22/18 21:46 Dose: 600 mg Sevelamer Carbonate (Renvela) 1,600 mg PO TIDCC [facility] Last Admin: 07/22/18 17:11 Dose: 1,600 mg Vitamin B Complex/Vit C/Folic Acid (Nephro-Anish) 1 tab PO 0800 [facility] Last Admin: 07/22/18 07:44 Dose: Not Given - Labs Labs: 07/21/18 07:42 07/22/18 08:04 PT 13.0 SECONDS (9.7-12.2) H 07/20/18 10:07 INR 1.2 07/20/18 10:07 APTT 73 SECONDS (21-34) H D 07/22/18 08:04 - Constitutional Appears: Non-toxic, No Acute Distress - Head Exam Head Exam: ATRAUMATIC, NORMAL INSPECTION, NORMOCEPHALIC - Eye Exam Eye Exam: EOMI, Normal appearance - ENT Exam ENT Exam: Mucous Membranes Moist, Normal Exam - Neck Exam Neck Exam: Normal Inspection - Respiratory Exam Respiratory Exam: Clear to Ausculation Bilateral, NORMAL BREATHING PATTERN - Cardiovascular Exam Cardiovascular Exam: REGULAR RHYTHM, +S1, +S2 - GI/Abdominal Exam GI & Abdominal Exam: Soft, Normal Bowel Sounds. absent: Tenderness - Rectal Exam Rectal Exam: Deferred - Extremities Exam Additional comments: LUE and LLE swelling, tender to palpation LUE- no bruit RUE bandages s/p AVF - Back Exam Back Exam: NORMAL INSPECTION - Neurological Exam Neurological Exam: Alert, Awake, Oriented x3 - Skin Skin Exam: Dry, Intact, Normal Color, Warm Assessment and Plan - Assessment and Plan (Free Text) Assessment: Pt is a 57 yo male with PMH of ESRD on HD, HTN, DM, and Charcot foot presenting with complaint of LUE pain and swelling about two days prior. He had AVF placed 2 weeks prior in [facility] and had surgery on day of admission (07/18) however occlusion remained. Permacath switched to right anterior chest wall for continued dialysis. Right arm AVF placement 07/22. 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 Beltran ESRD - HD T--Wed - Receives dialysis [facility]; permacath moved to right - Lasix 80mg PO MWF - Elevated phosphorus - Sevelamer Carbonate 800mg PO tidcc - Neprho-anish daily - Nephrology consulted: Dr. Bernabe - Surgery Consulted: Dr. Esquivel Anemia- likely secondary to ESRD - Replete through dialysis: Epo 8000 unit IV TTS - Monitor CBC Decreased LFTs - Hepatitis panel negative - Monitor CMP T2DM - ISS - Accuchecks ACHS - Hypoglycemic protocol HTN - Labetolol 300mg PO BID IVF: NS @ 10 mL/hr VTE ppx: Heparin 5000 unit SC q8hrs, heparin 4440 units IV TTS GI ppx: not indicated at this time Diet: Code status: full code
[2018-07-23] MEDS: Multivitamin Vitamin B Complex (Nephro-Vite) Tab PO SCH (08:39)
[2018-07-23 09:42] LABS: BASO % 0.7 % (0.0-2.0); EOS # 0.3 K/uL (0.0-0.7); EOS % 5.5 % (0.0-4.0); HEMOGLOBIN 8.4 g/dL (12.0-18.0); LYMPH # 1.1 K/uL (1.0-4.3); LYMPH % 17.5 % (20.0-40.0); MEAN CELL VOLUME 91.8 fL (80.0-94.0); MEAN CORPUSCULAR HEMOGLOBIN 30.2 pg (27.0-31.0); MEAN CORPUSCULAR HGB CONC 32.9 g/dL (33.0-37.0); MEAN PLATELET VOLUME 7.3 fL (7.2-11.7); MONO # 0.7 K/uL (0.0-0.8); MONO % 10.8 % (0.0-10.0); NEUT % 65.5 % (50.0-75.0); RBC 2.8 Mil/uL (4.40-5.90); RED CELL DISTRIBUTION WIDTH 18.8 % (11.5-14.5)
[2018-07-23 10:03] LABS: ALB/GLOB RATIO 1.1 (1.0-2.1); ALBUMIN 3.2 g/dL (3.5-5.0); CALCIUM 8.3 mg/dl (8.6-10.4)
[2018-07-23] MEDS: EPOETIN ALFA 4,000 UNIT/ML ML Dialysis IV SCH (10:51)
--- NOTE | 2018-07-23 11:55 | CP.PCM.PN ---
Subjective - Date & Time of Evaluation Date of Evaluation: 07/23/18 Time of Evaluation: 08:00 - Subjective Subjective: Vascular surgery progress note for Dr. Leonard Pt Seen and examined with Dr. Esquivel at bedside this AM. No adverse events overnight. Patient complains of pain at the surgical sites as well as numbness of his left hand but no weakness Objective - Vital Signs/Intake and Output Vital Signs (last 24 hours): Temp Pulse Resp BP Pulse Ox 97.7 F 85 18 165/79 H 96 07/23/18 09:22 07/23/18 09:22 07/23/18 09:22 07/23/18 10:50 07/23/18 09:05 Intake and Output: 07/23/18 07/23/18 06:59 18:59 Intake Total 230 Balance 230 - Medications Medications: Current Medications Dextrose (Dextrose 50% Inj) 0 ml IV STAT PRN; Protocol PRN Reason: Hypoglycemia Protocol Dextrose (Glutose 15) 0 gm PO ONCE PRN; Protocol PRN Reason: Hypoglycemia Protocol Epoetin Efrain (Procrit) 8,000 unit IV TTS [facility] Last Admin: 07/23/18 10:51 Dose: 8,000 unit Furosemide (Lasix) 80 mg PO MWF [facility] Last Admin: 07/22/18 09:04 Dose: Not Given Glucagon (Glucagen Diagnostic Kit) 0 mg IM STAT PRN; Protocol PRN Reason: Hypoglycemia Protocol Heparin Sodium (Porcine) (Heparin) 4,400 units IVP TTS [facility] Last Admin: 07/21/18 12:44 Dose: 4,400 units Heparin Sodium (Porcine) (Heparin) 5,000 units SC Q8 [facility] Last Admin: 07/23/18 05:32 Dose: 5,000 units Hydromorphone HCl (Dilaudid) 1 mg IVP Q3H PRN PRN Reason: Pain, severe (8-10) Last Admin: 07/23/18 08:40 Dose: 1 mg Vancomycin/Sodium Chloride (Vancomycin 1 Gm/Ns 200 Ml) 1 gm in 200 mls @ 133 mls/hr IVPB Q7D [place] PRN Reason: Protocol Stop: 07/26/18 17:01 Last Admin: 07/21/18 17:00 Dose: Not Given Sodium Chloride (Sodium Chloride 0.9%) 1,000 mls @ 10 mls/hr IV .Q24H [facility] Last Admin: 07/22/18 19:30 Dose: 10 mls/hr Insulin Human Regular (Novolin R) 0 unit SC Q6 [place] PRN Reason: Protocol Last Admin: 07/23/18 11:52 Dose: Not Given Labetalol HCl (Trandate) 300 mg PO BID [facility] Last Admin: 07/23/18 09:16 Dose: Not Given Linezolid (Zyvox) 600 mg PO Q12H [place] PRN Reason: Protocol Last Admin: 07/23/18 08:39 Dose: 600 mg Sevelamer Carbonate (Renvela) 1,600 mg PO TIDCC [facility] Last Admin: 07/23/18 11:52 Dose: Not Given Vitamin B Complex/Vit C/Folic Acid (Nephro-Leanna) 1 tab PO 0800 [facility] Last Admin: 07/23/18 08:39 Dose: 1 tab - Labs Labs: 07/23/18 09:39 07/23/18 09:39 PT 13.0 SECONDS (9.7-12.2) H 07/20/18 10:07 INR 1.2 07/20/18 10:07 APTT 73 SECONDS (21-34) H D 07/22/18 08:04 - Constitutional Appears: Well, Non-toxic, No Acute Distress - Head Exam Head Exam: ATRAUMATIC, NORMOCEPHALIC - Eye Exam Eye Exam: Normal appearance. absent: Conjunctival injection, Scleral icterus - ENT Exam ENT Exam: Mucous Membranes Moist, Normal Oropharynx - Respiratory Exam Respiratory Exam: NORMAL BREATHING PATTERN. absent: Accessory Muscle Use, Respiratory Distress - Extremities Exam Additional comments: right arm with dressing intact with mild amount of serosangiunous saturation, palpable thrill beneath, right hand with good color and warmth, radial pulse intact, normal motor exam L arm with swelling and mild erythema, dressing over upper arm c/d/i, left hand with good color, normal motor function, pulses intact - Neurological Exam Neurological Exam: Alert, Awake, Oriented x3 - Psychiatric Exam Psychiatric exam: Agitated, Normal Affect - Skin Skin Exam: Dry, Normal Color, Warm Assessment and Plan - Assessment and Plan (Free Text) Assessment: 57M with ESRD on HD with malfunctioning left AVF, POD#3 s/p creation of RUE AVF and ligation of LUE AVF and LUE mildline catheter placement Plan: Elevate left arm, place sakina bandage on LUE, and encourage hand exercises to help with swelling of left arm Do not use right AVF or right arm for any peripheral access or venipuncture PRN pain medication Encourage ambulation and out of bed to chair No indication for a heparin drip from a vascular standpoint Continue management per primary and renal Discussed with Dr. Sierra Arshad, PGY2
--- NOTE | 2018-07-23 16:29 | CP.PCM.PN ---
Subjective - Date & Time of Evaluation Date of Evaluation: 07/23/18 Time of Evaluation: 16:28 - Subjective Subjective: Nephrology Consultation Note: Assessment: Stable missed HD, hyperkalemia left central venous DVT with cellulitis s/p removal of left PC and ligation of left AVF Diabetic chronic Kidney Disease (E11.22) Hypertensive Chronic Kidney Disease (I12.0) End stage renal disease (N18.6) dependence on hemodialysis (Z99.2) (MWF) via PC Anemia (D64.9), Hyperphosphatemia (E83.39), Secondary Hyperparathyroidism (E21.1 ), HTN (I12.0), Obesity Plan: Will plan for HD today as ordered, change to MWF tim next week Continue with Nephrovite 1 tab/day. PRBC as needed for anemia. on JULIANA with dialysis as last Hb 9.0 Continue with increased phos binders, last phos level 6.3 BP control with meds as ordered. Patient not on RAAS karen as with hyperkalemia. added lasix 80 mg non-HD days. increased labetalol 300 bid Glycemic control, Dialysis consistent diet Further work up/management as per primary team Dose meds/antibiotics (if needed) for ESRD status. Avoid fleets enema/magnesium based laxatives. vascular and ID following Thanks for allowing me to participate in care of your patient. Will follow patient with you. Please call if any Qs Dr Alvaro Aquino Office: [phone] Chief Complaint;left arm swelling HPI: Pt is a 57 M with hx of ESRD on hemodialysis (MWF) via left permacath since nov 2017, last dialysis last night in hospital, chronic anemia, hyperphosphatemia, secondary hyperparathyroidism, Diabetes Mellitus, hypertension, obesity presented with complaints of left arm swelling and redness since AVF intervention 1-2 weeks ago. he denies fever/chil. admitted with left arm cellulitis and DVT. seen by vascular and ID, started antibiotics and heparin drip Renal consult requested for ESRD management. he feels slight better today. he missed dialysis most of last week ROS: noted overnight events.pt in deep sleep snoring Physical Examination: General Appearance: Comfortable, in no acute respiratory distress, co-operative . obese Vitals reviewed and noted as below Lungs: Normal respiratory rate/effort. Breath sounds bilateral equal and clear Heart: Normal rate. s1s2 normal. No rub or gallop. Extremities: trace edema. No varicose veins. left foot deformity + pt says had fracture Neurological: Patient is in deep sleep Skin: Warm and dry. Normal turgor. No rash. Palpitation: Normal elasticity for age Abdomen: Abdomen is soft. Bowel sounds +. There is no abdominal tenderness, no guarding/rigidity or organomegaly Psych: deferred MSK: no joint tenderness or swelling. Digits and nails normal, no deformity : kidney or bladder not palpable Access: Rt PC. left AVF ligates. LUE swelling noted. s/p AVF Rt side Labs/imaging reviewed. Past medical history, past surgical history, family history, social history, allergy reviewed and noted as below Family Hx: no hx of CKD. Non contributory Objective - Vital Signs/Intake and Output Vital Signs (last 24 hours): Temp Pulse Resp BP Pulse Ox 97.7 F 85 18 174/63 H 96 07/23/18 09:22 07/23/18 09:22 07/23/18 09:22 07/23/18 12:25 07/23/18 09:05 Intake and Output: 07/23/18 07/23/18 06:59 18:59 Intake Total 740 Balance 740 - Medications Medications: Current Medications Dextrose (Dextrose 50% Inj) 0 ml IV STAT PRN; Protocol PRN Reason: Hypoglycemia Protocol Dextrose (Glutose 15) 0 gm PO ONCE PRN; Protocol PRN Reason: Hypoglycemia Protocol Epoetin Efrain (Procrit) 8,000 unit IV TTS [facility] Last Admin: 07/23/18 10:51 Dose: 8,000 unit Furosemide (Lasix) 80 mg PO MWF [facility] Last Admin: 07/22/18 09:04 Dose: Not Given Glucagon (Glucagen Diagnostic Kit) 0 mg IM STAT PRN; Protocol PRN Reason: Hypoglycemia Protocol Heparin Sodium (Porcine) (Heparin) 4,400 units IVP TTS [facility] Last Admin: 07/23/18 14:34 Dose: Not Given Heparin Sodium (Porcine) (Heparin) 5,000 units SC Q8 [facility] Last Admin: 07/23/18 13:49 Dose: 5,000 units Hydromorphone HCl (Dilaudid) 2 mg IVP Q4H PRN PRN Reason: Pain, severe (8-10) Vancomycin/Sodium Chloride (Vancomycin 1 Gm/Ns 200 Ml) 1 gm in 200 mls @ 133 mls/hr IVPB Q7D [facility] PRN Reason: Protocol Stop: 07/26/18 17:01 Last Admin: 07/21/18 17:00 Dose: Not Given Sodium Chloride (Sodium Chloride 0.9%) 1,000 mls @ 10 mls/hr IV .Q24H [facility] Last Admin: 07/22/18 19:30 Dose: 10 mls/hr Insulin Human Regular (Novolin R) 0 unit SC Q6 [facility] PRN Reason: Protocol Last Admin: 07/23/18 11:52 Dose: Not Given Labetalol HCl (Trandate) 300 mg PO BID [facility] Stop: 07/23/18 19:00 Last Admin: 07/23/18 09:16 Dose: Not Given Labetalol HCl (Normodyne) 300 mg PO BID [facility] Linezolid (Zyvox) 600 mg PO Q12H [facility] PRN Reason: Protocol Last Admin: 07/23/18 08:39 Dose: 600 mg Sevelamer Carbonate (Renvela) 1,600 mg PO TIDCC [facility] Last Admin: 07/23/18 11:52 Dose: Not Given Vitamin B Complex/Vit C/Folic Acid (Nephro-Leanna) 1 tab PO 0800 [facility] Last Admin: 07/23/18 08:39 Dose: 1 tab - Labs Labs: 07/23/18 09:39 07/23/18 09:39 PT 13.0 SECONDS (9.7-12.2) H 07/20/18 10:07 INR 1.2 07/20/18 10:07 APTT 73 SECONDS (21-34) H D 07/22/18 08:04
[2018-07-23] MEDS ORDERED: Labetalol Hydrochloride 300 mg Tab PO SCH (17:45)
[2018-07-23] MEDS: Sodium Chloride 0.9% 1,000 ML IV SCH (22:32)
[2018-07-24] MEDS: (Novolin R) Insulin Human Regular 100 units/ml vial SC SCH ×4 (06:00→18:00)
[2018-07-24] MEDS: Multivitamin Vitamin B Complex (Nephro-Vite) Tab PO SCH (08:14)
[2018-07-24] MEDS: Labetalol Hydrochloride 300 mg Tab PO SCH ×2 (10:02→17:52)
--- NOTE | 2018-07-24 12:08 | CP.PCM.PN ---
Subjective - Date & Time of Evaluation Date of Evaluation: 07/24/18 Time of Evaluation: 12:07 - Subjective Subjective: Nephrology Consultation Note: Assessment: Stable missed HD, hyperkalemia left central venous DVT with cellulitis s/p left PC removal and left AVF ligation Diabetic chronic Kidney Disease (E11.22) Hypertensive Chronic Kidney Disease (I12.0) End stage renal disease (N18.6) dependence on hemodialysis (Z99.2) (MWF) via PC Anemia (D64.9), Hyperphosphatemia (E83.39), Secondary Hyperparathyroidism (E21.1 ), HTN (I12.0), Obesity Plan: Will plan for HD tomorrow as per MWF schedule next wek Continue with Nephrovite 1 tab/day. PRBC as needed for anemia. on JULIANA with dialysis as last Hb 9.0 Continue with increased phos binders, last phos level 6.3 BP control with meds as ordered. Patient not on RAAS karen as with hyperkalemia. added lasix 80 mg non-HD days. added norvasc and prn hydralazine Glycemic control, Dialysis consistent diet Further work up/management as per primary team Dose meds/antibiotics (if needed) for ESRD status. Avoid fleets enema/magnesium based laxatives. vascular and ID following Thanks for allowing me to participate in care of your patient. Will follow patient with you. Please call if any Qs. had d/w team Dr Alvaro Aquino Office: [phone] Chief Complaint;left arm swelling HPI: Pt is a 57 M with hx of ESRD on hemodialysis (MWF) via left permacath since nov 2017, last dialysis last night in hospital, chronic anemia, hyperphosphatemia, secondary hyperparathyroidism, Diabetes Mellitus, hypertension, obesity presented with complaints of left arm swelling and redness since AVF intervention 1-2 weeks ago. he denies fever/chil. admitted with left arm cellulitis and DVT. seen by vascular and ID, started antibiotics and heparin drip Renal consult requested for ESRD management. he feels slight better today. he missed dialysis most of last week ROS: Cardiovascular: No chest pain. Pulmonary: No shortness of breath Gastrointestinal: denies abdominal pain No nausea. No vomiting. Genitourinary: No pain while urinating. Denies blood in urine. says make plenty of urine All other negative except as mentioned in HPI Physical Examination: General Appearance: Comfortable, in no acute respiratory distress, co-operative . obese Vitals reviewed and noted as below Head; Atraumatic, normocephalic ENT: no ulcers no thrush. Tongue is midline. Oropharynx: no rash or ulcers. EYES: Pupils are equal, round and reactive to light accommodation. Eye muscles and extraocular movement intact. Sclera is anicteric. Neck; supple no lymphadenopathy, no thyromegaly or bruit Lungs: Normal respiratory rate/effort. Breath sounds bilateral equal and clear Heart: Normal rate. s1s2 normal. No rub or gallop. Extremities: trace edema. No varicose veins. left foot deformity + pt says had fracture Neurological: Patient is alert, awake and oriented to person, place and time. No focal deficit. Strength bilateral appropriate and equal Skin: Warm and dry. Normal turgor. No rash. Palpitation: Normal elasticity for age Abdomen: Abdomen is soft. Bowel sounds +. There is no abdominal tenderness, no guarding/rigidity or organomegaly Psych: normal insight and normal affect/mood MSK: no joint tenderness or swelling. Digits and nails normal, no deformity : kidney or bladder not palpable Access: Rt PC. Rt AVF with thrill and bruit. LUE swelling noted Labs/imaging reviewed. Past medical history, past surgical history, family history, social history, allergy reviewed and noted as below Family Hx: no hx of CKD. Non contributory Objective - Vital Signs/Intake and Output Vital Signs (last 24 hours): Temp Pulse Resp BP Pulse Ox 97.8 F 85 2 L 176/77 H 97 07/24/18 00:00 07/24/18 10:20 07/24/18 06:00 07/24/18 10:20 07/24/18 06:00 Intake and Output: 07/24/18 07/24/18 06:59 18:59 Intake Total 390 Balance 390 - Medications Medications: Current Medications Amlodipine Besylate (Norvasc) 5 mg PO DAILY [facility] Last Admin: 07/24/18 10:26 Dose: 5 mg Dextrose (Dextrose 50% Inj) 0 ml IV STAT PRN; Protocol PRN Reason: Hypoglycemia Protocol Dextrose (Glutose 15) 0 gm PO ONCE PRN; Protocol PRN Reason: Hypoglycemia Protocol Epoetin Efrain (Procrit) 8,000 unit IV MWF [facility] Furosemide (Lasix) 80 mg PO TTS [facility] Glucagon (Glucagen Diagnostic Kit) 0 mg IM STAT PRN; Protocol PRN Reason: Hypoglycemia Protocol Heparin Sodium (Porcine) (Heparin) 5,000 units SC Q8 [facility] Last Admin: 07/24/18 06:00 Dose: 5,000 units Heparin Sodium (Porcine) (Heparin) 4,400 units IVP MWF [facility] Hydralazine HCl (Apresoline) 25 mg PO Q4 PRN PRN Reason: Other Hydromorphone HCl (Dilaudid) 2 mg IVP Q4H PRN PRN Reason: Pain, severe (8-10) Last Admin: 07/24/18 10:28 Dose: 2 mg Vancomycin/Sodium Chloride (Vancomycin 1 Gm/Ns 200 Ml) 1 gm in 200 mls @ 133 mls/hr IVPB Q7D [facility] PRN Reason: Protocol Stop: 07/26/18 17:01 Last Admin: 07/21/18 17:00 Dose: Not Given Sodium Chloride (Sodium Chloride 0.9%) 1,000 mls @ 10 mls/hr IV .Q24H [facility] Last Admin: 07/23/18 22:32 Dose: 10 mls/hr Insulin Human Regular (Novolin R) 0 unit SC Q6 [facility] PRN Reason: Protocol Last Admin: 07/24/18 06:00 Dose: Not Given Labetalol HCl (Normodyne) 300 mg PO BID [facility] Last Admin: 07/24/18 10:02 Dose: 300 mg Linezolid (Zyvox) 600 mg PO Q12H [facility] PRN Reason: Protocol Last Admin: 07/24/18 08:14 Dose: 600 mg Sevelamer Carbonate (Renvela) 1,600 mg PO TIDCC [facility] Last Admin: 07/24/18 08:14 Dose: 1,600 mg Vitamin B Complex/Vit C/Folic Acid (Nephro-Leanna) 1 tab PO 0800 [facility] Last Admin: 07/24/18 08:14 Dose: 1 tab - Labs Labs: 07/23/18 09:39 07/23/18 09:39 PT 13.0 SECONDS (9.7-12.2) H 07/20/18 10:07 INR 1.2 07/20/18 10:07 APTT 73 SECONDS (21-34) H D 07/22/18 08:04
--- NOTE | 2018-07-24 15:24 | CP.PCM.PN ---
Subjective - Date & Time of Evaluation Date of Evaluation: 07/24/18 Time of Evaluation: 15:22 - Subjective Subjective: Surgery: Dr. Esquivel Pt seen and examined. Resting comfortably in bed. Decreased pain and swelling in LUE. Objective - Vital Signs/Intake and Output Vital Signs (last 24 hours): Temp Pulse Resp BP Pulse Ox 97.8 F 76 2 L 163/68 H 97 07/24/18 00:00 07/24/18 11:26 07/24/18 06:00 07/24/18 11:26 07/24/18 06:00 Intake and Output: 07/24/18 07/24/18 06:59 18:59 Intake Total 390 560 Balance 390 560 - Medications Medications: Current Medications Amlodipine Besylate (Norvasc) 5 mg PO DAILY [facility] Last Admin: 07/24/18 10:26 Dose: 5 mg Dextrose (Dextrose 50% Inj) 0 ml IV STAT PRN; Protocol PRN Reason: Hypoglycemia Protocol Dextrose (Glutose 15) 0 gm PO ONCE PRN; Protocol PRN Reason: Hypoglycemia Protocol Epoetin Efrain (Procrit) 8,000 unit IV MWF [facility] Furosemide (Lasix) 80 mg PO TTS [facility] Glucagon (Glucagen Diagnostic Kit) 0 mg IM STAT PRN; Protocol PRN Reason: Hypoglycemia Protocol Heparin Sodium (Porcine) (Heparin) 5,000 units SC Q8 [facility] Last Admin: 07/24/18 13:43 Dose: 5,000 units Heparin Sodium (Porcine) (Heparin) 4,400 units IVP MWF [facility] Hydralazine HCl (Apresoline) 25 mg PO Q4 PRN PRN Reason: Other Hydromorphone HCl (Dilaudid) 2 mg IVP Q4H PRN PRN Reason: Pain, severe (8-10) Last Admin: 07/24/18 15:11 Dose: 2 mg Vancomycin/Sodium Chloride (Vancomycin 1 Gm/Ns 200 Ml) 1 gm in 200 mls @ 133 mls/hr IVPB Q7D [facility] PRN Reason: Protocol Stop: 07/26/18 17:01 Last Admin: 07/21/18 17:00 Dose: Not Given Sodium Chloride (Sodium Chloride 0.9%) 1,000 mls @ 10 mls/hr IV .Q24H [facility] Last Admin: 07/23/18 22:32 Dose: 10 mls/hr Insulin Human Regular (Novolin R) 0 unit SC Q6 [facility] PRN Reason: Protocol Last Admin: 07/24/18 12:20 Dose: Not Given Labetalol HCl (Normodyne) 300 mg PO BID [facility] Last Admin: 07/24/18 10:02 Dose: 300 mg Linezolid (Zyvox) 600 mg PO Q12H [facility] PRN Reason: Protocol Last Admin: 07/24/18 08:14 Dose: 600 mg Sevelamer Carbonate (Renvela) 1,600 mg PO TIDCC [facility] Last Admin: 07/24/18 12:47 Dose: 1,600 mg Vitamin B Complex/Vit C/Folic Acid (Nephro-Leanna) 1 tab PO 0800 [facility] Last Admin: 07/24/18 08:14 Dose: 1 tab - Labs Labs: 07/23/18 09:39 07/23/18 09:39 PT 13.0 SECONDS (9.7-12.2) H 07/20/18 10:07 INR 1.2 07/20/18 10:07 APTT 73 SECONDS (21-34) H D 07/22/18 08:04 - Constitutional Appears: Non-toxic, No Acute Distress - Head Exam Head Exam: ATRAUMATIC, NORMOCEPHALIC - Eye Exam Eye Exam: EOMI - ENT Exam ENT Exam: Mucous Membranes Moist - Neck Exam Neck Exam: Full ROM - Respiratory Exam Respiratory Exam: NORMAL BREATHING PATTERN. absent: Accessory Muscle Use, Respiratory Distress - GI/Abdominal Exam GI & Abdominal Exam: Soft. absent: Tenderness - Extremities Exam Additional comments: LUE: edematous, + distal pulse, sensation and motor fxn intact RUE: AVF, palpable thrill - Neurological Exam Neurological Exam: Alert, Awake, Oriented x3 Assessment and Plan - Assessment and Plan (Free Text) Assessment: 57M with ESRD POD#2 RUE AVF and ligation of LUE AVF -Keep LUE elevated and in sakina wrap -will continue to monitor swelling -no further surgical intervention at this time -d/w attending Gladys PGY4
--- NOTE | 2018-07-24 16:05 | CP.PCM.PN ---
Subjective - Date & Time of Evaluation Date of Evaluation: 07/24/18 Time of Evaluation: 15:57 - Subjective Subjective: PGY III progress note for Dr. Lowery Pt seen and examined at bedside. Sleeping comfortably in bed and is easily arousable. Patient continues to complain of left arm pain and swelling. Denies having any CP, SOB, abd pain, N/v/D/C, F/C. Objective - Vital Signs/Intake and Output Vital Signs (last 24 hours): Temp Pulse Resp BP Pulse Ox 97.8 F 76 2 L 163/68 H 97 07/24/18 00:00 07/24/18 11:26 07/24/18 06:00 07/24/18 11:26 07/24/18 06:00 Intake and Output: 07/24/18 07/24/18 06:59 18:59 Intake Total 390 560 Balance 390 560 - Medications Medications: Current Medications Amlodipine Besylate (Norvasc) 5 mg PO DAILY [facility] Last Admin: 07/24/18 10:26 Dose: 5 mg Dextrose (Dextrose 50% Inj) 0 ml IV STAT PRN; Protocol PRN Reason: Hypoglycemia Protocol Dextrose (Glutose 15) 0 gm PO ONCE PRN; Protocol PRN Reason: Hypoglycemia Protocol Epoetin Efrain (Procrit) 8,000 unit IV MWF [facility] Furosemide (Lasix) 80 mg PO TTS [facility] Glucagon (Glucagen Diagnostic Kit) 0 mg IM STAT PRN; Protocol PRN Reason: Hypoglycemia Protocol Heparin Sodium (Porcine) (Heparin) 5,000 units SC Q8 [facility] Last Admin: 07/24/18 13:43 Dose: 5,000 units Heparin Sodium (Porcine) (Heparin) 4,400 units IVP MWF [facility] Hydralazine HCl (Apresoline) 25 mg PO Q4 PRN PRN Reason: Other Hydromorphone HCl (Dilaudid) 2 mg IVP Q4H PRN PRN Reason: Pain, severe (8-10) Last Admin: 07/24/18 15:11 Dose: 2 mg Vancomycin/Sodium Chloride (Vancomycin 1 Gm/Ns 200 Ml) 1 gm in 200 mls @ 133 mls/hr IVPB Q7D [facility] PRN Reason: Protocol Stop: 07/26/18 17:01 Last Admin: 07/21/18 17:00 Dose: Not Given Sodium Chloride (Sodium Chloride 0.9%) 1,000 mls @ 10 mls/hr IV .Q24H [facility] Last Admin: 07/23/18 22:32 Dose: 10 mls/hr Insulin Human Regular (Novolin R) 0 unit SC Q6 [facility] PRN Reason: Protocol Last Admin: 07/24/18 12:20 Dose: Not Given Labetalol HCl (Normodyne) 300 mg PO BID [facility] Last Admin: 07/24/18 10:02 Dose: 300 mg Linezolid (Zyvox) 600 mg PO Q12H [facility] PRN Reason: Protocol Last Admin: 07/24/18 08:14 Dose: 600 mg Sevelamer Carbonate (Renvela) 1,600 mg PO TIDCC [facility] Last Admin: 07/24/18 12:47 Dose: 1,600 mg Vitamin B Complex/Vit C/Folic Acid (Nephro-Anish) 1 tab PO 0800 [facility] Last Admin: 07/24/18 08:14 Dose: 1 tab - Labs Labs: 07/23/18 09:39 07/23/18 09:39 PT 13.0 SECONDS (9.7-12.2) H 07/20/18 10:07 INR 1.2 07/20/18 10:07 APTT 73 SECONDS (21-34) H D 07/22/18 08:04 - Constitutional Appears: Non-toxic, No Acute Distress - Head Exam Head Exam: ATRAUMATIC, NORMOCEPHALIC - ENT Exam ENT Exam: Mucous Membranes Moist - Respiratory Exam Respiratory Exam: Clear to Ausculation Bilateral. absent: Accessory Muscle Use , Rales, Rhonchi, Wheezes, Respiratory Distress - Cardiovascular Exam Cardiovascular Exam: REGULAR RHYTHM, +S1, +S2. absent: Gallop, Rubs, Murmur - GI/Abdominal Exam GI & Abdominal Exam: Soft, Normal Bowel Sounds. absent: Distended, Firm, Guarding, Rigid, Tenderness, Organomegaly - Extremities Exam Extremities Exam: Pedal Edema Additional comments: rUE thrill present at AV fistula site - Neurological Exam Neurological Exam: Alert, Awake, Oriented x3 - Psychiatric Exam Psychiatric exam: Normal Affect, Normal Mood - Skin Skin Exam: Dry, Intact, Normal Color, Warm Assessment and Plan - Assessment and Plan (Free Text) Assessment: Pt is a 57 yo male with PMH of ESRD on HD, HTN, DM, and Charcot foot presenting with complaint of LUE pain and swelling about two days prior. [place] [facility] [place] on day of [place] ([place]/18) however occlusion remained. Permacath switched to right anterior chest wall for continued dialysis. Right arm AVF placement 07/22. 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 Beltran ESRD likely 2/2 DM and HTN - HD T--Wed. Will switch pt to MWF schedule tomorrow - Receives dialysis in [facility]; permacath moved to right - Lasix 80mg PO TThS - Elevated phosphorus - Sevelamer Carbonate 800mg PO tidcc - Neprho-anish daily - Nephrology consulted: Dr. Bernabe - Surgery Consulted: Dr. Esquivel Anemia- likely secondary to ESRD - Replete through dialysis: Epo 8000 unit IV TTS - Monitor CBC Decreased LFTs - Hepatitis panel negative - Monitor CMP T2DM - ISS - Accuchecks ACHS - Hypoglycemic protocol HTN - Labetolol 300mg PO BID - Norvasc - lasixs TThS - hydralazine prn for SBP over 170 and DBP over 110 IVF: NS @ 10 mL/hr VTE ppx: Heparin 5000 unit SC q8hrs, heparin 4440 units IV TTS GI ppx: not indicated at this time Diet: Code status: full code case discussed with attending, Dr. Lowery
[2018-07-24] MEDS: Sodium Chloride 0.9% 1,000 ML IV SCH (19:27)
[2018-07-25] MEDS: (Novolin R) Insulin Human Regular 100 units/ml vial SC SCH ×3 (00:05→12:33)
[2018-07-25] MEDS: Multivitamin Vitamin B Complex (Nephro-Vite) Tab PO SCH (08:31)
--- NOTE | 2018-07-25 08:34 | CP.PCM.PN ---
Subjective - Date & Time of Evaluation Date of Evaluation: 07/25/18 Time of Evaluation: 08:30 Objective - Vital Signs/Intake and Output Vital Signs (last 24 hours): Temp Pulse Resp BP Pulse Ox 96.6 F L 70 16 176/80 H 98 07/24/18 23:00 07/24/18 23:00 07/24/18 23:00 07/24/18 23:00 07/24/18 23:00 Intake and Output: 07/25/18 07/25/18 06:59 18:59 Intake Total 80 250 Balance 80 250 - Medications Medications: Current Medications Amlodipine Besylate (Norvasc) 5 mg PO DAILY [facility] Last Admin: 07/24/18 10:26 Dose: 5 mg Dextrose (Dextrose 50% Inj) 0 ml IV STAT PRN; Protocol PRN Reason: Hypoglycemia Protocol Dextrose (Glutose 15) 0 gm PO ONCE PRN; Protocol PRN Reason: Hypoglycemia Protocol Epoetin Efrain (Procrit) 8,000 unit IV MWF [facility] Furosemide (Lasix) 80 mg PO TTS [facility] Glucagon (Glucagen Diagnostic Kit) 0 mg IM STAT PRN; Protocol PRN Reason: Hypoglycemia Protocol Heparin Sodium (Porcine) (Heparin) 5,000 units SC Q8 [facility] Last Admin: 07/25/18 05:44 Dose: 5,000 units Heparin Sodium (Porcine) (Heparin) 4,400 units IVP MWF [facility] Hydralazine HCl (Apresoline) 25 mg PO Q4 PRN PRN Reason: Other Hydromorphone HCl (Dilaudid) 2 mg IVP Q4H PRN PRN Reason: Pain, severe (8-10) Last Admin: 07/25/18 04:29 Dose: 2 mg Vancomycin/Sodium Chloride (Vancomycin 1 Gm/Ns 200 Ml) 1 gm in 200 mls @ 133 mls/hr IVPB Q7D [facility] PRN Reason: Protocol Stop: 07/26/18 17:01 Last Admin: 07/21/18 17:00 Dose: Not Given Sodium Chloride (Sodium Chloride 0.9%) 1,000 mls @ 10 mls/hr IV .Q24H [facility] Last Admin: 07/24/18 19:27 Dose: Not Given Insulin Human Regular (Novolin R) 0 unit SC Q6 [facility] PRN Reason: Protocol Last Admin: 07/25/18 06:40 Dose: Not Given Labetalol HCl (Normodyne) 300 mg PO BID [facility] Last Admin: 07/24/18 17:52 Dose: 300 mg Linezolid (Zyvox) 600 mg PO Q12H [facility] PRN Reason: Protocol Last Admin: 07/25/18 08:31 Dose: 600 mg Sevelamer Carbonate (Renvela) 1,600 mg PO TIDCC [facility] Last Admin: 07/25/18 08:31 Dose: 1,600 mg Vitamin B Complex/Vit C/Folic Acid (Nephro-Leanna) 1 tab PO 0800 [facility] Last Admin: 07/25/18 08:31 Dose: 1 tab - Labs Labs: 07/23/18 09:39 07/23/18 09:39 PT 13.0 SECONDS (9.7-12.2) H 07/20/18 10:07 INR 1.2 07/20/18 10:07 APTT 73 SECONDS (21-34) H D 07/22/18 08:04
[2018-07-25] MEDS ORDERED: EPOETIN ALFA 4,000 UNIT/ML ML Dialysis IV SCH (09:00)
[2018-07-25] MEDS: Labetalol Hydrochloride 300 mg Tab PO SCH (09:15)
[2018-07-25 10:16] LABS: BASO # 0.1 K/uL (0.0-0.2); EOS # 0.3 K/uL (0.0-0.7); EOS % 5.1 % (0.0-4.0); HEMOGLOBIN 8.3 g/dL (12.0-18.0); LYMPH # 1.2 K/uL (1.0-4.3); LYMPH % 20.8 % (20.0-40.0); MEAN CELL VOLUME 92.1 fL (80.0-94.0); MEAN CORPUSCULAR HEMOGLOBIN 30.4 pg (27.0-31.0); MEAN PLATELET VOLUME 7.2 fL (7.2-11.7); MONO # 0.5 K/uL (0.0-0.8); MONO % 8.5 % (0.0-10.0); NEUT # 3.7 K/uL (1.8-7.0); NEUT % 64.6 % (50.0-75.0); NRBC % 0.1 % (0.0-2.0); RBC 2.74 Mil/uL (4.40-5.90); WHITE BLOOD COUNT 5.7 K/uL (4.8-10.8)
[2018-07-25 10:49] LABS: ALB/GLOB RATIO 1.1 (1.0-2.1); ALBUMIN 3.4 g/dL (3.5-5.0); CALCIUM 8.1 mg/dl (8.6-10.4)
[2018-07-25 13:17] VITALS: PULSE 76; TEMP 97.2; O2SAT 97
--- NOTE | 2018-07-25 13:26 | CP.PCM.DIS ---
Provider - Provider Date of Admission: 07/18/18 15:29 Attending physician: Prashanth Lowery Jr, MD Time Spent in preparation of Discharge (in minutes): 60 Hospital Course - Lab Results Lab Results: Micro Results 07/18/18 14:30 Blood Blood Culture - Final NO GROWTH AFTER 5 DAYS 07/18/18 14:30 Blood Gram Stain - Final TEST NOT PERFORMED 07/18/18 14:19 Blood Blood Culture - Final NO GROWTH AFTER 5 DAYS 07/18/18 14:19 Blood Gram Stain - Final TEST NOT PERFORMED Most Recent Lab Values WBC 5.7 K/uL (4.8-10.8) 07/25/18 10:13 RBC 2.74 Mil/uL (4.40-5.90) L 07/25/18 10:13 Hgb 8.3 g/dL (12.0-18.0) L 07/25/18 10:13 Hct 25.3 % (35.0-51.0) L 07/25/18 10:13 MCV 92.1 fL (80.0-94.0) 07/25/18 10:13 MCH 30.4 pg (27.0-31.0) 07/25/18 10:13 MCHC 33.0 g/dL (33.0-37.0) 07/25/18 10:13 RDW 19.0 % (11.5-14.5) H 07/25/18 10:13 Plt Count 186 K/uL (130-400) 07/25/18 10:13 MPV 7.2 fL (7.2-11.7) 07/25/18 10:13 Neut % (Auto) 64.6 % (50.0-75.0) 07/25/18 10:13 Lymph % (Auto) 20.8 % (20.0-40.0) 07/25/18 10:13 Weber % (Auto) 8.5 % (0.0-10.0) 07/25/18 10:13 Eos % (Auto) 5.1 % (0.0-4.0) H 07/25/18 10:13 Baso % (Auto) 1.0 % (0.0-2.0) 07/25/18 10:13 Neut # (Auto) 3.7 K/uL (1.8-7.0) 07/25/18 10:13 Lymph # (Auto) 1.2 K/uL (1.0-4.3) 07/25/18 10:13 Weber # (Auto) 0.5 K/uL (0.0-0.8) 07/25/18 10:13 Eos # (Auto) 0.3 K/uL (0.0-0.7) 07/25/18 10:13 Baso # (Auto) 0.1 K/uL (0.0-0.2) 07/25/18 10:13 PT 13.0 SECONDS (9.7-12.2) H 07/20/18 10:07 INR 1.2 07/20/18 10:07 APTT 73 SECONDS (21-34) H D 07/22/18 08:04 D-Dimer, Quantitative 1418 ng/mlDDU (0-243) H 07/18/18 14:17 Sodium 137 mmol/L (132-148) 07/25/18 10:13 Potassium 5.0 mmol/L (3.6-5.2) 07/25/18 10:13 Chloride 98 mmol/L (98-107) 07/25/18 10:13 Carbon Dioxide 25 mmol/L (22-30) 07/25/18 10:13 Anion Gap 19 (10-20) 07/25/18 10:13 BUN 36 mg/dL (9-20) H 07/25/18 10:13 Creatinine 8.3 mg/dL (0.8-1.5) H* 07/25/18 10:13 Est GFR ( Amer) 8 07/25/18 10:13 Est GFR (Non-Af Amer) 7 07/25/18 10:13 POC Glucose (mg/dL) 113 mg/dL (65-110) H 07/25/18 05:47 Random Glucose 211 mg/dL (75-110) H 07/25/18 10:13 Calcium 8.1 mg/dl (8.6-10.4) L 07/25/18 10:13 Phosphorus 6.2 mg/dL (2.5-4.5) H 07/25/18 10:13 Magnesium 1.8 mg/dL (1.6-2.3) 07/25/18 10:13 Total Bilirubin 0.6 mg/dL (0.2-1.3) 07/25/18 10:13 AST 13 U/L (17-59) L D 07/25/18 10:13 ALT 10 U/L (21-72) L 07/25/18 10:13 Alkaline Phosphatase 59 U/L (38-126) 07/25/18 10:13 NT-Pro-B Natriuret Pep 48479 pg/mL (0-900) H 07/18/18 14:17 Total Protein 6.4 g/dL (6.3-8.3) 07/25/18 10:13 Albumin 3.4 g/dL (3.5-5.0) L 07/25/18 10:13 Globulin 3.0 gm/dL (2.2-3.9) 07/25/18 10:13 Albumin/Globulin Ratio 1.1 (1.0-2.1) 07/25/18 10:13 Hep Bs Antigen Negative (NEGATIVE) 07/18/18 22:42 Hep B Core IgM Ab Negative (NEGATIVE) 07/18/18 22:42 Hepatitis C Antibody Negative (NEGATIVE) 07/18/18 22:42 - Hospital Course Hospital Course: Patient is a 57 year old male with past medical history of ESRD on HD, HTN, DM, Charcot foot presenting with chief complaint of left upper extremity pain and swelling that began about two days prior. He states that he had a recent AVF procedure done 2 weeks prior. He also admits to change in sensation and numbness. He characterizes the pain as a stabbing ache that is constant. Patient was supposed to undergo surgery for his left lower leg fracture, however that surgery was delayed due to his current left upper extremity symptoms. Denies headache, dizziness, chest pain, shortness of breath, abdominal pain, changes in bowel movements, dysuria. Patient was evaluated by ID for LUE cellulitis and was started on Vancomycin. UE doppler revealed abnormal findings of left jugular and subclavian veins likely central occlusion in subclavian or jugular veins, so patient was started on heparin drip. The recently placed L AV fistula failed to mature, and L permacath unable to support TTS HD. L permacath removed and R permacath inserted for continued dialysis by vascular surgery. R AV fistula was created 2 days later with continued monitoring of maturation by Nephrology. Vancomycin was changed to weekly and Linezolid 600 mg by mouth twice a day was added. HTN likely secondary to fluid overload with elevated BNP on admission. Maintained with Lasix 80 mg MWF Elevated phosphorus during admission resolved with Sevelamer Carbonate. Anemia secondary to ESRD repleted through dialysis, EPO with stable CBC. Chronic DM2 stable with home medication. Primary Diagnosis: AVF malfunction 2/2 DVT of LUE and ESRD Patient is clear for discharge per Dr. Lowery. Patient is to continue taking all home medications as prescribed except for antibiotic as we are prescribing new ones. Please take the following new antibiotics as prescribed: Eliquis 5mg by mouth twice a day for 30 days Zyvox 600mg by mouth twice a day for 1 week Vancomycin with dialysis 200mg IVPB MWF for 2 weeks Patient is to follow up with Dr. Lowery in 1 week to monitor progress. Patient is to follow up with Dr. Esquivel to monitor maturation of AV fistula. The importance is dialysis was emphasized; patient should NOT miss sessions. [facility] dialysis was called and expecting patient for dialysis on Wednesday, 07/27. Plan was discussed with patient who understood and agrees. This is a summary of the hospital course. For more details, please refer to EMR. - Date & Time of H&P Date of H&P: 07/25/18 Time of H&P: 08:30 Discharge Exam - Head Exam Head Exam: ATRAUMATIC, NORMOCEPHALIC - Eye Exam Eye Exam: EOMI, Normal appearance - ENT Exam ENT Exam: Mucous Membranes Moist, Normal Exam - Respiratory Exam Respiratory Exam: Clear to PA & Lateral, NORMAL BREATHING PATTERN, UNREMARKABLE. absent: Rales, Rhonchi, Wheezes, Stridor - Cardiovascular Exam Cardiovascular Exam: REGULAR RHYTHM, +S1, +S2. absent: Systolic Murmur - GI/Abdominal Exam GI & Abdominal Exam: Distended, Normal Bowel Sounds, Soft, Unremarkable. absent : Firm, Guarding, Hernia, Tenderness - Extremities Exam Extremities exam: normal capillary refill, pedal pulses present Additional comments: pedal pulses palpable (DP, PT) bilaterally AVF on L audible bruit, dressing c/d/i L arm dressed by surgery, unable to examine - Neurological Exam Neurological exam: Alert, CN II-XII Intact, Oriented x3, Reflexes Normal - Psychiatric Exam Psychiatric exam: Normal Affect, Normal Mood - Skin Skin Exam: Dry, Intact, Normal Color, Warm Discharge Plan - Discharge Medications Prescriptions: Apixaban [Eliquis] 5 mg PO DAILY #30 tablet Linezolid [Zyvox] 600 mg PO Q12H #14 tab Vancomycin 1 GM [Vancomycin 1GM in Normal Saline Addvantage] 1 gm IVPB MWF #6 bag - Follow Up Plan Condition: FAIR Disposition: HOME/ ROUTINE Instructions: Pulmonary Embolism (DC), Pulmonary Embolism (GEN), Cellulitis (DC ), Cellulitis (GEN), Deep Venous Thrombosis (DC), Deep Venous Thrombosis (GEN) Additional Instructions: Patient is clear for discharge per Dr. Lowery. Patient is to continue taking all home medications as prescribed except for antibiotic as we are prescribing new ones. Please take the following new antibiotics as prescribed: Eliquis 5mg by mouth twice a day for 30 days Zyvox 600mg by mouth twice a day for 1 week Vancomycin with dialysis 200mg IVPB MWF for 2 weeks Patient is to follow up with Dr. Lowery in 1 week to monitor progress. Patient is to follow up with Dr. Esquivel to monitor maturation of AV fistula. The importance is dialysis was emphasized; patient should NOT miss sessions. [facility] dialysis was called and expecting patient for dialysis on Wednesday, 07/27. Plan was discussed with patient who understood and agrees. Referrals: Ifeanyi Esquivel Jr., MD [Staff Provider] - Clinical Quality Measures - CQM - VTE Did patient receive overlap therapy during hosptialization?: Yes If yes, what was given to the patient?: heparin Is patient being discharged on overlap therapy?: Yes If yes, what prescription has been given to the patient?: Eliquis
[2018-07-25] MEDS ORDERED: Labetalol Hydrochloride 300 mg Tab PO SCH (14:00)
--- NOTE | 2018-07-25 15:10 | CP.PCM.PN ---
Subjective - Date & Time of Evaluation Date of Evaluation: 07/25/18 Time of Evaluation: 15:10 - Subjective Subjective: Nephrology Consultation Note: Assessment: Stable missed HD, hyperkalemia left central venous DVT with cellulitis s/p left PC removal and left AVF ligation Diabetic chronic Kidney Disease (E11.22) Hypertensive Chronic Kidney Disease (I12.0) End stage renal disease (N18.6) dependence on hemodialysis (Z99.2) (MWF) via PC Anemia (D64.9), Hyperphosphatemia (E83.39), Secondary Hyperparathyroidism (E21.1 ), HTN (I12.0), Obesity Plan: Will plan for HD today as per MWF schedule next wek Continue with Nephrovite 1 tab/day. PRBC as needed for anemia. on JULIANA with dialysis as last Hb 9.0 Continue with increased phos binders, last phos level 6.3 BP control with meds as ordered. Patient not on RAAS karen as with hyperkalemia. added lasix 80 mg non-HD days. increased norvasc and prn hydralazine Glycemic control, Dialysis consistent diet Further work up/management as per primary team Dose meds/antibiotics (if needed) for ESRD status. Avoid fleets enema/magnesium based laxatives. vascular and ID following pt planned for d/c today, stable from renal perspective Thanks for allowing me to participate in care of your patient. Will follow patient with you. Please call if any Qs. had d/w team Dr Alvaro Aquino Office: [phone] Chief Complaint;left arm swelling HPI: Pt is a 57 M with hx of ESRD on hemodialysis (MWF) via left permacath since nov 2017, last dialysis last night in hospital, chronic anemia, hyperphosphatemia, secondary hyperparathyroidism, Diabetes Mellitus, hypertension, obesity presented with complaints of left arm swelling and redness since AVF intervention 1-2 weeks ago. he denies fever/chil. admitted with left arm cellulitis and DVT. seen by vascular and ID, started antibiotics and heparin drip Renal consult requested for ESRD management. he feels slight better today. he missed dialysis most of last week ROS: Cardiovascular: No chest pain. Pulmonary: No shortness of breath Gastrointestinal: denies abdominal pain No nausea. No vomiting. Genitourinary: No pain while urinating. Denies blood in urine. says make plenty of urine All other negative except as mentioned in HPI. has left arm swelling Physical Examination: General Appearance: Comfortable, in no acute respiratory distress, co-operative . obese Vitals reviewed and noted as below Head; Atraumatic, normocephalic ENT: no ulcers no thrush. Tongue is midline. Oropharynx: no rash or ulcers. EYES: Pupils are equal, round and reactive to light accommodation. Eye muscles and extraocular movement intact. Sclera is anicteric. Neck; supple no lymphadenopathy, no thyromegaly or bruit Lungs: Normal respiratory rate/effort. Breath sounds bilateral equal and clear Heart: Normal rate. s1s2 normal. No rub or gallop. Extremities: trace edema. No varicose veins. left foot deformity + pt says had fracture Neurological: Patient is alert, awake and oriented to person, place and time. No focal deficit. Strength bilateral appropriate and equal Skin: Warm and dry. Normal turgor. No rash. Palpitation: Normal elasticity for age Abdomen: Abdomen is soft. Bowel sounds +. There is no abdominal tenderness, no guarding/rigidity or organomegaly Psych: normal insight and normal affect/mood MSK: no joint tenderness or swelling. Digits and nails normal, no deformity : kidney or bladder not palpable Access: Rt PC. Rt AVF with thrill and bruit. LUE swelling noted Labs/imaging reviewed. Past medical history, past surgical history, family history, social history, allergy reviewed and noted as below Family Hx: no hx of CKD. Non contributory Objective - Vital Signs/Intake and Output Vital Signs (last 24 hours): Temp Pulse Resp BP Pulse Ox 97.2 F L 76 18 152/80 H 97 07/25/18 12:50 07/25/18 12:50 07/25/18 12:50 07/25/18 12:50 07/25/18 12:50 Intake and Output: 07/25/18 07/25/18 06:59 18:59 Intake Total 80 250 Balance 80 250 - Medications Medications: Current Medications Amlodipine Besylate (Norvasc) 10 mg PO DAILY [facility] Dextrose (Dextrose 50% Inj) 0 ml IV STAT PRN; Protocol PRN Reason: Hypoglycemia Protocol Dextrose (Glutose 15) 0 gm PO ONCE PRN; Protocol PRN Reason: Hypoglycemia Protocol Epoetin Efrain (Procrit) 8,000 unit IV MWF [facility] Last Admin: 07/25/18 10:34 Dose: 8,000 unit Furosemide (Lasix) 80 mg PO TTS [facility] Glucagon (Glucagen Diagnostic Kit) 0 mg IM STAT PRN; Protocol PRN Reason: Hypoglycemia Protocol Heparin Sodium (Porcine) (Heparin) 5,000 units SC Q8 [facility] Last Admin: 07/25/18 13:20 Dose: 5,000 units Heparin Sodium (Porcine) (Heparin) 4,400 units IVP MWF [facility] Last Admin: 07/25/18 10:33 Dose: 4,400 units Hydralazine HCl (Apresoline) 25 mg PO Q4 PRN PRN Reason: Other Hydromorphone HCl (Dilaudid) 2 mg IVP Q4H PRN PRN Reason: Pain, severe (8-10) Last Admin: 07/25/18 13:20 Dose: 2 mg Vancomycin/Sodium Chloride (Vancomycin 1 Gm/Ns 200 Ml) 1 gm in 200 mls @ 133 mls/hr IVPB Q7D [facility] PRN Reason: Protocol Stop: 07/26/18 17:01 Last Admin: 07/21/18 17:00 Dose: Not Given Sodium Chloride (Sodium Chloride 0.9%) 1,000 mls @ 10 mls/hr IV .Q24H [facility] Last Admin: 07/24/18 19:27 Dose: Not Given Insulin Human Regular (Novolin R) 0 unit SC Q6 [facility] PRN Reason: Protocol Last Admin: 07/25/18 12:33 Dose: Not Given Labetalol HCl (Normodyne) 300 mg PO Q8 [facility] Last Admin: 07/25/18 13:20 Dose: 300 mg Linezolid (Zyvox) 600 mg PO Q12H [facility] PRN Reason: Protocol Last Admin: 07/25/18 08:31 Dose: 600 mg Sevelamer Carbonate (Renvela) 2,400 mg PO TIDCC [facility] Last Admin: 07/25/18 12:34 Dose: Not Given Vitamin B Complex/Vit C/Folic Acid (Nephro-Leanna) 1 tab PO 0800 [facility] Last Admin: 07/25/18 08:31 Dose: 1 tab - Labs Labs: 07/25/18 10:13 07/25/18 10:13 PT 13.0 SECONDS (9.7-12.2) H 07/20/18 10:07 INR 1.2 07/20/18 10:07 APTT 73 SECONDS (21-34) H D 07/22/18 08:04
--- NOTE | 2018-07-25 15:55 | CP.PCM.PN ---
Subjective - Date & Time of Evaluation Date of Evaluation: 07/25/18 Time of Evaluation: 16:00 - Subjective Subjective: dictated Objective - Vital Signs/Intake and Output Vital Signs (last 24 hours): Temp Pulse Resp BP Pulse Ox 97.2 F L 76 18 152/80 H 97 07/25/18 12:50 07/25/18 12:50 07/25/18 12:50 07/25/18 12:50 07/25/18 12:50 Intake and Output: 07/25/18 07/25/18 06:59 18:59 Intake Total 80 250 Balance 80 250 - Medications Medications: Current Medications Amlodipine Besylate (Norvasc) 10 mg PO DAILY [facility] Dextrose (Dextrose 50% Inj) 0 ml IV STAT PRN; Protocol PRN Reason: Hypoglycemia Protocol Dextrose (Glutose 15) 0 gm PO ONCE PRN; Protocol PRN Reason: Hypoglycemia Protocol Epoetin Efrain (Procrit) 8,000 unit IV [facility] Last Admin: 07/25/18 10:34 Dose: 8,000 unit Furosemide (Lasix) 80 mg PO TTS [facility] Glucagon (Glucagen Diagnostic Kit) 0 mg IM STAT PRN; Protocol PRN Reason: Hypoglycemia Protocol Heparin Sodium (Porcine) (Heparin) 5,000 units SC Q8 [facility] Last Admin: 07/25/18 13:20 Dose: 5,000 units Heparin Sodium (Porcine) (Heparin) 4,400 units IVP MWF [facility] Last Admin: 07/25/18 10:33 Dose: 4,400 units Hydralazine HCl (Apresoline) 25 mg PO Q4 PRN PRN Reason: Other Hydromorphone HCl (Dilaudid) 2 mg IVP Q4H PRN PRN Reason: Pain, severe (8-10) Last Admin: 07/25/18 13:20 Dose: 2 mg Vancomycin/Sodium Chloride (Vancomycin 1 Gm/Ns 200 Ml) 1 gm in 200 mls @ 133 mls/hr IVPB Q7D [facility] PRN Reason: Protocol Stop: 07/26/18 17:01 Last Admin: 07/21/18 17:00 Dose: Not Given Sodium Chloride (Sodium Chloride 0.9%) 1,000 mls @ 10 mls/hr IV .Q24H [facility] Last Admin: 07/24/18 19:27 Dose: Not Given Vancomycin/Sodium Chloride (Vancomycin 1 Gm/Ns 200 Ml) 1 gm in 200 mls @ 133.333 mls/hr IVPB MWF [facility] PRN Reason: Protocol Stop: 08/01/18 09:01 Insulin Human Regular (Novolin R) 0 unit SC Q6 [facility] PRN Reason: Protocol Last Admin: 07/25/18 12:33 Dose: Not Given Labetalol HCl (Normodyne) 300 mg PO Q8 [facility] Last Admin: 07/25/18 13:20 Dose: 300 mg Linezolid (Zyvox) 600 mg PO Q12H [facility] PRN Reason: Protocol Last Admin: 07/25/18 08:31 Dose: 600 mg Sevelamer Carbonate (Renvela) 2,400 mg PO TIDCC [facility] Last Admin: 07/25/18 12:34 Dose: Not Given Vitamin B Complex/Vit C/Folic Acid (Nephro-Leanna) 1 tab PO 0800 [facility] Last Admin: 07/25/18 08:31 Dose: 1 tab - Labs Labs: 07/25/18 10:13 07/25/18 10:13 PT 13.0 SECONDS (9.7-12.2) H 07/20/18 10:07 INR 1.2 07/20/18 10:07 APTT 73 SECONDS (21-34) H D 07/22/18 08:04
[2018-07-25 16:55] VITALS: BP 164/84; RESP 20
--- NOTE | 2018-07-26 08:07 | PN ---
Copied To: Amira Connelly MD Attending MD: Amira Connelly MD DATE: 07/25/2018 SUBJECTIVE: The patient is awake, but he feels he is dozing off and he says he could not sleep last night. I am covering for Dr. Beltran and the patient is going home and he was seen by the fur tinter, Dr. Aquino. His left arm is swollen. He has his dressing there and at this time he has dressing on the right arm and right arm is also with edema. He denies any chest pain. No shortness of breath. No nausea. No vomiting. Does have swelling in his both upper extremities, especially in the left arm. PHYSICAL EXAMINATION: GENERAL: He is comfortable. VITAL SIGNS: T-max is 97.2, pulse is 76, blood pressure 152/80, respirations are 18. HEENT: Head is atraumatic, normocephalic. NECK: Supple. LUNGS: Clear. HEART: S1, S2 is regular. ABDOMEN: Soft. Decreased breath sounds bilaterally. EXTREMITIES: Have mild edema. He is going to go I am told and his labs , hemoglobin is 8.3, hematocrit 25.3, platelet count is 186, BUN is 36, creatinine is 8.3. His blood cultures are negative since he had surgery on the left arm and is going to go and he has a new fistula placed. ASSESSMENT AND PLAN: We will give vancomycin for the next two weeks to prevent any infection and I am also giving him Zyvox 600 mg p.o. b.i.d. at this time to cover for one week as he did have surgery and has left arm swelling and want to be sure he has adequate coverage. Dr. Aquino was told about to give the vancomycin after each dialysis for six doses. Amira Connelly MD
[2018-07-27] MEDS ORDERED: Vancomycin 1 gm/NS 200 ml 1 GM/200 ML BAG IVPB SCH (09:00)
== END 2018-07-25 18:48 | disposition home or self-care (01) | DRG 252 ==
LOC: C.ER 12:59 → C.9E 15:29 → C.3T 19:47
PROVIDERS: ADMIT Internal Medicine; ATTEND Internal Medicine
PROC: 5A1D70Z Performance of Urinary Filtration, Intermittent, Less than 6 Hours Per Day (ICD-10-PCS; 2018-07-19)
PROC: 05PY33Z Removal of Infusion Device from Upper Vein, Percutaneous Approach (ICD-10-PCS; 2018-07-22)
PROC: 05HM33Z Insertion of Infusion Device into Right Internal Jugular Vein, Percutaneous Approach (ICD-10-PCS; 2018-07-22)
PROC: B543ZZA Ultrasonography of Right Jugular Veins, Guidance (ICD-10-PCS; 2018-07-22)
PROC: 03L80ZZ Occlusion of Left Brachial Artery, Open Approach (ICD-10-PCS; principal; 2018-07-22 09:15)
PROC: 5A1D70Z Performance of Urinary Filtration, Intermittent, Less than 6 Hours Per Day (ICD-10-PCS; 2018-07-23)
PROC: 5A1D70Z Performance of Urinary Filtration, Intermittent, Less than 6 Hours Per Day (ICD-10-PCS; 2018-07-25)
DX: T82.49XA Other complication of vascular dialysis catheter, initial encounter (principal); N18.6 End stage renal disease; L03.114 Cellulitis of left upper limb; I82.C12 Acute embolism and thrombosis of left internal jugular vein; I82.B12 Acute embolism and thrombosis of left subclavian vein; I82.622 Acute embolism and thrombosis of deep veins of left upper extremity; I13.2 Hypertensive heart and chronic kidney disease with heart failure and with stage 5 chronic kidney disease, or end stage renal disease; N25.81 Secondary hyperparathyroidism of renal origin; M14.679 Charcot's joint, unspecified ankle and foot; I50.9 Heart failure, unspecified; E87.5 Hyperkalemia; E83.39 Other disorders of phosphorus metabolism; E66.9 Obesity, unspecified; E11.610 Type 2 diabetes mellitus with diabetic neuropathic arthropathy; E11.22 Type 2 diabetes mellitus with diabetic chronic kidney disease; D63.1 Anemia in chronic kidney disease; Z87.891 Personal history of nicotine dependence; Z99.2 Dependence on renal dialysis; Z87.01 Personal history of pneumonia (recurrent); Z79.01 Long term (current) use of anticoagulants

== ENCOUNTER 2018-08-16 14:01 | Inpatient (IN) | payer MEDICARE ==
[2018-08-16 14:02] VITALS: BMI 33.9
[2018-08-16 15:39] LABS: BASO # 0.1 K/uL (0.0-0.2); BASO % 1.4 % (0.0-2.0); EOS # 0.2 K/uL (0.0-0.7); EOS % 3.3 % (0.0-4.0); HEMOGLOBIN 9.7 g/dL (12.0-18.0); LYMPH # 0.9 K/uL (1.0-4.3); LYMPH % 15.5 % (20.0-40.0); MEAN CORPUSCULAR HEMOGLOBIN 31.1 pg (27.0-31.0); MEAN CORPUSCULAR HGB CONC 33.1 g/dL (33.0-37.0); MEAN PLATELET VOLUME 7.6 fL (7.2-11.7); MONO # 0.6 K/uL (0.0-0.8); MONO % 10.9 % (0.0-10.0); NEUT # 4.1 K/uL (1.8-7.0); NEUT % 68.9 % (50.0-75.0); RBC 3.11 Mil/uL (4.40-5.90); RED CELL DISTRIBUTION WIDTH 18.7 % (11.5-14.5); WHITE BLOOD COUNT 5.9 K/uL (4.8-10.8)
[2018-08-16 15:41] LABS: MEAN CELL VOLUME 94.2 fL (80.0-94.0)
[2018-08-16 15:45] LABS: INR 1.2; PROTHROMBIN TIME 12.7 SECONDS (9.7-12.2)
[2018-08-16 15:51] LABS: ALB/GLOB RATIO 1.2 (1.0-2.1); ALBUMIN 4.1 g/dL (3.5-5.0); ALT/SGPT 14 U/L (21-72); AST/SGOT 18 U/L (17-59); BLOOD UREA NITROGEN 68 mg/dL (9-20); CALCIUM 8.7 mg/dl (8.6-10.4); GFR NON-AFRICAN AMERICAN 5
[2018-08-16 15:59] LABS: B-TYPE NATRIURETIC PEPTIDE 19200 pg/mL (0-900)
[2018-08-16] MEDS ORDERED: Calcium Gluconate 4.65 mEq/10 ml Inj IVP ONE (16:00)
[2018-08-16] MEDS ORDERED: Sod Polystyrene Sulf 15 gm/60 ml Susp PO ONE (16:01)
[2018-08-16] MEDS ORDERED: (Novolin R) Insulin Human Regular 100 units/ml vial IV ONE (16:01)
[2018-08-16] MEDS ORDERED: Dextrose 50% SYRINGE Inj (50 ml) IV STA (16:01)
--- NOTE | 2018-08-16 16:13 | C.PDOC ---
History Of Present Illness 57 y/o male, /PMhx of ESRD, presents to the ER for evaluation after his dialysis catheter was dislodged. Patient states that he has dialysis on Mondays , Wednesdays, and Fridays. Patient reports that his last appointment was Wednesday last week, he was planning on going today. He notes that he is still making urine. Denies having CP, SOB, fever, and chills. Time Seen by Provider: 08/16/18 14:39 Chief Complaint (Nursing): Upper Extremity Problem/Injury History Per: Patient History/Exam Limitations: no limitations Past Medical History Reviewed: Historical Data, Nursing Documentation, Vital Signs Vital Signs: Last Vital Signs Temp 98.2 F 08/16/18 14:14 Pulse 82 08/16/18 14:14 Resp 18 08/16/18 14:14 BP 208/98 H 08/16/18 14:14 Pulse Ox 98 08/16/18 16:48 - Medical History PMH: Anemia, Anxiety, CHF, Diabetes, HTN, Pneumonia, Chronic Kidney Disease Other Surgeries: Hx of surgeries - [facility] Procedures (07/18/18) EXCIS DEBRIDE OF WOUND, INFECT, OR BURN (03/04/04) INSERT INFUSION DEV IN R INT JUGULAR VEIN, PERC (07/18/18) OCCLUSION OF LEFT BRACHIAL ARTERY, OPEN APPROACH (07/18/18) REMOVAL OF INFUSION DEVICE FROM UPPER VEIN, PERC APPROACH (07/18/18) TETANUS TOXOID ADMINIST (12/03/13) TRANSFUSE NONAUT RED BLOOD CELLS IN PERIPH VEIN, PERC (03/05/17) ULTRASONOGRAPHY OF RIGHT JUGULAR VEINS, GUIDANCE (07/18/18) Family History: States: No Known Family Hx - Social History Hx Tobacco Use: No Hx Alcohol Use: No Hx Substance Use: No - Immunization History Hx Tetanus Toxoid Vaccination: Yes Hx Influenza Vaccination: Yes Hx Pneumococcal Vaccination: No Review Of Systems Except As Marked, All Systems Reviewed And Found Negative. Constitutional: Negative for: Fever, Chills Cardiovascular: Negative for: Chest Pain Respiratory: Negative for: Shortness of Breath Physical Exam - Physical Exam Appears: Non-toxic, No Acute Distress Skin: Normal Color, Warm Head: Atraumatic, Normacephalic Eye(s): bilateral: Normal Inspection Nose: Normal Oral Mucosa: Moist Neck: Supple Chest: Symmetrical, Other (right anterior chest- catheter missing) Cardiovascular: Rhythm Regular Respiratory: Normal Breath Sounds, No Rales, No Rhonchi, No Wheezing Gastrointestinal/Abdominal: Normal Exam, Soft, No Tenderness, No Guarding, No Rebound Extremity: Normal ROM, Other (thrill- right arm, AV fistula, healing AV graft region that clotted and was surgically rmanipulated) Neurological/Psych: Oriented x3, Normal Speech ED Course And Treatment - Laboratory Results Result Diagrams: 08/16/18 15:32 08/16/18 15:32 ECG: Interpreted By Me, Viewed By Me ECG Rhythm: Sinus Rhythm Interpretation Of ECG: NSR with left axis deviation, Q wave in Leads 3 and AvF, poor R wave progression, and no ST/ T wave abnormalities Rate From EC O2 Sat by Pulse Oximetry: 98 (RA) Pulse Ox Interpretation: Normal Medical Decision Making Medical Decision Making: Assessment: Hyperkalemia Plan: --Labs --Insulin IV --Calcium Gluconate IV Updates: Case discussed with and Dr. Lowery. Patient will be admitted under for hyperkalemia and dislodged catheter. Disposition Discussed With .: Prashanth Lowery Jr. Doctor Will See Patient In The: Hospital Counseled Patient/Family Regarding: Studies Performed, Diagnosis - Disposition Disposition: HOSPITALIZED Disposition Time: 16:13 Condition: FAIR - Clinical Impression Clinical Impression: Hyperkalemia, Dialysis catheter clot or failure - Scribe Statement The provider has reviewed the documentation as recorded by the Scribe Zita Motley Provider Attestation: All medical record entries made by the Scribe were at my direction and personally dictated by me. I have reviewed the chart and agree that the record accurately reflects my personal performance of the history, physical exam, medical decision making, and the department course for this patient. I have also personally directed, reviewed, and agree with the discharge instructions and disposition.
--- NOTE | 2018-08-16 16:25 | RAD ---
Date of service: 08/16/2018 PROCEDURE: CHEST RADIOGRAPH, 1 VIEW HISTORY: SOB COMPARISON: 07/20/2018 FINDINGS: LUNGS: Current lung volumes less now than before No consolidation. PLEURA: No pneumothorax or pleural fluid seen. CARDIOVASCULAR: Mild cardiomegaly. Mild central pulmonary venous congestion-further accentuated with low lung volumes Prior dialysis catheter removed. OSSEOUS STRUCTURES: No significant abnormalities. VISUALIZED UPPER ABDOMEN: Normal. OTHER FINDINGS: None. IMPRESSION: Cardiomegaly and mild central pulmonary venous congestion. Low interval lung volumes
[2018-08-16] MEDS ORDERED: Sod Polystyrene Sulf 15 gm/60 ml Susp ONE (17:06)
[2018-08-16] MEDS ORDERED: Calcium Gluconate 4.65 mEq/10 ml Inj ONE (17:07)
[2018-08-16] MEDS ORDERED: (Novolin R) Insulin Human Regular 100 units/ml vial ONE (17:07)
[2018-08-16] MEDS ORDERED: Dextrose 50% SYRINGE Inj (50 ml) ONE ×2 (17:08→18:16)
[2018-08-16] MEDS ORDERED: Sodium Bicarbonate (8.4%) 50 Meq Syringe IVP ONE (17:16)
[2018-08-16] MEDS ORDERED: Dextrose 50% SYRINGE Inj (50 ml) IVP PRN (17:24)
[2018-08-16] MEDS ORDERED: Glucagon Recombinant 1 mg Inj IM PRN (17:24)
--- NOTE | 2018-08-16 17:26 | CP.PCM.HP ---
History of Present Illness - History of Present Illness History of Present Illness: Patient is a 57 year old male with PMHx significant for ESRD on HD MWF , HTN, DM, Charcot foot who presents to the ED with complaint that his permacath fell out. Patient states he missed his dialysis sessions on Wednesday and Wednesday as he was away for the weekend. Patient reports that when he went to change his shirt today his permacath fell out. Patient states he feels well and denies dyspnea, light-headed feeling, dizziness, fatigue. He reports that he urinates at least three to four times daily and twice at night. Patient states he had not seen either Dr. Lowery or Dr. Esquivel since his discharge from the hospital on 07/25/18. Patient currently stating that he does not want repeat permacath placement and wants to take kayexalate until his AV fistula matures. Patient reports he completed antibiotics as prescribed for cellulitis of left arm. He also reports compliance with Eliquis therapy for DVT treatment. PMD: Dr. Lowery PMHx: ESRD on HD, HTN, DM, Charcot foot Past surgical: AV fistula that failed to mature, portacath, kidney biopsy Social: denies recent alcohol use but admits to heavier use when he was younger , denies ever using tobacco, denies drug use Allergies: acetaminophen, ibuprofen, oxycodone, tramadol Present on Admission - Present on Admission Any Indicators Present on Admission: Yes History of DVT/PE: Yes Review of Systems - Constitutional Constitutional: absent: Chills, Fever, Malaise, Weakness - EENT Ears: absent: Dizziness - Cardiovascular Cardiovascular: absent: Chest Pain at Rest, Dyspnea, Leg Edema - Respiratory Respiratory: absent: Cough, Dyspnea - Gastrointestinal Gastrointestinal: absent: Abdominal Pain, Nausea, Vomiting - Genitourinary Genitourinary: absent: Difficulty Urinating, Dysuria - Musculoskeletal Musculoskeletal: Deformity (Charcot foot (left)). absent: Back Pain - Integumentary Integumentary: absent: Dry Skin, Sores - Neurological Neurological: absent: Confusion, Dizziness, Focal Weakness, Weakness - Endocrine Endocrine: absent: Fatigue, Palpitations, Polydipsia Past Patient History - Infectious Disease Hx of Infectious Diseases: None - Past Medical History & Family History Past Medical History?: Yes - Past Social History Smoking Status: Never Smoked - CARDIAC Hx Congestive Heart Failure: Yes Hx Hypertension: Yes - PULMONARY Hx Pneumonia: Yes - NEUROLOGICAL Hx Neurological Disorder: No - HEENT Hx HEENT Problems: No - RENAL Hx Chronic Kidney Disease: Yes - ENDOCRINE/METABOLIC Hx Endocrine Disorders: Yes Hx Diabetes Mellitus Type 2: Yes (denies) - HEMATOLOGICAL/ONCOLOGICAL Hx Anemia: Yes - INTEGUMENTARY Hx Dermatological Problems: No Hx Cellulitis: Yes (left arm) - MUSCULOSKELETAL/RHEUMATOLOGICAL Hx Falls: No - GASTROINTESTINAL Hx Gastrointestinal Disorders: No - GENITOURINARY/GYNECOLOGICAL Hx Genitourinary Disorders: No - PSYCHIATRIC Hx Anxiety: Yes Hx Substance Use: No - SURGICAL HISTORY Hx Surgeries: Yes Hx Musculoskeletal Surgery: Yes (LT FOOT SX) Other/Comment: LT CHEST WALL DIALYSIS CATH. AVF - ANESTHESIA Hx Anesthesia: Yes Hx Anesthesia Reactions: No Hx Malignant Hyperthermia: No Meds Allergies/Adverse Reactions: Allergies Allergy/AdvReac Type Severity Reaction Status Date / Time acetaminophen [From Percocet] Allergy Verified 08/16/18 14:13 ibuprofen Allergy Verified 08/16/18 14:13 oxycodone [From Percocet] Allergy Verified 08/16/18 14:13 tramadol Allergy Verified 08/16/18 14:13 PEACH SNAPPLE Allergy Mild RASH Uncoded 08/16/18 14:13 Physical Exam - Constitutional Appears: Non-toxic, No Acute Distress - Head Exam Head Exam: ATRAUMATIC, NORMOCEPHALIC - Eye Exam Eye Exam: EOMI - ENT Exam ENT Exam: Mucous Membranes Moist Additional comments: poor dentition - Neck Exam Additional comments: right chest with small amount of suture material - Respiratory Exam Respiratory Exam: Clear to Auscultation Bilateral, NORMAL BREATHING PATTERN. absent: Rales, Rhonchi, Wheezes - Cardiovascular Exam Cardiovascular Exam: +S1, +S2 - GI/Abdominal Exam GI & Abdominal Exam: Normal Bowel Sounds, Soft. absent: Tenderness - Extremities Exam Additional comments: left foot in surgical boot right leg with trace pitting edema right forearm with AVF with palpable thrill left upper arm with scarring and firmness on palpation near scarring b/l hand digital clubbing - Neurological Exam Neurological exam: Alert, Oriented x3 - Skin Skin Exam: Normal Color, Warm Results - Vital Signs Recent Vital Signs: Last Vital Signs Temp 98.2 F 08/16/18 14:14 Pulse 82 08/16/18 14:14 Resp 18 08/16/18 14:14 BP 208/98 H 08/16/18 14:14 Pulse Ox 98 08/16/18 16:51 - Labs Result Diagrams: 08/16/18 15:32 08/16/18 15:32 Labs: Laboratory Results - last 24 hr 08/16/18 08/16/18 08/16/18 15:32 15:32 15:32 WBC 5.9 RBC 3.11 L Hgb 9.7 L Hct 29.3 L MCV 94.2 H D MCH 31.1 H MCHC 33.1 RDW 18.7 H Plt Count 174 MPV 7.6 Neut % (Auto) 68.9 Lymph % (Auto) 15.5 L [place] % (Auto) 10.9 H Eos % (Auto) 3.3 Baso % (Auto) 1.4 Neut # (Auto) 4.1 Lymph # (Auto) 0.9 L [place] # (Auto) 0.6 Eos # (Auto) 0.2 Baso # (Auto) 0.1 PT 12.7 H INR 1.2 APTT 24 Sodium 137 Potassium 7.0 H* D Chloride 103 Carbon Dioxide 17 L Anion Gap 24 H BUN 68 H Creatinine 10.8 H* D Est GFR ( Amer) 6 Est GFR (Non-Af Amer) 5 Random Glucose 101 Calcium 8.7 Total Bilirubin 0.7 AST 18 ALT 14 L D Alkaline Phosphatase 66 Troponin I < 0.0120 NT-Pro-B Natriuret Pep 68888 H Total Protein 7.6 Albumin 4.1 Globulin 3.5 Albumin/Globulin Ratio 1.2 Assessment & Plan - Assessment and Plan (Free Text) Assessment: Need for HD Access Dr. Esquivel, vascular surgery consulted- help appreciated patient to have permacath placed 08/17/[address] Esquivel Acidosis CMP with bicarb 17 will give one amp IVP slow push repeat BMP and continue to monitor Hyperkalemia patient missed two HD sessions potassium today 7.0 in ER: patient given calcium gluconate, D50, IV insulin, kayexalate will repeat BMP and continue to treat ESRD on HD patient's normal HD days [facility] nephrology, Dr. Bernabe consulted, help appreciated re-start renvela 1600mg PO TIDCC, nephrovite continue bumex 1mg PO daily HTN restart norvasc 10mg, hydralazine 25mg PO QID prn SBP >170 or DBP >110 labetalol 300mg PO BID Elevated pro-BNP likely due to ESRD last echo 03/2018 showed normal LV systolic function. diastolic dysfunction. dilated LA, dilated aortic root. LVH. LUE DVT continue Eliquis 5mg PO daily Chronic pain continue oxycodone. patient was taking 20mg as outpatient but will start 10mg PO Q12h of oxycontin continue home med flexeril 10mg PO TID prn muscle spasm DM home med toujeo non formulary will hold glimepiride while inpatient ISS accuchecks ACHS hypoglycemia protocol Anxiety continue home med ativan 1mg PO BID prn Prophylactic measure colace 100mg PO BID prn All management per Dr. Lowery
[2018-08-16 17:51] LABS: URINE BILIRUBIN NEGATIVE (NEGATIVE); URINE BLOOD NEGATIVE (NEGATIVE); URINE CLARITY Clear (Clear); URINE COLOR Straw (YELLOW); URINE GLUCOSE (UA) 1+ mg/dL (Normal); URINE LEUKOCYTE ESTERASE NEG Leu/uL (Negative); URINE PROTEIN 2+ mg/dL (NEGATIVE); URINE UROBILINOGEN NORMAL mg/dL (0.2-1.0)
[2018-08-16] MEDS ORDERED: Albuterol 0.083% Inhal Sol (2.5 mg/3 mL) UD INH PRN (17:56)
[2018-08-16] MEDS ORDERED: Sodium Bicarbonate (8.4%) 50 Meq Syringe ONE (18:38)
[2018-08-16 20:10] LABS: ALB/GLOB RATIO 1.2 (1.0-2.1); CALCIUM 8.8 mg/dl (8.6-10.4)
--- NOTE | 2018-08-16 20:16 | CP.PCM.CON ---
History of Present Illness - History of Present Illness History of Present Illness: 57M presents to ED after accidentally pulling his permacath as he was taking his shirt off. Vascular surgery consulted for hemodialysis access as patient has missed his last two sessions. Denies headache/dizziness, chest pain/SOB, n/v /d. PMHx: CHF, ESRD on HD, HTN, DM, charcot foots, anemia PSHx: left AV fistula, left permacath Allergies: as per chart review-tylenol, ibuprofen, oxycodone, tramadol, peach snapple Medicines: as per chart review- singulair, labetolol, ativan, cyclobenzaprine, keflex, naproxen, bumex PMD: Lowery SocialHx: does not smoke tobacco, drinks an occasional beer on the weekend, denies illicit drug use Review of Systems - Review of Systems Review of Systems: as per HPI Past Patient History - Infectious Disease Hx of Infectious Diseases: None - Past Medical History & Family History Past Medical History?: Yes - Past Social History Smoking Status: Never Smoked - CARDIAC Hx Congestive Heart Failure: Yes Hx Hypertension: Yes - PULMONARY Hx Pneumonia: Yes - NEUROLOGICAL Hx Neurological Disorder: No - HEENT Hx HEENT Problems: No - RENAL Hx Chronic Kidney Disease: Yes - ENDOCRINE/METABOLIC Hx Endocrine Disorders: Yes Hx Diabetes Mellitus Type 2: Yes (denies) - HEMATOLOGICAL/ONCOLOGICAL Hx Anemia: Yes - INTEGUMENTARY Hx Dermatological Problems: No Hx Cellulitis: Yes (left arm) - MUSCULOSKELETAL/RHEUMATOLOGICAL Hx Falls: No - GASTROINTESTINAL Hx Gastrointestinal Disorders: No - GENITOURINARY/GYNECOLOGICAL Hx Genitourinary Disorders: No - PSYCHIATRIC Hx Anxiety: Yes Hx Substance Use: No - SURGICAL HISTORY Hx Surgeries: Yes Hx Musculoskeletal Surgery: Yes (LT FOOT SX) Other/Comment: LT CHEST WALL DIALYSIS CATH. AVF - ANESTHESIA Hx Anesthesia: Yes Hx Anesthesia Reactions: No Hx Malignant Hyperthermia: No Meds Allergies/Adverse Reactions: Allergies Allergy/AdvReac Type Severity Reaction Status Date / Time acetaminophen [From Percocet] Allergy Verified 08/16/18 14:13 ibuprofen Allergy Verified 08/16/18 14:13 oxycodone [From Percocet] Allergy Verified 08/16/18 14:13 tramadol Allergy Verified 08/16/18 14:13 PEACH SNAPPLE Allergy Mild RASH Uncoded 08/16/18 14:13 - Medications Medications: Current Medications Albuterol Sulfate (Albuterol 0.083% Inhal Richa (2.5 Mg/3 Ml) Ud) 2.5 mg INH RQ6 PRN PRN Reason: Shortness of Breath Amlodipine Besylate (Norvasc) 10 mg PO DAILY [facility] Last Admin: 08/16/18 18:43 Dose: 10 mg Apixaban (Eliquis) 5 mg PO DAILY [facility] Bumetanide (Bumex) 1 mg PO DAILY [facility] Cyclobenzaprine HCl (Flexeril) 10 mg PO TID PRN PRN Reason: Muscle spasm Dextrose (Dextrose 50% Inj) 0 ml IVP .STAT PRN; Protocol PRN Reason: Hypoglycemia Protocol Dextrose (Glutose 15) 0 gm PO .ONCE PRN; Protocol PRN Reason: Hypoglycemia Protocol Docusate Sodium (Colace) 100 mg PO BID PRN PRN Reason: Constipation Glucagon (Glucagen Diagnostic Kit) 0 mg IM .STAT PRN; Protocol PRN Reason: Hypoglycemia Protocol Hydralazine HCl (Apresoline) 25 mg PO QID PRN PRN Reason: Systolic Blood Pressure Dextrose (Dextrose 5% In Water 1000 Ml) 1,000 mls @ 0 mls/hr IV .Q0M PRN; Protocol; Per Protocol PRN Reason: Hypoglycemia Protocol Insulin Human Regular (Novolin R) 0 unit SC ACHS [facility] PRN Reason: Protocol Labetalol HCl (Trandate) 300 mg PO BID [facility] Last Admin: 08/16/18 18:43 Dose: 300 mg Lorazepam (Ativan) 1 mg PO BID PRN PRN Reason: Anxiety Last Admin: 08/16/18 19:36 Dose: 1 mg Montelukast Sodium (Singulair) 10 mg PO HS [facility] Oxycodone HCl (Oxycontin Extended Release Tab) 10 mg PO Q12 [facility] Stop: 08/19/18 22:01 Sevelamer Carbonate (Renvela) 1,600 mg PO TIDCC [facility] Vitamin B Complex/Vit C/Folic Acid (Nephro-Leanna) 1 tab PO 0800 [facility] Physical Exam - Constitutional Appears: No Acute Distress - Head Exam Head Exam: NORMOCEPHALIC - Eye Exam Eye Exam: Normal appearance - Respiratory Exam Respiratory Exam: NORMAL BREATHING PATTERN - Cardiovascular Exam Cardiovascular Exam: +S1, +S2 - GI/Abdominal Exam GI & Abdominal Exam: Soft - Psychiatric Exam Psychiatric exam: Normal Mood - Skin Skin Exam: Dry, Intact, Warm Results - Vital Signs Recent Vital Signs: Last Vital Signs Temp 98.4 F 08/16/18 17:39 Pulse 83 08/16/18 19:19 Resp 15 08/16/18 20:03 BP 185/104 H 08/16/18 19:19 Pulse Ox 100 08/16/18 19:19 - Labs Result Diagrams: 08/16/18 15:32 08/16/18 19:36 Labs: Laboratory Results - last 24 hr 08/16/18 08/16/18 08/16/18 15:32 15:32 15:32 WBC 5.9 RBC 3.11 L Hgb 9.7 L Hct 29.3 L MCV 94.2 H D MCH 31.1 H MCHC 33.1 RDW 18.7 H Plt Count 174 MPV 7.6 Neut % (Auto) 68.9 Lymph % (Auto) 15.5 L [place] % (Auto) 10.9 H Eos % (Auto) 3.3 Baso % (Auto) 1.4 Neut # (Auto) 4.1 Lymph # (Auto) 0.9 L [place] # (Auto) 0.6 Eos # (Auto) 0.2 Baso # (Auto) 0.1 PT 12.7 H INR 1.2 APTT 24 Sodium 137 Potassium 7.0 H* D Chloride 103 Carbon Dioxide 17 L Anion Gap 24 H BUN 68 H Creatinine 10.8 H* D Est GFR ( Amer) 6 Est GFR (Non-Af Amer) 5 POC Glucose (mg/dL) Random Glucose 101 Calcium 8.7 Total Bilirubin 0.7 AST 18 ALT 14 L D Alkaline Phosphatase 66 Troponin I < 0.0120 NT-Pro-B Natriuret Pep 94097 H Total Protein 7.6 Albumin 4.1 Globulin 3.5 Albumin/Globulin Ratio 1.2 Urine Color Urine Clarity Urine pH Ur Specific [place] Urine Protein Urine Glucose (UA) Urine Ketones Urine Blood Urine Nitrate Urine Bilirubin Urine Urobilinogen Ur Leukocyte Esterase Urine WBC (Auto) Urine RBC (Auto) Blood Type Antibody Screen 08/16/18 08/16/18 08/16/18 16:59 17:05 18:09 WBC RBC Hgb Hct MCV MCH MCHC RDW Plt Count MPV Neut % (Auto) Lymph % (Auto) [place] % (Auto) Eos % (Auto) Baso % (Auto) Neut # (Auto) Lymph # (Auto) [place] # (Auto) Eos # (Auto) Baso # (Auto) PT INR APTT Sodium Potassium Chloride Carbon Dioxide Anion Gap BUN Creatinine Est GFR ( Amer) Est GFR (Non-Af Amer) POC Glucose (mg/dL) 49 L Random Glucose Calcium Total Bilirubin AST ALT Alkaline Phosphatase Troponin I NT-Pro-B Natriuret Pep Total Protein Albumin Globulin Albumin/Globulin Ratio Urine Color Straw Urine Clarity Clear Urine pH 7.0 Ur Specific [place] 1.010 Urine Protein 2+ H Urine Glucose (UA) 1+ H Urine Ketones Negative Urine Blood Negative Urine Nitrate Negative Urine Bilirubin Negative Urine Urobilinogen Normal Ur Leukocyte Esterase Neg Urine WBC (Auto) < 1 Urine RBC (Auto) 2 Blood Type B POSITIVE Antibody Screen Negative 08/16/18 08/16/18 08/16/18 18:11 19:33 19:36 WBC RBC Hgb Hct MCV MCH MCHC RDW Plt Count MPV Neut % (Auto) Lymph % (Auto) [place] % (Auto) Eos % (Auto) Baso % (Auto) Neut # (Auto) Lymph # (Auto) [place] # (Auto) Eos # (Auto) Baso # (Auto) PT INR APTT Sodium 142 Potassium 5.9 H Chloride 102 Carbon Dioxide 24 Anion Gap 21 H BUN 67 H Creatinine 10.7 H* Est GFR ( Amer) 6 Est GFR (Non-Af Amer) 5 POC Glucose (mg/dL) 51 L 162 H Random Glucose 191 H Calcium 8.8 Total Bilirubin 0.6 AST 12 L D ALT 16 L Alkaline Phosphatase 76 Troponin I NT-Pro-B Natriuret Pep Total Protein 7.3 Albumin 4.0 Globulin 3.4 Albumin/Globulin Ratio 1.2 Urine Color Urine Clarity Urine pH Ur Specific [place] Urine Protein Urine Glucose (UA) Urine Ketones Urine Blood Urine Nitrate Urine Bilirubin Urine Urobilinogen Ur Leukocyte Esterase Urine WBC (Auto) Urine RBC (Auto) Blood Type Antibody Screen Assessment & Plan - Assessment and Plan (Free Text) Assessment: 57M with ESRD Plan: -AV fistula has not matured, not ready for dialysis access yet -Recommend permacath insertion- patient refusing at this time -Will reasses in AM -Patient aware of risks involved if he does not get dialysis -D/w Dr. Sierra Ocampo PGY3
[2018-08-16 20:55] VITALS: RESP 20
[2018-08-16] MEDS ORDERED: oxyCODONE 10 mg ER Tab (oxyCONTIN) PO SCH (22:00)
[2018-08-16] MEDS: (Novolin R) Insulin Human Regular 100 units/ml vial SC SCH (22:00)
[2018-08-17] MEDS ORDERED: Multivitamin Vitamin B Complex (Nephro-Vite) Tab PO SCH (08:00)
[2018-08-17] MEDS: (Novolin R) Insulin Human Regular 100 units/ml vial SC SCH (08:00)
[2018-08-17 08:31] VITALS: BP 183/80; PULSE 75; TEMP 97.2; O2SAT 98
--- NOTE | 2018-08-17 09:45 | CP.PCM.PN ---
Subjective - Date & Time of Evaluation Date of Evaluation: 08/17/18 Time of Evaluation: 09:40 - Subjective Subjective: PGY-[address] Bautista Nurse paged surgical team at 8:28am. Patient refusing to go for permacath surgery this morning. Patient was seen by Dr Bautista, along with Patient Stained Glass Installer Francia and myself at bedside. Patient refuses surgical treatment at this time. Risks and consequencesof not having a working port to receive dialysis, including , were discussed with patient and patient is fully aware . Patient requested for stitches in right arm av fistula to be taken out. Stitches removal was done at bedside and 4x4 with island dressing was place in the site and extra supplies given to patient. Patient is to follow with Dr Bautista in his office. Patient is aware to come back to ED if having any symptoms or worsening of his condition. Objective - Vital Signs/Intake and Output Vital Signs (last 24 hours): Temp Pulse Resp BP Pulse Ox 97.2 F L 75 20 183/80 H 98 08/17/18 08:29 08/17/18 08:29 08/17/18 08:29 08/17/18 08:29 08/17/18 08:29 Intake and Output: 08/17/18 08/17/18 06:59 18:59 Intake Total 0 Balance 0 - Medications Medications: Current Medications Albuterol Sulfate (Albuterol 0.083% Inhal Richa (2.5 Mg/3 Ml) Ud) 2.5 mg INH RQ6 PRN PRN Reason: Shortness of Breath Amlodipine Besylate (Norvasc) 10 mg PO DAILY [facility] Last Admin: 08/16/18 18:43 Dose: 10 mg Apixaban (Eliquis) 5 mg PO DAILY [facility] Bumetanide (Bumex) 1 mg PO DAILY [facility] Cyclobenzaprine HCl (Flexeril) 10 mg PO TID PRN PRN Reason: Muscle spasm Last Admin: 08/17/18 07:17 Dose: 10 mg Dextrose (Dextrose 50% Inj) 0 ml IVP .STAT PRN; Protocol PRN Reason: Hypoglycemia Protocol Dextrose (Glutose 15) 0 gm PO .ONCE PRN; Protocol PRN Reason: Hypoglycemia Protocol Docusate Sodium (Colace) 100 mg PO BID PRN PRN Reason: Constipation Glucagon (Glucagen Diagnostic Kit) 0 mg IM .STAT PRN; Protocol PRN Reason: Hypoglycemia Protocol Hydralazine HCl (Apresoline) 25 mg PO QID PRN PRN Reason: Systolic Blood Pressure Last Admin: 08/17/18 03:12 Dose: 25 mg Dextrose (Dextrose 5% In Water 1000 Ml) 1,000 mls @ 0 mls/hr IV .Q0M PRN; Protocol; Per Protocol PRN Reason: Hypoglycemia Protocol Insulin Human Regular (Novolin R) 0 unit SC ACHS [facility] PRN Reason: Protocol Last Admin: 08/17/18 08:00 Dose: Not Given Labetalol HCl (Trandate) 300 mg PO Q8 [facility] Lorazepam (Ativan) 1 mg PO BID PRN PRN Reason: Anxiety Last Admin: 08/16/18 19:36 Dose: 1 mg Montelukast Sodium (Singulair) 10 mg PO HS [facility] Last Admin: 08/16/18 22:00 Dose: Not Given Oxycodone HCl (Oxycontin Extended Release Tab) 10 mg PO Q12 [facility] Stop: 08/19/18 22:01 Last Admin: 08/16/18 21:04 Dose: 10 mg Sevelamer Carbonate (Renvela) 1,600 mg PO TIDCC [facility] Vitamin B Complex/Vit C/Folic Acid (Nephro-Leanna) 1 tab PO 0800 [facility] - Labs Labs: 08/16/18 15:32 08/16/18 19:36 PT 12.7 SECONDS (9.7-12.2) H 08/16/18 15:32 INR 1.2 08/16/18 15:32 APTT 24 SECONDS (21-34) 08/16/18 15:32 Assessment and Plan - Assessment and Plan (Free Text) Plan: - patient to follow up with Dr Bautista in his office - Plan discussed with Dr Sierra Michaud, PGY-1
--- NOTE | 2018-08-17 10:31 | CP.PCM.DIS ---
Provider - Provider Date of Admission: 08/16/18 16:11 Attending physician: Prashanth Lowery Jr, MD Time Spent in preparation of Discharge (in minutes): 45 Diagnosis - Discharge Diagnosis (1) Left against medical advice Status: Acute Hospital Course - Lab Results Lab Results: Most Recent Lab Values WBC 5.9 K/uL (4.8-10.8) 08/16/18 15:32 RBC 3.11 Mil/uL (4.40-5.90) L 08/16/18 15:32 Hgb 9.7 g/dL (12.0-18.0) L 08/16/18 15:32 Hct 29.3 % (35.0-51.0) L 08/16/18 15:32 MCV 94.2 fL (80.0-94.0) H D 08/16/18 15:32 MCH 31.1 pg (27.0-31.0) H 08/16/18 15:32 MCHC 33.1 g/dL (33.0-37.0) 08/16/18 15:32 RDW 18.7 % (11.5-14.5) H 08/16/18 15:32 Plt Count 174 K/uL (130-400) 08/16/18 15:32 MPV 7.6 fL (7.2-11.7) 08/16/18 15:32 Neut % (Auto) 68.9 % (50.0-75.0) 08/16/18 15:32 Lymph % (Auto) 15.5 % (20.0-40.0) L 08/16/18 15:32 Luce % (Auto) 10.9 % (0.0-10.0) H 08/16/18 15:32 Eos % (Auto) 3.3 % (0.0-4.0) 08/16/18 15:32 Baso % (Auto) 1.4 % (0.0-2.0) 08/16/18 15:32 Neut # (Auto) 4.1 K/uL (1.8-7.0) 08/16/18 15:32 Lymph # (Auto) 0.9 K/uL (1.0-4.3) L 08/16/18 15:32 Luce # (Auto) 0.6 K/uL (0.0-0.8) 08/16/18 15:32 Eos # (Auto) 0.2 K/uL (0.0-0.7) 08/16/18 15:32 Baso # (Auto) 0.1 K/uL (0.0-0.2) 08/16/18 15:32 PT 12.7 SECONDS (9.7-12.2) H 08/16/18 15:32 INR 1.2 08/16/18 15:32 APTT 24 SECONDS (21-34) 08/16/18 15:32 Sodium 142 mmol/L (132-148) 08/16/18 19:36 Potassium 5.9 mmol/L (3.6-5.2) H 08/16/18 19:36 Chloride 102 mmol/L (98-107) 08/16/18 19:36 Carbon Dioxide 24 mmol/L (22-30) 08/16/18 19:36 Anion Gap 21 (10-20) H 08/16/18 19:36 BUN 67 mg/dL (9-20) H 08/16/18 19:36 Creatinine 10.7 mg/dL (0.8-1.5) H* 08/16/18 19:36 Est GFR ( Amer) 6 08/16/18 19:36 Est GFR (Non-Af Amer) 5 08/16/18 19:36 POC Glucose (mg/dL) 217 mg/dL (65-110) H 08/16/18 21:57 Random Glucose 191 mg/dL (75-110) H 08/16/18 19:36 Calcium 8.8 mg/dl (8.6-10.4) 08/16/18 19:36 Total Bilirubin 0.6 mg/dL (0.2-1.3) 08/16/18 19:36 AST 12 U/L (17-59) L D 08/16/18 19:36 ALT 16 U/L (21-72) L 08/16/18 19:36 Alkaline Phosphatase 76 U/L (38-126) 08/16/18 19:36 Troponin I < 0.0120 ng/mL (0.00-0.120) 08/16/18 15:32 NT-Pro-B Natriuret Pep 48222 pg/mL (0-900) H 08/16/18 15:32 Total Protein 7.3 g/dL (6.3-8.3) 08/16/18 19:36 Albumin 4.0 g/dL (3.5-5.0) 08/16/18 19:36 Globulin 3.4 gm/dL (2.2-3.9) 08/16/18 19:36 Albumin/Globulin Ratio 1.2 (1.0-2.1) 08/16/18 19:36 Urine Color Straw (YELLOW) 08/16/18 17:05 Urine Clarity Clear (Clear) 08/16/18 17:05 Urine pH 7.0 (5.0-8.0) 08/16/18 17:05 Ur Specific [place] 1.010 (1.003-1.030) 08/16/18 17:05 Urine Protein 2+ mg/dL (NEGATIVE) H 08/16/18 17:05 Urine Glucose (UA) 1+ mg/dL (Normal) H 08/16/18 17:05 Urine Ketones Negative mg/dL (NEGATIVE) 08/16/18 17:05 Urine Blood Negative (NEGATIVE) 08/16/18 17:05 Urine Nitrate Negative (NEGATIVE) 08/16/18 17:05 Urine Bilirubin Negative (NEGATIVE) 08/16/18 17:05 Urine Urobilinogen Normal mg/dL (0.2-1.0) 08/16/18 17:05 Ur Leukocyte Esterase Neg Katie/uL (Negative) 08/16/18 17:05 Urine WBC (Auto) < 1 /hpf (0-5) 08/16/18 17:05 Urine RBC (Auto) 2 /hpf (0-3) 08/16/18 17:05 Blood Type B POSITIVE 08/16/18 16:59 Antibody Screen Negative 08/16/18 16:59 - Hospital Course Hospital Course: Patient is a 57 year old male with PMHx significant for ESRD on HD MWF , HTN, DM, Charcot foot who presents to the ED with complaint that his permacath fell out. Patient states he missed his dialysis sessions on Wednesday and Wednesday as he was away for the weekend. Patient reports that when he went to change his shirt today his permacath fell out. Patient states he feels well and denies dyspnea, light-headed feeling, dizziness, fatigue. He reports that he urinates at least three to four times daily and twice at night. Patient states he had not seen either Dr. Lowery or Dr. Esquivel since his discharge from the hospital on 07/25/18. Patient currently stating that he does not want repeat permacath placement and wants to take kayexalate until his AV fistula matures. Patient reports he completed antibiotics as prescribed for cellulitis of left arm. He also reports compliance with Eliquis therapy for DVT treatment. CXR showed cardiomegaly and mild central pulmonary venous congestion with low interval lung volumes, but no acute pathology. Surgery was consulted to place another Permacath for dialysis but patient refused since he does not want another access since he already has the AVF that hasn't matured yet. Surgery talked to him again this AM which prompted his decision to leave since he states he is now sure that he doesn't want another surgery. Primary Diagnosis: Leaving against medical advice, ESRD needing dialysis Patient decided to leave AMA after talking to surgery with operating room surgical technologist. He was warned that his AVF on his L arm is unusable due to the cellulitis and the ligation performed last admission. The R arm AVF has not yet matured, so a new access would be the route best for continuing dialysis. Patient is choosing to forgo dialysis since he says he recognizes which symptoms to look out for. PMD and hospital attending was informed and spoke to the patient over telephone. The risks were explained by all parties and the patient understood and chose to sign the AMA form. He says he will followup with Dr. Esquivel next week to follow up the maturation of his R arm AVF. He will call to make an appointment with Dr. Lowery for this week to follow up on his bloodwork and monitor his potassium. The patient was escorted out the building on crutches since he refused wheelchair. This is a summary of the hospital course. For more detail, please refer to the EMR. - Date & Time of H&P Date of H&P: 08/17/18 Time of H&P: 09:00 Discharge Exam - Head Exam Head Exam: ATRAUMATIC, NORMOCEPHALIC - Eye Exam Eye Exam: EOMI - ENT Exam ENT Exam: Mucous Membranes Moist Additional comments: poor dentition - Neck Exam Additional comments: L EJ access removed prior to discharge - Respiratory Exam Respiratory Exam: Clear to PA & Lateral, NORMAL BREATHING PATTERN. absent: Rales, Rhonchi, Wheezes, Respiratory Distress - Cardiovascular Exam Cardiovascular Exam: REGULAR RHYTHM, +S1, +S2. absent: Systolic Murmur - GI/Abdominal Exam GI & Abdominal Exam: Normal Bowel Sounds, Soft. absent: Tenderness - Extremities Exam Extremities exam: pedal pulses present Additional comments: left foot in surgical boot right leg with trace pitting edema right arm AVF palpable thrill, audible bruit left arm with scarring from scratching and firmness on previous left arm AVF site peripheral pulses palpable bilaterally (radial, DP) - Neurological Exam Neurological exam: Alert, Oriented x3 - Skin Skin Exam: Dry, Intact Additional comments: Bandaids where R Permacath site was. No bruising, bleeding, discharge. Dressings changed and provided. Discharge Plan - Follow Up Plan Condition: FAIR Disposition: AGAINST MEDICAL ADVICE
--- NOTE | 2018-08-18 06:59 | CARD ---
APPROVED REPORT Date of service: 08/16/2018 EKG Measurement Heart [id number] <Conclusion> Normal sinus rhythm Left axis deviation Inferior infarct, age undetermined Anterior infarct, age undetermined Abnormal ECG
== END 2018-08-17 09:45 | disposition left against medical advice (07) | DRG 314 ==
LOC: C.ER 14:01 → C.9E 16:11 → C.6T 19:01
PROVIDERS: ADMIT Internal Medicine; ATTEND Internal Medicine
DX: T82.49XA Other complication of vascular dialysis catheter, initial encounter (principal); N18.6 End stage renal disease; E87.5 Hyperkalemia; E87.2 Acidosis; I13.2 Hypertensive heart and chronic kidney disease with heart failure and with stage 5 chronic kidney disease, or end stage renal disease; I82.622 Acute embolism and thrombosis of deep veins of left upper extremity; L03.114 Cellulitis of left upper limb; E11.22 Type 2 diabetes mellitus with diabetic chronic kidney disease; E11.610 Type 2 diabetes mellitus with diabetic neuropathic arthropathy; T82.590A Other mechanical complication of surgically created arteriovenous fistula, initial encounter; I50.9 Heart failure, unspecified; M14.679 Charcot's joint, unspecified ankle and foot; G89.29 Other chronic pain; F41.9 Anxiety disorder, unspecified; Z53.29 Procedure and treatment not carried out because of patient's decision for other reasons; Z87.01 Personal history of pneumonia (recurrent); Z99.2 Dependence on renal dialysis; Z79.01 Long term (current) use of anticoagulants; Z91.15 Patient's noncompliance with renal dialysis; Z79.4 Long term (current) use of insulin

== ENCOUNTER 2018-09-29 07:33 | Inpatient (IN) | payer MEDICARE ==
[2018-09-29 07:33] VITALS: BMI 32.5
--- NOTE | 2018-09-29 08:15 | C.PDOC ---
History Of Present Illness 57 y/o male with history of ESRD on HD (MWF), HTN, DM, Charcot foot and Anemia presents to ED sent by Dr. Ramirez for problems with catheter associated with neck swelling and right arm swelling since yesterday. Patient states he gets Heparin injection when receiving HD and currently denies fever, chills, leg swelling or any other complaints at this time. PMHx of ESRD on HD (MWF), CHF, DVT (on eliquis) HTN, DM, charcot foot, anemia On 08/22 pt had right sided permacath placement by Dr. Rodarte, Time Seen by Provider: 09/29/18 08:01 Chief Complaint (Nursing): Vascular Access Device Problem History Per: Patient History/Exam Limitations: no limitations Onset/Duration Of Symptoms: Days Current Symptoms Are (Timing): Still Present Past Medical History Reviewed: Historical Data, Nursing Documentation, Vital Signs Vital Signs: Last Vital Signs Temp 98.6 F 09/29/18 07:44 Pulse 97 H 09/29/18 07:44 Resp 18 09/29/18 07:44 BP 139/69 09/29/18 07:44 Pulse Ox 99 09/29/18 07:44 - Medical History PMH: Anemia, Anxiety, CHF, Diabetes, HTN, Pneumonia, End Stage Renal Disease (wed-wed-wed), Chronic Kidney Disease Surgical History: No Surg Hx - [facility] Procedures (08/19/18) CONTROL BLEEDING IN CHEST WALL, PERCUTANEOUS APPROACH (08/19/18) EXCIS DEBRIDE OF WOUND, INFECT, OR BURN (03/04/04) FLUOROSCOPY OF RIGHT HEART USING LOW OSMOLAR CONTRAST (08/19/18) INSERT INFUSION DEV IN R INT JUGULAR VEIN, PERC (07/18/18) INSERTION OF INFUSION DEVICE INTO R ATRIUM, PERC APPROACH (08/19/18) INSERTION OF VAD INTO CHEST SUBCU/FASCIA, PERC APPROACH (08/19/18) OCCLUSION OF LEFT BRACHIAL ARTERY, OPEN APPROACH (07/18/18) REMOVAL OF INFUSION DEVICE FROM UPPER VEIN, PERC APPROACH (07/18/18) TETANUS TOXOID ADMINIST (12/03/13) TRANSFUSE NONAUT RED BLOOD CELLS IN PERIPH VEIN, PERC (03/05/17) ULTRASONOGRAPHY OF RIGHT JUGULAR VEINS, GUIDANCE (08/19/18) Family History: States: No Known Family Hx - Social History Hx Tobacco Use: No Hx Alcohol Use: No Hx Substance Use: No - Immunization History Hx Tetanus Toxoid Vaccination: Yes Hx Influenza Vaccination: Yes Hx Pneumococcal Vaccination: No Review Of Systems Constitutional: Negative for: Fever, Chills Cardiovascular: Negative for: Chest Pain Gastrointestinal: Negative for: Nausea, Vomiting Musculoskeletal: Positive for: Neck Pain (swelling), Arm Pain (swelling) Skin: Positive for: Bruising. Negative for: Rash Physical Exam - Physical Exam Appears: Non-toxic, No Acute Distress Skin: Warm, Dry, No Rash Head: Atraumatic, Normacephalic Eye(s): bilateral: Normal Inspection Oral Mucosa: Moist Neck: Other (right > left circumferential swelling) Chest: Other (right chest catheter in place) Cardiovascular: Rhythm Regular Respiratory: Normal Breath Sounds, No Rales, No Rhonchi, No Stridor, No Wheezing Gastrointestinal/Abdominal: Soft, No Tenderness, No Guarding, No Rebound Extremity: Capillary Refill (<2 seconds), No Deformity, Swelling (right upper extremity tense but soft and non pitting), Other (Multiple bruises on right arm,) Pulses: Right Radial: Normal Neurological/Psych: Oriented x3, Normal Speech, Normal Cognition, Normal Motor, Normal Sensation ED Course And Treatment O2 Sat by Pulse Oximetry: 99 (RA) Pulse Ox Interpretation: Normal Progress - Re-Evaluation Re-evaluation Note: 09/29/18 08:14 d/w dr rodarte ADVISES VENOGRAM, HEPARIN 09/29/18 08:23 Dr. Ramirez paged 09/29/18 08:51 D/W DR ALVAREZ C/F DR RAMIREZ, STATES NO INDICATION FOR EMERGENT HD AFTER CT. PT CAN BE DC AFTER CT AND RESUME ROUTINE SCHEDULE 09/29/18 09:39 UNABLE TO GET IV ACCESS. DVT REPORT REVIEWED, D/W DR WESTFALL WILL EVAL PT @ BEDSIDE. HOLD HEPARIN PENDING PERMACATH REMOVAL 09/29/18 10:03 S/P EVAL DR RODARTE RECOMMENDS ADMISSION FOR HEPARIN D/W DR LUBIN WILL ADMIT. MED RESIDENT NOTIFIED - Data Reviewed Data Reviewed: Old records Disposition Counseled Patient/Family Regarding: Diagnosis - Disposition Disposition: HOSPITALIZED Disposition Time: 10:05 Condition: STABLE Forms: [email or web address] ([employer]) - POA Present On Arrival: Deep Vein Thrombosis / PE - Clinical Impression Clinical Impression: ESRD (end stage renal disease) on dialysis, DVT (deep venous thrombosis) - Scribe Statement The provider has reviewed the documentation as recorded by the Alexandre Rhoades All medical record entries made by the Katieibkay were at my direction and personally dictated by me. I have reviewed the chart and agree that the record accurately reflects my personal performance of the history, physical exam, medical decision making, and the department course for this patient. I have also personally directed, reviewed, and agree with the discharge instructions and disposition.
--- NOTE | 2018-09-29 10:44 | CP.PCM.CON ---
History of Present Illness - History of Present Illness History of Present Illness: Patient is a 57 year old male with past medical history of ESRD on HD MWF, HTN, DM, Charcot foot, who presented to ED with complaints of RUE swelling and pain x1 day. Patient reports feeling of fullness in his ear, and new onset swelling of his right arm, chest, neck. Patient reports a history significant for non-functioning/bleeding AVFs with revisions, permacath insertions, DVTs requiring Eliquis. Patient reports he is compliant with HD and meds as prescribed. Denies chest pain, SOB, abd pain, nausea, vomiting. PMHx: ESRD, HTN, DM2, charcot foot, DVT PSHx: LUE AVF, RUE AVF Allergies: Denies SocHx: social etoh, denies tobacco/drugs Review of Systems - Cardiovascular Cardiovascular: absent: Chest Pain, Radiating Pain - Respiratory Respiratory: absent: Cough, Dyspnea - Gastrointestinal Gastrointestinal: absent: Abdominal Pain, Nausea - Musculoskeletal Musculoskeletal: Other Additional comments: RUE swelling, pain with movement - Neurological Neurological: absent: Paresthesias Past Patient History - Infectious Disease Hx of Infectious Diseases: None - Past Medical History & Family History Past Medical History?: Yes - Past Social History Smoking Status: Never Smoked - CARDIAC Hx Congestive Heart Failure: Yes Hx Hypertension: Yes - PULMONARY Hx Pneumonia: Yes - NEUROLOGICAL Hx Neurological Disorder: No - HEENT Hx HEENT Problems: No - RENAL Hx Chronic Kidney Disease: Yes - ENDOCRINE/METABOLIC Hx Endocrine Disorders: Yes Hx Diabetes Mellitus Type 2: Yes (denies) - HEMATOLOGICAL/ONCOLOGICAL Hx Anemia: Yes - INTEGUMENTARY Hx Dermatological Problems: No Hx Cellulitis: Yes (left arm) - MUSCULOSKELETAL/RHEUMATOLOGICAL Hx Falls: Yes - GASTROINTESTINAL Hx Gastrointestinal Disorders: No - GENITOURINARY/GYNECOLOGICAL Hx Genitourinary Disorders: No - PSYCHIATRIC Hx Anxiety: Yes Hx Substance Use: No - SURGICAL HISTORY Hx Surgeries: Yes Hx Musculoskeletal Surgery: Yes (LT FOOT SX) Other/Comment: LT CHEST WALL DIALYSIS CATH. AVF. right sc dialysis access - ANESTHESIA Hx Anesthesia: Yes Hx Anesthesia Reactions: No Hx Malignant Hyperthermia: No Meds Allergies/Adverse Reactions: Allergies Allergy/AdvReac Type Severity Reaction Status Date / Time acetaminophen [From Percocet] Allergy Verified 08/19/18 17:06 ibuprofen Allergy Verified 08/19/18 17:06 oxycodone [From Percocet] Allergy Verified 08/19/18 17:06 tramadol Allergy Verified 08/19/18 17:06 PEACH SNAPPLE Allergy Mild RASH Uncoded 08/19/18 17:06 Physical Exam - Constitutional Appears: Non-toxic, No Acute Distress - Head Exam Head Exam: ATRAUMATIC, NORMAL INSPECTION, NORMOCEPHALIC - ENT Exam ENT Exam: Mucous Membranes Moist - Neck Exam Additional comments: Right neck edema into jaw, moderate - Respiratory Exam Respiratory Exam: NORMAL BREATHING PATTERN. absent: Respiratory Distress Additional comments: chest wall edema - Cardiovascular Exam Cardiovascular Exam: REGULAR RHYTHM. absent: Tachycardia - GI/Abdominal Exam GI & Abdominal Exam: Soft. absent: Distended - Extremities Exam Extremities exam: Positive for: pedal edema. Negative for: calf tenderness Additional comments: RUE edema new right avf w/ palpable thrill LLE in boot - Neurological Exam Neurological exam: Alert - Psychiatric Exam Psychiatric exam: Normal Affect, Normal Mood - Skin Skin Exam: Dry, Normal Color, Warm Results - Vital Signs Recent Vital Signs: Last Vital Signs Temp 98.6 F 09/29/18 07:44 Pulse 97 H 09/29/18 07:44 Resp 18 09/29/18 07:44 BP 139/69 09/29/18 07:44 Pulse Ox 99 09/29/18 10:05 - Labs Result Diagrams: 09/29/18 10:53 09/29/18 10:53 Assessment & Plan - Assessment and Plan (Free Text) Assessment: 57 year old male admitted for evaluation of RUE pain/swelling, found to have partial acute clot of right IJ vein. Plan: -Right permacath removed at bedside in ED with attached clot extending into catheter -Heparin drip high dose DVT -monitor for improvement in right facial/arm edema -monitor RUE AVF function -medical management per primary Will discuss with Dr. Sierra Ayala, PGY-1
[2018-09-29 10:52] LABS: HEMOGLOBIN 9.6 g/dL (12.0-18.0); MEAN CELL VOLUME 93.5 fL (80.0-94.0); MEAN CORPUSCULAR HEMOGLOBIN 31.5 pg (27.0-31.0); MEAN CORPUSCULAR HGB CONC 33.7 g/dL (33.0-37.0); MEAN PLATELET VOLUME 7.6 fL (7.2-11.7); RBC 3.04 Mil/uL (4.40-5.90); RED CELL DISTRIBUTION WIDTH 15.8 % (11.5-14.5); WHITE BLOOD COUNT 6.2 K/uL (4.8-10.8)
[2018-09-29 10:58] LABS: INR 1.3; PROTHROMBIN TIME 13.7 SECONDS (9.7-12.2)
--- NOTE | 2018-09-29 10:58 | CP.PCM.HP ---
History of Present Illness - History of Present Illness History of Present Illness: Medicine Note for Dr Lowery Service HPI 57yo M with past medical history of ESRD on HD MWF, HTN, DM, Charcot foot, who presented to ED with complaints of RUE swelling and pain since yesterday AM. Pt has fullness in his ear, and new onset swelling of his right arm, chest, neck. Pt has a hx of AVFs sx that failed on his L arm. Pt has a successful AVF on the R arm matured Sep 19 2018. Patient reports he is compliant with HD however has stopped taking his Eliquis, currently his only anticoag is the Heparin he recieves during dialysis on MWFs. Pt reports weakness bilaterally and numbness on the L forearm in all dermatomes. Pt cannot walk well b/c of his Ankle frax on the R side. Pt reports blurry vision yesterday AM and today but is able to read. Denies chest pain, SOB, abd pain, nausea, vomiting. PMHx: ESRD, HTN, DM2, charcot foot, DVT PSHx: LUE AVF, RUE AVF Allergies: Denies SocHx: social etoh, denies tobacco/drugs Home Rx: Norvasc 10 QD Labetelol 300 QD Naproxen Not taking Apixaban 5mg Singulair Bumex Present on Admission - Present on Admission Any Indicators Present on Admission: Yes History of DVT/PE: Yes Review of Systems - EENT Eyes: Blurred Vision - Cardiovascular Cardiovascular: Pain Radiating to Arm/Neck/Jaw, Radiating Pain. absent: Chest Pain, Syncope - Respiratory Respiratory: As Per HPI - Gastrointestinal Gastrointestinal: As Per HPI - Genitourinary Genitourinary: As Per HPI - Reproductive: Male Reproductive:Male: As Per HPI - Musculoskeletal Musculoskeletal: Neck Pain (R side), Numbness, Tingling (R arm) - Neurological Neurological: Numbness, Focal Weakness (Arms), Headaches, Paresthesias Past Patient History - Infectious Disease Hx of Infectious Diseases: None - Past Medical History & Family History Past Medical History?: Yes - Past Social History Smoking Status: Never Smoked - CARDIAC Hx Congestive Heart Failure: Yes Hx Hypertension: Yes - PULMONARY Hx Pneumonia: Yes - NEUROLOGICAL Hx Neurological Disorder: No - HEENT Hx HEENT Problems: No - RENAL Hx Chronic Kidney Disease: Yes - ENDOCRINE/METABOLIC Hx Endocrine Disorders: Yes Hx Diabetes Mellitus Type 2: Yes (denies) - HEMATOLOGICAL/ONCOLOGICAL Hx Anemia: Yes - INTEGUMENTARY Hx Dermatological Problems: No Hx Cellulitis: Yes (left arm) - MUSCULOSKELETAL/RHEUMATOLOGICAL Hx Falls: Yes - GASTROINTESTINAL Hx Gastrointestinal Disorders: No - GENITOURINARY/GYNECOLOGICAL Hx Genitourinary Disorders: No - PSYCHIATRIC Hx Anxiety: Yes Hx Substance Use: No - SURGICAL HISTORY Hx Surgeries: Yes Hx Musculoskeletal Surgery: Yes (LT FOOT SX) Other/Comment: LT CHEST WALL DIALYSIS CATH. AVF. right sc dialysis access - ANESTHESIA Hx Anesthesia: Yes Hx Anesthesia Reactions: No Hx Malignant Hyperthermia: No Meds Allergies/Adverse Reactions: Allergies Allergy/AdvReac Type Severity Reaction Status Date / Time acetaminophen [From Percocet] Allergy Verified 08/19/18 17:06 ibuprofen Allergy Verified 08/19/18 17:06 oxycodone [From Percocet] Allergy Verified 08/19/18 17:06 tramadol Allergy Verified 08/19/18 17:06 PEACH SNAPPLE Allergy Mild RASH Uncoded 08/19/18 17:06 Results - Vital Signs Recent Vital Signs: Last Vital Signs Temp 98.6 F 09/29/18 07:44 Pulse 97 H 09/29/18 07:44 Resp 18 09/29/18 07:44 BP 139/69 09/29/18 07:44 Pulse Ox 99 09/29/18 10:05 - Labs Result Diagrams: 09/29/18 10:53 09/29/18 10:53 Assessment & Plan - Assessment and Plan (Free Text) Assessment: 57yo M with a PMH of ESRD (MWF hd) CHF DVTs and s/p permacath on 08/[address] Esquivel. PLAN Subclavian Thrombus -Heparin 9000 u given in ED -Heparin drip @ 18u/kg/hr -Permacath Removed by Dr Esquivel -VascSx Sierra consulted f/u recs -pending surgical intervention timeline will resume anticoag -PT elevated -f/u Upper Ext Duplex -Dilaudid 1g q4 w/ Benadryl 25mg IVP q4 Radiating Neck Pains -CRISTÓBAL neg x1 -EKG unchanged from previous 08/22 -Dilaudid 1g q4 prn ESRD -Monitor I&Os -elevated BUN/Cr -HD MWFs -Dr Miles Dodd consulted recs: pt seen and examined labs and vitals reviewed vascular surgery recs appreciated plan for HD tomorrow, will use 17 G needles for cannulation Rt AVF d/w HD nurses Neprovite and pro-crit HTN -Norvasc 10mg QD -Labetalol 300 PO BID -Monitor BP PPX: -Heparin drip -Pepcid 20mg
[2018-09-29 11:07] LABS: CALCIUM 7.9 mg/dl (8.6-10.4)
--- NOTE | 2018-09-29 11:50 | CP.PCM.CON ---
History of Present Illness - History of Present Illness History of Present Illness: renal note pt seen and examined labs and vitals reviewed vascular surgery recs appreciated plan for HD tomorrow, will use 17 G needles for cannulation Rt AVF d/w HD nurses Past Patient History - Infectious Disease Hx of Infectious Diseases: None - Past Medical History & Family History Past Medical History?: Yes - Past Social History Smoking Status: Never Smoked - CARDIAC Hx Congestive Heart Failure: Yes Hx Hypertension: Yes - PULMONARY Hx Pneumonia: Yes - NEUROLOGICAL Hx Neurological Disorder: No - HEENT Hx HEENT Problems: No - RENAL Hx Chronic Kidney Disease: Yes - ENDOCRINE/METABOLIC Hx Endocrine Disorders: Yes Hx Diabetes Mellitus Type 2: Yes (denies) - HEMATOLOGICAL/ONCOLOGICAL Hx Anemia: Yes - INTEGUMENTARY Hx Dermatological Problems: No Hx Cellulitis: Yes (left arm) - MUSCULOSKELETAL/RHEUMATOLOGICAL Hx Falls: Yes - GASTROINTESTINAL Hx Gastrointestinal Disorders: No - GENITOURINARY/GYNECOLOGICAL Hx Genitourinary Disorders: No - PSYCHIATRIC Hx Anxiety: Yes Hx Substance Use: No - SURGICAL HISTORY Hx Surgeries: Yes Hx Musculoskeletal Surgery: Yes (LT FOOT SX) Other/Comment: LT CHEST WALL DIALYSIS CATH. AVF. right sc dialysis access - ANESTHESIA Hx Anesthesia: Yes Hx Anesthesia Reactions: No Hx Malignant Hyperthermia: No Meds Allergies/Adverse Reactions: Allergies Allergy/AdvReac Type Severity Reaction Status Date / Time acetaminophen [From Percocet] Allergy Verified 08/19/18 17:06 ibuprofen Allergy Verified 08/19/18 17:06 oxycodone [From Percocet] Allergy Verified 08/19/18 17:06 tramadol Allergy Verified 08/19/18 17:06 PEACH SNAPPLE Allergy Mild RASH Uncoded 08/19/18 17:06 - Medications Medications: Current Medications Amlodipine Besylate (Norvasc) 10 mg PO DAILY R[place] Bumetanide (Bumex) 1 mg PO Q12 [facility] Cyclobenzaprine HCl (Flexeril) 10 mg PO TID [facility] Diphenhydramine HCl (Benadryl) 25 mg IVP Q4 PRN PRN Reason: Allergy symptoms Epoetin Efrain (Procrit) 8,000 unit IV MWF [facility] Famotidine (Pepcid) 20 mg PO DAILY [facility] Hydromorphone HCl (Dilaudid) 1 mg IVP Q4H PRN PRN Reason: Pain, severe (8-10) Heparin Sodium/Sodium Chloride (Heparin 03105 Units/250ml 1/2 Normal Saline) 25,000 units in 250 mls @ 20.412 mls/hr IV .[id number] PRN; Protocol PRN Reason: PROTOCOL Labetalol HCl (Normodyne) 300 mg PO BID R[place] Montelukast Sodium (Singulair) 10 mg PO TID [place] Vitamin B Complex/Vit C/Folic Acid (Nephro-Leanna) 1 tab PO 0800 [place] Results - Vital Signs Recent Vital Signs: Last Vital Signs Temp 97.7 F 09/29/18 11:22 Pulse 80 09/29/18 11:22 Resp 20 09/29/18 11:22 BP 179/83 H 09/29/18 11:22 Pulse Ox 97 09/29/18 11:22 - Labs Result Diagrams: 09/29/18 10:53 09/29/18 10:53 Labs: Laboratory Results - last 24 hr 09/29/18 09/29/18 09/29/18 10:53 10:53 10:53 WBC 6.2 RBC 3.04 L Hgb 9.6 L Hct 28.4 L MCV 93.5 MCH 31.5 H MCHC 33.7 RDW 15.8 H Plt Count 149 MPV 7.6 PT 13.7 H INR 1.3 APTT 32 Sodium 135 Potassium 4.4 Chloride 90 L Carbon Dioxide 32 H Anion Gap 18 BUN 31 H Creatinine 5.9 H Est GFR ( Amer) 12 Est GFR (Non-Af Amer) 10 POC Glucose (mg/dL) Random Glucose 226 H Calcium 7.9 L 09/29/18 11:37 WBC RBC Hgb Hct MCV MCH MCHC RDW Plt Count MPV PT INR APTT Sodium Potassium Chloride Carbon Dioxide Anion Gap BUN Creatinine Est GFR ( Amer) Est GFR (Non-Af Amer) POC Glucose (mg/dL) 254 H Random Glucose Calcium
[2018-09-29] MEDS: HYDROmorphone 1 mg/ml ISec IVP PRN ×2 (12:03→16:21)
--- NOTE | 2018-09-29 12:48 | VASCLAB ---
Date of service: 09/29/2018 PROCEDURE: Right Upper Extremity Venous Duplex Exam HISTORY: Swelling, r/o DVT PRIORS: None. TECHNIQUE: Right upper extremity, internal jugular, subclavian, axillary, brachial, ulnar, radial, basilic and upper cephalic veins were evaluated. Flow was assessed with color Doppler, compressibility, assessment of phasic flow and augmentation response. Report prepared by FLORIAN Beaver FINDINGS: RIGHT: 1. Internal Jugular: 1.1. Compressibility - Partial: Thrombus - Acute : Flow - Reduced : Augmentation -Normal: Reflux - None. 2. Subclavian: 2.1. Unable to examine, permacath in place. 3. Axillary: 3.1. Compressibility - Fully compressible: Thrombus - None : Flow - Phasic: Augmentation -Normal: Reflux - None. 4. Brachial: 4.1. Compressibility - Fully compressible: Thrombus - None: Flow - Phasic: Augmentation -Normal: Reflux - None. 5. Ulnar: 5.1. Compressibility - Fully compressible: Thrombus - None: Flow - Phasic: Augmentation -Normal: Reflux - None. 6. Radial: 6.1. Compressibility - Fully compressible: Thrombus - None: Flow - Phasic: Augmentation - Normal: Reflux - None. 7. Cephalic: (forearm) 7.1. Compressibility - Fully compressible: Thrombus - None: Flow - Phasic: Augmentation -Normal: Reflux - None. 8. Basilic: 8.1. Compressibility - Fully compressible: Thrombus - None: Flow - Phasic: Augmentation -Normal: Reflux - None. 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 Normal venous flow noted in the left subclavian vein. IMPRESSION: Right: Partial acute deep vein thrombosis of the right internal jugular vein, with mild reduction of the venous return. Findings were reported to MACHINE PAN GREASERALEX Fernandez at 9:15 am. Incidental finding: Patent right arm AV Fistula.
[2018-09-29 13:09] LABS: CK-MB 0.93 ng/mL (0.0-3.38); TROPONIN I 0.017 ng/mL (0.00-0.120)
[2018-09-29] MEDS: Heparin25000 units/250ml 1/2NS 25,000 UNITS/250 ML BAG IV PRN (14:15)
[2018-09-29] MEDS ORDERED: Dextrose 50% SYRINGE Inj (50 ml) IV PRN (15:00)
[2018-09-29] MEDS ORDERED: Glucagon Recombinant 1 mg Inj IM PRN (15:00)
[2018-09-29] MEDS: (Novolin R) Insulin Human Regular 100 units/ml vial SC SCH ×2 (15:30→21:23)
[2018-09-29] MEDS: Labetalol Hydrochloride 300 mg Tab PO SCH (17:45)
[2018-09-29 20:21] LABS: CK-MB 0.79 ng/mL (0.0-3.38); TROPONIN I 0.015 ng/mL (0.00-0.120)
[2018-09-29 21:02] LABS: INR 1.2; PROTHROMBIN TIME 13.2 SECONDS (9.7-12.2)
[2018-09-30] MEDS: Heparin25000 units/250ml 1/2NS 25,000 UNITS/250 ML BAG IV PRN ×2 (01:59→14:00)
[2018-09-30 03:35] LABS: INR 1.2
[2018-09-30 06:09] LABS: BASO % 0.7 % (0.0-2.0); EOS # 0.2 K/uL (0.0-0.7); EOS % 3.8 % (0.0-4.0); HEMOGLOBIN 8.9 g/dL (12.0-18.0); LYMPH # 1.6 K/uL (1.0-4.3); LYMPH % 28.2 % (20.0-40.0); MEAN CELL VOLUME 93.7 fL (80.0-94.0); MEAN PLATELET VOLUME 8.2 fL (7.2-11.7); MONO # 0.6 K/uL (0.0-0.8); NEUT # 3.2 K/uL (1.8-7.0); NEUT % 57.3 % (50.0-75.0); RBC 2.87 Mil/uL (4.40-5.90); RED CELL DISTRIBUTION WIDTH 15.7 % (11.5-14.5); WHITE BLOOD COUNT 5.6 K/uL (4.8-10.8)
[2018-09-30 06:48] LABS: ALB/GLOB RATIO 1.1 (1.0-2.1); ALBUMIN 3.4 g/dL (3.5-5.0); CALCIUM 7.8 mg/dl (8.6-10.4)
[2018-09-30 06:58] LABS: CK-MB 1.16 ng/mL (0.0-3.38)
--- NOTE | 2018-09-30 07:00 | CP.PCM.PN ---
<Ric Hoover - Last Filed: 09/30/18 16:49> Subjective - Date & Time of Evaluation Date of Evaluation: 09/30/18 Time of Evaluation: 07:00 - Subjective Subjective: Medicine Note for Dr Lowery Service Pt seen and examined at bedside. Pt going for HD today. Pt feels usual uremic feeling , says he feels like he need to be dialyzed. Pt denies CP nv fc sob Objective - Vital Signs/Intake and Output Vital Signs (last 24 hours): Temp Pulse Resp BP Pulse Ox 97.7 F 69 20 157/85 H 100 09/30/18 00:00 09/30/18 00:00 09/30/18 00:00 09/30/18 00:00 09/30/18 02:05 Intake and Output: 09/30/18 09/30/18 06:59 18:59 Intake Total 250 Balance 250 - Medications Medications: Current Medications Amlodipine Besylate (Norvasc) 10 mg PO DAILY [facility] Aspirin (Aspirin Chewable) 81 mg PO DAILY [facility] Bumetanide (Bumex) 1 mg PO Q12 [facility] Last Admin: 09/29/18 21:20 Dose: 1 mg Cyclobenzaprine HCl (Flexeril) 10 mg PO TID [facility] Last Admin: 09/29/18 17:44 Dose: 10 mg Dextrose (Dextrose 50% Inj) 0 ml IV STAT PRN; Protocol PRN Reason: Hypoglycemia Protocol Dextrose (Glutose 15) 0 gm PO ONCE PRN; Protocol PRN Reason: Hypoglycemia Protocol Diphenhydramine HCl (Benadryl) 25 mg IVP Q4 PRN PRN Reason: Allergy symptoms Epoetin Efrain (Procrit) 8,000 unit IV MWF [facility] Famotidine (Pepcid) 20 mg PO DAILY [facility] Glucagon (Glucagen Diagnostic Kit) 0 mg IM STAT PRN; Protocol PRN Reason: Hypoglycemia Protocol Hydromorphone HCl (Dilaudid) 2 mg IVP Q4H PRN PRN Reason: Pain, severe (8-10) Last Admin: 09/30/18 04:25 Dose: 2 mg Heparin Sodium/Sodium Chloride (Heparin 43391 Units/250ml 1/2 Normal Saline) 25,000 units in 250 mls @ 20.412 mls/hr IV .[id number] PRN; Protocol PRN Reason: PROTOCOL Last Admin: 09/30/18 01:59 Dose: 18 units/kg/hr, 20.412 mls/hr Dextrose (Dextrose 5% In Water 1000 Ml) 1,000 mls @ 0 mls/hr IV .Q0M PRN; Protocol PRN Reason: Hypoglycemia Protocol Insulin Human Regular (Novolin R) 0 unit SC ACHS [facility]; Protocol Last Admin: 09/29/18 21:23 Dose: Not Given Labetalol HCl (Normodyne) 300 mg PO BID [facility] Last Admin: 09/29/18 17:45 Dose: 300 mg Montelukast Sodium (Singulair) 10 mg PO HS [facility] Last Admin: 09/29/18 21:24 Dose: 10 mg Rosuvastatin Calcium (Crestor) 10 mg PO HS [facility] Last Admin: 09/29/18 21:20 Dose: 10 mg Vitamin B Complex/Vit C/Folic Acid (Nephro-Leanna) 1 tab PO 0800 [facility] - Labs Labs: 09/30/18 06:04 09/30/18 06:04 PT 13.0 SECONDS (9.7-12.2) H 09/30/18 03:20 INR 1.2 09/30/18 03:20 APTT 48 SECONDS (21-34) H 09/30/18 03:20 - Additional Findings Additional findings: - Constitutional Appears: Non-toxic, No Acute Distress - Head Exam Head Exam: ATRAUMATIC, NORMAL INSPECTION, NORMOCEPHALIC - ENT Exam ENT Exam: Mucous Membranes Moist - Neck Exam Additional comments: Right neck edema into jaw, moderate - Respiratory Exam Respiratory Exam: NORMAL BREATHING PATTERN. absent: Respiratory Distress Additional comments: chest wall edema - Cardiovascular Exam Cardiovascular Exam: REGULAR RHYTHM. absent: Tachycardia - GI/Abdominal Exam GI & Abdominal Exam: Soft. absent: Distended - Extremities Exam Extremities exam: Positive for: pedal edema. Negative for: calf tenderness Additional comments: RUE edema new right avf w/ palpable thrill LLE in boot - Neurological Exam Neurological exam: Alert - Psychiatric Exam Psychiatric exam: Normal Affect, Normal Mood - Skin Skin Exam: Dry, Normal Color, Warm Assessment and Plan - Assessment and Plan (Free Text) Assessment: 57yo M with a PMH of ESRD (MWF hd) CHF DVTs and s/p permacath on 08/[address] Esquivel. PLAN Subclavian Thrombus -Heparin drip @ 18u/kg/hr -Permacath Removed by Dr Esquivel -VascSx Sierra consulted f/u recs: -per sx team scheduled for fistulogram wednesday -PT elevated -Upper Ext Duplex:f/u -Dilaudid 2g q4 w/ Benadryl 25mg IVP q4 Radiating Neck Pains -CRISTÓBAL neg x3 -EKG unchanged from previous 08/22 -Dilaudid 2g q4 prn ESRD -Monitor I&Os -elevated BUN/Cr -HD MWFs -Dr Aquino Nephgary consulted recs: HD MWFs Neprovite and pro-crit HTN -Norvasc 10mg QD po -Labetalol 300 PO BID Hx of CHF -ASA 81mg po qd -Labetalol 300mg PO BID Asthma -Bumex -Singulair DM -ASA 81mg PO qd -Crestor 5mg qd -Accuchecks ACHS -Maintain euglycemia 120-180 PPX: -Heparin drip -ASA 81mg PO qd -Pepcid 20mg <Prashanth Lowery Jr. - Last Filed: 10/05/18 10:17> Objective - Vital Signs/Intake and Output Vital Signs (last 24 hours): Temp Pulse Resp BP Pulse Ox 98 F 80 20 159/80 H 97 10/04/18 08:18 10/04/18 08:18 10/04/18 08:18 10/04/18 08:18 10/04/18 08:18 - Labs Labs: 10/04/18 07:10 10/04/18 07:10 PT 12.7 SECONDS (9.7-12.2) H 10/03/18 16:40 INR 1.2 10/03/18 16:40 APTT 36 SECONDS (21-34) H D 10/03/18 16:40 Attending/Attestation - Attestation I have personally seen and examined this patient.: Yes I have fully participated in the care of the patient.: Yes I have reviewed all pertinent clinical information, including history, physical exam and plan: Yes Notes (Text): 10/05/18 10:17 REVIEWED resident note and agrre with findings and plan of care.
[2018-09-30] MEDS: (Novolin R) Insulin Human Regular 100 units/ml vial SC SCH ×4 (08:21→21:10)
[2018-09-30] MEDS: Multivitamin Vitamin B Complex (Nephro-Vite) Tab PO SCH (08:36)
[2018-09-30] MEDS: Labetalol Hydrochloride 300 mg Tab PO SCH ×2 (09:10→17:06)
--- NOTE | 2018-09-30 10:14 | CP.PCM.PN ---
Subjective - Date & Time of Evaluation Date of Evaluation: 09/30/18 Time of Evaluation: 07:00 - Subjective Subjective: VASCULAR SURGERY PROGRESS NOTE FOR DR. RODARTE Patient seen and examined at bedside. He reports improvement in swelling of right neck but still some pain and swelling in the area. On Heparin. Objective - Vital Signs/Intake and Output Vital Signs (last 24 hours): Temp Pulse Resp BP Pulse Ox 97.4 F L 70 20 167/85 H 96 09/30/18 08:20 09/30/18 08:20 09/30/18 08:20 09/30/18 08:20 09/30/18 08:20 Intake and Output: 09/30/18 09/30/18 06:59 18:59 Intake Total 250 Balance 250 - Medications Medications: Current Medications Amlodipine Besylate (Norvasc) 10 mg PO DAILY [facility] Last Admin: 09/30/18 09:10 Dose: Not Given Aspirin (Aspirin Chewable) 81 mg PO DAILY [facility] Last Admin: 09/30/18 09:15 Dose: 81 mg Bumetanide (Bumex) 1 mg PO Q12 [facility] Last Admin: 09/30/18 09:18 Dose: Not Given Cyclobenzaprine HCl (Flexeril) 10 mg PO TID [facility] Last Admin: 09/30/18 09:15 Dose: 10 mg Dextrose (Dextrose 50% Inj) 0 ml IV STAT PRN; Protocol PRN Reason: Hypoglycemia Protocol Dextrose (Glutose 15) 0 gm PO ONCE PRN; Protocol PRN Reason: Hypoglycemia Protocol Diphenhydramine HCl (Benadryl) 25 mg IVP Q4 PRN PRN Reason: Allergy symptoms Epoetin Efrain (Procrit) 8,000 unit IV MWF [facility] Famotidine (Pepcid) 20 mg PO DAILY [facility] Last Admin: 09/30/18 09:15 Dose: 20 mg Glucagon (Glucagen Diagnostic Kit) 0 mg IM STAT PRN; Protocol PRN Reason: Hypoglycemia Protocol Hydromorphone HCl (Dilaudid) 2 mg IVP Q4H PRN PRN Reason: Pain, severe (8-10) Last Admin: 09/30/18 08:53 Dose: 2 mg Heparin Sodium/Sodium Chloride (Heparin 79219 Units/250ml 1/2 Normal Saline) 25,000 units in 250 mls @ 20.412 mls/hr IV .[id number] PRN; Protocol PRN Reason: PROTOCOL Last Admin: 09/30/18 01:59 Dose: 18 units/kg/hr, 20.412 mls/hr Dextrose (Dextrose 5% In Water 1000 Ml) 1,000 mls @ 0 mls/hr IV .Q0M PRN; Protocol PRN Reason: Hypoglycemia Protocol Insulin Human Regular (Novolin R) 0 unit SC ACHS [facility]; Protocol Last Admin: 09/30/18 08:21 Dose: Not Given Labetalol HCl (Normodyne) 300 mg PO BID [facility] Last Admin: 09/30/18 09:10 Dose: Not Given Montelukast Sodium (Singulair) 10 mg PO HS [facility] Last Admin: 09/29/18 21:24 Dose: 10 mg Rosuvastatin Calcium (Crestor) 10 mg PO HS [facility] Last Admin: 09/29/18 21:20 Dose: 10 mg Vitamin B Complex/Vit C/Folic Acid (Nephro-Leanna) 1 tab PO 0800 [facility] Last Admin: 09/30/18 08:36 Dose: 1 tab - Labs Labs: 09/30/18 06:04 09/30/18 06:04 PT 13.0 SECONDS (9.7-12.2) H 09/30/18 03:20 INR 1.2 09/30/18 03:20 APTT 48 SECONDS (21-34) H 09/30/18 03:20 - Constitutional Appears: Non-toxic, No Acute Distress - Head Exam Head Exam: ATRAUMATIC, NORMAL INSPECTION - Eye Exam Eye Exam: EOMI, Normal appearance - Neck Exam Additional comments: Right neck edema - improved since yesterday Dressing over previous permacath site - clean/dry/intact - Respiratory Exam Respiratory Exam: NORMAL BREATHING PATTERN. absent: Respiratory Distress - Cardiovascular Exam Cardiovascular Exam: +S1, +S2 - Extremities Exam Additional comments: Right arm AVF with palpable thrill - Neurological Exam Neurological Exam: Alert, Awake Assessment and Plan - Assessment and Plan (Free Text) Assessment: 57 year old male admitted for evaluation of RUE pain/swelling, found to have partial acute clot of right IJ vein. Plan: - Continue Heparin drip - Right facial/arm edema improving - Fistulagram Wednesday - Medical management per primary - Discussed with Dr. Sierra Stiles PGY-4
[2018-09-30] MEDS: EPOETIN ALFA 4,000 UNIT/ML ML Dialysis IV SCH (12:41)
--- NOTE | 2018-09-30 21:24 | CARD ---
APPROVED REPORT Date of service: 09/29/2018 EKG Measurement Heart [id number] <Conclusion> Normal sinus rhythm Inferior infarct, age undetermined Abnormal ECG
[2018-10-01] MEDS: Heparin25000 units/250ml 1/2NS 25,000 UNITS/250 ML BAG IV PRN ×2 (02:29→15:40)
[2018-10-01] MEDS: (Novolin R) Insulin Human Regular 100 units/ml vial SC SCH ×4 (08:26→21:30)
[2018-10-01 08:27] LABS: BASO % 0.9 % (0.0-2.0); EOS # 0.2 K/uL (0.0-0.7); EOS % 3.4 % (0.0-4.0); HEMOGLOBIN 9.2 g/dL (12.0-18.0); LYMPH # 0.9 K/uL (1.0-4.3); LYMPH % 17.3 % (20.0-40.0); MEAN CELL VOLUME 93.3 fL (80.0-94.0); MEAN CORPUSCULAR HEMOGLOBIN 31.1 pg (27.0-31.0); MEAN CORPUSCULAR HGB CONC 33.3 g/dL (33.0-37.0); MEAN PLATELET VOLUME 7.1 fL (7.2-11.7); MONO # 0.5 K/uL (0.0-0.8); MONO % 9.3 % (0.0-10.0); NEUT # 3.6 K/uL (1.8-7.0); NEUT % 69.1 % (50.0-75.0); RBC 2.95 Mil/uL (4.40-5.90); RED CELL DISTRIBUTION WIDTH 16.4 % (11.5-14.5); WHITE BLOOD COUNT 5.2 K/uL (4.8-10.8)
[2018-10-01 08:34] LABS: INR 1.2; PROTHROMBIN TIME 13.2 SECONDS (9.7-12.2)
[2018-10-01 08:43] LABS: ALBUMIN 3.6 g/dL (3.5-5.0); CALCIUM 8.3 mg/dl (8.6-10.4)
[2018-10-01 08:44] LABS: ALB/GLOB RATIO 1.1 (1.0-2.1)
[2018-10-01] MEDS: Multivitamin Vitamin B Complex (Nephro-Vite) Tab PO SCH (08:51)
--- NOTE | 2018-10-01 09:01 | CP.PCM.PN ---
<Hipolito Jacques - Last Filed: 10/01/18 14:15> Subjective - Date & Time of Evaluation Date of Evaluation: 10/01/18 Time of Evaluation: 09:01 - Subjective Subjective: PGY-1 Medicine progress note for Dr. Lowery Patient seen and examined at bedside this morning. No acute events overnight. Patient is frustrated that he needs to keep getting procedures for his AV fistula. Patient however agrees to get the fistulogram done with Dr. Eqsuivel on Wednesday. He denies fevers, chills, cough, shortness of breath, chest pain, abdominal pain, nausea, vomiting, or any other complaints. Objective - Vital Signs/Intake and Output Vital Signs (last 24 hours): Temp Pulse Resp BP Pulse Ox 97.8 F 82 20 149/75 96 10/01/18 07:51 10/01/18 07:51 10/01/18 07:51 10/01/18 07:51 10/01/18 07:51 Intake and Output: 10/01/18 10/01/18 06:59 18:59 Intake Total 250 Balance 250 - Medications Medications: Current Medications Amlodipine Besylate (Norvasc) 10 mg PO DAILY [facility] Last Admin: 09/30/18 09:10 Dose: Not Given Aspirin (Aspirin Chewable) 81 mg PO DAILY [facility] Last Admin: 09/30/18 09:15 Dose: 81 mg Bumetanide (Bumex) 1 mg PO Q12 [facility] Last Admin: 09/30/18 21:09 Dose: 1 mg Cyclobenzaprine HCl (Flexeril) 10 mg PO TID [facility] Last Admin: 09/30/18 17:06 Dose: 10 mg Dextrose (Dextrose 50% Inj) 0 ml IV STAT PRN; Protocol PRN Reason: Hypoglycemia Protocol Dextrose (Glutose 15) 0 gm PO ONCE PRN; Protocol PRN Reason: Hypoglycemia Protocol Diphenhydramine HCl (Benadryl) 25 mg IVP Q4 PRN PRN Reason: Allergy symptoms Epoetin Efrain (Procrit) 8,000 unit IV MWF [facility] Last Admin: 09/30/18 12:41 Dose: 8,000 unit Famotidine (Pepcid) 20 mg PO DAILY [facility] Last Admin: 09/30/18 09:15 Dose: 20 mg Glucagon (Glucagen Diagnostic Kit) 0 mg IM STAT PRN; Protocol PRN Reason: Hypoglycemia Protocol Hydromorphone HCl (Dilaudid) 2 mg IVP Q4H PRN PRN Reason: Pain, severe (8-10) Last Admin: 10/01/18 06:34 Dose: 2 mg Heparin Sodium/Sodium Chloride (Heparin 71073 Units/250ml 1/2 Normal Saline) 25,000 units in 250 mls @ 20.412 mls/hr IV .[id number] PRN; Protocol PRN Reason: PROTOCOL Last Admin: 10/01/18 02:29 Dose: 18 units/kg/hr, 20.412 mls/hr Dextrose (Dextrose 5% In Water 1000 Ml) 1,000 mls @ 0 mls/hr IV .Q0M PRN; Protocol PRN Reason: Hypoglycemia Protocol Insulin Human Regular (Novolin R) 0 unit SC ACHS [facility]; Protocol Last Admin: 10/01/18 08:26 Dose: Not Given Labetalol HCl (Normodyne) 300 mg PO BID [facility] Last Admin: 09/30/18 17:06 Dose: 300 mg Montelukast Sodium (Singulair) 10 mg PO HS [facility] Last Admin: 09/30/18 21:09 Dose: 10 mg Rosuvastatin Calcium (Crestor) 10 mg PO HS [facility] Last Admin: 09/30/18 21:09 Dose: 10 mg Vitamin B Complex/Vit C/Folic Acid (Nephro-Leanna) 1 tab PO 0800 [facility] Last Admin: 10/01/18 08:51 Dose: 1 tab - Labs Labs: 10/01/18 08:18 10/01/18 08:18 PT 13.2 SECONDS (9.7-12.2) H 10/01/18 08:18 INR 1.2 10/01/18 08:18 APTT 63 SECONDS (21-34) H D 10/01/18 08:18 - Additional Findings Additional findings: - Constitutional Appears: Non-toxic, No Acute Distress - Head Exam Head Exam: ATRAUMATIC, NORMAL INSPECTION, NORMOCEPHALIC - ENT Exam ENT Exam: Mucous Membranes Moist - Neck Exam Additional comments: Right neck edema noted - Respiratory Exam Respiratory Exam: NORMAL BREATHING PATTERN. absent: Respiratory Distress Additional comments: - Cardiovascular Exam Cardiovascular Exam: REGULAR RHYTHM, S1, S2 absent: Tachycardia, murmurs - GI/Abdominal Exam GI & Abdominal Exam: Soft. absent: Distended - Extremities Exam Extremities exam: Positive for: pedal edema. Negative for: calf tenderness Additional comments: RUE edema new right avf w/ palpable thrill LLE in boot - Neurological Exam Neurological exam: Alert - Psychiatric Exam Psychiatric exam: Normal Affect, Normal Mood - Skin Skin Exam: Dry, Normal Color, Warm Assessment and Plan - Assessment and Plan (Free Text) Assessment: Patient is a 57 year old male with a PMH of ESRD, CHF, DVTs, presenting with RUE swelling and pain. Patient is s/p permacath on 08/[address] Esquivel. Plan for fistulogram with Dr. Esquivel on 10/03. Plan: Subclavian Thrombus: - Heparin drip 25,000 units - Permacath Removed by Dr Esquivel - Vascular surgery, consulted - Scheduled for fistulogram on 10/03 - Upper extremity duplex (09/29): Partial acute DVT of right IJV with mild reduction of venous return. Patent right AV fistula. Radiating Neck Pains: - CRISTÓBAL neg x3 - EKG unchanged from previous 08/22 - Dilaudid 2g Q4 PRN w/ Benadryl 25mg IVP Q4 PRN - Cyclobenzaprine 10mg PO TID ESRD: - Monitor I&Os - HD MWFs - Dr Aquino Nephgary consulted recs: - Procrit 8,000 units MWF - Nephro-Leanna HTN: - Norvasc 10mg PO QD - Labetalol 300 PO BID - Bumetanide 1mg PO BID DM: - ASA 81mg PO qd - Crestor 5mg qd - Accuchecks ACHS Hx of CHF: - ASA 81mg po qd - Labetalol 300mg PO BID Hx of Asthma: - Singulair 10mg PO HS PPX: - Heparin drip - ASA 81mg PO qd - Pepcid 20mg Case discussed with Dr. Sebastián Jacques, PGY-1 <Prashanth Lowery Jr. - Last Filed: 10/05/18 10:16> Objective - Vital Signs/Intake and Output Vital Signs (last 24 hours): Temp Pulse Resp BP Pulse Ox 98 F 80 20 159/80 H 97 10/04/18 08:18 10/04/18 08:18 10/04/18 08:18 11/06/18 08:18 10/04/18 08:18 - Labs Labs: 10/04/18 07:10 10/04/18 07:10 PT 12.7 SECONDS (9.7-12.2) H 10/03/18 16:40 INR 1.2 10/03/18 16:40 APTT 36 SECONDS (21-34) H D 10/03/18 16:40 Attending/Attestation - Attestation I have personally seen and examined this patient.: Yes I have fully participated in the care of the patient.: Yes I have reviewed all pertinent clinical information, including history, physical exam and plan: Yes Notes (Text): 10/05/18 10:16 REVIEWED resident note and agrre with findings and plan of care.
--- NOTE | 2018-10-01 09:30 | CP.PCM.PN ---
Subjective - Date & Time of Evaluation Date of Evaluation: 10/01/18 Time of Evaluation: 09:28 - Subjective Subjective: see dictated note today Objective - Vital Signs/Intake and Output Vital Signs (last 24 hours): Temp Pulse Resp BP Pulse Ox 97.8 F 82 20 149/75 96 10/01/18 07:51 10/01/18 07:51 10/01/18 07:51 10/01/18 07:51 10/01/18 07:51 Intake and Output: 10/01/18 10/01/18 06:59 18:59 Intake Total 250 Balance 250 - Medications Medications: Current Medications Amlodipine Besylate (Norvasc) 10 mg PO DAILY [facility] Last Admin: 09/30/18 09:10 Dose: Not Given Aspirin (Aspirin Chewable) 81 mg PO DAILY [facility] Last Admin: 09/30/18 09:15 Dose: 81 mg Bumetanide (Bumex) 1 mg PO Q12 [facility] Last Admin: 09/30/18 21:09 Dose: 1 mg Cyclobenzaprine HCl (Flexeril) 10 mg PO TID [facility] Last Admin: 09/30/18 17:06 Dose: 10 mg Dextrose (Dextrose 50% Inj) 0 ml IV STAT PRN; Protocol PRN Reason: Hypoglycemia Protocol Dextrose (Glutose 15) 0 gm PO ONCE PRN; Protocol PRN Reason: Hypoglycemia Protocol Diphenhydramine HCl (Benadryl) 25 mg IVP Q4 PRN PRN Reason: Allergy symptoms Epoetin Efrain (Procrit) 8,000 unit IV MWF [facility] Last Admin: 09/30/18 12:41 Dose: 8,000 unit Famotidine (Pepcid) 20 mg PO DAILY [facility] Last Admin: 09/30/18 09:15 Dose: 20 mg Glucagon (Glucagen Diagnostic Kit) 0 mg IM STAT PRN; Protocol PRN Reason: Hypoglycemia Protocol Hydromorphone HCl (Dilaudid) 2 mg IVP Q4H PRN PRN Reason: Pain, severe (8-10) Last Admin: 10/01/18 06:34 Dose: 2 mg Heparin Sodium/Sodium Chloride (Heparin 78302 Units/250ml 1/2 Normal Saline) 25,000 units in 250 mls @ 20.412 mls/hr IV .[id number] PRN; Protocol PRN Reason: PROTOCOL Last Admin: 10/01/18 02:29 Dose: 18 units/kg/hr, 20.412 mls/hr Dextrose (Dextrose 5% In Water 1000 Ml) 1,000 mls @ 0 mls/hr IV .Q0M PRN; Protocol PRN Reason: Hypoglycemia Protocol Insulin Human Regular (Novolin R) 0 unit SC ACHS [facility]; Protocol Last Admin: 10/01/18 08:26 Dose: Not Given Labetalol HCl (Normodyne) 300 mg PO BID [facility] Last Admin: 09/30/18 17:06 Dose: 300 mg Montelukast Sodium (Singulair) 10 mg PO HS [facility] Last Admin: 09/30/18 21:09 Dose: 10 mg Rosuvastatin Calcium (Crestor) 10 mg PO HS [facility] Last Admin: 09/30/18 21:09 Dose: 10 mg Vitamin B Complex/Vit C/Folic Acid (Nephro-Leanna) 1 tab PO 0800 [facility] Last Admin: 10/01/18 08:51 Dose: 1 tab - Labs Labs: 10/01/18 08:18 10/01/18 08:18 PT 13.2 SECONDS (9.7-12.2) H 10/01/18 08:18 INR 1.2 10/01/18 08:18 APTT 63 SECONDS (21-34) H D 10/01/18 08:18
[2018-10-01] MEDS: Labetalol Hydrochloride 300 mg Tab PO SCH ×2 (10:37→17:41)
--- NOTE | 2018-10-01 19:44 | CON ---
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 The patient had a similar problem in the other arm. He had a fistula and massive swelling in the arm. We were unable to cross this or open this up and eventually we had to ligate the fistula and created a new fistula on the right side which is tested out, ready for use and suddenly he presents with this new central vein occlusion. At the time in the emergency room, I told him that my plan was, 1. To remove the catheter. 2. Start anticoagulation. 3. He might need intervention. With his symptoms not resolved, this will take a few days. He is seen again yesterday and then again today and he is quite upset saying that nothing is being done and repeating myself by going over the plan. I emphasized that my role was to try to avoid any intervention for him and he became quite upset, screaming, etc. 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 We now are going forward with plans to carry out a fistulogram and any other intervention including thrombolytic therapy in an attempt to resolve or improve his situation. The patient is quite bitter, quite upset, quite frustrated. He is saying that we are repeating ourselves and he thinks that all these maneuvers should have been carried out much earlier. Again, I reiterated the rationale for a slower approach particularly in view of the improvement that we might see with anticoagulation. At this time, we are scheduling our fistulogram on his right arm on Wednesday and the precise details, goals, expectations were reviewed again with the patient. At this time, he is undecided if he is going to and if he does so, I will be happy to provide any records and necessary information. He has a functioning fistula in the right arm, but this will become edematous and swollen if the central vein issues are not addressed. Ifeanyi Esquivel Jr., MD
[2018-10-02] MEDS: Heparin25000 units/250ml 1/2NS 25,000 UNITS/250 ML BAG IV PRN ×2 (03:48→15:21)
[2018-10-02] MEDS: DiphenhydrAMINE 50 mg/ml Inj IVP PRN (06:54)
[2018-10-02 07:49] LABS: BASO % 0.7 % (0.0-2.0); EOS # 0.2 K/uL (0.0-0.7); HEMOGLOBIN 9.2 g/dL (12.0-18.0); LYMPH % 18.7 % (20.0-40.0); MEAN CELL VOLUME 92.5 fL (80.0-94.0); MEAN CORPUSCULAR HEMOGLOBIN 30.7 pg (27.0-31.0); MEAN CORPUSCULAR HGB CONC 33.2 g/dL (33.0-37.0); MEAN PLATELET VOLUME 7.4 fL (7.2-11.7); MONO # 0.5 K/uL (0.0-0.8); MONO % 10.2 % (0.0-10.0); NEUT # 3.6 K/uL (1.8-7.0); NEUT % 67.4 % (50.0-75.0); RBC 3.01 Mil/uL (4.40-5.90); WHITE BLOOD COUNT 5.4 K/uL (4.8-10.8)
[2018-10-02 08:06] LABS: ALB/GLOB RATIO 1.2 (1.0-2.1); ALBUMIN 3.8 g/dL (3.5-5.0); CALCIUM 8.6 mg/dl (8.6-10.4)
[2018-10-02] MEDS: (Novolin R) Insulin Human Regular 100 units/ml vial SC SCH ×4 (08:08→22:58)
[2018-10-02] MEDS: Multivitamin Vitamin B Complex (Nephro-Vite) Tab PO SCH (08:08)
[2018-10-02 08:36] LABS: INR 1.1; PROTHROMBIN TIME 12.1 SECONDS (9.7-12.2)
--- NOTE | 2018-10-02 09:26 | CP.PCM.PN ---
<Hipolito Jacques - Last Filed: 10/02/18 15:09> Subjective - Date & Time of Evaluation Date of Evaluation: 10/02/18 Time of Evaluation: 09:24 - Subjective Subjective: PGY-[address] Lowery Patient seen and examined at bedside this morning. No acute events overnight. Plan for fistulogram with Dr. Esquivel on Wednesday. He denies fevers, chills, cough, shortness of breath, chest pain, abdominal pain, nausea, vomiting, or any other complaints. Objective - Vital Signs/Intake and Output Vital Signs (last 24 hours): Temp Pulse Resp BP Pulse Ox 98.2 F 72 20 160/71 H 96 10/02/18 07:30 10/02/18 07:30 10/02/18 07:30 10/02/18 07:30 10/02/18 07:30 Intake and Output: 10/02/18 10/02/18 06:59 18:59 Intake Total Balance - Medications Medications: Current Medications Amlodipine Besylate (Norvasc) 10 mg PO DAILY [facility] Last Admin: 10/01/18 10:36 Dose: 10 mg Aspirin (Aspirin Chewable) 81 mg PO DAILY [facility] Last Admin: 10/01/18 10:36 Dose: 81 mg Bumetanide (Bumex) 1 mg PO Q12 [facility] Last Admin: 10/01/18 22:12 Dose: 1 mg Cyclobenzaprine HCl (Flexeril) 10 mg PO TID [facility] Last Admin: 10/01/18 17:42 Dose: 10 mg Dextrose (Dextrose 50% Inj) 0 ml IV STAT PRN; Protocol PRN Reason: Hypoglycemia Protocol Dextrose (Glutose 15) 0 gm PO ONCE PRN; Protocol PRN Reason: Hypoglycemia Protocol Diphenhydramine HCl (Benadryl) 25 mg IVP Q4 PRN PRN Reason: Allergy symptoms Last Admin: 10/02/18 06:54 Dose: 25 mg Epoetin Efrain (Procrit) 8,000 unit IV MWF [facility] Last Admin: 09/30/18 12:41 Dose: 8,000 unit Famotidine (Pepcid) 20 mg PO DAILY [facility] Last Admin: 10/01/18 10:36 Dose: 20 mg Glucagon (Glucagen Diagnostic Kit) 0 mg IM STAT PRN; Protocol PRN Reason: Hypoglycemia Protocol Hydromorphone HCl (Dilaudid) 2 mg IVP Q4H PRN PRN Reason: Pain, severe (8-10) Last Admin: 10/02/18 06:47 Dose: 2 mg Heparin Sodium/Sodium Chloride (Heparin 63294 Units/250ml 1/2 Normal Saline) 25,000 units in 250 mls @ 20.412 mls/hr IV .[id number] PRN; Protocol PRN Reason: PROTOCOL Last Admin: 10/02/18 03:48 Dose: 18 units/kg/hr, 20.412 mls/hr Dextrose (Dextrose 5% In Water 1000 Ml) 1,000 mls @ 0 mls/hr IV .Q0M PRN; Protocol PRN Reason: Hypoglycemia Protocol Insulin Human Regular (Novolin R) 0 unit SC ACHS [facility]; Protocol Last Admin: 10/02/18 08:08 Dose: Not Given Labetalol HCl (Normodyne) 300 mg PO BID [facility] Last Admin: 10/01/18 17:41 Dose: 300 mg Montelukast Sodium (Singulair) 10 mg PO [facility] Last Admin: 10/01/18 22:11 Dose: 10 mg Rosuvastatin Calcium (Crestor) 10 mg PO [facility] Last Admin: 10/01/18 22:11 Dose: 10 mg Vitamin B Complex/Vit C/Folic Acid (Nephro-Leanna) 1 tab PO 0800 [facility] Last Admin: 10/02/18 08:08 Dose: 1 tab - Labs Labs: 10/02/18 07:34 10/02/18 07:34 PT 12.1 SECONDS (9.7-12.2) 10/02/18 07:34 INR 1.1 10/02/18 07:34 APTT 57 SECONDS (21-34) H D 10/02/18 07:34 - Additional Findings Additional findings: - Constitutional Appears: Non-toxic, No Acute Distress - Head Exam Head Exam: ATRAUMATIC, NORMAL INSPECTION, NORMOCEPHALIC - ENT Exam ENT Exam: Mucous Membranes Moist - Neck Exam Additional comments: Right neck edema noted - Respiratory Exam Respiratory Exam: NORMAL BREATHING PATTERN. absent: Respiratory Distress Additional comments: - Cardiovascular Exam Cardiovascular Exam: REGULAR RHYTHM, S1, S2 absent: Tachycardia, murmurs - GI/Abdominal Exam GI & Abdominal Exam: Soft. absent: Distended - Extremities Exam Extremities exam: Positive for: pedal edema. Negative for: calf tenderness Additional comments: RUE edema new right avf w/ palpable thrill LLE in boot - Neurological Exam Neurological exam: Alert - Psychiatric Exam Psychiatric exam: Normal Affect, Normal Mood - Skin Skin Exam: Dry, Normal Color, Warm Assessment and Plan - Assessment and Plan (Free Text) Assessment: Patient is a 57 year old male with a PMH of ESRD, CHF, DVTs, presenting with RUE swelling and pain. Patient is s/p permacath on 08/[address] Esquivel. Plan for fistulogram with Dr. Esquivel on 10/03. Plan: Subclavian Thrombus: - Heparin drip 25,000 units - Permacath Removed by Dr Esquivel - Vascular surgery, consulted - Scheduled for fistulogram on 10/03 - NPO after midnight - Upper extremity duplex (09/29): Partial acute DVT of right IJV with mild reduction of venous return. Patent right AV fistula. Radiating Neck Pains: - CRISTÓBAL neg x3 - EKG unchanged from previous 08/22 - Dilaudid 2g Q4 PRN w/ Benadryl 25mg IVP Q4 PRN - Cyclobenzaprine 10mg PO TID ESRD: - Monitor I&Os - HD MWFs - Dr Aquino Nephgary consulted recs: - Procrit 8,000 units MWF - Nephro-Leanna HTN: - Norvasc 10mg PO QD - Labetalol 300 PO BID - Bumetanide 1mg PO BID DM: - ASA 81mg PO qd - Crestor 5mg qd - Accuchecks ACHS Hx of CHF: - ASA 81mg po qd - Labetalol 300mg PO BID Hx of Asthma: - Singulair 10mg PO HS PPX: - Heparin drip - ASA 81mg PO qd - Pepcid 20mg Case discussed with Dr. Sebastián Jacques, PGY-1 <Prashanth Lowery Jr. - Last Filed: 10/05/18 10:15> Objective - Vital Signs/Intake and Output Vital Signs (last 24 hours): Temp Pulse Resp BP Pulse Ox 98 F 80 20 159/80 H 97 10/04/18 08:18 10/04/18 08:18 10/04/18 08:18 10/04/18 08:18 10/04/18 08:18 - Labs Labs: 10/04/18 07:10 10/04/18 07:10 PT 12.7 SECONDS (9.7-12.2) H 10/03/18 16:40 INR 1.2 10/03/18 16:40 APTT 36 SECONDS (21-34) H D 10/03/18 16:40 Attending/Attestation - Attestation I have personally seen and examined this patient.: Yes I have fully participated in the care of the patient.: Yes I have reviewed all pertinent clinical information, including history, physical exam and plan: Yes Notes (Text): 10/05/18 10:15 REVIEWED resident note and agrre with findings and plan of care.
[2018-10-02] MEDS: Labetalol Hydrochloride 300 mg Tab PO SCH ×2 (09:57→17:27)
--- NOTE | 2018-10-02 10:24 | CP.PCM.PN ---
Subjective - Date & Time of Evaluation Date of Evaluation: 10/02/18 Time of Evaluation: 10:22 - Subjective Subjective: Surgery: Dr. Esquivel Pt seen and examined. No acute events. Reports some improvement in neck swelling. Plan for fistulagram and possible intervention tomorrow. Keep NPO after midnight. d/w Dr. Sole Gr Objective - Vital Signs/Intake and Output Vital Signs (last 24 hours): Temp Pulse Resp BP Pulse Ox 98.2 F 72 20 160/71 H 96 10/02/18 07:30 10/02/18 07:30 10/02/18 07:30 10/02/18 07:30 10/02/18 07:30 Intake and Output: 10/02/18 10/02/18 06:59 18:59 Intake Total Balance - Medications Medications: Current Medications Amlodipine Besylate (Norvasc) 10 mg PO DAILY [facility] Last Admin: 10/02/18 09:57 Dose: 10 mg Aspirin (Aspirin Chewable) 81 mg PO DAILY [facility] Last Admin: 10/02/18 09:57 Dose: 81 mg Bumetanide (Bumex) 1 mg PO Q12 [facility] Last Admin: 10/02/18 09:57 Dose: 1 mg Cyclobenzaprine HCl (Flexeril) 10 mg PO TID [facility] Last Admin: 10/02/18 09:57 Dose: 10 mg Dextrose (Dextrose 50% Inj) 0 ml IV STAT PRN; Protocol PRN Reason: Hypoglycemia Protocol Dextrose (Glutose 15) 0 gm PO ONCE PRN; Protocol PRN Reason: Hypoglycemia Protocol Diphenhydramine HCl (Benadryl) 25 mg IVP Q4 PRN PRN Reason: Allergy symptoms Last Admin: 10/02/18 06:54 Dose: 25 mg Epoetin Efrain (Procrit) 8,000 unit IV MWF [facility] Last Admin: 09/30/18 12:41 Dose: 8,000 unit Famotidine (Pepcid) 20 mg PO DAILY [facility] Last Admin: 10/02/18 09:57 Dose: 20 mg Glucagon (Glucagen Diagnostic Kit) 0 mg IM STAT PRN; Protocol PRN Reason: Hypoglycemia Protocol Hydromorphone HCl (Dilaudid) 2 mg IVP Q4H PRN PRN Reason: Pain, severe (8-10) Last Admin: 10/02/18 06:47 Dose: 2 mg Heparin Sodium/Sodium Chloride (Heparin 27720 Units/250ml 1/2 Normal Saline) 25,000 units in 250 mls @ 20.412 mls/hr IV .[id number] PRN; Protocol PRN Reason: PROTOCOL Last Admin: 10/02/18 03:48 Dose: 18 units/kg/hr, 20.412 mls/hr Dextrose (Dextrose 5% In Water 1000 Ml) 1,000 mls @ 0 mls/hr IV .Q0M PRN; Protocol PRN Reason: Hypoglycemia Protocol Insulin Human Regular (Novolin R) 0 unit SC ACHS [facility]; Protocol Last Admin: 10/02/18 08:08 Dose: Not Given Labetalol HCl (Normodyne) 300 mg PO BID [facility] Last Admin: 10/02/18 09:57 Dose: 300 mg Montelukast Sodium (Singulair) 10 mg PO HS [facility] Last Admin: 10/01/18 22:11 Dose: 10 mg Rosuvastatin Calcium (Crestor) 10 mg PO HS [facility] Last Admin: 10/01/18 22:11 Dose: 10 mg Vitamin B Complex/Vit C/Folic Acid (Nephro-Leanna) 1 tab PO 0800 [facility] Last Admin: 10/02/18 08:08 Dose: 1 tab - Labs Labs: 10/02/18 07:34 10/02/18 07:34 PT 12.1 SECONDS (9.7-12.2) 10/02/18 07:34 INR 1.1 10/02/18 07:34 APTT 57 SECONDS (21-34) H D 10/02/18 07:34 - Constitutional Appears: Well, No Acute Distress - Head Exam Head Exam: ATRAUMATIC, NORMOCEPHALIC - ENT Exam ENT Exam: Mucous Membranes Moist - Neck Exam Additional comments: less swollen compared to prior exam, no erythema, some induration noted along the tract of the previous permacath - Cardiovascular Exam Cardiovascular Exam: RRR - GI/Abdominal Exam GI & Abdominal Exam: Soft
[2018-10-03] MEDS: (Novolin R) Insulin Human Regular 100 units/ml vial SC SCH ×4 (08:29→22:02)
[2018-10-03] MEDS: Multivitamin Vitamin B Complex (Nephro-Vite) Tab PO SCH (08:57)
[2018-10-03] MEDS: Labetalol Hydrochloride 300 mg Tab PO SCH ×2 (09:04→21:22)
[2018-10-03] MEDS ORDERED: Iodixanol 320 MG/ML 200 ML BOTTLE IV ONE (10:23)
[2018-10-03] MEDS ORDERED: Midazolam 2 MG/2 ML VIAL ONE (10:34)
--- NOTE | 2018-10-03 11:14 | PCM.SURG1 ---
Surgeon's Initial Post Op Note - Surgeon's Notes Surgeon: umair Surgical Assist: 0 Type of Anesthesia: IV Sedation Anesthesia Administered By: amber Pre-Operative Diagnosis: central vein stenosis Operative Findings: central vein stenosis. ~60 % at subclavian/jugular/ innominate juction Post-Operative Diagnosis: same Operation Performed: fistulagram right arm and balloon angioplasty of central vein 10 and 12x40 balloon Specimen/Specimens Removed: 0 Estimated Blood Loss: EBL {In ML}: 20 Blood Products Given: N/A Drains Used: No Drains Post-Op Condition: Good Date of Surgery/Procedure: 10/03/18 Time of Surgery/Procedure: 11:14
--- NOTE | 2018-10-03 15:18 | CP.PCM.PN ---
<Hipolito Jacques - Last Filed: 10/03/18 16:55> Subjective - Date & Time of Evaluation Date of Evaluation: 10/03/18 Time of Evaluation: 15:14 - Subjective Subjective: PGY-[address] Lowery Patient seen and examined at bedside this morning. Patient will go for his fistulogram with Dr. Esquivel today and also HD today. He denies fevers, chills, cough, shortness of breath, chest pain, abdominal pain, nausea, vomiting, or any other complaints. Objective - Vital Signs/Intake and Output Vital Signs (last 24 hours): Temp Pulse Resp BP Pulse Ox 98.2 F 80 20 166/77 H 96 10/03/18 08:15 10/03/18 08:15 10/03/18 08:15 10/03/18 08:15 10/03/18 08:15 Intake and Output: 10/03/18 10/03/18 06:59 18:59 Intake Total 563.2 100 Balance 563.2 100 - Medications Medications: Current Medications Amlodipine Besylate (Norvasc) 10 mg PO DAILY [facility] Last Admin: 10/03/18 09:04 Dose: 10 mg Aspirin (Aspirin Chewable) 81 mg PO DAILY [facility] Last Admin: 10/03/18 10:10 Dose: Not Given Bumetanide (Bumex) 1 mg PO Q12 [facility] Last Admin: 10/03/18 09:04 Dose: 1 mg Cyclobenzaprine HCl (Flexeril) 10 mg PO TID [facility] Last Admin: 10/03/18 10:10 Dose: Not Given Dextrose (Dextrose 50% Inj) 0 ml IV STAT PRN; Protocol PRN Reason: Hypoglycemia Protocol Dextrose (Glutose 15) 0 gm PO ONCE PRN; Protocol PRN Reason: Hypoglycemia Protocol Diphenhydramine HCl (Benadryl) 25 mg IVP Q4 PRN PRN Reason: Allergy symptoms Last Admin: 10/02/18 06:54 Dose: 25 mg Epoetin Efrain (Procrit) 8,000 unit IV MWF [facility] Last Admin: 09/30/18 12:41 Dose: 8,000 unit Famotidine (Pepcid) 20 mg PO DAILY [facility] Last Admin: 10/03/18 10:10 Dose: Not Given Glucagon (Glucagen Diagnostic Kit) 0 mg IM STAT PRN; Protocol PRN Reason: Hypoglycemia Protocol Hydromorphone HCl (Dilaudid) 2 mg IVP Q4H PRN PRN Reason: Pain, severe (8-10) Last Admin: 10/03/18 13:05 Dose: 2 mg Heparin Sodium/Sodium Chloride (Heparin 82548 Units/250ml 1/2 Normal Saline) 25,000 units in 250 mls @ 20.412 mls/hr IV .[id number] PRN; Protocol PRN Reason: PROTOCOL Last Admin: 10/02/18 15:21 Dose: 18 units/kg/hr, 20.412 mls/hr Insulin Human Regular (Novolin R) 0 unit SC ACHS [facility]; Protocol Last Admin: 10/03/18 12:31 Dose: Not Given Labetalol HCl (Normodyne) 300 mg PO BID [facility] Last Admin: 10/03/18 09:04 Dose: 300 mg Montelukast Sodium (Singulair) 10 mg PO HS [facility] Last Admin: 10/02/18 22:43 Dose: 10 mg Rosuvastatin Calcium (Crestor) 10 mg PO HS [facility] Last Admin: 10/02/18 22:47 Dose: 10 mg Vitamin B Complex/Vit C/Folic Acid (Nephro-Leanna) 1 tab PO 0800 [facility] Last Admin: 10/03/18 08:57 Dose: 1 tab - Labs Labs: 10/02/18 07:34 10/02/18 07:34 PT 12.1 SECONDS (9.7-12.2) 10/02/18 07:34 INR 1.1 10/02/18 07:34 APTT 57 SECONDS (21-34) H D 10/02/18 07:34 - Additional Findings Additional findings: - Constitutional Appears: Non-toxic, No Acute Distress - Head Exam Head Exam: ATRAUMATIC, NORMAL INSPECTION, NORMOCEPHALIC - ENT Exam ENT Exam: Mucous Membranes Moist - Neck Exam Additional comments: Right neck edema noted, improving compared to yesterday's exam - Respiratory Exam Respiratory Exam: NORMAL BREATHING PATTERN. absent: Respiratory Distress Additional comments: - Cardiovascular Exam Cardiovascular Exam: REGULAR RHYTHM, S1, S2 absent: Tachycardia, murmurs - GI/Abdominal Exam GI & Abdominal Exam: Soft. absent: Distended - Extremities Exam Extremities exam: Positive for: pedal edema. Negative for: calf tenderness Additional comments: Right avf w/ palpable thrill LLE in boot - Neurological Exam Neurological exam: Alert - Psychiatric Exam Psychiatric exam: Normal Affect, Normal Mood - Skin Skin Exam: Dry, Normal Color, Warm Assessment and Plan - Assessment and Plan (Free Text) Assessment: Patient is a 57 year old male with a PMH of ESRD, CHF, DVTs, presenting with RUE swelling and pain. Patient is s/p permacath on 08/[address] Esquivel. Plan for fistulogram with Dr. Esquivel on 10/03. Plan: Subclavian Thrombus: - Vascular surgery, consulted - Fistulogram today, showed central vein stenosis ~60 % at subclavian/jugular/ innominate juction. Balloon angioplasty of central vein performed - Heparin drip 25,000 units - Upper extremity duplex (09/29): Partial acute DVT of right IJV with mild reduction of venous return. Patent right AV fistula. Radiating Neck Pains: - CRISTÓBAL neg x3 - EKG unchanged from previous 08/22 - Dilaudid 2g Q4 PRN w/ Benadryl 25mg IVP Q4 PRN - Cyclobenzaprine 10mg PO TID ESRD: - Monitor I&Os - HD MWFs - Nephrology, Dr. Aquino consulted - Procrit 8,000 units MWF - Nephro-Leanna HTN: - Norvasc 10mg PO QD - Labetalol 300 PO BID - Bumetanide 1mg PO BID DM: - ASA 81mg PO qd - Crestor 5mg qd - Accuchecks ACHS Hx of CHF: - ASA 81mg po qd - Labetalol 300mg PO BID Hx of Asthma: - Singulair 10mg PO HS PPX: - Heparin drip - ASA 81mg PO qd - Pepcid 20mg Case discussed with Dr. Sebastián Jacques, PGY-1 <Prashanth Lowery Jr. - Last Filed: 10/05/18 10:14> Objective - Vital Signs/Intake and Output Vital Signs (last 24 hours): Temp Pulse Resp BP Pulse Ox 98 F 80 20 159/80 H 97 10/04/18 08:18 10/04/18 08:18 10/04/18 08:18 10/04/18 08:18 10/04/18 08:18 - Labs Labs: 10/04/18 07:10 10/04/18 07:10 PT 12.7 SECONDS (9.7-12.2) H 10/03/18 16:40 INR 1.2 10/03/18 16:40 APTT 36 SECONDS (21-34) H D 10/03/18 16:40 Attending/Attestation - Attestation I have personally seen and examined this patient.: Yes I have fully participated in the care of the patient.: Yes I have reviewed all pertinent clinical information, including history, physical exam and plan: Yes Notes (Text): 10/05/18 10:14 REVIEWED resident note and agrre with findings and plan of care.
--- NOTE | 2018-10-03 15:45 | CP.PCM.PN ---
Subjective - Date & Time of Evaluation Date of Evaluation: 10/03/18 Time of Evaluation: 15:45 - Subjective Subjective: Nephrology Consultation Note: Assessment: Stable central venous stenosis with clot around catheter Diabetic chronic Kidney Disease (E11.22) Hypertensive Chronic Kidney Disease (I12.0) End stage renal disease (N18.6) dependence on hemodialysis (Z99.2) (MWF) via PC Anemia (D64.9), Hyperphosphatemia (E83.39), Secondary Hyperparathyroidism (E21.1), HTN (I12.0), Obesity Plan: Will plan for HD today as ordered per MWF schedule, Continue with Nephrovite 1 tab/day. PRBC as needed for anemia. on JULIANA with dialysis Continue with phos binders BP control with meds as ordered. Patient not on RAAS karen as often with hyperkalemia. Glycemic control, Dialysis consistent diet Further work up/management as per primary team Dose meds/antibiotics (if needed) for ESRD status. Avoid fleets enema/magnesium based laxatives. vascular surgery following Thanks for allowing me to participate in care of your patient. Will follow patient with you. Please call if any Qs Dr Alvaro Aquino Office: [phone] Chief Complaint; Rt arm and facial swelling HPI: Pt is a 57 M with hx of ESRD on hemodialysis (MWF) via permacath since nov 2017, chronic anemia, hyperphosphatemia, secondary hyperparathyroidism, Diabetes Mellitus, hypertension, obesity, left arm DVT presented with complaints of Rt arm and facial swelling, found to have venous stenosis and partial clot to catheter Renal consult requested for ESRD management. he feels slight better today. ROS: Cardiovascular: No chest pain. Pulmonary: No shortness of breath Gastrointestinal: denies abdominal pain No nausea. No vomiting. Genitourinary: No pain while urinating. Denies blood in urine. says make plenty of urine All other negative except as mentioned in HPI Physical Examination: General Appearance: Comfortable, in no acute respiratory distress, co-operative . obese Vitals reviewed and noted as below Head; Atraumatic, normocephalic. ENT: no ulcers no thrush. Tongue is midline. Oropharynx: no rash or ulcers. EYES: Pupils are equal, round and reactive to light accommodation. Eye muscles and extraocular movement intact. Sclera is anicteric. Neck; supple no lymphadenopathy, no thyromegaly or bruit Lungs: Normal respiratory rate/effort. Breath sounds bilateral equal and clear Heart: Normal rate. s1s2 normal. No rub or gallop. Extremities: trace edema. No varicose veins. left foot deformity + pt says had fracture Neurological: Patient is alert, awake and oriented to person, place and time. No focal deficit. Strength bilateral appropriate and equal Skin: Warm and dry. Normal turgor. No rash. Palpitation: Normal elasticity for age Abdomen: Abdomen is soft. Bowel sounds +. There is no abdominal tenderness, no guarding/rigidity or organomegaly Psych: normal insight and normal affect/mood MSK: no joint tenderness or swelling. Digits and nails normal, no deformity : kidney or bladder not palpable Access: Rt PC. Rt AVF with thrill and bruit with swelling Labs/imaging reviewed. Past medical history, past surgical history, family history, social history, allergy reviewed and noted as below Family Hx: no hx of CKD. Non contributory Objective - Vital Signs/Intake and Output Vital Signs (last 24 hours): Temp Pulse Resp BP Pulse Ox 98.2 F 80 20 166/77 H 96 10/03/18 08:15 10/03/18 08:15 10/03/18 08:15 10/03/18 08:15 10/03/18 08:15 Intake and Output: 10/03/18 10/03/18 06:59 18:59 Intake Total 563.2 400 Balance 563.2 400 - Medications Medications: Current Medications Amlodipine Besylate (Norvasc) 10 mg PO DAILY [facility] Last Admin: 10/03/18 09:04 Dose: 10 mg Aspirin (Aspirin Chewable) 81 mg PO DAILY [facility] Last Admin: 10/03/18 10:10 Dose: Not Given Bumetanide (Bumex) 1 mg PO Q12 [facility] Last Admin: 10/03/18 09:04 Dose: 1 mg Cyclobenzaprine HCl (Flexeril) 10 mg PO TID [facility] Last Admin: 10/03/18 14:00 Dose: 10 mg Dextrose (Dextrose 50% Inj) 0 ml IV STAT PRN; Protocol PRN Reason: Hypoglycemia Protocol Dextrose (Glutose 15) 0 gm PO ONCE PRN; Protocol PRN Reason: Hypoglycemia Protocol Diphenhydramine HCl (Benadryl) 25 mg IVP Q4 PRN PRN Reason: Allergy symptoms Last Admin: 10/02/18 06:54 Dose: 25 mg Epoetin Efrain (Procrit) 8,000 unit IV MWF [facility] Last Admin: 09/30/18 12:41 Dose: 8,000 unit Famotidine (Pepcid) 20 mg PO DAILY [facility] Last Admin: 10/03/18 10:10 Dose: Not Given Glucagon (Glucagen Diagnostic Kit) 0 mg IM STAT PRN; Protocol PRN Reason: Hypoglycemia Protocol Hydromorphone HCl (Dilaudid) 2 mg IVP Q4H PRN PRN Reason: Pain, severe (8-10) Last Admin: 10/03/18 13:05 Dose: 2 mg Heparin Sodium/Sodium Chloride (Heparin 15854 Units/250ml 1/2 Normal Saline) 25,000 units in 250 mls @ 20.412 mls/hr IV .[id number] PRN; Protocol PRN Reason: PROTOCOL Last Admin: 10/02/18 15:21 Dose: 18 units/kg/hr, 20.412 mls/hr Insulin Human Regular (Novolin R) 0 unit SC [facility]; Protocol Last Admin: 10/03/18 12:31 Dose: Not Given Labetalol HCl (Normodyne) 300 mg PO BID [facility] Last Admin: 10/03/18 09:04 Dose: 300 mg Montelukast Sodium (Singulair) 10 mg PO HS [facility] Last Admin: 10/02/18 22:43 Dose: 10 mg Rosuvastatin Calcium (Crestor) 10 mg PO [facility] Last Admin: 10/02/18 22:47 Dose: 10 mg Vitamin B Complex/Vit C/Folic Acid (Nephro-Leanna) 1 tab PO 0800 [facility] Last Admin: 10/03/18 08:57 Dose: 1 tab - Labs Labs: 10/02/18 07:34 10/02/18 07:34 PT 12.1 SECONDS (9.7-12.2) 10/02/18 07:34 INR 1.1 10/02/18 07:34 APTT 57 SECONDS (21-34) H D 10/02/18 07:34
[2018-10-03 16:49] LABS: BASO % 0.8 % (0.0-2.0); EOS # 0.1 K/uL (0.0-0.7); EOS % 2.8 % (0.0-4.0); HEMOGLOBIN 8.8 g/dL (12.0-18.0); LYMPH # 0.9 K/uL (1.0-4.3); LYMPH % 17.7 % (20.0-40.0); MEAN CORPUSCULAR HEMOGLOBIN 30.7 pg (27.0-31.0); MONO # 0.4 K/uL (0.0-0.8); MONO % 8.6 % (0.0-10.0); NEUT # 3.4 K/uL (1.8-7.0); NEUT % 70.1 % (50.0-75.0); NRBC % 0.1 % (0.0-2.0); RBC 2.87 Mil/uL (4.40-5.90); RED CELL DISTRIBUTION WIDTH 15.8 % (11.5-14.5); WHITE BLOOD COUNT 4.9 K/uL (4.8-10.8)
[2018-10-03 16:56] LABS: INR 1.2; PROTHROMBIN TIME 12.7 SECONDS (9.7-12.2)
[2018-10-03] MEDS: EPOETIN ALFA 4,000 UNIT/ML ML Dialysis IV SCH (17:11)
[2018-10-03 17:14] LABS: ALB/GLOB RATIO 1.1 (1.0-2.1); ALBUMIN 3.5 g/dL (3.5-5.0); CALCIUM 8.6 mg/dl (8.6-10.4)
[2018-10-04 00:24] VITALS: RESP 20
[2018-10-04] MEDS: DiphenhydrAMINE 50 mg/ml Inj IVP PRN ×3 (01:26→09:38)
[2018-10-04 07:30] LABS: BASO # 0.1 K/uL (0.0-0.2); EOS # 0.2 K/uL (0.0-0.7); EOS % 2.9 % (0.0-4.0); LYMPH % 17.6 % (20.0-40.0); MEAN CELL VOLUME 92.3 fL (80.0-94.0); MEAN CORPUSCULAR HEMOGLOBIN 31.2 pg (27.0-31.0); MEAN CORPUSCULAR HGB CONC 33.8 g/dL (33.0-37.0); MEAN PLATELET VOLUME 7.4 fL (7.2-11.7); MONO # 0.6 K/uL (0.0-0.8); MONO % 11.7 % (0.0-10.0); NEUT # 3.7 K/uL (1.8-7.0); NEUT % 66.8 % (50.0-75.0); RBC 2.89 Mil/uL (4.40-5.90); RED CELL DISTRIBUTION WIDTH 15.7 % (11.5-14.5); WHITE BLOOD COUNT 5.5 K/uL (4.8-10.8)
[2018-10-04] MEDS: (Novolin R) Insulin Human Regular 100 units/ml vial SC SCH ×2 (08:11→11:48)
[2018-10-04] MEDS: Multivitamin Vitamin B Complex (Nephro-Vite) Tab PO SCH (08:11)
[2018-10-04 08:12] LABS: ALB/GLOB RATIO 1.1 (1.0-2.1); ALBUMIN 3.7 g/dL (3.5-5.0); CALCIUM 8.7 mg/dl (8.6-10.4)
[2018-10-04 08:19] VITALS: BP 159/80; PULSE 80; TEMP 98; O2SAT 97
[2018-10-04] MEDS ORDERED: Sod Polystyrene Sulf 15 gm/60 ml Susp PO STA (09:04)
[2018-10-04] MEDS: Labetalol Hydrochloride 300 mg Tab PO SCH (09:37)
--- NOTE | 2018-10-04 10:59 | CP.PCM.PN ---
Subjective - Date & Time of Evaluation Date of Evaluation: 10/04/18 Time of Evaluation: 10:58 - Subjective Subjective: Nephrology Consultation Note: Assessment: Stable central venous stenosis with clot around catheter Diabetic chronic Kidney Disease (E11.22) Hypertensive Chronic Kidney Disease (I12.0) End stage renal disease (N18.6) dependence on hemodialysis (Z99.2) (MWF) via PC Anemia (D64.9), Hyperphosphatemia (E83.39), Secondary Hyperparathyroidism (E21.1), HTN (I12.0), Obesity Plan: Will plan for HD tomorrow as ordered per MWF schedule, Continue with Nephrovite 1 tab/day. PRBC as needed for anemia. on JULIANA with dialysis Continue with phos binders BP control with meds as ordered. Patient not on RAAS karen as often with hyperkalemia. Glycemic control, Dialysis consistent diet Further work up/management as per primary team Dose meds/antibiotics (if needed) for ESRD status. Avoid fleets enema/magnesium based laxatives. vascular surgery following pt stable for d/c from renal perspective. Thanks for allowing me to participate in care of your patient. Will follow patient with you. Please call if any Qs Dr Alvaro Aquino Office: [phone] Chief Complaint; Rt arm and facial swelling HPI: Pt is a 57 M with hx of ESRD on hemodialysis (MWF) via permacath since nov 2017, chronic anemia, hyperphosphatemia, secondary hyperparathyroidism, Diabetes Mellitus, hypertension, obesity, left arm DVT presented with complaints of Rt arm and facial swelling, found to have venous stenosis and partial clot to catheter Renal consult requested for ESRD management. he feels slight better today. ROS: Cardiovascular: No chest pain. Pulmonary: No shortness of breath Gastrointestinal: denies abdominal pain No nausea. No vomiting. Genitourinary: No pain while urinating. Denies blood in urine. says make plenty of urine All other negative except as mentioned in HPI Physical Examination: General Appearance: Comfortable, in no acute respiratory distress, co-operative . obese Vitals reviewed and noted as below Head; Atraumatic, normocephalic. ENT: no ulcers no thrush. Tongue is midline. Oropharynx: no rash or ulcers. EYES: Pupils are equal, round and reactive to light accommodation. Eye muscles and extraocular movement intact. Sclera is anicteric. Neck; supple no lymphadenopathy, no thyromegaly or bruit Lungs: Normal respiratory rate/effort. Breath sounds bilateral equal and clear Heart: Normal rate. s1s2 normal. No rub or gallop. Extremities: trace edema. No varicose veins. left foot deformity + pt says had fracture Neurological: Patient is alert, awake and oriented to person, place and time. No focal deficit. Strength bilateral appropriate and equal Skin: Warm and dry. Normal turgor. No rash. Palpitation: Normal elasticity for age Abdomen: Abdomen is soft. Bowel sounds +. There is no abdominal tenderness, no guarding/rigidity or organomegaly Psych: normal insight and normal affect/mood MSK: no joint tenderness or swelling. Digits and nails normal, no deformity : kidney or bladder not palpable Access: Rt PC. Rt AVF with thrill and bruit with swelling Labs/imaging reviewed. Past medical history, past surgical history, family history, social history, allergy reviewed and noted as below Family Hx: no hx of CKD. Non contributory Objective - Vital Signs/Intake and Output Vital Signs (last 24 hours): Temp Pulse Resp BP Pulse Ox 98 F 80 20 159/80 H 97 10/04/18 08:18 10/04/18 08:18 10/04/18 08:18 10/04/18 08:18 10/04/18 08:18 Intake and Output: 10/04/18 10/04/18 06:59 18:59 Intake Total 810 Balance 810 - Medications Medications: Current Medications Amlodipine Besylate (Norvasc) 10 mg PO DAILY [facility] Last Admin: 10/04/18 09:37 Dose: 10 mg Aspirin (Aspirin Chewable) 81 mg PO DAILY [facility] Last Admin: 10/04/18 09:37 Dose: 81 mg Bumetanide (Bumex) 1 mg PO Q12 [facility] Last Admin: 10/04/18 09:37 Dose: 1 mg Cyclobenzaprine HCl (Flexeril) 10 mg PO TID [facility] Last Admin: 10/04/18 09:37 Dose: 10 mg Dextrose (Dextrose 50% Inj) 0 ml IV STAT PRN; Protocol PRN Reason: Hypoglycemia Protocol Dextrose (Glutose 15) 0 gm PO ONCE PRN; Protocol PRN Reason: Hypoglycemia Protocol Diphenhydramine HCl (Benadryl) 25 mg IVP Q4 PRN PRN Reason: Allergy symptoms Last Admin: 10/04/18 09:38 Dose: 25 mg Epoetin Efrain (Procrit) 8,000 unit IV MWF [facility] Last Admin: 10/03/18 17:11 Dose: 8,000 unit Famotidine (Pepcid) 20 mg PO DAILY [facility] Last Admin: 10/04/18 09:37 Dose: 20 mg Glucagon (Glucagen Diagnostic Kit) 0 mg IM STAT PRN; Protocol PRN Reason: Hypoglycemia Protocol Hydromorphone HCl (Dilaudid) 2 mg IVP Q4H PRN PRN Reason: Pain, severe (8-10) Last Admin: 10/04/18 09:38 Dose: 2 mg Heparin Sodium/Sodium Chloride (Heparin 95577 Units/250ml 1/2 Normal Saline) 25,000 units in 250 mls @ 20.412 mls/hr IV .[id number] PRN; Protocol PRN Reason: PROTOCOL Last Admin: 10/02/18 15:21 Dose: 18 units/kg/hr, 20.412 mls/hr Insulin Human Regular (Novolin R) 0 unit SC ACHS [facility]; Protocol Last Admin: 10/04/18 08:11 Dose: 1 units Labetalol HCl (Normodyne) 300 mg PO BID [facility] Last Admin: 10/04/18 09:37 Dose: 300 mg Montelukast Sodium (Singulair) 10 mg PO HS [facility] Last Admin: 10/03/18 21:22 Dose: 10 mg Rosuvastatin Calcium (Crestor) 10 mg PO HS [facility] Last Admin: 10/03/18 21:22 Dose: 10 mg Sevelamer Carbonate (Renvela) 800 mg PO TIDCC [facility] Vitamin B Complex/Vit C/Folic Acid (Nephro-Leanna) 1 tab PO 0800 [facility] Last Admin: 10/04/18 08:11 Dose: 1 tab - Labs Labs: 10/04/18 07:10 10/04/18 07:10 PT 12.7 SECONDS (9.7-12.2) H 10/03/18 16:40 INR 1.2 10/03/18 16:40 APTT 36 SECONDS (21-34) H D 10/03/18 16:40
--- NOTE | 2018-10-04 11:25 | VAS ---
DATE: 10/03/2018 PREOPERATIVE DIAGNOSIS: Central vein stenosis. PROCEDURE CARRIED OUT: Fistulogram right arm and balloon angioplasty of right subclavian innominate vein stenosis. SURGEON: Ifeanyi Esquivel Jr., MD BURGLAR ALARM SUPERINTENDENT: None. ANESTHESIOLOGIST: Ms. Enamorado. ANESTHESIA: Local with sedation. INDICATIONS: A 57-year-old man with previous event on left arm including severe central vein stenosis and innominate vein stenosis, which required ligation of a shunt on that side. Now on this time, he presents with thrombosed jugular vein catheter and swelling in the right arm of new onset. The patient had a jugular vein thrombosis and my suspicion was this was extending into the innominate vein. OPERATIVE FINDINGS: 1. The arterial anastomosis was visualized but these films were not captured. This showed there was no perioperative ana paula anastomotic stenosis. 2. The rest of the fistula did not have any area of the stenosis. At the junction of the subclavian and jugular vein to form the innominate vein there was approximately a 60% stenosis, compared to the vessels proximal and distal to it. This was dilated successfully, at one time it was difficult to cross, we eventually crossed it, and we dilated it with a 10 and 12-mm balloon. After this had been done, we had good cosmetic result, but there still was some cosmetic stenosis, but we had a 12-mm wide open channel, because of this we did not carry out any further procedures, did not apply a stent as this is the first intervention that was carried out. We then terminated the procedure at this point. Catheter was removed from the arm and the procedure was terminated. PROCEDURE: The patient was given local anesthesia. Using ultrasound guidance and micropuncture technique, the fistula was punctured. Under fluoroscopic control, guidewire was advanced centrally, distally we had slight difficulty in passing the area this cross. We placed a 7-H[place] Konger sheath, we ballooned this with a 10 and the 12-mm balloon with good cosmetic results and improvement. We then applied pressure to the exit site and terminated the procedure. Blood loss was 25 mL. Procedure carried out was fistulogram right arm and balloon angioplasty using a 10 and 12-mm x 40-mm balloon. Ifeanyi Esquivel Jr., MD
--- NOTE | 2018-10-04 12:18 | CP.PCM.DIS ---
Provider - Provider Date of Admission: 10/01/18 14:35 Attending physician: Prashanth Lowery Jr, MD Time Spent in preparation of Discharge (in minutes): 45 Diagnosis - Discharge Diagnosis (1) Dialysis catheter clot or failure Status: Resolved (2) Anemia Status: Chronic (3) Hyperkalemia Status: Resolved (4) ESRD (end stage renal disease) on dialysis Status: Chronic Priority: High (5) HTN (hypertension) Status: Chronic Priority: Medium Hospital Course - Lab Results Lab Results: Most Recent Lab Values WBC 5.5 K/uL (4.8-10.8) 10/04/18 07:10 RBC 2.89 Mil/uL (4.40-5.90) L 10/04/18 07:10 Hgb 9.0 g/dL (12.0-18.0) L 10/04/18 07:10 Hct 26.6 % (35.0-51.0) L 10/04/18 07:10 MCV 92.3 fL (80.0-94.0) 10/04/18 07:10 MCH 31.2 pg (27.0-31.0) H 10/04/18 07:10 MCHC 33.8 g/dL (33.0-37.0) 10/04/18 07:10 RDW 15.7 % (11.5-14.5) H 10/04/18 07:10 Plt Count 211 K/uL (130-400) 10/04/18 07:10 MPV 7.4 fL (7.2-11.7) 10/04/18 07:10 Neut % (Auto) 66.8 % (50.0-75.0) 10/04/18 07:10 Lymph % (Auto) 17.6 % (20.0-40.0) L 10/04/18 07:10 Maverick % (Auto) 11.7 % (0.0-10.0) H 10/04/18 07:10 Eos % (Auto) 2.9 % (0.0-4.0) 10/04/18 07:10 Baso % (Auto) 1.0 % (0.0-2.0) 10/04/18 07:10 Neut # (Auto) 3.7 K/uL (1.8-7.0) 10/04/18 07:10 Lymph # (Auto) 1.0 K/uL (1.0-4.3) 10/04/18 07:10 Maverick # (Auto) 0.6 K/uL (0.0-0.8) 10/04/18 07:10 Eos # (Auto) 0.2 K/uL (0.0-0.7) 10/04/18 07:10 Baso # (Auto) 0.1 K/uL (0.0-0.2) 10/04/18 07:10 PT 12.7 SECONDS (9.7-12.2) H 10/03/18 16:40 INR 1.2 10/03/18 16:40 APTT 36 SECONDS (21-34) H D 10/03/18 16:40 Sodium 136 mmol/L (132-148) 10/04/18 07:10 Potassium 5.4 mmol/L (3.6-5.2) H 10/04/18 07:10 Chloride 96 mmol/L (98-107) L 10/04/18 07:10 Carbon Dioxide 27 mmol/L (22-30) 10/04/18 07:10 Anion Gap 18 (10-20) 10/04/18 07:10 BUN 41 mg/dL (9-20) H 10/04/18 07:10 Creatinine 8.0 mg/dL (0.8-1.5) H* D 10/04/18 07:10 Est GFR ( Amer) 9 10/04/18 07:10 Est GFR (Non-Af Amer) 7 10/04/18 07:10 POC Glucose (mg/dL) 213 mg/dL (65-110) H 10/04/18 11:19 Random Glucose 169 mg/dL (75-110) H 10/04/18 07:10 Calcium 8.7 mg/dl (8.6-10.4) 10/04/18 07:10 Phosphorus 5.2 mg/dL (2.5-4.5) H 10/04/18 07:10 Magnesium 2.0 mg/dL (1.6-2.3) 10/04/18 07:10 Total Bilirubin 0.4 mg/dL (0.2-1.3) 10/04/18 07:10 AST 26 U/L (17-59) 10/04/18 07:10 ALT 18 U/L (21-72) L D 10/04/18 07:10 Alkaline Phosphatase 69 U/L (38-126) 10/04/18 07:10 Total Creatine Kinase 33 U/L (55-170) L 09/30/18 06:19 CK-MB (Mass) 1.16 ng/mL (0.0-3.38) 09/30/18 06:19 Troponin I < 0.0120 ng/mL (0.00-0.120) 09/30/18 06:19 Total Protein 7.0 g/dL (6.3-8.3) 10/04/18 07:10 Albumin 3.7 g/dL (3.5-5.0) 10/04/18 07:10 Globulin 3.3 gm/dL (2.2-3.9) 10/04/18 07:10 Albumin/Globulin Ratio 1.1 (1.0-2.1) 10/04/18 07:10 Hep Bs Antigen Negative (NEGATIVE) 09/30/18 11:41 - Hospital Course Hospital Course: Patient is a 57 yo male with past medical history of ESRD on HD MWF, HTN, DM, Charcot foot, who presented to ED with complaints of RUE swelling and pain since yesterday AM. Pt has fullness in his ear, and new onset swelling of his right arm, chest, neck. Upper extremity duplex (09/29): Partial acute DVT of right IJV with mild reduction of venous return. Patent right AV fistula. Vascular surgery, Dr. Esquivel consulted and performed a fistulogram today that showed central vein stenosis ~60 % at subclavian/jugular/ innominate junction. Balloon angioplasty of central vein performed. Nephrology, Dr. Aquino consulted and recommended to continue his schedule hemodialysis schedule and to continue to take Procrit on HD days and Nephro-Leanna. Over the course of his stay, patient was treated with Amlodipine, Aspirin, Flexeril, Procrit, Famotidine, Hydromorphone, Heparin, Insulin, Montelukast, Crestor, Nephro-Leanna. Upon discharge, patient was instructed to take Aspirin 81mg once daily with food, Cre stor 10mg once daily, and to resume all prescribed medications as prescribed by his primary care doctor and home coordinator. He was also told that he may use his AV Fistula for hemodialysis. He was also instructed to follow up with Vascular surgeon, Dr. Esquivel in his office in 2 weeks, follow up with his primary cared doctor (Dr. Lowery) and Percolator Operator (Dr. Lara) within 1 week of discharge. He was also instructed to return to the nearest emergency room for worsening or newly concerning symptoms Discharge Exam - Head Exam Head Exam: ATRAUMATIC, NORMOCEPHALIC - Additional Findings Additional findings: - Constitutional Appears: Non-toxic, No Acute Distress - Head Exam Head Exam: ATRAUMATIC, NORMAL INSPECTION, NORMOCEPHALIC - ENT Exam ENT Exam: Mucous Membranes Moist - Neck Exam Additional comments: Right neck edema noted, improving compared to yesterday's exam - Respiratory Exam Respiratory Exam: NORMAL BREATHING PATTERN. absent: Respiratory Distress Additional comments: - Cardiovascular Exam Cardiovascular Exam: REGULAR RHYTHM, S1, S2 absent: Tachycardia, murmurs - GI/Abdominal Exam GI & Abdominal Exam: Soft. absent: Distended - Extremities Exam Extremities exam: Positive for: pedal edema. Negative for: calf tenderness Additional comments: Right avf w/ palpable thrill LLE in boot - Neurological Exam Neurological exam: Alert - Psychiatric Exam Psychiatric exam: Normal Affect, Normal Mood - Skin Skin Exam: Dry, Normal Color, Warm Discharge Plan - Discharge Medications Prescriptions: Aspirin [Aspirin Chewable] 81 mg PO DAILY 30 Days chew Rosuvastatin Calcium [Crestor] 10 mg PO HS #30 tab - Follow Up Plan Condition: STABLE Disposition: HOME/ ROUTINE Instructions: Heart Failure, Adult (DC), Aspirin, Rosuvastatin, Dialysis and Diet, Deep Venous Thrombosis (DC) Additional Instructions: 1. Please take Aspirin 81mg once daily with food, Crestor 10mg once daily 2. Resume all prescribed medications as prescribed by your primary care doctor and home coordinator 3. You may use your AV Fistula for hemodialysis 4. Follow up with Vascular surgeon, Dr. Esquivel in his office in 2 weeks. 5. Follow up with your primary cared doctor (Dr. Lowery) and Percolator Operator (Dr. Lara) whin 1 week of discharge. 6. Resume diet and activity as tolerated 7. Return to the nearest emergency room for worsening or newly concerning symptoms. Referrals: Prashanth Lowery Jr., MD [Medical Doctor] - Ifeanyi Esquivel Jr., MD [Staff Provider] -
== END 2018-10-04 13:11 | disposition home or self-care (01) | DRG 252 ==
LOC: C.ER 07:33 → C.9E 10:06 → C.3T 10:47 → OBSVTOIN 10-01 14:35
PROVIDERS: ADMIT Internal Medicine; ATTEND Internal Medicine
PROC: 05PYX3Z Removal of Infusion Device from Upper Vein, External Approach (ICD-10-PCS; 2018-10-01)
PROC: 05733ZZ Dilation of Right Innominate Vein, Percutaneous Approach (ICD-10-PCS; principal; 2018-10-03)
PROC: B51MYZZ Fluoroscopy of Right Upper Extremity Veins using Other Contrast (ICD-10-PCS; 2018-10-03)
DX: T82.868A Thrombosis due to vascular prosthetic devices, implants and grafts, initial encounter (principal); N18.6 End stage renal disease; I82.C11 Acute embolism and thrombosis of right internal jugular vein; I13.2 Hypertensive heart and chronic kidney disease with heart failure and with stage 5 chronic kidney disease, or end stage renal disease; Y82.8 Other medical devices associated with adverse incidents; I50.9 Heart failure, unspecified; E87.5 Hyperkalemia; E11.610 Type 2 diabetes mellitus with diabetic neuropathic arthropathy; Z79.01 Long term (current) use of anticoagulants; D64.9 Anemia, unspecified; E66.9 Obesity, unspecified; Z99.2 Dependence on renal dialysis; Z79.4 Long term (current) use of insulin

== ENCOUNTER 2018-12-08 09:26 | Day surgery (SDC) | payer MEDICARE ==
[2018-12-05 07:46] VITALS: BMI 32.3
[2018-12-08] MEDS ORDERED: HEPARIN-NS 5,000 UNITS/500 ML 5,000 UNIT/500 ML BAG IV ONE (10:40)
[2018-12-08] MEDS ORDERED: ceFAZolin 1 gm FROZEN Premix 2 GM/100 ML ML IVPB ONE (10:41)
[2018-12-08] MEDS ORDERED: Lidocaine Hydrochloride 10 ML INJ ONE ×2 (10:41→12:27)
[2018-12-08 11:49] LABS: CALCIUM 8.1 mg/dl (8.6-10.4)
[2018-12-08] MEDS ORDERED: Propofol 10 mg/ml Inj (20 ML) ONE (11:52)
[2018-12-08] MEDS ORDERED: Midazolam 2 MG/2 ML VIAL ONE (11:52)
[2018-12-08] MEDS ORDERED: HYDROmorphone 0.5 mg/0.5 ml ISec IVP PRN (12:55)
--- NOTE | 2018-12-08 12:55 | PCM.SURG1 ---
Surgeon's Initial Post Op Note - Surgeon's Notes Surgeon: Dr. Esquivel Filer Finish: Reyna PGY2; Ugo MS3 Type of Anesthesia: IV Sedation, Local Anesthesia Administered By: Dr. Chen Pre-Operative Diagnosis: Rectal Carcinoma, needs chemotheraputic agent Operative Findings: see operative report Post-Operative Diagnosis: same Operation Performed: Right Femoral Port-a-cath placement Specimen/Specimens Removed: none Estimated Blood Loss: EBL {In ML}: 10 Blood Products Given: N/A Drains Used: No Drains Post-Op Condition: Good Date of Surgery/Procedure: 12/08/18 Time of Surgery/Procedure: 13:06
[2018-12-08 13:54] VITALS: O2SAT 98
[2018-12-08 14:06] VITALS: BP 154/78; PULSE 75; RESP 8; TEMP 97.7
--- NOTE | 2018-12-08 16:34 | RAD ---
Date of service: 12/08/2018 PROCEDURE: Intraoperative Fluoroscopy. HISTORY: POOR VENOUS ACCESS FINDINGS: Fluoroscopic assistance was provided for right groin central venous access catheter insertion. Please refer to the operative report from VALENTIN Merrill.
--- NOTE | 2018-12-08 23:54 | OP ---
PROCEDURE DATE: 12/08/2018 PREOPERATIVE DIAGNOSIS: Colorectal cancer with placement of Port-A-Cath right femoral vein for chemotherapy, for rectal cancer. PROCEDURE: Placement of right femoral Port-A-Cath, PowerPort type. SURGEON: Ifeanyi Esquivel Jr., MD CAFETERIA AIDE: Dr. Orellana. TYPE OF ANESTHESIA: Local with sedation. ANESTHESIA ADMINISTERED BY: Ms. Kohler. INDICATIONS: The patient is a middle aged man with renal failure, on dialysis, recently diagnosed with colorectal cancer, which requires neoadjuvant therapy. Prior to the operation, the patient was assessed. In the view of the fact that he has a left innominate subclavian occlusion, there was no way we could place it on the left side, and on the right side, he previously had thrombosis of a right jugular vein catheter. The subclavian vein had to be dilated and this is the side on which his access is. Faced with all these problems, there was a detailed discussion held with the patient prior to the intervention informing of the need for placement on lower extremity. There was also the risk associated with this, were discussed with him. OPERATIVE FINDINGS: The catheter was inserted uneventfully via the femoral vein and was brought to the level of the vena cava. DESCRIPTION OF PROCEDURE: The patient was given local anesthesia. Using ultrasound guidance and micropuncture technique, the right common femoral vein was punctured. Eventually, we placed an 0.035 wire, placed the sheath dilator over this and positioned the catheter so it originated on the right thigh and went to the level of the inferior vena cava. It was flushed with heparinized saline with good return. The pocket was created and closed. Antibiotics were given prior to initiating the procedure and a standard skin prep was carried out. Blood loss was 10 mL. Ifeanyi Esquivel Jr., MD cc: Julius Cardozo MD
== END 2018-12-08 14:02 | disposition home or self-care (01) ==
LOC: C.SDS 09:26
PROVIDERS: ATTEND Surgery Vascular Surgery
DX: I99.9 Unspecified disorder of circulatory system (principal); C19 Malignant neoplasm of rectosigmoid junction; Z45.2 Encounter for adjustment and management of vascular access device; Z99.2 Dependence on renal dialysis
CPT/HCPCS: 36415; 36561; 77001; 80048; C1788; J0690; J2250; J2704; J3010; J7040

== ENCOUNTER 2019-01-13 10:15 | Inpatient (IN) | payer MEDICARE ==
[2019-01-13 10:22] VITALS: BMI 31.1
--- NOTE | 2019-01-13 11:13 | RAD ---
HISTORY: SOB COMPARISON: Chest x-ray performed 08/22/18 TECHNIQUE: Chest, one view. FINDINGS: Examination limited by habitus and hypoinflation. LUNGS: Central vascular and pulmonary venous congestion. Bibasilar atelectasis/infiltrates. Probable small bilateral effusions. No definite pneumothorax. Please note that chest x-ray has limited sensitivity for the detection of pulmonary masses. CARDIOVASCULAR: Cardiomegaly. OSSEOUS STRUCTURES: Degenerative changes. Osseous demineralization. VISUALIZED UPPER ABDOMEN: Unremarkable. OTHER FINDINGS: None. IMPRESSION: Cardiomegaly. Central vascular and pulmonary venous congestion. Bibasilar atelectasis/infiltrates. Probable small bilateral effusions.
[2019-01-13 11:20] LABS: BASO # 0.2 K/uL (0.0-0.2); BASO % 2.3 % (0.0-2.0); EOS # 0.1 K/uL (0.0-0.7); EOS % 1.3 % (0.0-4.0); HEMOGLOBIN 9.8 g/dL (12.0-18.0); LYMPH % 13.9 % (20.0-40.0); MEAN CELL VOLUME 91.6 fL (80.0-94.0); MEAN CORPUSCULAR HEMOGLOBIN 28.5 pg (27.0-31.0); MEAN CORPUSCULAR HGB CONC 31.1 g/dL (33.0-37.0); MEAN PLATELET VOLUME 8.4 fL (7.2-11.7); MONO # 0.8 K/uL (0.0-0.8); MONO % 10.9 % (0.0-10.0); NEUT # 5.2 K/uL (1.8-7.0); NEUT % 71.6 % (50.0-75.0); RBC 3.46 Mil/uL (4.40-5.90); RED CELL DISTRIBUTION WIDTH 21.4 % (11.5-14.5); WHITE BLOOD COUNT 7.2 K/uL (4.8-10.8)
[2019-01-13 11:30] LABS: INR 1.4; PROTHROMBIN TIME 15.4 SECONDS (9.7-12.2)
[2019-01-13 11:32] LABS: ALBUMIN 3.5 g/dL (3.5-5.0); CALCIUM 8.2 mg/dl (8.6-10.4)
--- NOTE | 2019-01-13 11:34 | C.PDOC ---
History Of Present Illness 58yo male, with hx of CKD, ESRD, currently on hemodialysis (MWF), colorectal cancer (received chemotherapy today), comes in complaining of shortness of breath for the past 2 days. Patient reports for the past 2 days, he has shortness of breath. Otherwise, no fever, chills, chest pain, or cough. No additional complaints. PMD: Dr. Lowery Time Seen by Provider: 01/13/19 10:33 Chief Complaint (Nursing): Shortness Of Breath History Per: Patient History/Exam Limitations: no limitations Onset/Duration Of Symptoms: Days Current Symptoms Are (Timing): Still Present Associated Symptoms: denies: Fever, Chills, Chest Pain, Productive Cough Additional History Per: Patient Past Medical History Reviewed: Historical Data, Nursing Documentation, Vital Signs Vital Signs: Last Vital Signs Temp 97.7 F 01/13/19 10:23 Pulse 102 H 01/13/19 10:38 Resp 17 01/13/19 10:50 BP 157/85 H 01/13/19 10:38 Pulse Ox 100 01/13/19 10:50 - Medical History PMH: Anemia, Anxiety, CHF, Diabetes, Fractures (RIGHT ANKLE "NO SURGERY DUE TO ANEMIA AND RENAL ISSUES."), HTN, Pneumonia, End Stage Renal Disease ([id number]-wed), Chronic Kidney Disease Surgical History: No Surg Hx - [facility] Procedures (08/19/18) CONTROL BLEEDING IN CHEST WALL, PERCUTANEOUS APPROACH (08/19/18) DILATION OF RIGHT INNOMINATE VEIN, PERCUTANEOUS APPROACH (10/01/18) EXCIS DEBRIDE OF WOUND, INFECT, OR BURN (03/04/04) FLUOROSCOPY OF R UP EXTREM VEIN USING OTH CONTRAST (10/01/18) FLUOROSCOPY OF RIGHT HEART USING LOW OSMOLAR CONTRAST (08/19/18) INSERT INFUSION DEV IN R INT JUGULAR VEIN, PERC (07/18/18) INSERTION OF INFUSION DEVICE INTO R ATRIUM, PERC APPROACH (08/19/18) INSERTION OF VAD INTO CHEST SUBCU/FASCIA, PERC APPROACH (08/19/18) OCCLUSION OF LEFT BRACHIAL ARTERY, OPEN APPROACH (07/18/18) REMOVAL OF INFUSION DEVICE FROM UPPER VEIN, AERODYNAMIC CONSULTANT APPROACH (10/01/18) REMOVAL OF INFUSION DEVICE FROM UPPER VEIN, PERC APPROACH (07/18/18) TETANUS TOXOID ADMINIST (12/03/13) TRANSFUSE NONAUT RED BLOOD CELLS IN PERIPH VEIN, PERC (03/05/17) ULTRASONOGRAPHY OF RIGHT JUGULAR VEINS, GUIDANCE (08/19/18) Family History: States: No Known Family Hx - Social History Hx Tobacco Use: No Hx Alcohol Use: No Hx Substance Use: No - Immunization History Hx Tetanus Toxoid Vaccination: Yes Hx Influenza Vaccination: Yes Hx Pneumococcal Vaccination: No Review Of Systems Except As Marked, All Systems Reviewed And Found Negative. Constitutional: Negative for: Fever, Chills Cardiovascular: Negative for: Chest Pain Respiratory: Positive for: Shortness of Breath. Negative for: Cough Gastrointestinal: Negative for: Nausea, Vomiting Physical Exam - Physical Exam Appears: Non-toxic, No Acute Distress Skin: Normal Color Head: Atraumatic, Normacephalic Eye(s): bilateral: Normal Inspection, PERRL, EOMI Neck: Normal ROM, Supple Chest: Symmetrical Cardiovascular: Rhythm Regular Respiratory: Normal Breath Sounds, No Rales, No Rhonchi, No Wheezing Gastrointestinal/Abdominal: Normal Exam, Soft Back: Normal Inspection Extremity: Normal ROM, Other (left leg in a boot due to hx of fracture; right arm w/ AV fistula, good thrill) Neurological/Psych: Oriented x3 ED Course And Treatment - Laboratory Results Result Diagrams: 01/13/19 11:16 01/13/19 11:16 O2 Sat by Pulse Oximetry: 100 (RA) Pulse Ox Interpretation: Normal - Other Rad CXR X-Ray: Read By Radiologist Interpretation: FINDINGS: Examination limited by habitus and hypoinflation. LUNGS: Central vascular and pulmonary venous congestion. Bibasilar atelecta sis/infiltrates. Probable small bilateral effusions. No definite pneumothorax. Please note that chest x-ray has limited sensitivity for the detection of pulmonary masses. CARDIOVASCULAR: Cardiomegaly. OSSEOUS STRUCTURES: Degenerative changes. Osseous demineralization. VISUALIZED UPPER ABDOMEN: Unremarkable. OTHER FINDINGS: None. IMPRESSION: Cardiomegaly. Central vascular and pulmonary venous congestion. Bibasilar atelectasis/infiltrates. Probable small bilateral effusions. Medical Decision Making Medical Decision Makinyo male with SOB x 2 days Plan: -- Labs -- CXR -- VQ Lung scan [address] Lowery, who is agreeable with plan for admission to telemetry. advanced manufacturing vice president [phone]. [phone] advanced manufacturing vice president aware of case, will evaluate patient at bedside. Disposition Discussed With : Prashanth Lowery Jr. Doctor Will See Patient In The: Hospital - Disposition Disposition: HOSPITALIZED Disposition Time: 11:53 Condition: FAIR Forms: [facility] (Lithuanian) - Clinical Impression Clinical Impression: CHF (congestive heart failure) - Scribe Statement The provider has reviewed the documentation as recorded by the Alexandre Fischer Provider Attestation: All medical record entries made by the Katieibaky were at my direction and personally dictated by me. I have reviewed the chart and agree that the record accurately reflects my personal performance of the history, physical exam, medical decision making, and the department course for this patient. I have also personally directed, reviewed, and agree with the discharge instructions and disposition.
[2019-01-13 11:46] LABS: TROPONIN I 0.082 ng/mL (0.00-0.120)
--- NOTE | 2019-01-13 13:15 | CP.PCM.HP ---
History of Present Illness - History of Present Illness History of Present Illness: H&P for Dr. Lowery's service HPI: Patient is a 58 year old male with history newly diagnosed colorectal cancer with mets to liver, ESRD on HD MWF, HTN, DM, Charcot foot who presents for shortness of breath that started 2 days ago after his HD dialysis session on Wednesday. He states that this morning at 3am when he woke up to go to the bathroom his legs buckled and he had to grab his crutches to prevent falling. He denies falling or fainting recently. He admits he was sweating today but denies fevers, headache, dizziness, chest pain, palpitations, abdominal pain. He states he had a sore throat this morning for which he used some cough drops. Also admits to decreased appetite. He states he had a recent thrombus in his right IJ vein however he can no longer take Eliquis since it causes uncontrollable bleeding from his rectal tumor. PMH: Colorectal cancer Stage 4 with mets to liver, ESRD on HD MWF, HTN, DM, Charcot foot PSH: AV fistula x2, permacath, portacath in right femoral vein Home meds: as listed Social hx: denies tobacco, alcohol or drug use. Lives by himself, has girlfriend. Allergies: Acetaminophen, Ibuprofen, Tramadol, [place] snapple. PMD: Dr. Lowery Drywall Stripper: Dr. Lara/Miles Oncologist: Dr. Cardozo Code status: full code POA: not designated at this time Present on Admission - Present on Admission Any Indicators Present on Admission: Yes History of DVT/PE: Yes Review of Systems - Constitutional Constitutional: Fatigue - Cardiovascular Cardiovascular: Dyspnea. absent: Chest Pain, Syncope - Respiratory Respiratory: Dyspnea. absent: Cough - Gastrointestinal Gastrointestinal: absent: Abdominal Pain, Diarrhea, Nausea, Vomiting - Musculoskeletal Musculoskeletal: absent: Back Pain - Neurological Neurological: absent: Confusion, Dizziness, Numbness - Endocrine Endocrine: Fatigue Past Patient History - Infectious Disease Hx of Infectious Diseases: None - Past Medical History & Family History Past Medical History?: Yes - Past Social History Smoking Status: Never Smoked - CARDIAC Hx Congestive Heart Failure: Yes Hx Hypertension: Yes - PULMONARY Hx Pneumonia: Yes - NEUROLOGICAL Hx Neurological Disorder: No - HEENT Hx HEENT Problems: No - RENAL Hx Chronic Kidney Disease: Yes - ENDOCRINE/METABOLIC Hx Endocrine Disorders: Yes Hx Diabetes Mellitus Type 2: Yes (denies) - HEMATOLOGICAL/ONCOLOGICAL Hx Anemia: Yes - INTEGUMENTARY Hx Dermatological Problems: Yes Hx Cellulitis: Yes (left arm) - MUSCULOSKELETAL/RHEUMATOLOGICAL Hx Fractures: Yes (RIGHT ANKLE "NO SURGERY DUE TO ANEMIA AND RENAL ISSUES.") - GASTROINTESTINAL Hx Gastrointestinal Disorders: Yes Other/Comment: HX: COLON/RECTAL CANCER. "I'M NO LONGER TAKING ANY BLOOD THINNERS EXCEPT WHAT THEY GIVE ME IN MY DIALYSIS DUE TO MY ANEMIA AND BLEEDING." - GENITOURINARY/GYNECOLOGICAL Hx Genitourinary Disorders: No - PSYCHIATRIC Hx Anxiety: Yes Hx Substance Use: No - SURGICAL HISTORY Hx Surgeries: Yes Hx Arteriovenous Shunt: Yes (LEFT ARM-NON FUNCTIONG; RIGHT ATRM) Hx Musculoskeletal Surgery: Yes (LT FOOT SX) Other/Comment: LT CHEST WALL DIALYSIS CATH. right sc dialysis access. HX: FISTULOGRAM RIGHT ARM. fsistula to right upper leg - ANESTHESIA Hx Anesthesia: Yes Hx Anesthesia Reactions: No Hx Malignant Hyperthermia: No Meds Allergies/Adverse Reactions: Allergies Allergy/AdvReac Type Severity Reaction Status Date / Time acetaminophen [From Percocet] Allergy Verified 01/13/19 10:21 ibuprofen Allergy Verified 01/13/19 10:21 oxycodone [From Percocet] Allergy Verified 01/13/19 10:21 tramadol Allergy Verified 01/13/19 10:21 PEACH SNAPPLE Allergy Mild RASH Uncoded 08/19/18 17:06 Physical Exam - Constitutional Appears: Non-toxic Additional comments: Appears tired - Head Exam Head Exam: ATRAUMATIC, NORMOCEPHALIC - Eye Exam Eye Exam: EOMI, PERRL - ENT Exam ENT Exam: Mucous Membranes Dry - Neck Exam Neck exam: Positive for: Full Rom - Respiratory Exam Respiratory Exam: Rales, Wheezes - Cardiovascular Exam Cardiovascular Exam: REGULAR RHYTHM, +S1, +S2 - GI/Abdominal Exam GI & Abdominal Exam: Normal Bowel Sounds, Soft - Extremities Exam Additional comments: chemo port in right femoral vein underneath skin Right AV fistula with palpable thrill - Back Exam Additional comments: Skin changes noted on back - Neurological Exam Neurological exam: Alert, Oriented x3 Results - Vital Signs Recent Vital Signs: Last Vital Signs Temp 97.3 F L 01/13/19 12:32 Pulse 68 01/13/19 12:32 Resp 20 01/13/19 12:32 BP 166/87 H 01/13/19 12:32 Pulse Ox 99 01/13/19 12:32 - Labs Result Diagrams: 01/13/19 11:16 01/13/19 11:16 Labs: Laboratory Results - last 24 hr 01/13/19 01/13/19 01/13/19 11:16 11:16 11:20 WBC 7.2 RBC 3.46 L Hgb 9.8 L Hct 31.7 L MCV 91.6 MCH 28.5 MCHC 31.1 L RDW 21.4 H Plt Count 177 MPV 8.4 Neut % (Auto) 71.6 Lymph % (Auto) 13.9 L [place] % (Auto) 10.9 H Eos % (Auto) 1.3 Baso % (Auto) 2.3 H Neut # (Auto) 5.2 Lymph # (Auto) 1.0 [place] # (Auto) 0.8 Eos # (Auto) 0.1 Baso # (Auto) 0.2 PT 15.4 H INR 1.4 APTT 34 Sodium 130 L Potassium 3.9 Chloride 87 L Carbon Dioxide 34 H Anion Gap 13 BUN 24 H Creatinine 5.5 H Est GFR ( Amer) 13 Est GFR (Non-Af Amer) 11 Random Glucose 124 H Calcium 8.2 L Total Bilirubin 1.5 H AST 45 ALT 113 H D Alkaline Phosphatase 87 Troponin I 0.0820 NT-Pro-B Natriuret Pep 389344 H Total Protein 6.9 Albumin 3.5 Globulin 3.4 Albumin/Globulin Ratio 1.0 Assessment & Plan - Assessment and Plan (Free Text) Assessment: 58 year old male with history of colorectal cancer currently on chemo, ESRD on HD MWF, DM, HTN, who presents for 2 day history of shortness of breath, weaknes s. Plan: Dyspnea VQ scan: Low probability VQ scan for PE. CXR: cardiomegaly, congestion, bibasilar infiltrates/atelectasis, small bilateral effusions. EKG: SR 97 no new changes from prior LE dopplers pending Impregnator Operator Dr. Davis consulted, help appreciated Colorectal Cancer with mets to liver Oncologist Dr. Cardozo consulted, help appreciated On chemo currently Oxycodone 30mg Q4 Dilaudid 1mg Q6 PRN pain ESRD on HD MWF Nephrology Dr. Aquino/Srinivasa consulted, help appreciated ProBNP elevated [id number] To be dialyzed 01/14/19 HTN Norvasc 5mg PO Labetalol 100mg PO BID Hydralazine 25mg QID PRN DM ISS Hypoglycemic protocol A1c pending Charcot foot Wound care nurse History of right IJV thrombus Was on Eliquis previously, however caused severe bleeding from rectal tumor as p er patient Anemia Hb 9.8/Hct 31.7 Continue to monitor Prophylaxis, diet Heart healthy diet Pepcid 20mg Case discussed with Dr. Sebastián Grewal, PGY1
[2019-01-13] MEDS: oxyCODONE 10 mg Immediate Release Tab PO SCH ×3 (13:28→21:24)
--- NOTE | 2019-01-13 15:01 | NM ---
Date of service: 01/13/2019 COMPARISON: 01/13/2019. Single-view chest TECHNIQUE: 7.8 mCi technetium 99-m Xe-133 Gas. 4.3 mCI technetium 99-m MAA administered intravenously. FINDINGS: VENTILATION COMPONENT: Normal. PERFUSION COMPONENT: Heterogeneous distribution of radionuclide. No geographic, segmental, lobar abnormalities apparent on the present examination. IMPRESSION: Low probability ventilation perfusion scan for pulmonary embolism.
--- NOTE | 2019-01-13 15:31 | CP.PCM.CON ---
History of Present Illness - History of Present Illness History of Present Illness: Patient is a 58 year old man with a PMHx of stage 4 colorectal cancer w/ mets to liver, ESRD on HD, HTN, DM, Charcot foot who presented for Shortness of breath. denies cough, denies fever chills, denies chest pain. Patient states that he developed rectal bleeding whenever he was started on anticoagulation. PMHx: stage 4 colorectal cancer w/ mets to liver, ESRD on HD, HTN, DM, Charcot foot PSHx: av shunt, left foot surgery Meds: as per EMR Social:denies Allergies: tylenol, ibuprofen, oxycodone, tramadol Review of Systems - Review of Systems All systems: reviewed and no additional remarkable complaints except (Shortness of breath) Past Patient History - Infectious Disease Hx of Infectious Diseases: None - Past Medical History & Family History Past Medical History?: Yes - Past Social History Smoking Status: Never Smoked - CARDIAC Hx Congestive Heart Failure: Yes Hx Hypertension: Yes - PULMONARY Hx Pneumonia: Yes - NEUROLOGICAL Hx Neurological Disorder: No - HEENT Hx HEENT Problems: No - RENAL Hx Chronic Kidney Disease: Yes - ENDOCRINE/METABOLIC Hx Endocrine Disorders: Yes Hx Diabetes Mellitus Type 2: Yes (denies) - HEMATOLOGICAL/ONCOLOGICAL Hx Anemia: Yes - INTEGUMENTARY Hx Dermatological Problems: Yes Hx Cellulitis: Yes (left arm) - MUSCULOSKELETAL/RHEUMATOLOGICAL Hx Fractures: Yes (RIGHT ANKLE "NO SURGERY DUE TO ANEMIA AND RENAL ISSUES.") - GASTROINTESTINAL Hx Gastrointestinal Disorders: Yes Other/Comment: HX: COLON/RECTAL CANCER. "I'M NO LONGER TAKING ANY BLOOD THINNERS EXCEPT WHAT THEY GIVE ME IN MY DIALYSIS DUE TO MY ANEMIA AND BLEEDING." - GENITOURINARY/GYNECOLOGICAL Hx Genitourinary Disorders: No - PSYCHIATRIC Hx Anxiety: Yes Hx Substance Use: No - SURGICAL HISTORY Hx Surgeries: Yes Hx Arteriovenous Shunt: Yes (LEFT ARM-NON FUNCTIONG; RIGHT ATRM) Hx Musculoskeletal Surgery: Yes (LT FOOT SX) Other/Comment: LT CHEST WALL DIALYSIS CATH. right sc dialysis access. HX: FISTULOGRAM RIGHT ARM. fsistula to right upper leg - ANESTHESIA Hx Anesthesia: Yes Hx Anesthesia Reactions: No Hx Malignant Hyperthermia: No Meds Allergies/Adverse Reactions: Allergies Allergy/AdvReac Type Severity Reaction Status Date / Time acetaminophen [From Percocet] Allergy Verified 01/13/19 10:21 ibuprofen Allergy Verified 01/13/19 10:21 oxycodone [From Percocet] Allergy Verified 01/13/19 10:21 tramadol Allergy Verified 01/13/19 10:21 [place] SNAPPLE Allergy Mild RASH Uncoded 08/19/18 17:06 - Medications Medications: Current Medications Amlodipine Besylate (Norvasc) 5 mg PO DAILY [facility] Last Admin: 01/13/19 13:30 Dose: 5 mg Montelukast Sodium (Singulair) 10 mg PO DAILY [facility] Last Admin: 01/13/19 13:30 Dose: 10 mg Oxycodone HCl (Oxycodone Immediate Release Tab) 30 mg PO Q4H [facility] Last Admin: 01/13/19 13:28 Dose: 30 mg Rosuvastatin Calcium (Crestor) 10 mg PO HS [facility] Physical Exam - Head Exam Head Exam: ATRAUMATIC, NORMOCEPHALIC - Eye Exam Eye Exam: Normal appearance - ENT Exam ENT Exam: Mucous Membranes Moist - Neck Exam Neck exam: Positive for: Normal Inspection - Respiratory Exam Respiratory Exam: Decreased Breath Sounds - Cardiovascular Exam Cardiovascular Exam: REGULAR RHYTHM - GI/Abdominal Exam GI & Abdominal Exam: Normal Bowel Sounds - Extremities Exam Extremities exam: Positive for: pedal edema - Neurological Exam Neurological exam: Alert, Oriented x3 Results - Vital Signs Recent Vital Signs: Last Vital Signs Temp 97.3 F L 01/13/19 12:32 Pulse 103 H 01/13/19 13:12 Resp 20 01/13/19 13:12 BP 166/87 H 01/13/19 12:32 Pulse Ox 99 01/13/19 12:32 - Labs Result Diagrams: 01/13/19 11:16 01/13/19 11:16 Labs: Laboratory Results - last 24 hr 01/13/19 01/13/19 01/13/19 11:16 11:16 11:20 WBC 7.2 RBC 3.46 L Hgb 9.8 L Hct 31.7 L MCV 91.6 MCH 28.5 MCHC 31.1 L RDW 21.4 H Plt Count 177 MPV 8.4 Neut % (Auto) 71.6 Lymph % (Auto) 13.9 L [place] % (Auto) 10.9 H Eos % (Auto) 1.3 Baso % (Auto) 2.3 H Neut # (Auto) 5.2 Lymph # (Auto) 1.0 [place] # (Auto) 0.8 Eos # (Auto) 0.1 Baso # (Auto) 0.2 PT 15.4 H INR 1.4 APTT 34 Sodium 130 L Potassium 3.9 Chloride 87 L Carbon Dioxide 34 H Anion Gap 13 BUN 24 H Creatinine 5.5 H Est GFR ( Amer) 13 Est GFR (Non-Af Amer) 11 Random Glucose 124 H Calcium 8.2 L Total Bilirubin 1.5 H AST 45 ALT 113 H D Alkaline Phosphatase 87 Troponin I 0.0820 NT-Pro-B Natriuret Pep [id number] H Total Protein 6.9 Albumin 3.5 Globulin 3.4 Albumin/Globulin Ratio 1.0 Assessment & Plan (1) Dyspnea Assessment and Plan: Most likely secondary to fluid overload Rule out pulmonary embolism as patient has history of colon cancer Patient states he cannot take anticoagulation because of rectal bleeding(for subclavian vein thrombosis) Venous Doppler lower extremities and if positive consider IVC filter Continue hemodialysis Status: Acute (2) ESRD (end stage renal disease) on dialysis Status: Chronic Priority: High
[2019-01-13] MEDS ORDERED: Glucagon Recombinant 1 mg Inj IM PRN (21:11)
[2019-01-13] MEDS ORDERED: Dextrose 50% SYRINGE Inj (50 ml) IV PRN (21:11)
[2019-01-13] MEDS: (Novolin R) Insulin Human Regular 100 units/ml vial SC SCH (21:25)
[2019-01-13] MEDS: HYDROmorphone 1 mg/ml ISec IVP PRN (21:48)
[2019-01-14] MEDS: oxyCODONE 10 mg Immediate Release Tab PO SCH ×6 (01:39→23:52)
[2019-01-14] MEDS: HYDROmorphone 1 mg/ml ISec IVP PRN ×3 (02:49→20:13)
[2019-01-14 06:23] LABS: BASO # 0.1 K/uL (0.0-0.2); BASO % 1.2 % (0.0-2.0); EOS # 0.3 K/uL (0.0-0.7); EOS % 4.4 % (0.0-4.0); HEMOGLOBIN 9.3 g/dL (12.0-18.0); LYMPH # 1.7 K/uL (1.0-4.3); LYMPH % 23.4 % (20.0-40.0); MEAN CELL VOLUME 90.5 fL (80.0-94.0); MEAN CORPUSCULAR HEMOGLOBIN 28.2 pg (27.0-31.0); MEAN CORPUSCULAR HGB CONC 31.1 g/dL (33.0-37.0); MEAN PLATELET VOLUME 8.3 fL (7.2-11.7); MONO # 0.9 K/uL (0.0-0.8); MONO % 11.7 % (0.0-10.0); NEUT # 4.3 K/uL (1.8-7.0); NEUT % 59.3 % (50.0-75.0); NRBC % 0.1 % (0.0-2.0); RBC 3.31 Mil/uL (4.40-5.90); RED CELL DISTRIBUTION WIDTH 20.2 % (11.5-14.5); WHITE BLOOD COUNT 7.3 K/uL (4.8-10.8)
[2019-01-14 06:39] LABS: ALB/GLOB RATIO 1.1 (1.0-2.1); ALBUMIN 3.4 g/dL (3.5-5.0); CALCIUM 8.1 mg/dl (8.6-10.4)
[2019-01-14] MEDS: (Novolin R) Insulin Human Regular 100 units/ml vial SC SCH ×4 (07:36→22:47)
--- NOTE | 2019-01-14 07:46 | CP.PCM.PN ---
Subjective - Date & Time of Evaluation Date of Evaluation: 01/14/19 Time of Evaluation: 08:00 - Subjective Subjective: PGY1 Medicine progress note for Dr. Lowery's service Pt was seen and examined at bedside. Pt is complaining of continued dyspnea, but slightly improved. He also reports lower extremity pain and back pain. Pt is resting comfortably. Denies chest pain, palpitations, headache, visual changes, lightheadedness, dizzines, abdominal pain, n/v/d. Objective - Vital Signs/Intake and Output Vital Signs (last 24 hours): Temp Pulse Resp BP Pulse Ox 97.8 F 88 20 131/75 95 01/14/19 00:00 01/14/19 03:32 01/14/19 00:00 01/14/19 00:00 01/14/19 00:00 Intake and Output: 01/14/19 01/14/19 06:59 18:59 Intake Total 300 Balance 300 - Medications Medications: Current Medications Amlodipine Besylate (Norvasc) 5 mg PO DAILY [facility] Last Admin: 01/13/19 13:30 Dose: 5 mg Dextrose (Dextrose 50% Inj) 0 ml IV STAT PRN; Protocol PRN Reason: Hypoglycemia Protocol Dextrose (Glutose 15) 0 gm PO ONCE PRN; Protocol PRN Reason: Hypoglycemia Protocol Glucagon (Glucagen Diagnostic Kit) 0 mg IM STAT PRN; Protocol PRN Reason: Hypoglycemia Protocol Hydralazine HCl (Apresoline) 25 mg PO QID PRN PRN Reason: Systolic Blood Pressure Hydromorphone HCl (Dilaudid) 1 mg IVP Q6H PRN PRN Reason: Pain, severe (8-10) Last Admin: 01/14/19 02:49 Dose: 1 mg Dextrose (Dextrose 5% In Water 1000 Ml) 1,000 mls @ 0 mls/hr IV .Q0M PRN; Protocol PRN Reason: Hypoglycemia Protocol Insulin Human Regular (Novolin R) 0 unit SC [facility]; Protocol Last Admin: 01/14/19 07:36 Dose: Not Given Labetalol HCl (Trandate) 100 mg PO BID [facility] Last Admin: 01/13/19 21:48 Dose: 100 mg Montelukast Sodium (Singulair) 10 mg PO DAILY [facility] Last Admin: 01/13/19 13:30 Dose: 10 mg Oxycodone HCl (Oxycodone Immediate Release Tab) 30 mg PO Q4H [facility] Last Admin: 01/14/19 01:39 Dose: Not Given Rosuvastatin Calcium (Crestor) 10 mg PO HS [facility] Last Admin: 01/13/19 21:48 Dose: 10 mg - Labs Labs: 01/14/19 06:17 01/14/19 06:17 PT 15.4 SECONDS (9.7-12.2) H 01/13/19 11:20 INR 1.4 01/13/19 11:20 APTT 34 SECONDS (21-34) 01/13/19 11:20 - Additional Findings Additional findings: - Constitutional Appears: Non-toxic, no acute distress - Head Exam Head Exam: ATRAUMATIC, NORMOCEPHALIC - Eye Exam Eye Exam: EOMI, PERRL - ENT Exam ENT Exam: Mucous Membranes Moist - Neck Exam Neck exam: Positive for: Full Rom - Respiratory Exam Respiratory Exam: Decreased breath sounds. Rales at the bases, no wheezing; no rhonchi, no stridor - Cardiovascular Exam Cardiovascular Exam: REGULAR RHYTHM, +S1, +S2 - GI/Abdominal Exam GI & Abdominal Exam: Normal Bowel Sounds, Soft - Extremities Exam 1+ pitting edema to the bilateral lower extremities; bilateral feet with bandages, not examined at request of pt. Additional comments: chemo port in right femoral vein underneath skin Right AV fistula with palpable thrill No signs of infection in either sites - Back Exam Additional comments: Skin changes noted on back - Neurological Exam Neurological exam: Alert, Oriented x3 Assessment and Plan - Assessment and Plan (Free Text) Assessment: 58 year old male with history of colorectal cancer currently on chemo, ESRD on HD MWF, DM, HTN, who presents for 2 day history of shortness of breath, weakness. Plan: Dyspnea VQ scan: Low probability VQ scan for PE. CXR: cardiomegaly, congestion, bibasilar infiltrates/atelectasis, small bilateral effusions. EKG: SR 97 no new changes from prior LE dopplers pending Hazardous Waste Management Specialist Dr. Davis consulted, help appreciated Colorectal Cancer with mets to liver Oncologist Dr. Cardozo consulted, help appreciated On chemo currently Oxycodone 30mg Q4 Dilaudid 1mg Q6 PRN pain ESRD on HD MWF BUN/Cr is worsening, no hyperkalemia but pt with hyperphosphatemia Nephrology Dr. Aquino/Srinivasa consulted, help appreciated Phosphate binder started ProBNP elevated [id number] Last ECHO 03/2018 showed normal LV systolic function. diastolic dysfunction. Dilated LA, dilated aortic root. LVH. To be dialyzed today HTN Norvasc 5mg PO Labetalol 100mg PO BID Hydralazine 25mg QID PRN DM ISS Hypoglycemic protocol A1c pending Charcot foot Wound care nurse History of right IJV thrombus Was on Eliquis previously, however caused severe bleeding from rectal tumor as p er patient F/u heme/onc for potential AC Anemia H/H is stable Continue to monitor Prophylaxis, diet Heart healthy diet Pepcid 20mg Case discussed with Dr. Sebastián Spear, PGY1
--- NOTE | 2019-01-14 08:48 | CP.PCM.CON ---
History of Present Illness - History of Present Illness History of Present Illness: RENAL HPI: 58 year old M w/ pmh of ESRD, met colorectal ca, DM, HTN that prestned w/ sob and weakness. He states he had weakness in his bathroom and fell. He endorses generalized weakness. He denes n/v. He has been receiving chemo w/ Dr. Cardozo. HE missed his hd yesterday PMH: ESRD MWF, HTN, DM, [place], Colorectal cancer Stage 4 Home meds: as listed Social hx: denies tobacco, alcohol or drug use. famhx: + HTN Allergies: Acetaminophen, Ibuprofen, Tramadol, [place] snapple. pe: vs as below gen: Nad sclera: anicteric op: clear neck: Supple cv: +S1+s2 no rub lungs: crackles b/l bases abd: soft nt nd no organomegaly ext: 1+ edema b/l neuro: AA+OX3 no focal deficit psych: nml affect skino no rash imp: ESRD/ Anemia of renal disease/ Secondary hyperpara/hyperphosphatemia/ HTN/ SOB/diabetic kidney plan: HD today than mwf will hold off on JULIANA until discuss w/ Dr. Cardozo bp stable will start phos binder dm per primary colon ca per onc Past Patient History - Infectious Disease Hx of Infectious Diseases: None - Past Medical History & Family History Past Medical History?: Yes - Past Social History Smoking Status: Never Smoked - CARDIAC Hx Congestive Heart Failure: Yes Hx Hypertension: Yes - PULMONARY Hx Pneumonia: Yes - NEUROLOGICAL Hx Neurological Disorder: No - HEENT Hx HEENT Problems: No - RENAL Hx Chronic Kidney Disease: Yes - ENDOCRINE/METABOLIC Hx Endocrine Disorders: Yes Hx Diabetes Mellitus Type 2: Yes (denies) - HEMATOLOGICAL/ONCOLOGICAL Hx Anemia: Yes - INTEGUMENTARY Hx Dermatological Problems: Yes Hx Cellulitis: Yes (left arm) - MUSCULOSKELETAL/RHEUMATOLOGICAL Hx Fractures: Yes (RIGHT ANKLE "NO SURGERY DUE TO ANEMIA AND RENAL ISSUES.") - GASTROINTESTINAL Hx Gastrointestinal Disorders: Yes Other/Comment: HX: COLON/RECTAL CANCER. "I'M NO LONGER TAKING ANY BLOOD THINNERS EXCEPT WHAT THEY GIVE ME IN MY DIALYSIS DUE TO MY ANEMIA AND BLEEDING." - GENITOURINARY/GYNECOLOGICAL Hx Genitourinary Disorders: No - PSYCHIATRIC Hx Anxiety: Yes Hx Substance Use: No - SURGICAL HISTORY Hx Surgeries: Yes Hx Arteriovenous Shunt: Yes (LEFT ARM-NON FUNCTIONG; RIGHT ATRM) Hx Musculoskeletal Surgery: Yes (LT FOOT SX) Other/Comment: LT CHEST WALL DIALYSIS CATH. right sc dialysis access. HX: FISTULOGRAM RIGHT ARM. fsistula to right upper leg - ANESTHESIA Hx Anesthesia: Yes Hx Anesthesia Reactions: No Hx Malignant Hyperthermia: No Meds Allergies/Adverse Reactions: Allergies Allergy/AdvReac Type Severity Reaction Status Date / Time acetaminophen [From Percocet] Allergy Verified 01/13/19 10:21 ibuprofen Allergy Verified 01/13/19 10:21 oxycodone [From Percocet] Allergy Verified 01/13/19 10:21 tramadol Allergy Verified 01/13/19 10:21 [place] SNAPPLE Allergy Mild RASH Uncoded 08/19/18 17:06 - Medications Medications: Current Medications Amlodipine Besylate (Norvasc) 5 mg PO DAILY [facility] Last Admin: 01/13/19 13:30 Dose: 5 mg Dextrose (Dextrose 50% Inj) 0 ml IV STAT PRN; Protocol PRN Reason: Hypoglycemia Protocol Dextrose (Glutose 15) 0 gm PO ONCE PRN; Protocol PRN Reason: Hypoglycemia Protocol Glucagon (Glucagen Diagnostic Kit) 0 mg IM STAT PRN; Protocol PRN Reason: Hypoglycemia Protocol Hydralazine HCl (Apresoline) 25 mg PO QID PRN PRN Reason: Systolic Blood Pressure Hydromorphone HCl (Dilaudid) 1 mg IVP Q6H PRN PRN Reason: Pain, severe (8-10) Last Admin: 01/14/19 02:49 Dose: 1 mg Dextrose (Dextrose 5% In Water 1000 Ml) 1,000 mls @ 0 mls/hr IV .Q0M PRN; Protocol PRN Reason: Hypoglycemia Protocol Insulin Human Regular (Novolin R) 0 unit SC [facility]; Protocol Last Admin: 01/14/19 07:36 Dose: Not Given Labetalol HCl (Trandate) 100 mg PO BID [facility] Last Admin: 01/13/19 21:48 Dose: 100 mg Montelukast Sodium (Singulair) 10 mg PO DAILY [facility] Last Admin: 01/13/19 13:30 Dose: 10 mg Oxycodone HCl (Oxycodone Immediate Release Tab) 30 mg PO Q4H [facility] Last Admin: 01/14/19 01:39 Dose: Not Given Rosuvastatin Calcium (Crestor) 10 mg PO HS [facility] Last Admin: 01/13/19 21:48 Dose: 10 mg Results - Vital Signs Recent Vital Signs: Last Vital Signs Temp 97.1 F L 01/14/19 07:00 Pulse 89 01/14/19 07:00 Resp 18 01/14/19 07:00 BP 159/90 H 01/14/19 07:00 Pulse Ox 99 01/14/19 07:00 - Labs Result Diagrams: 01/14/19 06:17 01/14/19 06:17 Labs: Laboratory Results - last 24 hr 01/13/19 01/13/19 01/13/19 11:16 11:16 11:20 WBC 7.2 RBC 3.46 L Hgb 9.8 L Hct 31.7 L MCV 91.6 MCH 28.5 MCHC 31.1 L RDW 21.4 H Plt Count 177 MPV 8.4 Neut % (Auto) 71.6 Lymph % (Auto) 13.9 L [place] % (Auto) 10.9 H Eos % (Auto) 1.3 Baso % (Auto) 2.3 H Neut # (Auto) 5.2 Lymph # (Auto) 1.0 [place] # (Auto) 0.8 Eos # (Auto) 0.1 Baso # (Auto) 0.2 PT 15.4 H INR 1.4 APTT 34 Sodium 130 L Potassium 3.9 Chloride 87 L Carbon Dioxide 34 H Anion Gap 13 BUN 24 H Creatinine 5.5 H Est GFR ( Amer) 13 Est GFR (Non-Af Amer) 11 POC Glucose (mg/dL) Random Glucose 124 H Calcium 8.2 L Phosphorus Magnesium Total Bilirubin 1.5 H AST 45 ALT 113 H D Alkaline Phosphatase 87 Troponin I 0.0820 NT-Pro-B Natriuret Pep 239045 H Total Protein 6.9 Albumin 3.5 Globulin 3.4 Albumin/Globulin Ratio 1.0 01/13/19 01/13/19 01/14/19 16:10 21:04 06:17 WBC 7.3 RBC 3.31 L Hgb 9.3 L Hct 30.0 L MCV 90.5 MCH 28.2 MCHC 31.1 L RDW 20.2 H Plt Count 200 MPV 8.3 Neut % (Auto) 59.3 Lymph % (Auto) 23.4 [place] % (Auto) 11.7 H Eos % (Auto) 4.4 H Baso % (Auto) 1.2 Neut # (Auto) 4.3 Lymph # (Auto) 1.7 [place] # (Auto) 0.9 H Eos # (Auto) 0.3 Baso # (Auto) 0.1 PT INR APTT Sodium Potassium Chloride Carbon Dioxide Anion Gap BUN Creatinine Est GFR ( Amer) Est GFR (Non-Af Amer) POC Glucose (mg/dL) 127 H 155 H Random Glucose Calcium Phosphorus Magnesium Total Bilirubin AST ALT Alkaline Phosphatase Troponin I NT-Pro-B Natriuret Pep Total Protein Albumin Globulin Albumin/Globulin Ratio 01/14/19 06:17 WBC RBC Hgb Hct MCV MCH MCHC RDW Plt Count MPV Neut % (Auto) Lymph % (Auto) [place] % (Auto) Eos % (Auto) Baso % (Auto) Neut # (Auto) Lymph # (Auto) [place] # (Auto) Eos # (Auto) Baso # (Auto) PT INR APTT Sodium 130 L Potassium 3.9 Chloride 87 L Carbon Dioxide 31 H Anion Gap 15 BUN 28 H Creatinine 6.7 H Est GFR ( Amer) 10 Est GFR (Non-Af Amer) 9 POC Glucose (mg/dL) Random Glucose 104 Calcium 8.1 L Phosphorus 5.9 H Magnesium 1.9 Total Bilirubin 1.3 AST 37 ALT 92 H Alkaline Phosphatase 88 Troponin I NT-Pro-B Natriuret Pep Total Protein 6.7 Albumin 3.4 L Globulin 3.2 Albumin/Globulin Ratio 1.1
--- NOTE | 2019-01-14 13:05 | CP.PCM.PN ---
Subjective - Date & Time of Evaluation Date of Evaluation: 01/14/19 Time of Evaluation: 11:40 - Subjective Subjective: Patient seen and examined Complaining of back pain Dyspnea on exertion Afebrile Objective - Vital Signs/Intake and Output Vital Signs (last 24 hours): Temp Pulse Resp BP Pulse Ox 97.1 F L 89 18 159/90 H 99 01/14/19 07:00 01/14/19 07:00 01/14/19 07:00 01/14/19 07:00 01/14/19 07:00 Intake and Output: 01/14/19 01/14/19 06:59 18:59 Intake Total 300 Balance 300 - Medications Medications: Current Medications Amlodipine Besylate (Norvasc) 5 mg PO DAILY [facility] Last Admin: 01/14/19 09:11 Dose: 5 mg Dextrose (Dextrose 50% Inj) 0 ml IV STAT PRN; Protocol PRN Reason: Hypoglycemia Protocol Dextrose (Glutose 15) 0 gm PO ONCE PRN; Protocol PRN Reason: Hypoglycemia Protocol Glucagon (Glucagen Diagnostic Kit) 0 mg IM STAT PRN; Protocol PRN Reason: Hypoglycemia Protocol Heparin Sodium (Porcine) (Heparin) 5,000 units SC Q12 [facility] Hydralazine HCl (Apresoline) 25 mg PO QID PRN PRN Reason: Systolic Blood Pressure Hydromorphone HCl (Dilaudid) 1 mg IVP Q6H PRN PRN Reason: Pain, severe (8-10) Last Admin: 01/14/19 09:10 Dose: 1 mg Dextrose (Dextrose 5% In Water 1000 Ml) 1,000 mls @ 0 mls/hr IV .Q0M PRN; Protocol PRN Reason: Hypoglycemia Protocol Insulin Human Regular (Novolin R) 0 unit SC ACHS [facility]; Protocol Last Admin: 01/14/19 07:36 Dose: Not Given Labetalol HCl (Trandate) 100 mg PO BID [facility] Last Admin: 01/13/19 21:48 Dose: 100 mg Montelukast Sodium (Singulair) 10 mg PO DAILY [facility] Last Admin: 01/14/19 09:11 Dose: 10 mg Oxycodone HCl (Oxycodone Immediate Release Tab) 30 mg PO Q4H [facility] Last Admin: 01/14/19 11:29 Dose: Not Given Rosuvastatin Calcium (Crestor) 10 mg PO HS [facility] Last Admin: 01/13/19 21:48 Dose: 10 mg Sevelamer Carbonate (Renvela) 800 mg PO TIDCC [place] - Labs Labs: 01/14/19 06:17 01/14/19 06:17 PT 15.4 SECONDS (9.7-12.2) H 01/13/19 11:20 INR 1.4 01/13/19 11:20 APTT 34 SECONDS (21-34) 01/13/19 11:20 - Head Exam Head Exam: ATRAUMATIC, NORMOCEPHALIC - ENT Exam ENT Exam: Mucous Membranes Moist - Neck Exam Neck Exam: Normal Inspection - Respiratory Exam Respiratory Exam: Decreased Breath Sounds - Cardiovascular Exam Cardiovascular Exam: REGULAR RHYTHM - GI/Abdominal Exam GI & Abdominal Exam: Soft Assessment and Plan (1) Dyspnea Assessment & Plan: VQ scan low probability for pulmonary embolism Venous Doppler lower extremities Continue hemodialysis and pain medication Status: Acute (2) ESRD (end stage renal disease) on dialysis Status: Chronic
--- NOTE | 2019-01-14 21:10 | CP.PCM.CON ---
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 The patient reports to feeling more short of breath which awoke him from sleep. He went to the bathroom and notes to his legs buckling. He denies hitting his head. In regards to his colon cancer, he was diagnosed at [place] by colonoscopy. A PET CT scan revealed diffuse liver lesions and he began [id number] + Avastin. He has been tolerating his chemotherapy fairly well but notes to increased fatigue. Past medical history: DM, HTN, R IJ thrombus (reports to GI bleeding with antic oagulation), charcot foot, ESRD on HD, colon cancer with liver metastasis dx 10/2018 on chemotherapy. Past surgical history: AV fistula, portacath in right thigh Family history: Brother has cancer Social hsitory: Denies tobacco, alcohol, and illicit drug use. Allergies: Several, see list. Review of systems: All remaining review of systems including HEENT, cardiovascular, respiratory, gastrointestinal, genitourinary, musculoskeletal, dermatologic, neurologic, and psychiatric are negative unless mentioned in the HPI. Past Patient History - Infectious Disease Hx of Infectious Diseases: None - Past Medical History & Family History Past Medical History?: Yes - Past Social History Smoking Status: Never Smoked - CARDIAC Hx Congestive Heart Failure: Yes Hx Hypertension: Yes - PULMONARY Hx Pneumonia: Yes - NEUROLOGICAL Hx Neurological Disorder: No - HEENT Hx HEENT Problems: No - RENAL Hx Chronic Kidney Disease: Yes - ENDOCRINE/METABOLIC Hx Endocrine Disorders: Yes Hx Diabetes Mellitus Type 2: Yes (denies) - HEMATOLOGICAL/ONCOLOGICAL Hx Anemia: Yes - INTEGUMENTARY Hx Dermatological Problems: Yes Hx Cellulitis: Yes (left arm) - MUSCULOSKELETAL/RHEUMATOLOGICAL Hx Fractures: Yes (RIGHT ANKLE "NO SURGERY DUE TO ANEMIA AND RENAL ISSUES.") - GASTROINTESTINAL Hx Gastrointestinal Disorders: Yes Other/Comment: HX: COLON/RECTAL CANCER. "I'M NO LONGER TAKING ANY BLOOD THINNERS EXCEPT WHAT THEY GIVE ME IN MY DIALYSIS DUE TO MY ANEMIA AND BLEEDING." - GENITOURINARY/GYNECOLOGICAL Hx Genitourinary Disorders: No - PSYCHIATRIC Hx Anxiety: Yes Hx Substance Use: No - SURGICAL HISTORY Hx Surgeries: Yes Hx Arteriovenous Shunt: Yes (LEFT ARM-NON FUNCTIONG; RIGHT ATRM) Hx Musculoskeletal Surgery: Yes (LT FOOT SX) Other/Comment: LT CHEST WALL DIALYSIS CATH. right sc dialysis access. HX: FISTULOGRAM RIGHT ARM. fsistula to right upper leg - ANESTHESIA Hx Anesthesia: Yes Hx Anesthesia Reactions: No Hx Malignant Hyperthermia: No Meds Allergies/Adverse Reactions: Allergies Allergy/AdvReac Type Severity Reaction Status Date / Time acetaminophen [From Percocet] Allergy Verified 01/13/19 10:21 ibuprofen Allergy Verified 01/13/19 10:21 oxycodone [From Percocet] Allergy Verified 01/13/19 10:21 tramadol Allergy Verified 01/13/19 10:21 PEACH SNAPPLE Allergy Mild RASH Uncoded 08/19/18 17:06 - Medications Medications: Current Medications Amlodipine Besylate (Norvasc) 5 mg PO DAILY [facility] Last Admin: 01/14/19 09:11 Dose: 5 mg Dextrose (Dextrose 50% Inj) 0 ml IV STAT PRN; Protocol PRN Reason: Hypoglycemia Protocol Dextrose (Glutose 15) 0 gm PO ONCE PRN; Protocol PRN Reason: Hypoglycemia Protocol Glucagon (Glucagen Diagnostic Kit) 0 mg IM STAT PRN; Protocol PRN Reason: Hypoglycemia Protocol Heparin Sodium (Porcine) (Heparin) 5,000 units SC Q12 [facility] Last Admin: 01/14/19 13:36 Dose: Not Given Hydralazine HCl (Apresoline) 25 mg PO QID PRN PRN Reason: Systolic Blood Pressure Last Admin: 01/14/19 17:57 Dose: 25 mg Hydromorphone HCl (Dilaudid) 1 mg IVP Q6H PRN PRN Reason: Pain, severe (8-10) Last Admin: 01/14/19 20:13 Dose: 1 mg Dextrose (Dextrose 5% In Water 1000 Ml) 1,000 mls @ 0 mls/hr IV .Q0M PRN; Protocol PRN Reason: Hypoglycemia Protocol Insulin Human Regular (Novolin R) 0 unit SC ACHS [facility]; Protocol Last Admin: 01/14/19 16:21 Dose: Not Given Labetalol HCl (Trandate) 100 mg PO BID [facility] Last Admin: 01/14/19 18:01 Dose: Not Given Montelukast Sodium (Singulair) 10 mg PO DAILY [facility] Last Admin: 01/14/19 09:11 Dose: 10 mg Oxycodone HCl (Oxycodone Immediate Release Tab) 30 mg PO Q4H [facility] Last Admin: 01/14/19 18:02 Dose: Not Given Rosuvastatin Calcium (Crestor) 10 mg PO HS [facility] Last Admin: 01/13/19 21:48 Dose: 10 mg Sevelamer Carbonate (Renvela) 800 mg PO TIDCC [facility] Last Admin: 01/14/19 16:21 Dose: Not Given Physical Exam - Head Exam Head Exam: ATRAUMATIC - Eye Exam Eye Exam: Normal appearance - ENT Exam ENT Exam: Mucous Membranes Dry - Respiratory Exam Respiratory Exam: NORMAL BREATHING PATTERN - Cardiovascular Exam Cardiovascular Exam: +S1, +S2 - GI/Abdominal Exam GI & Abdominal Exam: Normal Bowel Sounds - Neurological Exam Neurological exam: Oriented x3 - Psychiatric Exam Psychiatric exam: Normal Affect, Normal Mood - Skin Skin Exam: Warm Results - Vital Signs Recent Vital Signs: Last Vital Signs Temp 97.5 F L 01/14/19 19:00 Pulse 95 H 01/14/19 19:00 Resp 18 01/14/19 19:00 BP 189/58 H 01/14/19 19:00 Pulse Ox 98 01/14/19 19:00 - Labs Result Diagrams: 01/14/19 06:17 01/14/19 06:17 Labs: Laboratory Results - last 24 hr 01/13/19 01/13/19 01/14/19 16:10 21:04 06:01 WBC RBC Hgb Hct MCV MCH MCHC RDW Plt Count MPV Neut % (Auto) Lymph % (Auto) [place] % (Auto) Eos % (Auto) Baso % (Auto) Neut # (Auto) Lymph # (Auto) [place] # (Auto) Eos # (Auto) Baso # (Auto) Sodium Potassium Chloride Carbon Dioxide Anion Gap BUN Creatinine Est GFR ( Amer) Est GFR (Non-Af Amer) POC Glucose (mg/dL) 127 H 155 H 112 H Random Glucose Calcium Phosphorus Magnesium Total Bilirubin AST ALT Alkaline Phosphatase Total Protein Albumin Globulin Albumin/Globulin Ratio 01/14/19 01/14/19 01/14/19 06:17 06:17 17:28 WBC 7.3 RBC 3.31 L Hgb 9.3 L Hct 30.0 L MCV 90.5 MCH 28.2 MCHC 31.1 L RDW 20.2 H Plt Count 200 MPV 8.3 Neut % (Auto) 59.3 Lymph % (Auto) 23.4 [place] % (Auto) 11.7 H Eos % (Auto) 4.4 H Baso % (Auto) 1.2 Neut # (Auto) 4.3 Lymph # (Auto) 1.7 [place] # (Auto) 0.9 H Eos # (Auto) 0.3 Baso # (Auto) 0.1 Sodium 130 L Potassium 3.9 Chloride 87 L Carbon Dioxide 31 H Anion Gap 15 BUN 28 H Creatinine 6.7 H Est GFR ( Amer) 10 Est GFR (Non-Af Amer) 9 POC Glucose (mg/dL) 129 H Random Glucose 104 Calcium 8.1 L Phosphorus 5.9 H Magnesium 1.9 Total Bilirubin 1.3 AST 37 ALT 92 H Alkaline Phosphatase 88 Total Protein 6.7 Albumin 3.4 L Globulin 3.2 Albumin/Globulin Ratio 1.1 Assessment & Plan (1) Anemia Assessment and Plan: multifactorial anemia of CKD, anemia of chronic disease, anemia of chemotherapy Okay to use JULIANA with HD Status: Chronic (2) Colon cancer Assessment and Plan: stage IV liver metastasis on outpatient chemotherapy will add CEA Thank you for this interesting consult. Status: Acute
[2019-01-14] MEDS ORDERED: DiphenhydrAMINE 12.5 mg/5 ml LIQ UD (5 ml) PO STA (23:50)
--- NOTE | 2019-01-15 00:02 | CARD ---
APPROVED REPORT Date of service: 01/13/2019 EKG Measurement Heart [id number] <Conclusion> Normal sinus rhythm Possible Left atrial enlargement Left axis deviation Septal infarct, age undetermined Abnormal ECG
[2019-01-15] MEDS: oxyCODONE 10 mg Immediate Release Tab PO SCH ×7 (01:30→21:39)
[2019-01-15] MEDS: HYDROmorphone 1 mg/ml ISec IVP PRN ×4 (02:22→21:26)
[2019-01-15 07:44] LABS: BASO # 0.1 K/uL (0.0-0.2); EOS # 0.2 K/uL (0.0-0.7); EOS % 3.3 % (0.0-4.0); HEMOGLOBIN 9.3 g/dL (12.0-18.0); LYMPH # 0.9 K/uL (1.0-4.3); LYMPH % 12.8 % (20.0-40.0); MEAN CELL VOLUME 91.6 fL (80.0-94.0); MEAN CORPUSCULAR HEMOGLOBIN 28.8 pg (27.0-31.0); MEAN CORPUSCULAR HGB CONC 31.4 g/dL (33.0-37.0); MEAN PLATELET VOLUME 8.8 fL (7.2-11.7); MONO % 13.6 % (0.0-10.0); NEUT # 4.9 K/uL (1.8-7.0); NEUT % 69.3 % (50.0-75.0); RBC 3.22 Mil/uL (4.40-5.90); RED CELL DISTRIBUTION WIDTH 21.2 % (11.5-14.5)
[2019-01-15 08:07] LABS: ALB/GLOB RATIO 1.1 (1.0-2.1); ALBUMIN 3.5 g/dL (3.5-5.0); CALCIUM 7.9 mg/dl (8.6-10.4)
--- NOTE | 2019-01-15 08:15 | CP.PCM.PN ---
Subjective - Date & Time of Evaluation Date of Evaluation: 01/15/19 Time of Evaluation: 09:00 - Subjective Subjective: PGY1 Medicine progress note for Dr. Lowery's service Pt was seen and examined at bedside. Pt reports back pain, chronic. He is no longer feeling short of breath and has no other complaints. Pt is resting comfortably. Denies fever, chills, chest pain, sob, palpitations, headache, visual changes, lightheadedness, dizziness, abdominal pain, n/v/d. Objective - Vital Signs/Intake and Output Vital Signs (last 24 hours): Temp Pulse Resp BP Pulse Ox 98.4 F 89 20 136/83 96 01/15/19 04:54 01/15/19 04:54 01/15/19 04:54 01/15/19 04:54 01/15/19 04:54 - Medications Medications: Current Medications Amlodipine Besylate (Norvasc) 5 mg PO DAILY [facility] Last Admin: 01/14/19 09:11 Dose: 5 mg Dextrose (Dextrose 50% Inj) 0 ml IV STAT PRN; Protocol PRN Reason: Hypoglycemia Protocol Dextrose (Glutose 15) 0 gm PO ONCE PRN; Protocol PRN Reason: Hypoglycemia Protocol Glucagon (Glucagen Diagnostic Kit) 0 mg IM STAT PRN; Protocol PRN Reason: Hypoglycemia Protocol Heparin Sodium (Porcine) (Heparin) 5,000 units SC Q12 [facility] Last Admin: 01/14/19 13:36 Dose: Not Given Hydralazine HCl (Apresoline) 25 mg PO QID PRN PRN Reason: Systolic Blood Pressure Last Admin: 01/14/19 17:57 Dose: 25 mg Hydromorphone HCl (Dilaudid) 1 mg IVP Q6H PRN PRN Reason: Pain, severe (8-10) Last Admin: 01/15/19 02:22 Dose: 1 mg Dextrose (Dextrose 5% In Water 1000 Ml) 1,000 mls @ 0 mls/hr IV .Q0M PRN; Protocol PRN Reason: Hypoglycemia Protocol Insulin Human Regular (Novolin R) 0 unit SC ACHS [facility]; Protocol Last Admin: 01/14/19 22:47 Dose: Not Given Labetalol HCl (Trandate) 100 mg PO BID [facility] Last Admin: 01/14/19 18:01 Dose: Not Given Montelukast Sodium (Singulair) 10 mg PO DAILY [facility] Last Admin: 01/14/19 09:11 Dose: 10 mg Oxycodone HCl (Oxycodone Immediate Release Tab) 30 mg PO Q4H [facility] Last Admin: 01/15/19 04:45 Dose: 30 mg Rosuvastatin Calcium (Crestor) 10 mg PO HS [facility] Last Admin: 01/14/19 22:24 Dose: 10 mg Sevelamer Carbonate (Renvela) 800 mg PO TIDCC [facility] Last Admin: 01/14/19 16:21 Dose: Not Given - Labs Labs: 01/15/19 07:38 01/15/19 07:38 PT 15.4 SECONDS (9.7-12.2) H 01/13/19 11:20 INR 1.4 01/13/19 11:20 APTT 34 SECONDS (21-34) 01/13/19 11:20 - Additional Findings Additional findings: - Constitutional Appears: Non-toxic, no acute distress - Head Exam Head Exam: ATRAUMATIC, NORMOCEPHALIC - Eye Exam Eye Exam: EOMI, PERRL - ENT Exam ENT Exam: Mucous Membranes Moist - Neck Exam Neck exam: Positive for: Full Rom - Respiratory Exam Respiratory Exam: Decreased breath sounds. No rales, no wheezing; no rhonchi, no stridor - Cardiovascular Exam Cardiovascular Exam: REGULAR RHYTHM, +S1, +S2 - GI/Abdominal Exam GI & Abdominal Exam: Normal Bowel Sounds, Soft - Extremities Exam 1+ pitting edema to the bilateral lower extremities; bilateral feet with bandages, not examined at request of pt. Additional comments: chemo port in right femoral vein underneath skin Right AV fistula with palpable thrill No signs of infection in either sites - Back Exam Additional comments: Skin changes noted on back, no signs of bleeding or infection - Neurological Exam Neurological exam: Alert, Oriented x3 Assessment and Plan - Assessment and Plan (Free Text) Assessment: 58 year old male with history of colorectal cancer currently on chemo, ESRD on HD MWF, DM, HTN, who presents for 2 day history of shortness of breath, weakness. Plan: Dyspnea VQ scan: Low probability VQ scan for PE. CXR: cardiomegaly, congestion, bibasilar infiltrates/atelectasis, small bilateral effusions. EKG: SR 97 no new changes from prior LE dopplers pending Briquetting Machine Operator Dr. Davis consulted, help appreciated Colorectal Cancer with mets to liver Oncologist Dr. Cardozo consulted, help appreciated On chemo currently Oxycodone 30mg Q4 Dilaudid 1mg Q6 PRN pain Benadryl as needed ESRD on HD MWF BUN/Cr is improved slightly after dialysis, no hyperkalemia. Pt with downtrending hyperphosphatemia Nephrology Dr. Aquino/Srinivasa consulted, help appreciated Continue Phosphate binder. ProBNP elevated [id number] Last ECHO 03/2018 showed normal LV systolic function. diastolic dysfunction. Dilated LA, dilated aortic root. LVH. To be dialyzed tomorrow to restart MWF schedule HTN Norvasc 5mg PO Labetalol 100mg PO BID Hydralazine 25mg QID PRN DM ISS Hypoglycemic protocol A1c pending Charcot foot Wound care nurse History of right IJV thrombus Was on Eliquis previously, however caused severe bleeding from rectal tumor as per patient Hold off on heparin as well F/u heme/onc for potential AC Anemia H/H is stable Continue to monitor Prophylaxis, diet Heart healthy diet Pepcid 20mg Dispo: Continue MWF dialysis. Re-evaluate for potential discharge after dialysis. Possible inpatient chemotherapy. Case discussed with Dr. Sebastián Spear, PGY1
--- NOTE | 2019-01-15 09:24 | CP.PCM.PN ---
Subjective - Date & Time of Evaluation Date of Evaluation: 01/15/19 Time of Evaluation: 09:23 - Subjective Subjective: RENAL s: seen and examined denies n/v pe: vs as below gen: Nad sclera: anicteric op: clear neck: Supple cv: +S1+s2 no rub lungs: crackles b/l bases abd: soft nt nd no organomegaly ext: 1+ edema b/l neuro: AA+OX3 no focal deficit psych: nml affect skino no rash imp: ESRD/ Anemia of renal disease/ Secondary hyperpara/hyperphosphatemia/ HTN/ SOB/diabetic kidney plan: HD tomorrow, MWF will hold off on JULIANA until discuss w/ Dr. Cardozo bp stable on phos binder dm per primary colon ca per onc Objective - Vital Signs/Intake and Output Vital Signs (last 24 hours): Temp Pulse Resp BP Pulse Ox 98.3 F 67 18 132/78 98 01/15/19 07:40 01/15/19 07:40 01/15/19 07:40 01/15/19 07:40 01/15/19 07:40 - Medications Medications: Current Medications Amlodipine Besylate (Norvasc) 5 mg PO DAILY [facility] Last Admin: 01/14/19 09:11 Dose: 5 mg Dextrose (Dextrose 50% Inj) 0 ml IV STAT PRN; Protocol PRN Reason: Hypoglycemia Protocol Dextrose (Glutose 15) 0 gm PO ONCE PRN; Protocol PRN Reason: Hypoglycemia Protocol Glucagon (Glucagen Diagnostic Kit) 0 mg IM STAT PRN; Protocol PRN Reason: Hypoglycemia Protocol Heparin Sodium (Porcine) (Heparin) 5,000 units SC Q12 [facility] Last Admin: 01/14/19 13:36 Dose: Not Given Hydralazine HCl (Apresoline) 25 mg PO QID PRN PRN Reason: Systolic Blood Pressure Last Admin: 01/14/19 17:57 Dose: 25 mg Hydromorphone HCl (Dilaudid) 1 mg IVP Q6H PRN PRN Reason: Pain, severe (8-10) Last Admin: 01/15/19 08:42 Dose: 1 mg Dextrose (Dextrose 5% In Water 1000 Ml) 1,000 mls @ 0 mls/hr IV .Q0M PRN; Protocol PRN Reason: Hypoglycemia Protocol Insulin Human Regular (Novolin R) 0 unit SC ACHS [facility]; Protocol Last Admin: 01/14/19 22:47 Dose: Not Given Labetalol HCl (Trandate) 100 mg PO BID [facility] Last Admin: 01/14/19 18:01 Dose: Not Given Montelukast Sodium (Singulair) 10 mg PO DAILY [facility] Last Admin: 01/14/19 09:11 Dose: 10 mg Oxycodone HCl (Oxycodone Immediate Release Tab) 30 mg PO Q4H [facility] Last Admin: 01/15/19 04:45 Dose: 30 mg Rosuvastatin Calcium (Crestor) 10 mg PO HS [facility] Last Admin: 01/14/19 22:24 Dose: 10 mg Sevelamer Carbonate (Renvela) 800 mg PO TIDCC [facility] Last Admin: 01/14/19 16:21 Dose: Not Given - Labs Labs: 01/15/19 07:38 01/15/19 07:38 PT 15.4 SECONDS (9.7-12.2) H 01/13/19 11:20 INR 1.4 01/13/19 11:20 APTT 34 SECONDS (21-34) 01/13/19 11:20
[2019-01-15] MEDS: (Novolin R) Insulin Human Regular 100 units/ml vial SC SCH ×4 (10:01→21:55)
--- NOTE | 2019-01-15 21:15 | CP.PCM.PN ---
Subjective - Date & Time of Evaluation Date of Evaluation: 01/15/19 Time of Evaluation: 17:00 - Subjective Subjective: Breathing better Objective - Vital Signs/Intake and Output Vital Signs (last 24 hours): Temp Pulse Resp BP Pulse Ox 97.6 F 88 20 151/92 H 99 01/15/19 15:19 01/15/19 16:00 01/15/19 15:19 01/15/19 15:19 01/15/19 15:19 - Medications Medications: Current Medications Amlodipine Besylate (Norvasc) 5 mg PO DAILY [facility] Last Admin: 01/15/19 10:07 Dose: 5 mg Dextrose (Dextrose 50% Inj) 0 ml IV STAT PRN; Protocol PRN Reason: Hypoglycemia Protocol Dextrose (Glutose 15) 0 gm PO ONCE PRN; Protocol PRN Reason: Hypoglycemia Protocol Glucagon (Glucagen Diagnostic Kit) 0 mg IM STAT PRN; Protocol PRN Reason: Hypoglycemia Protocol Heparin Sodium (Porcine) (Heparin) 5,000 units SC Q12 [facility] Last Admin: 01/14/19 13:36 Dose: Not Given Hydralazine HCl (Apresoline) 25 mg PO QID PRN PRN Reason: Systolic Blood Pressure Last Admin: 01/14/19 17:57 Dose: 25 mg Hydromorphone HCl (Dilaudid) 1 mg IVP Q6H PRN PRN Reason: Pain, severe (8-10) Last Admin: 01/15/19 15:54 Dose: 1 mg Dextrose (Dextrose 5% In Water 1000 Ml) 1,000 mls @ 0 mls/hr IV .Q0M PRN; Protocol PRN Reason: Hypoglycemia Protocol Insulin Human Regular (Novolin R) 0 unit SC ACHS [facility]; Protocol Last Admin: 01/15/19 17:09 Dose: Not Given Labetalol HCl (Trandate) 100 mg PO BID [facility] Last Admin: 01/15/19 17:34 Dose: 100 mg Montelukast Sodium (Singulair) 10 mg PO DAILY [facility] Last Admin: 01/15/19 10:07 Dose: Not Given Oxycodone HCl (Oxycodone Immediate Release Tab) 30 mg PO Q4H [facility] Last Admin: 01/15/19 17:35 Dose: 30 mg Rosuvastatin Calcium (Crestor) 10 mg PO HS [facility] Last Admin: 01/14/19 22:24 Dose: 10 mg Sevelamer Carbonate (Renvela) 800 mg PO [facility] [place] Last Admin: 01/15/19 17:34 Dose: 800 mg - Labs Labs: 01/15/19 07:38 01/15/19 07:38 PT 15.4 SECONDS (9.7-12.2) H 01/13/19 11:20 INR 1.4 01/13/19 11:20 APTT 34 SECONDS (21-34) 01/13/19 11:20 - Head Exam Head Exam: ATRAUMATIC - Eye Exam Eye Exam: Normal appearance - ENT Exam ENT Exam: Mucous Membranes Dry - Respiratory Exam Respiratory Exam: NORMAL BREATHING PATTERN - Cardiovascular Exam Cardiovascular Exam: +S1, +S2 - GI/Abdominal Exam GI & Abdominal Exam: Normal Bowel Sounds Assessment and Plan (1) Anemia Assessment & Plan: chronic disease, renal disease ok to use JULIANA with HD Status: Chronic (2) Colon cancer Assessment & Plan: stage IV liver metastasis outpatient chemotherapy Status: Acute
[2019-01-16] MEDS: HYDROmorphone 1 mg/ml ISec IVP PRN ×4 (02:32→22:39)
[2019-01-16] MEDS: oxyCODONE 30 mg Immediate Release Tab PO SCH ×6 (02:45→20:41)
[2019-01-16 07:43] LABS: BASO # 0.1 K/uL (0.0-0.2); BASO % 0.9 % (0.0-2.0); EOS # 0.1 K/uL (0.0-0.7); EOS % 2.1 % (0.0-4.0); LYMPH % 17.5 % (20.0-40.0); MEAN CELL VOLUME 90.8 fL (80.0-94.0); MEAN CORPUSCULAR HEMOGLOBIN 29.2 pg (27.0-31.0); MEAN CORPUSCULAR HGB CONC 32.2 g/dL (33.0-37.0); MEAN PLATELET VOLUME 8.7 fL (7.2-11.7); MONO # 0.8 K/uL (0.0-0.8); MONO % 14.5 % (0.0-10.0); NEUT # 3.7 K/uL (1.8-7.0); RBC 3.08 Mil/uL (4.40-5.90); RED CELL DISTRIBUTION WIDTH 20.5 % (11.5-14.5); WHITE BLOOD COUNT 5.8 K/uL (4.8-10.8)
[2019-01-16] MEDS: (Novolin R) Insulin Human Regular 100 units/ml vial SC SCH ×3 (07:50→17:00)
--- NOTE | 2019-01-16 07:51 | CP.PCM.PN ---
Subjective - Date & Time of Evaluation Date of Evaluation: 01/16/19 Time of Evaluation: 07:54 - Subjective Subjective: Patient sitting up awake and conscious Not in acute distress No nausea or vomiting Vital signs stable Objective - Vital Signs/Intake and Output Vital Signs (last 24 hours): Temp Pulse Resp BP Pulse Ox 97.8 F 88 20 131/72 98 01/15/19 23:16 01/16/19 03:53 01/15/19 23:16 01/15/19 23:16 01/15/19 23:16 - Medications Medications: Current Medications Amlodipine Besylate (Norvasc) 5 mg PO DAILY [facility] Last Admin: 01/15/19 10:07 Dose: 5 mg Dextrose (Dextrose 50% Inj) 0 ml IV STAT PRN; Protocol PRN Reason: Hypoglycemia Protocol Dextrose (Glutose 15) 0 gm PO ONCE PRN; Protocol PRN Reason: Hypoglycemia Protocol Glucagon (Glucagen Diagnostic Kit) 0 mg IM STAT PRN; Protocol PRN Reason: Hypoglycemia Protocol Heparin Sodium (Porcine) (Heparin) 5,000 units SC Q12 [facility] Last Admin: 01/14/19 13:36 Dose: Not Given Hydralazine HCl (Apresoline) 25 mg PO QID PRN PRN Reason: Systolic Blood Pressure Last Admin: 01/14/19 17:57 Dose: 25 mg Hydromorphone HCl (Dilaudid) 1 mg IVP Q6H PRN PRN Reason: Pain, severe (8-10) Last Admin: 01/16/19 02:32 Dose: 1 mg Dextrose (Dextrose 5% In Water 1000 Ml) 1,000 mls @ 0 mls/hr IV .Q0M PRN; Protocol PRN Reason: Hypoglycemia Protocol Insulin Human Regular (Novolin R) 0 unit SC ACHS [facility]; Protocol Last Admin: 01/15/19 21:55 Dose: Not Given Labetalol HCl (Trandate) 100 mg PO BID [facility] Last Admin: 01/15/19 17:34 Dose: 100 mg Montelukast Sodium (Singulair) 10 mg PO DAILY [facility] Last Admin: 01/15/19 10:07 Dose: Not Given Oxycodone HCl (Oxycodone Immediate Release Tab) 30 mg PO Q4H [facility] Last Admin: 01/16/19 03:47 Dose: 30 mg Rosuvastatin Calcium (Crestor) 10 mg PO HS [facility] Last Admin: 01/15/19 21:38 Dose: 10 mg Sevelamer Carbonate (Renvela) 800 mg PO TIDCC [facility] Last Admin: 01/15/19 17:34 Dose: 800 mg - Labs Labs: 01/16/19 07:27 01/15/19 07:38 PT 15.4 SECONDS (9.7-12.2) H 01/13/19 11:20 INR 1.4 01/13/19 11:20 APTT 34 SECONDS (21-34) 01/13/19 11:20 - Constitutional Appears: No Acute Distress - Eye Exam Eye Exam: Conjunctival injection - ENT Exam ENT Exam: Mucous Membranes Moist - Respiratory Exam Respiratory Exam: NORMAL BREATHING PATTERN. absent: Rales - Cardiovascular Exam Cardiovascular Exam: absent: Gallop, JVD, RRR - GI/Abdominal Exam GI & Abdominal Exam: Soft, Normal Bowel Sounds - Extremities Exam Extremities Exam: absent: Calf Tenderness - Back Exam Back Exam: absent: CVA tenderness (L), CVA tenderness (R) - Neurological Exam Neurological Exam: Alert - Psychiatric Exam Psychiatric exam: Normal Affect - Skin Skin Exam: absent: Cyanosis Assessment and Plan (1) Chronic kidney disease with end stage renal failure on dialysis Assessment & Plan: imp: ESRD/ Anemia of renal disease/ Secondary hyperpara/hyperphosphatemia/ HTN/ SOB/diabetic kidney Past medical history: DM, HTN, R IJ thrombus , charcot foot, ESRD on HD, colon cancer with liver metastasis dx 10/2018 on chemotherapy. Past surgical history: AV fistula, portacath in right thigh Plan Patient is scheduled for hemodialysis today and Wednesday. Colon cancer management as noted per oncology EPO on dialysis Status: Acute (2) Colon cancer Status: Acute
[2019-01-16 08:08] LABS: ALB/GLOB RATIO 1.1 (1.0-2.1); ALBUMIN 3.7 g/dL (3.5-5.0); CALCIUM 7.9 mg/dl (8.6-10.4)
[2019-01-16] MEDS ORDERED: Epoetin Alfa Dialysis 40000 UNIT/ml Inj IV SCH (10:00)
--- NOTE | 2019-01-16 15:57 | CP.PCM.DIS ---
Provider - Provider Date of Admission: 01/13/19 11:52 Attending physician: Prashanth Lowery Jr, MD Consults: 01/13/19 12:40 Physician Consult Routine Comment: Consulting Provider: Alvaro Aquino Consulting Physician: Alvaro Aquino Reason for Consult: Needs Dialysis, MWF 01/13/19 13:35 Physician Consult Routine Comment: Consulting Provider: Ke Davis Consulting Physician: Ke Davis Reason for Consult: fluid overload, shortness of breath Physician Consult Routine Comment: Consulting Provider: Julius Cardozo Consulting Physician: Julius Cardozo Reason for Consult: colorectal cancer with mets to liver Time Spent in preparation of Discharge (in minutes): 70 Hospital Course - Lab Results Lab Results: Most Recent Lab Values WBC 5.8 K/uL (4.8-10.8) 01/16/19 07:27 RBC 3.08 Mil/uL (4.40-5.90) L 01/16/19 07:27 Hgb 9.0 g/dL (12.0-18.0) L 01/16/19 07:27 Hct 28.0 % (35.0-51.0) L 01/16/19 07:27 MCV 90.8 fL (80.0-94.0) 01/16/19 07:27 MCH 29.2 pg (27.0-31.0) 01/16/19 07:27 MCHC 32.2 g/dL (33.0-37.0) L 01/16/19 07:27 RDW 20.5 % (11.5-14.5) H 01/16/19 07:27 Plt Count 143 K/uL (130-400) 01/16/19 07:27 MPV 8.7 fL (7.2-11.7) 01/16/19 07:27 Neut % (Auto) 65.0 % (50.0-75.0) 01/16/19 07:27 Lymph % (Auto) 17.5 % (20.0-40.0) L 01/16/19 07:27 Victoria % (Auto) 14.5 % (0.0-10.0) H 01/16/19 07:27 Eos % (Auto) 2.1 % (0.0-4.0) 01/16/19 07:27 Baso % (Auto) 0.9 % (0.0-2.0) 01/16/19 07:27 Neut # (Auto) 3.7 K/uL (1.8-7.0) 01/16/19 07:27 Lymph # (Auto) 1.0 K/uL (1.0-4.3) 01/16/19 07:27 Victoria # (Auto) 0.8 K/uL (0.0-0.8) 01/16/19 07:27 Eos # (Auto) 0.1 K/uL (0.0-0.7) 01/16/19 07:27 Baso # (Auto) 0.1 K/uL (0.0-0.2) 01/16/19 07:27 PT 15.4 SECONDS (9.7-12.2) H 01/13/19 11:20 INR 1.4 01/13/19 11:20 APTT 34 SECONDS (21-34) 01/13/19 11:20 Sodium 129 mmol/L (132-148) L 01/16/19 07:27 Potassium 4.3 mmol/L (3.6-5.2) 01/16/19 07:27 Chloride 90 mmol/L (98-107) L 01/16/19 07:27 Carbon Dioxide 27 mmol/L (22-30) 01/16/19 07:27 Anion Gap 18 (10-20) 01/16/19 07:27 BUN 33 mg/dL (9-20) H 01/16/19 07:27 Creatinine 7.2 mg/dL (0.8-1.5) H 01/16/19 07:27 Est GFR ( Amer) 10 01/16/19 07:27 Est GFR (Non-Af Amer) 8 01/16/19 07:27 POC Glucose (mg/dL) 125 mg/dL (65-110) H 01/16/19 06:10 Random Glucose 117 mg/dL (75-110) H D 01/16/19 07:27 Hemoglobin A1c 5.7 % (4.2-6.5) 01/14/19 06:17 Calcium 7.9 mg/dl (8.6-10.4) L 01/16/19 07:27 Phosphorus 5.0 mg/dL (2.5-4.5) H 01/16/19 07:27 Magnesium 1.9 mg/dL (1.6-2.3) 01/16/19 07:27 Total Bilirubin 0.8 mg/dL (0.2-1.3) 01/16/19 07:27 AST 35 U/L (17-59) 01/16/19 07:27 ALT 68 U/L (21-72) 01/16/19 07:27 Alkaline Phosphatase 98 U/L (38-126) 01/16/19 07:27 Troponin I 0.0820 ng/mL (0.00-0.120) 01/13/19 11:16 NT-Pro-B Natriuret Pep 902295 pg/mL (0-900) H 01/13/19 11:16 Total Protein 6.9 g/dL (6.3-8.3) 01/16/19 07:27 Albumin 3.7 g/dL (3.5-5.0) 01/16/19 07:27 Globulin 3.2 gm/dL (2.2-3.9) 01/16/19 07:27 Albumin/Globulin Ratio 1.1 (1.0-2.1) 01/16/19 07:27 Carcinoembryonic Ag 16.7 ng/mL (0-3.0) H 01/15/19 07:38 - Hospital Course Hospital Course: Upon Admission: Patient is a 58 year old male with history newly diagnosed colorectal cancer with mets to liver, ESRD on HD MWF, HTN, DM, Charcot foot who presents for shortness of breath that started 2 days ago after his HD dialysis session on Wednesday. He states that this morning at 3am when he woke up to go to the bathroom his legs buckled and he had to grab his crutches. He denies falling or fainting today. He states he was sweating all over today. Denies fevers, headache, dizziness, chest pain, palpitations, abdominal pain. He states he had a sore throat this morning for which he used some cough drops. Also admits to decreased appetite. 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 Patient was admitted for workup and evaluation of dyspnea. Hospital Course: Patient was placed on duonebs for dyspnea. CXR showed cardiomegaly and b/l infiltrates/atelectasis CT angio did not show evidence of PE. Pulmonology was consulted and recommended continuation of medical therapy for dyspnea. Heme/Onc was consulted and recommended outpatient follow up for next chemotherapy administration. Nephro was consulted and placed dialysis orders for patient to be dialyzed on MWF. Dyspnea improved and patient was deemed stable for discharge. Upon Discharge: Patient was deemed stable for discharge to home with instructions to follow up at Dr. Cardozo's office the following day for chemotherapy. Patient was instructed to follow up with Dr. Lowery and to adhere to hemodialysis schedule. Patient understood instructions and agreed. Discharge Exam - Head Exam Head Exam: ATRAUMATIC, NORMOCEPHALIC - Eye Exam Eye Exam: EOMI, Normal appearance Pupil Exam: NORMAL ACCOMODATION - Respiratory Exam Respiratory Exam: Clear to PA & Lateral, NORMAL BREATHING PATTERN. absent: Rales, Rhonchi, Wheezes - Cardiovascular Exam Cardiovascular Exam: REGULAR RHYTHM, +S1, +S2. absent: Systolic Murmur - GI/Abdominal Exam GI & Abdominal Exam: Firm, Normal Bowel Sounds, Soft. absent: Distended, Tenderness - Extremities Exam Extremities exam: pedal edema - Neurological Exam Neurological exam: Alert, Oriented x3 - Psychiatric Exam Psychiatric exam: Agitated Discharge Plan - Discharge Medications Prescriptions: amLODIPine [Norvasc] 5 mg PO DAILY #30 tab Labetalol [Trandate] 100 mg PO BID #60 tab Montelukast [Singulair] 10 mg PO DAILY #30 tab Rosuvastatin Calcium [Crestor] 10 mg PO HS #30 tab Sevelamer Carbonate [Renvela] 800 mg PO TIDCC #90 tab - Follow Up Plan Condition: FAIR Disposition: HOME/ ROUTINE Instructions: Colon and Rectal Cancer (DC), Chronic Kidney Disease (DC), Heart Failure (DC), Renal Failure Diet (DC), Heart Failure (GEN), Pacemaker (DC), Pacemaker (GEN), Pulmonary Edema (DC), Pulmonary Edema (GEN), Ascites (DC), Ascites (GEN) Additional Instructions: Please follow up with Dr. Lowery within 2 weeks. Please call to make an appointment. Please follow up with Dr. Cardozo TOMORROW Wednesday, Feb 19th in the morning. He is expecting you for your next round of chemotherapy. Please adhere to your Wednesday and Wednesday dialysis schedule. If you miss your dialysis session, your symptoms will most likely return. Please take your medications as prescribed. If symptoms worsen, please visit the emergency department. Referrals: Ke Davis MD [Staff Provider] - Julius Cardozo MD [Staff Provider] - Alvaro Aquino MD [Staff Provider] - Prashanth Lowery Jr., MD [Medical Doctor] -
[2019-01-17 01:25] VITALS: RESP 20
[2019-01-17] MEDS: oxyCODONE 30 mg Immediate Release Tab PO SCH ×2 (01:50→06:45)
[2019-01-17] MEDS: HYDROmorphone 1 mg/ml ISec IVP PRN ×2 (05:12→11:35)
[2019-01-17 06:37] LABS: BASO # 0.1 K/uL (0.0-0.2); BASO % 1.1 % (0.0-2.0); EOS # 0.1 K/uL (0.0-0.7); EOS % 2.5 % (0.0-4.0); HEMOGLOBIN 8.5 g/dL (12.0-18.0); MEAN CELL VOLUME 90.7 fL (80.0-94.0); MEAN CORPUSCULAR HEMOGLOBIN 28.7 pg (27.0-31.0); MEAN CORPUSCULAR HGB CONC 31.7 g/dL (33.0-37.0); MEAN PLATELET VOLUME 8.9 fL (7.2-11.7); MONO # 0.8 K/uL (0.0-0.8); MONO % 14.8 % (0.0-10.0); NEUT # 3.5 K/uL (1.8-7.0); NEUT % 63.6 % (50.0-75.0); RBC 2.97 Mil/uL (4.40-5.90); RED CELL DISTRIBUTION WIDTH 20.6 % (11.5-14.5); WHITE BLOOD COUNT 5.5 K/uL (4.8-10.8)
[2019-01-17 06:48] LABS: ALB/GLOB RATIO 1.1 (1.0-2.1); ALBUMIN 3.6 g/dL (3.5-5.0)
[2019-01-17] MEDS: (Novolin R) Insulin Human Regular 100 units/ml vial SC SCH (07:35)
[2019-01-17 08:17] VITALS: BP 160/90; PULSE 90; TEMP 98.1; O2SAT 96
--- NOTE | 2019-01-17 09:18 | PCM.HF ---
Heart Failure Core Measure - Heart Failure Ejection Fraction: 40 % or Greater CHI Inhibitor Prescribed: No Contraindication/Reason for not providing: ef>45/ ESRD Beta-Brandyn Prescribed: Metoprolol Succinate Angiotensin II Receptor Brandyn Prescribed: No Contraindication/Reason for not providing: EF>45 AnticoagulationTherapy for Atrial Fibrillation/Atrialflutter: No Contraindication/Reason for not providing: NO HX OF A FIB Aldosterone Antagonist Prescribed: No Contraindication/Reason for not providing: EF>45/ESRD Hydralazine Nitrate Prescribed: No Contraindication/Reason for not providing: EF>45 Implantable Cardioverter Defibrillator Therapy: No Contraindication/Reason for not providing: EF>45 Cardiac Resynchronization Therapy Prescribed: No Contraindication/Reason for not providing: EF>45 - Follow up Will be discharged to: Home Follow Up Date (must be within 7 days from discharge): 01/20/19 Follow Up Time: 14:00
[2019-01-18] MEDS ORDERED: Epoetin Alfa Dialysis 40000 UNIT/ml Inj IV SCH (09:00)
[2019-01-18] MEDS ORDERED: Epoetin Alfa 10,000 unit/ml Dialysis IV SCH (11:00)
== END 2019-01-17 12:02 | disposition home or self-care (01) | DRG 291 ==
LOC: C.ER 10:15 → C.6T 11:52
PROVIDERS: ADMIT Internal Medicine; ATTEND Internal Medicine
PROC: 5A1D70Z Performance of Urinary Filtration, Intermittent, Less than 6 Hours Per Day (ICD-10-PCS; principal; 2019-01-14)
DX: I13.2 Hypertensive heart and chronic kidney disease with heart failure and with stage 5 chronic kidney disease, or end stage renal disease (principal); N18.6 End stage renal disease; J98.11 Atelectasis; C19 Malignant neoplasm of rectosigmoid junction; C78.7 Secondary malignant neoplasm of liver and intrahepatic bile duct; I50.9 Heart failure, unspecified; D63.1 Anemia in chronic kidney disease; D64.81 Anemia due to antineoplastic chemotherapy; T45.1X5A Adverse effect of antineoplastic and immunosuppressive drugs, initial encounter; E11.22 Type 2 diabetes mellitus with diabetic chronic kidney disease; E11.610 Type 2 diabetes mellitus with diabetic neuropathic arthropathy; G89.29 Other chronic pain; M54.9 Dorsalgia, unspecified; Z80.9 Family history of malignant neoplasm, unspecified; Z86.718 Personal history of other venous thrombosis and embolism; Z87.01 Personal history of pneumonia (recurrent); Z99.2 Dependence on renal dialysis; Z79.4 Long term (current) use of insulin